=== PATIENT | female | born 1950 | race Caucasian/White ===

== ENCOUNTER → 2018-06-16 05:59 | Outpatient (CLI) | payer MEDICARE, OTHER, SELFPAY ==
--- NOTE | 2018-06-16 06:08 | ECHOD_ITS ---
Reason For Study: chest tightness Procedure This was a 2D Doppler, Color Flow transthoracic echocardiogram. Exam performed in department. Left Ventricle Normal size and thickness. The estimated ejection fraction is 65 %. Normal diastology for age. No regional wall motion abnormalities noted. Right Ventricle Mildly dilated right ventricle. Normal systolic function. Atria Normal left atrium. Normal right atrium. Normal atrial septum. Bubble contrast study negative for right to left interatrial shunt. Mitral Valve Normal mitral valve. Trivial mitral valve insufficiency. Tricuspid Valve Normal tricuspid valve. Mild to moderate (1-2+) tricuspid valve insufficiency. Right ventricular systolic pressure estimated to be 30 mmHg. Aortic Valve Normal aortic valve. Trisinus/trileaflet aortic valve. Pulmonic Valve Normal pulmonic valve. Trivial pulmonic valve insufficiency. Great Vessels Normal aortic root. Normal arch. Normal inferior vena cava. Inferior vena cava collapse with sniff. Pericardium/Pleural No pericardial effusion. Medication Performed a rapid injection of agitated mix of 9 cc saline and 1cc air to assess for atrial septal defect. MMode/2D Measurements & Calculations LVIDd: 4.1 cm IVSd: 0.89 cm LVOT diam: 2.0 cm LVIDs: 2.8 cm LVPWd: 0.88 cm LVOT area: 3.2 cm2 RVDd: 4.0 cm FS: 31.5 % Ao root diam: 3.6 cm LAV(MOD-bp): 51.3 ml LA A4 area: 17.5 cm2 LA dimension: 3.1 cm LAV(MOD-bp) Indexed: 29.3 ml/m2 LAV(MOD-sp2): 56.9 ml LAV(MOD-sp4): 45.3 ml RA A4 area: 16.5 cm2 Time Measurements MV dec time: 0.23 sec Doppler Measurements & Calculations MV E max will: 81.9 cm/sec Lat Peak E' Will: 9.3 cm/sec Med Peak E' Will: 6.0 cm/sec MV A max will: 49.2 cm/sec E/E' lat: 8.8 E/E' med: 13.6 MV E/A: 1.7 Ao V2 max: 127.8 cm/sec LV V1 max: 117.3 cm/sec SV(LVOT): 92.8 ml Ao max P.5 mmHg LV V1 max P.5 mmHg Ao V2 mean: 84.3 cm/sec LV V1 mean P.7 mmHg Ao mean P.3 mmHg LV V1 mean: 76.0 cm/sec Ao V2 VTI: 30.6 cm LV V1 VTI: 28.6 cm WILY(I,D): 3.0 cm2 WILY(V,D): 3.0 cm2 PA V2 max: 100.0 cm/sec TR max will: 251.1 cm/sec TR max P.3 mmHg Interpretation Summary The estimated ejection fraction is 65 %. Normal diastology for age. Bubble contrast study negative for right to left interatrial shunt. Mild to moderate (1-2+) tricuspid valve insufficiency. Right ventricular systolic pressure estimated to be 30 mmHg. There is no comparison study available. Ordering Physician: Rosalva Fung Referring Physician: Rosalva Fung Performed By: Krissy Cook, YASMANY, RVT
--- NOTE | 2018-06-16 09:24 | STRESSREP ---
Stress Test Report Date: 06/16/2018 Procedure: Exercise tolerance test/imaging study Indications: Chest pain; shortness of breath Consent: Per the patient Procedure: The patient exercised on a Derek protocol for 9 minutes completing Stage 3 achieving a peak heart rate of 133 bpm (86 % predicted maximal heart rate) with a peak blood pressure 180/70 mmHg and a peak MET capacity of 10 METs. The baseline ECG demonstrated sinus bradycardia. The peak exercise ECG demonstrated somatic/motion artifact with no obvious ECG changes. There was a rare PAC/atrial couplet in recovery and a rare PVC in recovery. The functional capacity was considered good. There was no complaint of chest discomfort during exercise or recovery. The examination was discontinued secondary to dyspnea. Impression: 1. Technically adequate (percent predicted maximal heart rate greater than 85%) exercise tolerance test 2. Peak exercise ECG demonstrated somatic/motion artifact with no obvious ECG changes 3. There was a rare PAC/atrial couplet in recovery and a rare PVC in recovery. 4. Nuclear images pending Myocardial perfusion imaging study: Technique: The patient was injected with 12 mCi of technetium 99m Cardiolite and subsequently rest SPECT Cardiolite nuclear imaging was obtained in the horizontal long, vertical long, and short axis views. The patient exercised on a Derek protocol for 9 minutes completing Stage 3 achieving a peak heart rate of 133 bpm (86 % predicted maximal heart rate) with a peak blood pressure 180/70 mmHg and a peak MET capacity of 10 METs. The patient was injected with 36 mCi of technetium 99m Cardiolite and subsequently stress SPECT Cardiolite nuclear imaging was obtained in the horizontal long, vertical long, and short axis views. A gated Cardiolite study at peak stress was obtained. Interpretation: Rest and stress SPECT Cardiolite nuclear imaging status post realignment, normalization, and attenuation correction, demonstrates the appearance of relative uniform tracer uptake and myocardial perfusion appearing within normal limits. There is end systolic thickening and brightening. The gated Cardiolite study demonstrates myocardial thickening and inward wall motion. The reported LVEF is 85 %. Impression: 1. Rest and stress SPECT Cardiolite nuclear imaging demonstrate relative uniform tracer uptake and myocardial perfusion appearing within normal limits. 2. The gated Cardiolite study reports an LVEF of 85 %. This note was generated with [employer] software. It may contain incorrect words, spelling, and punctuation that were not noted in checking the note before signing.
--- NOTE | 2018-06-16 09:31 | STRESSREP_ITS ---
Stress Test Report Date: 06/16/2018 Procedure: Exercise tolerance test/imaging study Indications: Chest pain; shortness of breath Consent: Per the patient Procedure: The patient exercised on a Derek protocol for 9 minutes completing Stage 3 achieving a peak heart rate of 133 bpm (86 % predicted maximal heart rate) with a peak blood pressure 180/70 mmHg and a peak MET capacity of 10 METs. The baseline ECG demonstrated sinus bradycardia. The peak exercise ECG demonstrated somatic/motion artifact with no obvious ECG changes. There was a rare PAC/atrial couplet in recovery and a rare PVC in recovery. The functional capacity was considered good. There was no complaint of chest discomfort during exercise or recovery. The examination was discontinued secondary to dyspnea. Impression: 1. Technically adequate (percent predicted maximal heart rate greater than 85% ) exercise tolerance test 2. Peak exercise ECG demonstrated somatic/motion artifact with no obvious ECG changes 3. There was a rare PAC/atrial couplet in recovery and a rare PVC in recovery. 4. Nuclear images pending Myocardial perfusion imaging study: Technique: The patient was injected with 12 mCi of technetium 99m Cardiolite and subsequently rest SPECT Cardiolite nuclear imaging was obtained in the horizontal long, vertical long, and short axis views. The patient exercised on a Derek protocol for 9 minutes completing Stage 3 achieving a peak heart rate of 133 bpm (86 % predicted maximal heart rate) with a peak blood pressure 180/ 70 mmHg and a peak MET capacity of 10 METs. The patient was injected with 36 mCi of technetium 99m Cardiolite and subsequently stress SPECT Cardiolite nuclear imaging was obtained in the horizontal long, vertical long, and short axis views. A gated Cardiolite study at peak stress was obtained. Interpretation: Rest and stress SPECT Cardiolite nuclear imaging status post realignment, normalization, and attenuation correction, demonstrates the appearance of relative uniform tracer uptake and myocardial perfusion appearing within normal limits. There is end systolic thickening and brightening. The gated Cardiolite study demonstrates myocardial thickening and inward wall motion. The reported LVEF is 85 %. Impression: 1. Rest and stress SPECT Cardiolite nuclear imaging demonstrate relative uniform tracer uptake and myocardial perfusion appearing within normal limits. 2. The gated Cardiolite study reports an LVEF of 85 %. This note was generated with [employer] software. It may contain incorrect words, spelling, and punctuation that were not noted in checking the note before signing.
== END ==
PROVIDERS: Family Provider Internal Medicine; PCP Internal Medicine; Visit Provider Internal Medicine
DX: R07.89 Other chest pain (principal); R01.1 Cardiac murmur, unspecified
CPT/HCPCS: 78452; 93017; 93306; A9500; A4216

== ENCOUNTER → 2018-07-18 14:11 | Outpatient (CLI) | payer MEDICARE, OTHER, SELFPAY ==
[2018-07-18 16:06] LABS: Erythrocyte Sedimentation Rate 8 mm/hr (0-30)
[2018-07-18 16:09] LABS: Absolute Lymphocyte Count 2.08 X10^3/ul (0.83-4.51); Absolute Neutrophil Count 3.2 X10^3/uL (2.0-7.7); Basophil# 0.01 X10^3/uL; Basophil% 0.2 % (0-1); Eosinophil# 0.08 X10^3/uL; Eosinophils% 1.4 % (0-5); Hematocrit 37.5 % (37-47); Hemoglobin 12.1 g/dl (12.0-15.0); Lymphocyte # 2.08 X10^3/ul (4.0); Lymphocyte % 36.7 % (19-41); Mean Corp Hgb Conc 32.3 g/gl (32-36); Mean Corpuscular Hgb 29.2 pg (27.0-32.0); Mean Corpuscular Volume 90.4 fL (81-99); Mean Platelet Vol. 10.8 fl (6.2-12.0); Monocyte# 0.33 X10^3/uL; Monocyte% 5.8 % (0-10); Neutrophil # 3.17 X10^3/uL (2.7-7.7); Neutrophil % 55.9 % (47-70); Platelet Count 129 K/mm3 (150-450); RBC Distribution Width CV 13.4 % (11.6-14.6); Red Blood Count 4.15 M/mm3 (4.2-5.4); White Blood Count 5.7 K/mm3 (4.4-11.0)
[2018-07-18 16:11] LABS: ALB/GLOB Ratio 1.2 RATIO (0.9-2.4); AST(SGOT) 18 U/L (15-37); Alanine Aminotransfer ALT/SGPT 21 U/L (13-56); Albumin, Serum 3.7 g/dL (3.2-5.0); Alkaline Phosphatase 68 U/L (45-117); Anion Gap 6 (5-15); BUN 17 mg/dL (7-18); BUN/Creat Ratio 25.9 RATIO (10-20); CRP < 2.90 mg/L (0.0-3.0); Chloride 104 mmol/L (98-107); Creatinine, Serum 0.66 mg/dL (0.55-1.02); EST Glomerular Filtration Rate 96 mL/min (>60); Est Glom Filt Rate - Afr Amer 116 mL/min (>60); Globulin 3.2 g/dL (2.2-4.2); Glucose 89 mg/dL (74-106); Potassium 4.1 mmol/L (3.5-5.1); Protein, Total 6.9 g/dL (6.4-8.2); Rheumatoid Factor < 10.0 IU/mL (<15); Sodium Level 140 mmol/L (136-145)
[2018-07-18 16:22] LABS: POSITIVE COUNT NO; POSITIVE DIFFERENTIAL NO; POSITIVE MORPHOLOGY NO
[2018-07-25 08:49] LABS: CCP IgG Antibodies 5 units (0-19); HEPATITIS B SURFACE AG Negative (Negative); HLA B27 Negative (.); Hep B Surface Antibodies Non Reactive (.); Hep C Antibodies <0.1 s/co ratio (0.0-0.9)
== END ==
PROVIDERS: Family Provider Internal Medicine; PCP Internal Medicine; Visit Provider Internal Medicine Rheumatology
DX: L40.59 Other psoriatic arthropathy (principal); L40.8 Other psoriasis; H93.13 Tinnitus, bilateral
CPT/HCPCS: 36415; 72170; 80053; 81374; 85025; 85652; 86140; 86200; 86431; 86706; 86803; 87340

== ENCOUNTER → 2018-08-07 10:32 | Outpatient (CLI) | payer MEDICARE, OTHER, SELFPAY ==
--- NOTE | 2018-08-07 10:34 | BI_ITS ---
MAMMOGRAPHY - BILATERAL SCREENING REASON FOR EXAM: Female, 68 years old. Routine annual screening examination. PERTINENT HISTORY: Aunt with breast cancer. TECHNIQUE: Digital bilateral breast liv (3D mammographic acquisition) in the CC and MLO projections. 2-D mediolateral oblique (MLO) and craniocaudad (CC) views of both breasts were obtained. CAD: Full Field Digital Mammography with Computer Added Detection was performed. COMPARISON: Comparison is made with prior study dated July 09, 2017. FINDINGS: Breast Composition: There are scattered areas of fibroglandular density. There are no dominant masses or suspicious calcifications. Stable benign-appearing bilateral axillary lymph nodes. No other significant abnormalities are identified. There has been no significant change since the prior study. BI/SCREENING MAMM (CAD), BILAT IMPRESSION: Stable bilateral screening mammogram. Yearly follow-up mammogram recommended. (A) ASSESSMENT CATEGORY: BIRADS Category 2: Benign. A letter regarding these results will be sent to the patient by the facility within 30 days. Approximately 10% of breast cancers are not detected by mammography. A normal mammogram should not delay biopsy of a clinically suspicious abnormality. [id number] Electronically Signed: Kodak Mccarty MD at 11:17 EDT Tel [phone], Service support ,
== END ==
PROVIDERS: Family Provider Internal Medicine; PCP Internal Medicine; Visit Provider Obstetrics & Gynecology
DX: Z12.31 Encounter for screening mammogram for malignant neoplasm of breast (principal)
CPT/HCPCS: 77063; 77067

== ENCOUNTER → 2018-09-12 14:45 | Outpatient (CLI) | payer MEDICARE, OTHER, SELFPAY ==
[2018-09-12 16:15] LABS: Absolute Lymphocyte Count 1.68 X10^3/ul (0.83-4.51); Absolute Neutrophil Count 4.4 X10^3/uL (2.0-7.7); Basophil# 0.01 X10^3/uL; Basophil% 0.2 % (0-1); Eosinophil# 0.04 X10^3/uL; Eosinophils% 0.6 % (0-5); Hematocrit 40.6 % (37-47); Hemoglobin 13.2 g/dl (12.0-15.0); Lymphocyte # 1.68 X10^3/ul (4.0); Lymphocyte % 25.5 % (19-41); Mean Corp Hgb Conc 32.5 g/gl (32-36); Mean Corpuscular Hgb 29.5 pg (27.0-32.0); Mean Corpuscular Volume 90.6 fL (81-99); Mean Platelet Vol. 10.7 fl (6.2-12.0); Monocyte# 0.45 X10^3/uL; Monocyte% 6.8 % (0-10); Neutrophil % 66.9 % (47-70); Platelet Count 167 K/mm3 (150-450); RBC Distribution Width CV 14.2 % (11.6-14.6); RBC Distribution Width SD 46.2 fl (35.1-43.9); Red Blood Count 4.48 M/mm3 (4.2-5.4); White Blood Count 6.6 K/mm3 (4.4-11.0)
[2018-09-12 16:17] LABS: POSITIVE COUNT NO; POSITIVE DIFFERENTIAL NO; POSITIVE MORPHOLOGY NO
[2018-09-12 16:28] LABS: ALB/GLOB Ratio 1.1 RATIO (0.9-2.4); AST(SGOT) 13 U/L (15-37); Alanine Aminotransfer ALT/SGPT 23 U/L (13-56); Albumin, Serum 3.5 g/dL (3.2-5.0); Alkaline Phosphatase 70 U/L (45-117); Anion Gap 8 (5-15); BUN 19 mg/dL (7-18); BUN/Creat Ratio 20.6 RATIO (10-20); Calcium,Total 8.8 mg/dL (8.5-10.1); Chloride 103 mmol/L (98-107); Creatinine, Serum 0.92 mg/dL (0.55-1.02); EST Glomerular Filtration Rate 65 mL/min (>60); Est Glom Filt Rate - Afr Amer 78 mL/min (>60); Globulin 3.2 g/dL (2.2-4.2); Glucose 108 mg/dL (74-106); Potassium 4.2 mmol/L (3.5-5.1); Protein, Total 6.7 g/dL (6.4-8.2); Sodium Level 139 mmol/L (136-145)
[2018-09-16 13:42] LABS: Hemoglobin A1c 6.1 % (4.2-6.3)
== END ==
PROVIDERS: Family Provider Internal Medicine; PCP Internal Medicine; Referring Provider Internal Medicine; Visit Provider Internal Medicine
DX: L40.59 Other psoriatic arthropathy (principal); Z79.899 Other long term (current) drug therapy; L40.8 Other psoriasis; H93.13 Tinnitus, bilateral; G30.9 Alzheimer's disease, unspecified; R73.9 Hyperglycemia, unspecified
CPT/HCPCS: 36415; 80053; 83036; 85025

== ENCOUNTER 2018-10-08 12:55 | Outpatient (RCR) | payer MEDICARE, OTHER, SELFPAY ==
--- OUTSIDE RECORDS SUMMARY | 2018-12-03 22:07 | XMS RPT_ITS | Continuity of Care Document ---
:1950 Author Organization [facility] Address [facility] [address] [place] [address] Phone Care Team Providers Name Role Phone Rosalva Fung DO Unavailable SURYA Squires Unavailable Unavailable Gravius, Sophia Unavailable Unavailable Unavailable Unavailable Problems Name Dates Details Abdominal pain, acute, generalized (R10.84, 789.07) Status: Active Abortions/Miscarriages Comments: 1 Status: Active Blood glucose elevated (R73.9, 790.29) Status: Active BMI 25.0-25.9,adult (Z68.25, V85.21) Status: Active BMI between 19-24,adult (V85.1) Status: Active Body mass index (BMI) 24.0-24.9, adult (Z68.24, V85.1) Status: Active Chest pain, unspecified type (R07.9, 786.50) Comments: normal stress test and echo unremarkablehas not recurred Status: Active Colonoscopy Comments: 2006, due 10/19 Status: Active Deliveries (Parity) Comments: 5 Status: Active Diabetes mellitus type II, controlled (E11.9, 250.00) Status: Active Dilation And Curettage Of Uterus Status: Active Encounter for annual general medical examination with abnormal findings in adult (Z00.01, V70.0) Status: Active Encounter for screening for malignant neoplasm of colon (Renamed from Special screening for malignant neoplasms, colon) (Z12.11, V76.51) Comments: due 2019 - scope Status: Active Encounter for screening mammogram for breast cancer (Renamed from Encounter for screening mammogram for malignant neoplasm of breast) (Z12.31, V76.12) Comments: dr kevan mariee orders Status: Active Family history of diabetes mellitus (Z83.3, V18.0) Status: Active Fatigue, unspecified type (R53.83, 780.79) Status: Active Fracture Of Wrist Status: Active Hair loss (L65.9, 704.00) Status: Active Heart murmur (R01.1, 785.2) Status: Active Non-smoker (Z78.9, V49.89) Status: Active Other general medical examination for administrative purposes (Z02.89, V70.3) Status: Active Postmenopausal (Renamed from Postmenopausal status) (Z78.0, V49.81) Comments: dr kevan mariee orders Status: Active Pregnancies () Comments: 6 Status: Active Psoriatic arthritis (L40.50, 696.0) Comments: dr Holt dx- referred Status: Active SOLAR LENTIGO (709.09) Status: Active Tricuspid valve insufficiency, unspecified etiology (I07.1, 397.0) Status: Active Tubal Ligation Status: Active Unspecified Diagnosis Status: Active Vaginal Delivery Comments: [id number] Status: Active Medications Name Dates Details Allergy shots Active Flonase 50 MCG/ACT Nasal Suspension 1 spray [place] qd/prn for 0 days Quantity: 1 {[place]} Refills: 0 Ordered:28-May-2018 Staci uFng DO, DO, Kathleen Start : 28-May-2018 Active Hydrocholoride 0.15% one spray bid Active IBUPROFEN, 600MG (Oral Tablet) 1 Tablet tid prn with food for 0 days Quantity: 60 {Tablet} Refills: 1 Ordered:25-Jan-2011 Mast Shawanda WARE Start : 25-Jan-2011 Active montelukast 10 mg Active MULTIVITAMIN (Oral Liquid) for 0 days Refills: 0 Ordered:13-Jun-2018 Jackelnie Squires Palgic 4 MG Oral Tablet 1 prn bid for 0 days Refills: 0 Ordered:28-May-2018 Staci Fung DO, DO, Kathleen Start : 28-May-2018 Active ALEVE, 220MG (Oral Tablet) 2 (two) Tablet bid for 10 days Refills: 0 Ordered:20-Jul-2010 Staci Fung DO, DO, Kathleen Start : 05-Jul-2010 End : 15-Jul-2010 Inactive Align 4 MG Oral Capsule 1 (one) Capsule Capsule daily for 0 days Quantity: 30 {Capsule} Refills: 0 Ordered:14-Feb-2017 Jackeline Squires LPN Start : 23-Aug-2015 End : 14-Feb-2017 Inactive Patricia Allergy 180 MG Oral Tablet 2 (two) Tablet Tablet qd for 30 days Quantity: 60 {Tablet} Refills: 0 Ordered:27-Jun-2018 Jackeline Squires LPN Start : 28-May-2018 End : 27-Jun-2018 Inactive Astepro 0.15 % Nasal Solution 1 (one) Solution Solution uad prn for 0 days Quantity: 1 {Each} Refills: 3 Ordered:27-Nov-2017 Reyna Amin LPN Start : 19-Aug-2015 End : 27-Nov-2017 Inactive Comments:Dr Zuleta in [place] CIPRO, 500MG (Oral Tablet) 1 (one) Tablet Tablet bid for 7 days Quantity: 14 {Tablet} Refills: 0 Ordered:23-Aug-2015 Jackeline Squires LPN Start : 23-Aug-2015 End : 30-Aug-2015 Inactive Cyclobenzaprine HCl 5 MG Oral Tablet 1 (one) Tablet q8 hrs only if needed for muscle relaxation for 0 days Quantity: 30 {Tablet} Refills: 0 Ordered:28-May-2018 Jackeline Squires LPN Start : 27-Nov-2017 End : 28-May-2018 Inactive CALCIUM + D, 126-470BX-BJDW (Oral Tablet) for 0 days Refills: 0 Ordered:27-Nov-2017 Reyna Amin LPN End : 27-Nov-2017 Discontinued Comments:This order discontinued per [facility]. LODRANE 24, 12MG (Oral Capsule Extended Release 24 Hour) 2 qhs / HS for 0 days Refills: 0 Ordered:27-Nov-2017 Reyna Amin LPN End : 27-Nov-2017 Discontinued Comments:This order discontinued per [facility]. Allergies and Adverse Reactions Name Dates Details Codeine/Codeine Derivatives (Allergy) Status: Active Comments: Headache Otezla *ANALGESICS - ANTI-INFLAMMATORY* (Allergy) Status: Active Seasonal (Allergy) Status: Active Past Medical History Name Dates Details Allergic rhinitis (J30.9, 477.9) Status: Inactive as of 13-Jun-2018 Chest tightness or pressure (R07.89, 786.59) Status: Inactive as of 13-Jun-2018 Costochondritis, acute (M94.0, 733.6) Comments: costochonditis tenderness reproducible Status: Inactive as of 13-Jun-2018 Elevated bilirubin (R17, 277.4) Status: Inactive as of 13-Jun-2018 Knee pain (M25.569, 719.46) Status: Inactive as of 27-Nov-2017 Low back pain (M54.5, 724.2) Status: Inactive as of 13-Jun-2018 Other seborrheic keratosis (L82.1, 702.19) Status: Inactive as of 13-Jun-2018 Pain in limb (M79.609, 729.5) Comments: calf pain -R Status: Inactive as of 13-Jun-2018 Pelvic pain in female (R10.2, 625.9) Comments: work up in progress, to get plevic US on Saturday, will treat as if UTI for now Status: Inactive as of 13-Jun-2018 Rash (R21, 782.1) Status: Resolved as of 22-May-2018 Right shoulder pain (M25.511, 719.41) Comments: from muscle strainm rt shoulder blade, will add torodol IM, and ok for ibuprofen and or tylenol, add muscle relaxant as needed Status: Inactive as of 13-Jun-2018 Screening for hyperlipidemia (Z13.220, V77.91) Status: Resolved as of 22-May-2018 Urinary frequency (R35.0, 788.41) Status: Inactive as of 29-Aug-2015 UTI symptoms (R39.9, 788.99) Comments: reviewed last culutre has MUG with <50,000 but since symptomatic will treat Status: Inactive as of 29-Aug-2015 Procedures Date Value Details 07-Aug-2018 SCREENING MAMM (CAD), BILAT Result: Comments: See Note; NOTES: [facility] Imaging Services [address] [place] [address] SCREENING MAMM (CAD), BILAT MR#: [id number] Acct: [id number] Name: BONNIE MCARTHUR Rep #: [id number] : 1950 F 68 From: Kodak Peralta MD PCP: Rosalva Fung DO Status: REG CLI Study: SCREENING MAMM (CAD), BILAT Date of Exam: 08/07/18 Exam# [id number] Ordering Dr: Torres Major MD MAMMOGRAPHY - BILATERAL SCREENING REASON FOR EXAM: Female, 68 years old. Routine annual screening examination. PERTINENT HISTORY: Aunt with breast cancer. TECHNIQUE: Digital bilateral breast liv (3D mammographic acquisition) in the CC and MLO projections. 2-D mediolateral oblique (MLO) and craniocaudad (CC) views of both breasts were obtained. CAD: Full Field Digital Mammography with Comp uter Added Detection was performed. COMPARISON: Comparison is made with prior study dated July 09, 2017. FINDINGS: Breast Composition: There are scattered areas o f fibroglandular density. There are no dominant masses or suspicious calcifications. Stable benign-appearing bilateral axillary lymph nodes. No other significant abnormalities are identified. There kimball s been no significant change since the prior study. BI/SCREENING MAMM (CAD), BILAT IMPRESSION: Stable bilateral screening mammogram. Yearly follo w-up mammogram recommended. (A) ASSESSMENT CATEGORY: BIRADS Category 2: Benign. A letter regarding these results will be sent to the patient by the facility within 30 days. Approximately 10% of breast cancers are not detected by mammography. A normal mammogram should not delay biopsy of a clinically suspicious abnormality. [id number] Electronically Signed: Kodak Peralta MD at 11:17 EDT Tel [phone], Service support , CC: Rosalva Fung DO; Becky Major MD Leakage Tester: Signed 18-Jul-2018 Pelvis 1 or 2 Views Result: Comments: See Note; NOTES: [facility] Imaging Services [address] [place] [address] Pelvis 1 or 2 Views MR#: [id number] Acct: [id number] Name: BONNIE MCARTHUR Rep #: [id number] : 1950 F 68 From: Odilon Medel MD PCP: Rosalva Fung DO Status: REG CLI Study: Pelvis 1 or 2 Views Date of Exam: 07/18/18 Exam# [id number] Ordering Dr: Ashley Newby MD STUDY: X-RAY - PELVIS REASON FOR EXAM: Female, 68 years old. Bilateral hip pain. TECHNIQUE: One view of the pelvis was obtained. COMPARISON: None. FINDINGS: There is moderate fe aminata retention. There are faint pelvic calcifications. Normal bilateral iliac wings, sacroiliac joints and visualized sacrum. Normal visualized bilateral superior and inferior pubic rami. Normal pubic s ymphysis. Normal ischial tuberosities. Normal visualized right femoral head. Normal right acetabulum. Normal right hip joint. Normal visualized left femoral head. Normal left acetabulum. Normal left h ip joint. RAD/Pelvis 1 or 2 Views IMPRESSION: Unremarkable hip joints. Electronically Signed: Odilon Medel MD at 14:24 EDT Tel , Service support , CC: Rosalva Fung DO; Ashley Newby MD Leakage Tester: Signed 16-Jun-2018 Echocardiogram Complete Result: Comments: See Note; NOTES: [facility] Cardiovascular Services [address] [place] [address] Echo Complete 06/16/18 0657 MR#: [id number] Acct: [id number] Name: BONNIE MCARTHUR Rep #: [id number] : 1950 68 From: Bill Rodrigues MD Attending Dr: Rosalva Fung DO Status: REG CLI Ordering Dr: Rosalva Fung DO Date: 06/16/18 Location: [facility] Sex: F C Admitted: Reason F or Study: chest tightness Procedure This was a 2D Doppler, Color Flow transthoracic echocardiogram. Exam performed in department. Left Ventricle Normal size and thickness. The estimated ejection fract ion is 65 %. Normal diastology for age. No regional wall motion abnormalities noted. Right Ventricle Mildly dilated right ventricle. Normal systolic function. Atria Normal left atrium. Normal right at rium. Normal atrial septum. Bubble contrast study negative for right to left interatrial shunt. Mitral Valve Normal mitral valve. Trivial mitral valve insufficiency. Tricuspid Valve Normal tricuspid v alve. Mild to moderate (1-2+) tricuspid valve insufficiency. Right ventricular systolic pressure estimated to be 30 mmHg. Aortic Valve Normal aortic valve. Trisinus/trileaflet aortic valve. Pulmonic V alve Normal pulmonic valve. Trivial pulmonic valve insufficiency. Great Vessels Normal aortic root. Normal arch. Normal inferior vena cava. Inferior vena cava collapse with sniff. Pericardium/Pleural N o pericardial effusion. Medication Performed a rapid injection of agitated mix of 9 cc saline and 1cc air to assess for atrial septal defect. MMode/2D Measurements AND Calculations LVIDd: 4.1 cm IVSd: 0.89 cm LVOT diam: 2.0 cm LVIDs: 2.8 cm LVPWd: 0.88 cm LVOT area: 3.2 cm2 RVDd: 4.0 cm FS: 31.5 % Ao root diam: 3.6 cm LAV(MOD-bp): 51.3 ml LA A4 area: 17.5 cm2 LA dimension: 3.1 cm LAV(MOD-bp) Indexed: 29.3 ml/m2 LAV(MOD-sp2): 56.9 ml LAV(MOD-sp4): 45.3 ml RA A4 area: 16.5 cm2 Time Measurements MV dec time: 0.23 sec Doppler Measurements AND Calculations MV E max will: 81.9 cm/sec Lat Peak E' Will: 9.3 cm/sec Med Peak E' Will: 6.0 cm/sec MV A max will: 49.2 cm/sec E/E' lat: 8.8 E/E' med: 13.6 MV E/A: 1.7 Ao V2 max: 127.8 cm/sec LV V1 max: 117.3 cm/sec SV(LV OT): 92.8 ml Ao max P.5 mmHg LV V1 max P.5 mmHg Ao V2 mean: 84.3 cm/sec LV V1 mean P.7 mmHg Ao mean P.3 mmHg LV V1 mean: 76.0 cm/sec Ao V2 VTI: 30.6 cm LV V1 VTI: 28.6 cm WILY(I,D): 3.0 c m2 WILY(V,D): 3.0 cm2 PA V2 max: 100.0 cm/sec TR max will: 251.1 cm/sec TR max P.3 mmHg Interpretation Summary The e stimated ejection fraction is 65 %. Normal diastology for age. Bubble contrast study negative for right to left interatrial shunt. Mild to moderate (1-2+) tricuspid valve insufficiency. Right ventricula r systolic pressure estimated to be 30 mmHg. There is no comparison study available. Ordering Phys ician: Rosalva Fung Referring Physician: Rosalva Fung Performed By: Krissy Cook, YASMANY, RVT 06/16/181648 Date _ Bill Rodrigues MD CC: Rosalva Fung DO Date Dictated: 06/16/18 0657 Date Transcribed: 06/16/181648 Leakage Tester: Signed 16-Jun-2018 Stress Report Result: Comments: See Note; NOTES: [facility] Cardiovascular Services [address] [place] [address] MR#: [id number] Acct: [id number] Name: BONNIE MCARTHUR Rep #: [id number] : [birth year] 68 From: Ayan Gomez MD Primary Care: Rosalva Fung DO Status: REG CLI Ordering Dr: Sex: F C Stress Test Report Date: 06/16/2018 Procedure: Exercise tolerance test/imaging study Indicat ions: Chest pain; shortness of breath Consent: Per the patient Procedure: The patient exercised on a Derek protocol for 9 minutes completing Stage 3 achieving a peak heart rate of 133 bpm (86 % predi cted maximal heart rate) with a peak blood pressure 180/70 mmHg and a peak MET capacity of 10 METs. The baseline ECG demonstrated sinus bradycardia. The peak exercise ECG demonstrated somatic/motion ar tifact with no obvious ECG changes. There was a rare PAC/atrial couplet in recovery and a rare PVC in recovery. The functional capacity was considered good. There was no complaint of chest discomfort during exercise or recovery. The examination was discontinued secondary to dyspnea. Impression: 1. Technically adequate (percent predicted maximal heart rate greater than 85%) exercise tolerance santos t 2. Peak exercise ECG demonstrated somatic/motion artifact with no obvious ECG changes 3. There was a rare PAC/atrial couplet in recovery and a rare PVC in recovery. 4. Nuclear images pending Myocardi al perfusion imaging study: Technique: The patient was injected with 12 mCi of technetium 99m Cardiolite and subsequently rest SPECT Cardiolite nuclear imaging was obtained in the horizontal long, sandy tical long, and short axis views. The patient exercised on a Derek protocol for 9 minutes completing Stage 3 achieving a peak heart rate of 133 bpm (86 % predicted maximal heart rate) with a peak blood pressure 180/70 mmHg and a peak MET capacity of 10 METs. The patient was injected with 36 mCi of technetium 99m Cardiolite and subsequently stress SPECT Cardiolite nuclear imaging was obtained in the ho rizontal long, vertical long, and short axis views. A gated Cardiolite study at peak stress was obtained. Interpretation: Rest and stress SPECT Cardiolite nuclear imaging status post realignment, norm alization, and attenuation correction, demonstrates the appearance of relative uniform tracer uptake and myocardial perfusion appearing within normal limits. There is end systolic thickening and brighte monserrat. The gated Cardiolite study demonstrates myocardial thickening and inward wall motion. The reported LVEF is 85 %. Impression: 1. Rest and stress SPECT Cardiolite nuclear imaging demonstrate relat wolf uniform tracer uptake and myocardial perfusion appearing within normal limits. 2. The gated Cardiolite study reports an LVEF of 85 %. This note was generated with coCommentation software. It may contain incorrect words, spelling, and punctuation that were not noted in checking the note before signing. 06/16/18 0931 <Electronically signed by Ayan Gomez MD> Date Ayan Gomez MD CC: Rosalva Fung DO Date Dictated: 06/16/18923 Date Transcribed: 06/16/18923 Leakage Tester: PM Signed 29-May-2018 Rehab Director Occupational Therapist Office Visit Report Result: Comments: See Note; NOTES: [facility] [address] [place] [address] OFFICE VISIT Date of Service: 05/29/18 MR#: [id number] Acct: [id number] Name: ONIEL MCARTHUR Rep #: [id number] : 1950 Provider: LOUIE Rudd Age/Sex: 68/F [place] [facility] Status[place] Signed Intake Vital Signs05/29/18 Height 5 ft 6 in 05/29/18 Weight: 150 lb 6 oz 05/29/18 Body Mass Index (BMI) 24.3 05/29/18 Blood Pressure 113/69 Intake Visit Reasons: RASH IN PUBIC AREA Rn Radiation Required: No Is patient in pain?: No Allergies apremilast [From Otezla] Allergy (Mild, Verifi ed 05/29/18 14:21) Other codeine Allergy (Mild, Verified 05/29/18 14:21) Other Medications carbinoxamine 4 mg tablet 4 mg PO ONCE PRN 05/07/18 [History Confirmed 05/29/18] clobetasol 0.05 % scalp jere ution 1 applic TOPICAL BID 05/07/18 [History Confirmed 05/29/18] fluticasone 50 mcg/actuation nasal spray,suspension 1 spray INTRANASAL QDAY 05/07/18 [History Confirmed 05/29/18] montelukast 10 mg table t 10 mg PO QPM 05/07/18 [History Confirmed 05/29/18] multivitamin,qa-ljct-dipcmkih tablet 1 tab PO QDAY 05/07/18 [History Confirmed 05/29/18] triamcinolone acetonide 0.1 % topical cream 1 applic TOPICAL QDAY 05/07/18 [History Confirmed 05/29/18] azelastine 0.15 % (205.5 mcg) nasal spray 1 spray INTRANASAL BID 05/29/18 [History Confirmed 05/29/18] Is last menstrual period known: No Post menopausal: N o Patient : No : No PFSH Medical History Psoriatic arthritis (Chronic) Seasonal allergies (Acute) Surgical History (Reviewed 05/11 07/29 @ 14:25 by Angelica Christian) H/O tubal ligation (Acute) Family History Mother Hypertension Social History Smoking Status: Never smoker alcohol intake: never substance use type: does not use caffeine: Yes what type of physical activity do you participate in: none seatbelt use: always do you feel safe at home: Yes additional social history : [employer] Patient is retired HPI RASH IN PUBIC AREA: Details: BONNIE MCARTHUR is a 68 year old who presents for rash with itching in pubic hair off and on several months. Has had psoriasis in past. Was told by Dr. Major to come in when occuring to evaluated. States noted rash 2 days ago. No medication used. Pregancy History 6 Elective abortions Hx Para 5 Spontaneous aborti ons Past Pregnancies Del. DateName GA/Weeks Outcome Route Bth WeighInfant GeLabor LgtAnesthesiDel LocatProvider FOB t n h a n Exam External Female Exam: other (mons with raised erythematous, pin point rash. No plaques noted) Assessment AND Plan Problems 1. Contact dermatitis, unspecified contact dermatitis type, unspecified trigger L25.9 Plan Reviewed [employer] skin care Will use the triamcinolon e that she already has-small amount bid X 1 week Call if worsens or persists. Coding Level of Care Code Off vis,est,level 3 Diagnoses Contact dermatitis, unspecified contact dermatitis type, unspecif ied trigger L25.9 Contact dermatitis type: unspecified Contact dermatitis trigger: unspecified trigger 05/29/18 1500 <Electronically signed by Donna TEJADA> Date __ Donna Rudd NP-C Cosigner Signature: Date (if applicable) CC: 07-May-2018 Rehab Director Occupational Therapist Office Visit Report Result: Comments: See Note; NOTES: [facility] [address] [place] [address] OFFICE VISIT Date of Service: 05/07/18 MR#: [id number] Acct: [id number] Name: ONIEL MCARTHUR Rep #: [id number] : 1950 Provider: Becky Major MD Age/Sex: 68/F [place] [facility] [place]: Signed Intake Vital Signs05/07/18 Height 5 ft 6 in 05/07/18 Weight: 147 lb 8 oz 05/07/18 B jessica Mass Index (BMI) 23.8 05/07/18 Blood Pressure 133/76 Intake Visit Reasons: RASH IN GROIN AREA Chief Complaint: Rash, going on since November on and off Rn Radiation Required: No Is patient in pain?: No Allergies apremilast [From Otezla] Allergy (Mild, Verified 05/07/18 11:19) Other codeine Allergy (Mild, Verified 05/07/18 11:19) Other Medications azelastine 0.05 % eye drops 1 drp OPHTHALMIC BI D 05/07/18 [History Confirmed 05/07/18] carbinoxamine 4 mg tablet 4 mg PO ONCE PRN 05/07/18 [History Confirmed 05/07/18] clobetasol 0.05 % scalp solution 1 applic TOPICAL BID 05/07/18 [History Confirmed 05/07/18] fluticasone 50 mcg/actuation nasal spray,suspension 1 spray INTRANASAL QDAY 05/07/18 [History Confirmed 05/07/18] montelukast 10 mg tablet 10 mg PO QPM 05/07/18 [History Confirmed 05/07/18] m ultivitamin,rt-rhzd-auehypvu tablet 1 tab PO QDAY 05/07/18 [History Confirmed 05/07/18] triamcinolone acetonide 0.1 % topical cream 1 applic TOPICAL QDAY 05/07/18 [History Confirmed 05/07/18] triamcinol one acetonide 40 mg/mL suspension for injection 20 mg IM QDAY 05/07/18 [History Confirmed 05/07/18] Is last menstrual period known: No Post menopausal: Yes Patient : No : No PFSH Medical History Seasonal allergies (Acute) Surgical History H/O tubal ligation (Acute) Family History Mother Hypertension Social History Smoking Status: Never smoker alcohol intake: never sub stance use type: does not use caffeine: Yes what type of physical activity do you participate in: none seatbelt use: always do you feel safe at home: Yes additional social history: [employer]- [employer] Patient is retired HPI RASH IN GROIN AREA: Details: BONNIE MCARTHUR is a 68 year old who presents for a chronic rash since november starting head to toe- has psoriasis. She goes to [employer]. s he has rash that comes and goes, she has it on other areas. she has a reaction to otezla she had hives. she has significant allergies. she is working with her jewelry engraver regarding this. she has tried tri amcinolone and it helped somewhat. Female Reproductive History Questions: Sexually active: No (due to symotoms) Pregancy History 6 Elective abortions Hx Para 5 Spontaneous abortions Past Pr egnancies Del. DateName GA/Weeks Outcome Route Bth WeighInfant GeLabor LgtAnesthesiDel LocatProvider FOB t n h a n ROS Const Constitutional: Reports system reviewed and no additional complaints, exce pt as docu Skin Skin/Breast: Reports as per HPI Exam Const General: cooperative, healthy appearing, comfortable, no acute distress, well developed Nutritional Appearance: average body habitus Orientat ion: alert HENMT Head: normal to inspection, normocephalic Neck Neck: normal visual inspection, trachea midline Thyroid: thyroid normal Resp Effort AND Inspection: normal respiratory effort GI Inspectio n: normal to inspection, non-distended Palpation: soft, no hepatosplenomegaly General: bladder normal to palpation External Female Exam: normal external appearance, normal appearance of the urethra U rethra: normal appearance of the urethra, normal palpation, no discharge Speculum Exam - Vagina: normal appearance of the vagina, normal vaginal discharge Speculum Exam - Cervix: normal appearance of th e cervix, nontender Bimanual Exam- Vagina AND Uterus: bladder normal to palpation, No cervical tenderness, normal bimanual exam, uterine size normal, uterine shape normal, uterine mobility normal, uteri ne consistency normal, normal cervical palpation, uterus non-tender Bimanual Exam- Adnexa, other: normal adnexae, adnexae mobile, no adnexal masses, pelvic support normal Pelvic Support: normal Skin Gen eral: no rashes or lesions noted Assessment AND Plan Problems 1. Vulvar dermatitis N76.89 2. Dyspareunia Plan reviewed vulvar hygiene, possible irritants, minimal irritation seen, noted atropy also d iscussed vaginal estrogen if desired Coding Level of Care Code Off vis,est,level 3 Diagnoses Vulvar dermatitis N76.89 Dyspareunia 05/07/18 1149 <Electronically signed by Becky Major MD> Date Becky Major MD Cosigner Signature: Date (if applicable) CC: 09-Jul-2017 SCREENING MAMM (CAD), BILAT Result: Comments: See Note; NOTES: [facility] Imaging Services [address] [place] [address] SCREENING MAMM (CAD), BILAT MR#: [id number] Acct: [id number] Name: BONNIE MCARTHUR Rep # : [id number] : 1950 F 67 From: Kodak Peralta MD PCP: Rosalva Fung DO Status: [facility] Study: SCREENING MAMM (CAD), BILAT Date of Exam: 07/09/17 Exam# [id number] Ordering Dr: Becky Major MD MAMMOGRAPHY - BILATERAL SCREENING REASON FOR EXAM: Female, 67 years old. Routine annual screening examination. PERTINENT HISTORY: Aunt with breast cancer. TECHNIQUE: Digital bilateral oniel ast liv (3D mammographic acquisition) in the CC and MLO projections. 2-D mediolateral oblique (MLO) and craniocaudad (CC) views of both breasts were obtained. CAD: Full Field Digital Mammography with C omputer Added Detection was performed. COMPARISON: Comparison is made with prior outside examination dated May 28, 2016. FINDINGS: Breast Composition: There are sc attered areas of fibroglandular density. There are no dominant masses or suspicious calcifications. No other significant abnormalities are identified. There has been no significant change since the pr ior study. HPBI/SCREENING MAMM (CAD), BILAT IMPRESSION: Stable bilateral screening mammogram. Yearly follow-up mammogram recommended. (A) ASSESSMENT CATEGORY: BIRADS Category 1: Negative. A letter regarding these results will be sent to the patient by the facility within 30 days. Approximately 10% of breast cancers are not detected by mammography. A normal mammogram should not delay biopsy of a clinically suspicious abnormality. [id number] Electronically Signed: Kodak Peralta MD at 11:07 ED T Tel [phone], Service support , CC: Rosalva Fung DO; Becky Major MD Leakage Tester: Signed 26-Aug-2015 Transvaginal Non- Result: Comments: See Note; NOTES: [facility] Imaging Services [address] [place] [address] Verdana 4d Transvaginal Non- MR#: [id number] Acct: [id number] Name: BONNIE HELMS Rep #: [id number] : 1950 F 65 From: Kiet Valencia DO PCP: Rosalva Fung DO Status: REG CLI Study: Transvaginal Non- Date of Exam: 08/26/15 Exam# [id number] Ordering Dr: Rosalva Fung DO STUDY: ULTRASOUND OF THE FEMALE PELVIS - COMPLETE REASON FOR EXAM: Female, 65 years old. Pelvic pain. LMP: Postmenopausal. TECHNIQUE: Transabdominal and Transvaginal T ECHNICAL QUALITY: Adequate. COMPARISON: The report of a CT the abdomen and pelvis dated September 30, 2009, which is not available for direct comparison. FINDING S: The uterus is retroverted and is in a midline position. The uterus measures 1.7 x 4.1 x 3.6 cm. Normal uterine cervix. The endometrium measures 1.8 mm in thickness, and is hyperechoic. There is no demonstrated endometrial mass. There is no demonstrated myometrial mass. I.U.D. - The patient does not have an I.U.D. there is prominent uterine vasculature which were described on prior CT of the p heather dated September 30, 2009 which is not available for direct comparison. The right ovary is visualized. There is no visualized right adnexal mass or complex lesion. The left ovary is visualized on the transvaginal ultrasound only. The left ovary measures 2.4 x 1.2 x 1.0 cm. There is no left ovarian cyst or ovarian mass. There is no visualized left adnexal mass or complex lesion. There is n ormal arterial and normal venous vascularity. There is trace fluid in the posterior cul-de-sac. The urinary bladder is grossly unremarkable IMPRESSION: 1. No rmal uterus and left ovary. The right ovary is not seen. 2. Prominent vessels in the uterus and broad ligaments suggesting pelvic congestion. This was previously reported on a CT of the abdomen and pe lvis dated September 30, 2009 Electronically Signed: Kiet Valencia DO at 10:31 EDT Tel [phone], Service support [phone], CC: Rosalva Fung DO Leakage Tester: Signed 26-Aug-2015 Pelvic (Non ) Result: Comments: See Note; NOTES: [facility] Imaging Services [address] [place] [address] Verdana 4d Pelvic (Non ) MR#: [id number] Acct: [id number] Name: BONNIE BELLAMY Rep #: [id number] : 1950 F 65 From: Kiet Valencia DO PCP: Rosalva Fung DO Status: REG CLI Study: Pelvic (Non ) Date of Exam: 08/26/15 Exam# [id number] Ordering Dr: Rosalva Kessler DO STUDY: ULTRASOUND OF THE FEMALE PELVIS - COMPLETE REASON FOR EXAM: Female, 65 years old. Pelvic pain. LMP: Postmenopausal. TECHNIQUE: Transabdominal and Transvaginal TECHNICAL QUALITY: Adequate. COMPARISON: The report of a CT the abdomen and pelvis dated September 30, 2009, which is not available for direct comparison. FINDINGS: The uterus is retroverted and is in a midline position. The uterus measures 1.7 x 4.1 x 3.6 cm. Normal uterine cervix. The endometrium measures 1.8 mm in thickness, and is hyperechoic. There is no demonst rated endometrial mass. There is no demonstrated myometrial mass. I.U.D. - The patient does not have an I.U.D. there is prominent uterine vasculature which were described on prior CT of the pelvis da mikhail September 30, 2009 which is not available for direct comparison. The right ovary is visualized. There is no visualized right adnexal mass or complex lesion. The left ovary is visualized on the transvaginal ultrasound only. The left ovary measures 2.4 x 1.2 x 1.0 cm. There is no left ovarian cyst or ovarian mass. There is no visualized left adnexal mass or complex lesion. There is normal ar terial and normal venous vascularity. There is trace fluid in the posterior cul-de-sac. The urinary bladder is grossly unremarkable IMPRESSION: 1. Normal squaxin lucina and left ovary. The right ovary is not seen. 2. Prominent vessels in the uterus and broad ligaments suggesting pelvic congestion. 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 No Drug Use Status: Active Non Drinker/No Alcohol Use Status: Active Non Smoker/No Tobacco Use Status: Active Number of Adult (age 18 or over) Dependents Comments: 1 Status: Active Pets/Animals Comments: Dog Status: Active Vital Signs Date Test Result Details :40 Temperature 97.2 f Comments: Method: Temporal Pulse 64 /min Comments: Pattern: Regular Respiration Rate 18 /min Comments: Pattern: Unlabored O2 SAT 95 % Comments: Room air BP Systolic 120 mm[Hg] Comments: Patient Position: Sitting; Cuff Location: Left Arm; Cuff Size: Standard BP Diastolic 80 mm[Hg] Comments: Patient Position: Sitting; Cuff Location: Left Arm; Cuff Size: Standard Weight 148 lb Height 65.5 in Body Mass Index Calculated 24.25 kg/m2 Body Surface Area Calculated 1.75 m2 4-Vhe-180002:29 Comments: hearing wnllast eye 06/26 and had a glauocoma test done Temperature 97.6 f Comments: Method: Temporal Pulse 63 /min Comments: Pattern: Regular Respiration Rate 16 /min Comments: Pattern: Unlabored O2 SAT 98 % Comments: Room air BP Systolic 104 mm[Hg] Comments: Patient Position: Sitting; Cuff Location: Left Arm; Cuff Size: Large BP Diastolic 74 mm[Hg] Comments: Patient Position: Sitting; Cuff Location: Left Arm; Cuff Size: Large Weight 148 lb Height 65.5 in Body Mass Index Calculated 24.25 kg/m2 Body Surface Area Calculated 1.75 m2 28-Jqi-293459:52 Pulse 68 /min Comments: Pattern: Regular Respiration Rate 18 /min Comments: Pattern: Unlabored O2 SAT 98 % Comments: Room air BP Systolic 122 mm[Hg] Comments: Patient Position: Standing; Cuff Location: Left Arm; Cuff Size: Standard BP Diastolic 62 mm[Hg] Comments: Patient Position: Standing; Cuff Location: Left Arm; Cuff Size: Standard Weight 148.25 lb Height 65.5 in Body Mass Index Calculated 24.29 kg/m2 Body Surface Area Calculated 1.75 m2 :05 Temperature 97.3 f Pulse 90 /min Comments: Pattern: Regular Respiration Rate 15 /min Comments: Pattern: Unlabored O2 SAT 98 % Comments: Room air BP Systolic 128 mm[Hg] Comments: Patient Position: Sitting; Cuff Location: Left Arm; Cuff Size: Standard BP Diastolic 82 mm[Hg] Comments: Patient Position: Sitting; Cuff Location: Left Arm; Cuff Size: Standard Weight 154 lb Height 65.5 in Body Mass Index Calculated 25.24 kg/m2 Body Surface Area Calculated 1.78 m2 :29 Pulse 62 /min Comments: Pattern: Regular Respiration Rate 18 /min Comments: Pattern: Unlabored O2 SAT 97 % Comments: Room air BP Systolic 118 mm[Hg] Comments: Patient Position: Sitting; Cuff Location: Right Arm; Cuff Size: Large BP Diastolic 78 mm[Hg] Comments: Patient Position: Sitting; Cuff Location: Right Arm; Cuff Size: Large Weight 150.375 lb Height 65.5 in Body Mass Index Calculated 24.64 kg/m2 Body Surface Area Calculated 1.76 m2 :53 Pulse 68 /min Comments: Pattern: Regular Respiration Rate 18 /min Comments: Pattern: Unlabored O2 SAT 98 % Comments: Room air BP Systolic 120 mm[Hg] Comments: Patient Position: Sitting; Cuff Location: Left Arm; Cuff Size: Large BP Diastolic 70 mm[Hg] Comments: Patient Position: Sitting; Cuff Location: Left Arm; Cuff Size: Large Weight 157.125 lb Height 65.5 in Body Mass Index Calculated 25.75 kg/m2 Body Surface Area Calculated 1.8 m2 :04 Temperature 97.6 f Comments: Method: Temporal Pulse 70 /min Comments: Pattern: Regular Respiration Rate 16 /min Comments: Pattern: Unlabored O2 SAT 98 % Comments: Room air BP Systolic 124 mm[Hg] Comments: Patient Position: Sitting; Cuff Location: Left Arm; Cuff Size: Standard BP Diastolic 72 mm[Hg] Comments: Patient Position: Sitting; Cuff Location: Left Arm; Cuff Size: Standard Weight 162 lb Height 65.5 in Body Mass Index Calculated 26.55 kg/m2 Body Surface Area Calculated 1.82 m2 :02 Temperature 97.7 f Comments: Method: Oral Pulse 72 /min Comments: Pattern: Regular Respiration Rate 20 /min Comments: Pattern: Unlabored BP Systolic 106 mm[Hg] Comments: Patient Position: Sitting; Cuff Location: Left Arm; Cuff Size: Large BP Diastolic 72 mm[Hg] Comments: Patient Position: Sitting; Cuff Location: Left Arm; Cuff Size: Large Weight 162 lb Height 65.5 in Body Mass Index Calculated 26.55 kg/m2 Body Surface Area Calculated 1.82 m2 :53 Temperature 97.8 f Comments: Method: Oral Pulse 65 /min Comments: Pattern: Regular Respiration Rate 14 /min Comments: Pattern: Unlabored BP Systolic 124 mm[Hg] Comments: Patient Position: Sitting; Cuff Location: Left Arm; Cuff Size: Standard BP Diastolic 78 mm[Hg] Comments: Patient Position: Sitting; Cuff Location: Left Arm; Cuff Size: Standard Weight 168.5 lb Height 65.5 in Body Mass Index Calculated 27.61 kg/m2 Body Surface Area Calculated 1.85 m2 :31 Temperature 97.4 f Comments: Method: Oral Pulse 72 /min Comments: Pattern: Regular Respiration Rate 18 /min Comments: Pattern: Unlabored BP Systolic 124 mm[Hg] Comments: Patient Position: Sitting; Cuff Location: Left Arm; Cuff Size: Standard BP Diastolic 86 mm[Hg] Comments: Patient Position: Sitting; Cuff Location: Left Arm; Cuff Size: Standard Weight 156 lb :19 Pulse 64 /min Comments: Pattern: Regular Respiration Rate 20 /min Comments: Pattern: Unlabored BP Systolic 142 mm[Hg] Comments: Patient Position: Sitting; Cuff Location: Left Arm; Cuff Size: Large BP Diastolic 80 mm[Hg] Comments: Patient Position: Sitting; Cuff Location: Left Arm; Cuff Size: Large Weight 161 lb Height 65.5 in Body Mass Index Calculated 26.38 kg/m2 Body Surface Area Calculated 1.81 m2 Head Circumference 0.00 cm :05 Pulse 72 /min Comments: Pattern: Regular Respiration Rate 20 /min Comments: Pattern: Unlabored BP Systolic 132 mm[Hg] Comments: Patient Position: Sitting; Cuff Location: Left Arm; Cuff Size: Large BP Diastolic 82 mm[Hg] Comments: Patient Position: Sitting; Cuff Location: Left Arm; Cuff Size: Large Weight 161 lb Height 65.5 in Body Mass Index Calculated 26.38 kg/m2 Body Surface Area Calculated 1.81 m2 Head Circumference 0.00 cm Results Date Description Value Details :54 Hemoglobin A1c Comments: ADD TO 09/12/18 [id number] [address] [place], [place], [address] HGB A1C 6.1 % (Normal) Range: 4.2-6.3 :54 CBC W/Diff, Automated Comments: [facility] [address] [place], [place], [id number] Absolute Lymph 1.68 {X10_3/ul} (Normal) Range: 0.83-4.51 Absolute Neut 4.4 {X10_3/uL} (Normal) Range: 2.0-7.7 IM GRAN % 0.000 % (Normal) Range: 0.0-0.9 Comments: IG% - Immature Granulocytes (promyelocytes, myelocytes andmetamyelocytes) > 1% indicates that a LEFT SHIFT is Present. BASO% 0.2 % (Normal) Range: 0-1 EO% 0.6 % (Normal) Range: 0-5 MONO% 6.8 % (Normal) Range: 0-10 LY% 25.5 % (Normal) Range: 19-41 NEUT% 66.9 % (Normal) Range: 47-70 MPV 10.7 fL (Normal) Range: 6.2-12.0 PLT 167 K/mm3 (Normal) Range: 150-450 RDW SD 46.2 fL (Abnormal) Range: 35.1-43.9 RDW CV 14.2 % (Normal) Range: 11.6-14.6 MCHC 32.5 {g/gl} (Normal) Range: 32-36 MCH 29.5 pg (Normal) Range: 27.0-32.0 MCV 90.6 fL (Normal) Range: 81-99 HCT 40.6 % (Normal) Range: 37-47 HGB 13.2 g/dL (Normal) Range: 12.0-15.0 RBC 4.48 {M/mm3} (Normal) Range: 4.2-5.4 WBC 6.6 K/mm3 (Normal) Range: 4.4-11.0 0-Dok-723629:54 Comprehensive Metabolic Profil Comments: [facility] [address] [place], [place], [id number] GAP 8 (Normal) Range: 5-15 CO2 28.0 mmol/L (Normal) Range: 21.0-32.0 CL 103 mmol/L (Normal) Range: 98-107 K 4.2 mmol/L (Normal) Range: 3.5-5.1 NA 139 mmol/L (Normal) Range: 136-145 T BILI 0.80 mg/dL (Normal) Range: 0.20-1.00 ALT 23 U/L (Normal) Range: 13-56 ALK P 70 U/L (Normal) Range: 45-117 AST 13 U/L (Abnormal) Range: 15-37 CA 8.8 mg/dL (Normal) Range: 8.5-10.1 A/G 1.1 {RATIO} (Normal) Range: 0.9-2.4 GLOB 3.2 g/dL (Normal) Range: 2.2-4.2 ALB 3.5 g/dL (Normal) Range: 3.2-5.0 T PROT 6.7 g/dL (Normal) Range: 6.4-8.2 BUN/CRE 20.6 {RATIO} (Abnormal) Range: 10-20 EST GFR - AA 78 mL/min (Normal) Comments: GFR Calc EST GFR 65 mL/min (Normal) Comments: Non- GFR Calc CREAT,SERUM 0.92 mg/dL (Normal) Range: 0.55-1.02 Comments: The validity of the calculated GFR AND GFRAA in patients over70 years has not been determined. Clinical correlation isessential. BUN 19 mg/dL (Abnormal) Range: 7-18 GLU 108 mg/dL (Abnormal) Range: 74-106 Comments: Fasting Glucose result from 100 to 125 mg/dLsuggests IMPAIRED HOMEOSTASIS per A.D.A. criteria.Please note revised GLUCOSE reference range /02/2018. 2-Dcp-811880:19 CBC W/Diff, Automated Comments: [facility] [address] [place], [place], [id number] Absolute Lymph 2.08 {X10_3/ul} (Normal) Range: 0.83-4.51 Absolute Neut 3.2 {X10_3/uL} (Normal) Range: 2.0-7.7 IM GRAN % 0.000 % (Normal) Range: 0.0-0.9 Comments: IG% - Immature Granulocytes (promyelocytes, myelocytes andmetamyelocytes) > 1% indicates that a LEFT SHIFT is Present. BASO% 0.2 % (Normal) Range: 0-1 EO% 1.4 % (Normal) Range: 0-5 MONO% 5.8 % (Normal) Range: 0-10 LY% 36.7 % (Normal) Range: 19-41 NEUT% 55.9 % (Normal) Range: 47-70 MPV 10.8 fL (Normal) Range: 6.2-12.0 PLT 129 K/mm3 (Abnormal) Range: 150-450 RDW SD 44.0 fL (Abnormal) Range: 35.1-43.9 RDW CV 13.4 % (Normal) Range: 11.6-14.6 MCHC 32.3 {g/gl} (Normal) Range: 32-36 MCH 29.2 pg (Normal) Range: 27.0-32.0 MCV 90.4 fL (Normal) Range: 81-99 HCT 37.5 % (Normal) Range: 37-47 HGB 12.1 g/dL (Normal) Range: 12.0-15.0 RBC 4.15 {M/mm3} (Abnormal) Range: 4.2-5.4 WBC 5.7 K/mm3 (Normal) Range: 4.4-11.0 8-Rib-266853:19 CCP IgG Antibodies Comments: [facility] (refer to report for specific site)refer to report for address and phone number ANTI-CCP [id number] 5 {units} (Normal) Range: 0-19 Comments: Negative <20 Weak positive 20 - 39 Moderate positive 40 - 59 Strong positive >59 3-Vuq-162314:19 Comprehensive Metabolic Profil Comments: [facility] [address] [place], [address] GAP 6 (Normal) Range: 5-15 CO2 30.0 mmol/L (Normal) Range: 21.0-32.0 CL 104 mmol/L (Normal) Range: 98-107 K 4.1 mmol/L (Normal) Range: 3.5-5.1 NA 140 mmol/L (Normal) Range: 136-145 T BILI 0.80 mg/dL (Normal) Range: 0.20-1.00 ALT 21 U/L (Normal) Range: 13-56 ALK P 68 U/L (Normal) Range: 45-117 AST 18 U/L (Normal) Range: 15-37 CA 9.0 mg/dL (Normal) Range: 8.5-10.1 A/G 1.2 {RATIO} (Normal) Range: 0.9-2.4 GLOB 3.2 g/dL (Normal) Range: 2.2-4.2 ALB 3.7 g/dL (Normal) Range: 3.2-5.0 T PROT 6.9 g/dL (Normal) Range: 6.4-8.2 BUN/CRE 25.9 {RATIO} (Abnormal) Range: 10-20 EST GFR - AA 116 mL/min (Normal) Comments: GFR Calc EST GFR 96 mL/min (Normal) Comments: Non- GFR Calc CREAT,SERUM 0.66 mg/dL (Normal) Range: 0.55-1.02 Comments: The validity of the calculated GFR AND GFRAA in patients over70 years has not been determined. Clinical correlation isessential. BUN 17 mg/dL (Normal) Range: 7-18 GLU 89 mg/dL (Normal) Range: 74-106 Comments: Please note revised GLUCOSE reference range xjvjcnmae85/02/2018. 4-Rtf-142329:19 CRP Comments: [facility] [address] [place], [place], [phone] C-REACTIVE PROT < 2.90 mg/L (Normal) Range: 0.0-3.0 Comments: C-Reactive Protein (CRP) provides useful information for thediagnosis, therapy and monitoring of inflammatory processesand associated diseases. For the evaluation of Relative Riskfor Cardiovascular Dise ase, a High Sensitivity CRP (HSCRP)should be ordered. 9-Noa-535092:19 Erythrocyte Sed Rate Comments: [facility] [address] [place], [place], [phone] SED RATE 8 mm/h (Normal) Range: 0-30 :19 Hep B Surface Antibodies Comments: [facility] (refer to report for specific site)refer to report for address and phone number Hep B Maritza AB Non Reactive (Normal) Comments: Non Reactive: Inconsistent with immunity, less than 10 mIU/mL Reactive: Consistent with immunity, greater than 9.9 mIU/ mL :19 Hepatitis B Surface Ag Comments: [facility] (refer to report for specific site)refer to report for address and phone number HB SURF AG Negative (Normal) Comments: Performed at: - [address] [id number] Director: Sampson Rivers PhD, Phone: [phone] at: [address] [place], [place] [address] [place], [place] [id number] Director: Rodríguez Montgomery PhD, Phone: [phone] at: [facility] [address] [id number] Director: Gregorio Miller MD, Phone: [phone] :19 Hepatitis C Antibodies Comments: [facility] (refer to report for specific site)refer to report for address and phone number HEP C AB <0.1 {s/co_ratio} Range: 0.0-0.9 (Normal) Comments: Negative: < 0.8 Indeterminate: 0.8 - 0.9 Positive: > 0.9 The CDC recommends that a positive HCV antibody result be followed up with a HCV Nucleic Acid Amplification test (556304). : HLA B27 Negative (Normal) Comments: [facility] (refer to report for specific site)refer to report for address and phone number 19 Comments: HLA-B*27 VrkuqdzqT56 allele interpretation for all loci based on IMGT/HLAdatabase version 3.27This test was developed and its performance characteristicsdetermined by [facility]. It has not been cleared o r approvedby the Food and Drug Administration.[facility] CLIA ID Number [id number] test was performed using PCR (Polymerase ChainReaction)/SSOP (Sequence Specific Oligonucleotide Probes)technique. SBT (Sequence Based Typing) and/or SSP(Sequence Specific Primers) may be used as supplementalmethods when necessary. Please contact [facility] CustomerService at if you have any questions. Director of [facility] Laboratory Dr Rodríguez Montgomery, PhD 9-Atb-878466:19 Rheumatoid Factor Comments: [facility] [address] [place], [address] RHEUMATOID FAC < 10.0 {IU/mL} (Normal) 14-Ghm-904864:48 METABOLIC PANEL, COMPREHENSIVE Comments: PATIENT NOT FASTINGPERFORMED BY: [facility] [id number] ([id number]) ALT (SGPT) 13 [iU]/L (Normal) Range: 0-32 AST (SGOT) 20 [iU]/L (Normal) Range: 0-40 Alkaline Phosphatase 74 [iU]/L (Normal) Range: 39-117 Bilirubin, Total 0.9 mg/dL (Normal) Range: 0.0-1.2 A/G Ratio 1.9 (Normal) Range: 1.2-2.2 Globulin, Total 2.1 g/dL (Normal) Range: 1.5-4.5 Albumin 4.0 g/dL (Normal) Range: 3.6-4.8 Protein, Total 6.1 g/dL (Normal) Range: 6.0-8.5 Calcium 9.4 mg/dL (Normal) Range: 8.7-10.3 Carbon Dioxide, Total 27 mmol/L (Normal) Range: 20-29 Chloride 101 mmol/L (Normal) Range: 96-106 Potassium 4.7 mmol/L (Normal) Range: 3.5-5.2 Sodium 139 mmol/L (Normal) Range: 134-144 BUN/Creatinine Ratio 26 (Normal) Range: 12-28 eGFR If Africn Am 99 mL/min/1.73 (Normal) eGFR If NonAfricn Am 86 mL/min/1.73 (Normal) Creatinine 0.73 mg/dL (Normal) Range: 0.57-1.00 BUN 19 mg/dL (Normal) Range: 8-27 Glucose 111 mg/dL (Abnormal) Range: 65-99 :48 FERRITIN (27228) Comments: PATIENT NOT FASTINGPERFORMED BY: [facility]dvslb[facility]298 [facility] [id number] Ferritin, Serum 52 ng/mL (Normal) Range: 15-150 82-Yis-012326:48 IRON BINDING CAPACITY (TIBC) Comments: PATIENT NOT FASTINGPERFORMED BY: [facility] [id number] ([id number]) Iron Saturation 26 % (Normal) Range: 15-55 Iron 41 ug/dL (Normal) Range: 27-139 UIBC 119 ug/dL (Normal) Range: 118-369 Iron Bind.Cap.(TIBC) 160 ug/dL (Abnormal) Range: 250-450 18-Cga-644897:48 CBC, PLATELETS & AUT DIFF Comments: PATIENT NOT FASTINGPERFORMED BY: [facility]6[address] [facility] [id number] Information: [id number] ([id number]) Immature Grans (Abs) 0.0 {x10E3/uL} (Normal) Range: 0.0-0.1 Immature Granulocytes 0 % (Normal) Baso (Absolute) 0.0 {x10E3/uL} (Normal) Range: 0.0-0.2 Eos (Absolute) 0.1 {x10E3/uL} (Normal) Range: 0.0-0.4 Monocytes(Absolute) 0.5 {x10E3/uL} (Normal) Range: 0.1-0.9 Lymphs (Absolute) 2.2 {x10E3/uL} (Normal) Range: 0.7-3.1 Neutrophils (Absolute) 4.3 {x10E3/uL} (Normal) Range: 1.4-7.0 Basos 0 % (Normal) Eos 2 % (Normal) Monocytes 7 % (Normal) Lymphs 31 % (Normal) Neutrophils 60 % (Normal) Platelets 185 {x10E3/uL} (Normal) Range: 150-379 RDW 15.0 % (Normal) Range: 12.3-15.4 MCHC 34.7 g/dL (Normal) Range: 31.5-35.7 MCH 30.7 pg (Normal) Range: 26.6-33.0 MCV 88 fL (Normal) Range: 79-97 Hematocrit 36.3 % (Normal) Range: 34.0-46.6 Hemoglobin 12.6 g/dL (Normal) Range: 11.1-15.9 RBC 4.11 {x10E6/uL} (Normal) Range: 3.77-5.28 WBC 7.1 {x10E3/uL} (Normal) Range: 3.4-10.8 09-Wdj-667650:48 VITAMIN B-12 (CYANOCOBALAMIN) Comments: PATIENT NOT FASTINGPERFORMED BY: [facility] [place] [id number] [facility] [id number] (34836) Vitamin B12 739 pg/mL (Normal) Range: 232-1245 3-Ezq-942343:30 T4, FREE (THYROXINE) (68296) Comments: PATIENT WAS FASTINGPERFORMED BY: [facility]6[address] [facility] [id number] T4,Free(Direct) 1.06 ng/dL (Normal) Range: 0.82-1.77 7-Quj-955589:30 TSH (95560) Comments: PATIENT WAS FASTINGPERFORMED BY: [facility] [id number] TSH 2.450 {uIU/mL} (Normal) Range: 0.450-4.500 9-Neo-722625:30 T3, FREE (TRIDOTHYRONINE) (08783) Comments: PATIENT WAS FASTINGPERFORMED BY: [facility] [id number] Triiodothyronine (T3), Free 3.0 pg/mL (Normal) Range: 2.0-4.4 6-Die-749720:19 LIPID PANEL (76941) Comments: PATIENT WAS FASTINGPERFORMED BY: [facility]6[address] [facility] [id number] LDL/HDL Ratio 1.9 {ratio} (Normal) Range: 0.0-3.2 Comments: LDL/HDL Ratio Men Women 1/2 Avg.Risk 1.0 1.5 Av g.Risk 3.6 3.2 2X Avg.Risk 6.2 5.0 3X Avg.Risk 8.0 6.1 LDL Cholesterol Calc 128 mg/dL (Abnormal) Range: 0-99 VLDL Cholesterol Aminata 14 mg/dL (Normal) Range: 5-40 HDL Cholesterol 66 mg/dL (Normal) Triglycerides 72 mg/dL (Normal) Range: 0-149 Cholesterol, Total 208 mg/dL (Abnormal) Range: 100-199 99-Lbl-753134:41 Lipid Panel (94579) Comments: PATIENT WAS FASTINGPERFORMED BY: [facility] RehabilitationKuiime2640 [facility] [id number] LDL/HDL Ratio 2.2 {ratio_units} (Normal) Range: 0.0-3.2 Comments: LDL/HDL Ratio Men Women 1/2 Avg.Risk 1.0 1.5 Av g.Risk 3.6 3.2 2X Avg.Risk 6.2 5.0 3X Avg.Risk 8.0 6.1 LDL Cholesterol Calc 132 mg/dL (Abnormal) Range: 0-99 VLDL Cholesterol Aminata 19 mg/dL (Normal) Range: 5-40 HDL Cholesterol 59 mg/dL (Normal) Triglycerides 96 mg/dL (Normal) Range: 0-149 Cholesterol, Total 210 mg/dL (Abnormal) Range: 100-199 30-Ibm-88487:00 PAP I-G HPV Hi Risk Comments: CYTOLOGY INFORMATION:- CLINICAL INFORMATION: OTHER- DATE LMP/MENOPAUSE: LMP/ NOT GIVEN- COLLECTION VIAL: Thin Prep Vial- 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 of containers..01 ThinPrep VialLabCorp (refer to report for specific site)refer to report for address and phone number HPV HC,HGH RISK Negative Comments: This high-risk HPV test detects thirteen high-risk types(16/18/31/33/35/39/45/51/52/56/58/59/68) withoutdifferentiation.Performed at: - [facility] [id number] (Normal) b Director: Belle Bennett MD, Phone: [phone] at: =[facility] [id number] Director: Belle Bennett MD, Phone: [phone] PAPSMR Comment Comments: The Pap smear is a screening test designed to aid in thedetection of premalignant and malignant conditions of theuterine cervix. It is not a diagnostic procedure andshould not be used as the sole means (Normal) of detecting cervicalcancer. Both false-positive and false-negative reports dooccur. COMM . (Normal) TEST METHOD Comment Comments: This liquid based ThinPrep(R) pap test was screened withthe use of an image guided system. (Normal) PERFORM Comment Comments: [facility] (ASCP) (Normal) ADEQ Comment Comments: Satisfactory for evaluation. Endocervical component may not bedistinguished in cases of atrophy. (Normal) DIAGN Comment Comments: NEGATIVE FOR INTRAEPITHELIAL LESION AND MALIGNANCY.CELLULAR CHANGES ASSOCIATED WITH ATROPHY ARE PRESENT. (Normal) 09-Iyc-332311:56 SED RATE ERYTHROCYTE (05471) Comments: PATIENT NOT FASTINGPERFORMED BY: [employer] [place] [id number] Sedimentation Rate-Westergren 5 mm/h (Normal) Range: 0-40 :56 BILIRUBIN, TOTAL (40888) Comments: PATIENT NOT FASTINGPERFORMED BY: [facility] [id number] Information: [id number] Bilirubin, Indirect 0.97 mg/dL (Abnormal) Range: 0.10-0.80 Bilirubin, Direct 0.23 mg/dL (Normal) Range: 0.00-0.40 Bilirubin, Total 1.2 mg/dL (Normal) Range: 0.0-1.2 77-Cwg-699172:59 Urinalysis, Office (64598) UA - LEUKOCYTE ESTERASE Negative (Normal) UA - NITRITE Negative (Normal) URINE UROBILINGN KARL TIMED Normal mg/dL (Normal) UA - PROTEIN Negative mg/dL (Normal) UA - PH 7.0 (Normal) Comments: 6.5 UA - BLOOD Negative (Normal) UA - SPECIFIC GRAVITY 1.020 (Normal) UA - KETONES Negative mg/dL (Normal) UA - BILIRUBIN Negative (Normal) UA - GLUCOSE Negative (Normal) 19-Aug-20157:41 Sed Rate Erythrocyte (58054) Comments: PATIENT NOT FASTINGPERFORMED BY: [facility] [id number] Sedimentation Rate-Westergren 3 mm/h (Normal) Range: 0-40 :41 Metabolic Panel, Comprehensive Comments: PATIENT NOT FASTINGPERFORMED BY: [facility] RehabilitationBapzfy9364 [facility] [id number] ([id number]) ALT (SGPT) 13 [iU]/L (Normal) Range: 0-32 AST (SGOT) 18 [iU]/L (Normal) Range: 0-40 Alkaline Phosphatase, S 65 [iU]/L (Normal) Range: 39-117 Bilirubin, Total 1.5 mg/dL (Abnormal) Range: 0.0-1.2 A/G Ratio 1.9 (Normal) Range: 1.1-2.5 Globulin, Total 2.2 g/dL (Normal) Range: 1.5-4.5 Albumin, Serum 4.2 g/dL (Normal) Range: 3.6-4.8 Protein, Total, Serum 6.4 g/dL (Normal) Range: 6.0-8.5 Calcium, Serum 9.7 mg/dL (Normal) Range: 8.7-10.3 Carbon Dioxide, Total 28 mmol/L (Normal) Range: 18-29 Chloride, Serum 100 mmol/L (Normal) Range: 97-108 Potassium, Serum 4.5 mmol/L (Normal) Range: 3.5-5.2 Sodium, Serum 141 mmol/L (Normal) Range: 134-144 BUN/Creatinine Ratio 21 (Normal) Range: 11-26 eGFR If Africn Am 97 mL/min/1.73 (Normal) eGFR If NonAfricn Am 84 mL/min/1.73 (Normal) Creatinine, Serum 0.76 mg/dL (Normal) Range: 0.57-1.00 BUN 16 mg/dL (Normal) Range: 8-27 Glucose, Serum 80 mg/dL (Normal) Range: 65-99 :41 CBC with auto diff Comments: PATIENT NOT FASTINGPERFORMED BY: [facility]6370 [facility] [id number] Information: [id number] (68841) Immature Grans (Abs) 0.0 {x10E3/uL} (Normal) Range: 0.0-0.1 Immature Granulocytes 0 % (Normal) Baso (Absolute) 0.0 {x10E3/uL} (Normal) Range: 0.0-0.2 Eos (Absolute) 0.0 {x10E3/uL} (Normal) Range: 0.0-0.4 Monocytes(Absolute) 0.2 {x10E3/uL} (Normal) Range: 0.1-0.9 Lymphs (Absolute) 1.7 {x10E3/uL} (Normal) Range: 0.7-3.1 Neutrophils (Absolute) 2.3 {x10E3/uL} (Normal) Range: 1.4-7.0 Basos 0 % (Normal) Eos 1 % (Normal) Monocytes 4 % (Normal) Lymphs 40 % (Normal) Neutrophils 55 % (Normal) Platelets 130 {x10E3/uL} (Abnormal) Range: 150-379 RDW 14.5 % (Normal) Range: 12.3-15.4 MCHC 34.2 g/dL (Normal) Range: 31.5-35.7 MCH 29.6 pg (Normal) Range: 26.6-33.0 MCV 87 fL (Normal) Range: 79-97 Hematocrit 39.8 % (Normal) Range: 34.0-46.6 Hemoglobin 13.6 g/dL (Normal) Range: 11.1-15.9 RBC 4.60 {x10E6/uL} (Normal) Range: 3.77-5.28 WBC 4.3 {x10E3/uL} (Normal) Range: 3.4-10.8 3-Gda-511351:23 URINE ARI CULTURE-IDENTIFICATN Comments: PATIENT NOT FASTINGPERFORMED BY: [facility]CoK[facility] for RehabilitationBrfgjn4447 [facility] [id number] Information: [id number] ([id number]) Result 1 MUG (Normal) Comments: Mixed urogenital flora10,000-25,000 colony forming units per mL Urine Final report (Normal) Culture,Comprehensive 19-Aug-20157:04 Urinalysis, Office (54994) UA - LEUKOCYTE ESTERASE Small (Normal) UA - NITRITE Negative (Normal) URINE UROBILINGN KARL TIMED Normal mg/dL (Normal) UA - PROTEIN Negative mg/dL (Normal) UA - PH 5 (Abnormal) UA - BLOOD Hemolyzed Trace (Normal) UA - SPECIFIC GRAVITY 1.030 (Abnormal) UA - KETONES Small mg/dL (Normal) UA - BILIRUBIN Small (Normal) UA - GLUCOSE Negative (Normal) 19-Nov-20119:29 LIPID VLDL 25 mg/dL (Normal) Range: 5-40 LDL 128 mg/dL (Normal) Range: 0-130 HDL 52 mg/dL (Normal) Comments: Reference Range HDL <40 mg/dL Low HDL Cholesterol HDL >or= 60 mg/dL High HDL Cholesterol TRIG 125 mg/dL (Normal) Comments: Serum Triglycerides Reference Interval Normal <150 mg/dL Borderline high 150 - 199 mg/dL High 200 - 499 mg/dL Very High > or = 500 mg/dL CHOL 205 mg/dL (Abnormal) Comments: <200 mg/dL Desirable 200-240 mg/dL Borderline >240 mg/dL High Risk 86-Ruj-908371:19 HIP, MIN 2 VIEWS ([place]) Radiology Report See Note (Normal) Comments: Exam Number: [id number] CLINICAL:This is a 60-year-old female patient with history of hip pain. X-RAY EXAMINATION: RIGHT HIP TECHNIQUE:Two views of the hip. COMPARISON:None. FINDINGS:Normal f emoral head, neck, intertrochanteric region and visualizedproximal femur. Normal acetabulum. Normal visualized hip joint. Normal visualized superior and inferior pubic rami and ischialtuberosities. Normal visualize d soft tissue structures of the hip. IMPRESSION:Normal x-ray examination of the hip. Reported By: KODAK PERALTA 42-Gat-589980:19 KNEE,4 OR MORE VIEWS (ID) Radiology Report See Note (Normal) Comments: Exam Number: [id number] CLINICAL:This is a 60-year-old female patient with history of knee pain. X-RAY EXAMINATION RIGHT KNEE TECHNIQUE:Four views of the knee. The AP and lateral [facility]upri [facility]. COMPARISON:None. FINDINGS:Normal visualized distal femur. Normal visualized proximal tibia. Normal visualized proximal fibula. There is mild degenerative arthrosis of the medial femorotibialcompart ment. Normal lateral femorotibial compartment. Normal patellofemoral articulation. There is no demonstrated soft tissue swelling. IMPRESSION:Chronic degenerative changes, as discussed above. Reported By: KODAK PERALTA 34-Ovz-94946:09 ABDOMEN/PELVIS WITH CONTRAST Radiology Report See Note (Normal) Comments: Exam Number: [id number] CLINICAL:Abdominal pain. CT ABDOMEN WITH CONTRAST COMPARISON:None. TECHNIQUE:Transaxial imaging was performed post contrast administration. The examination was performed with int ravenous administration of 100 ml of Isovue-300 contrast material. FINDINGS:There is minimal scarring at the left lung base. The visualized heart is normal in size, morphology and position. The liver i s normal in size and contour with normal enhancement. There is a 3-mm low attenuation focus in the anterior right hepatic lobe which is too small to characterize (series 2 image 25).. The spleen is nor mal size and contour with normal enhancement. There are multiple calcified gallstones within the gallbladder without distension of the gallbladder, wall thickening or pericholecystic fluid. Normal vis ualized intra and extra hepatic bile ducts. The pancreas is normal without focal or diffuse enlargement, atrophy or pancreatic calcifications. Normal bilateral adrenal glands. The right kidney is normal in size, location and morphology. The visualized bilateral ureters are normal without a demonstrated hydroureter or ureteral calculus. The left kidney is normal in size, location and morphology. The visualized bilateral ureters are normal without a demonstrated hydroureter or ureteral calculus. Normal retroperitoneum without lymphadenopathy or a mass lesion. Normal visualized distal esophagus and stomach. Normal visualized small intestine, without an obstruction or bowel wall edema. Normal visualized large intestine, without obstruction, diverticulosis, diverticulitis, or pericolonic inflammati on. The region of the appendix is normal without a demonstrated appendicitis, appendicolith or periappendiceal inflammation or mass. There is no peritoneal fluid. There is no demonstrated free peritone al or extraluminal gas. There is diffuse atherosclerotic calcification of the abdominal aorta without an abdominal aortic aneurysm. There is venous distention of the inferior vena cava (IVC) consistent with increased venous return pressure. There are degenerative changes of the spine. Normal soft tissue structures in the abdominal region. CT PELVIS WITH CONTRAST COMPARISON:None. TECHNIQUE:Transaxial imaging was performed post contrast administration. The examination was performed with intravenous administration of 100 ml of Isovue-300 contrast material. FINDINGS:Normal bladder without demonstrate d mass, wall thickening or calculus. Normal distal ureters. The uterus is normal in size and contour. Normal adnexal regions without a demonstrated ovarian or adnexal mass lesion. There is trace free fluid in the pelvis. There is no demonstrated pelvic or inguinal lymphadenopathy. Normal retroperitoneum without lymphadenopathy or a mass lesion. Normal loops of small intestines visualized within th e pelvis. Normal rectosigmoid colon, and pericolonic soft tissue structures. Normal visualized pelvic arteries. There is enlargement of the ovarian veins bilaterally, measuring up to 1.4 cm on the righ t and 1.0 cm on the left (series 2 image 57). There are multiple dilated, tortuous vessels in the pelvis adjacent to the uterus in addition to multiple tangled venous varicosities in the lower anterior abdominal wall (series 2 image is 88-113). There is no abdominal wall hernia. Normal visualized osseous structures of the pelvis. IMPRESSION:Cholelithiasis without evidence of acute cholecystitis. 3-mm low attenuation focus in the right hepatic lobe, which is too small to characterize and may represent a small cyst or hemangioma. Enlargement of the ovarian veins, measuring up to 1.4 cm on the right a nd 1.0 cm on the left. Multiple prominent venous structures in the pelvis adjacent to the uterus with varicosities extending into the lower anterior abdominal wall. Findings are suggestive of pelvic c ongestion syndrome. Trace free fluid in the pelvis. Reported By: SIMÓN ESTRADA M.D. Plan of Care Name Dates Details Instructions Diabetes mellitus type II, controlled : Diabetes: Constant Carbohydrate Meal Plan: diabetes diet Indication: Diabetes mellitus type II, controlled Diabetes mellitus type II, controlled : Diabetes: Healthy Snacks *: diabetes diet Indication: Diabetes mellitus type II, controlled Diabetes mellitus type II, controlled : Diabetes and Exercise: Preventing Low Blood Sugar: blood sugar Indication: Diabetes mellitus type II, controlled Diabetes mellitus type II, controlled : Diabetes Overview (Living with Diabetes): diabetes type 2 Indication: Diabetes mellitus type II, controlled Diabetes mellitus type II, controlled : Diabetes Mellitus: Type 2 *: high blood glucose Indication: Diabetes mellitus type II, controlled Chest pain, unspecified type : Reviewed Diagnostic Tests Indication: Chest pain, unspecified type Heart murmur : Reviewed Diagnostic Tests Indication: Heart murmur Encounter for annual general medical examination with abnormal findings in adult : fall reduction handout Indication: Encounter for annual general medical examination with abnormal findings in adult Encounter for annual general medical examination with abnormal findings in adult : elderly packet given Indication: Encounter for annual general medical examination with abnormal findings in adult Encounter for annual general medical examination with abnormal findings in adult : advance planning information Indication: Encounter for annual general medical examination with abnormal findings in adult Encounter for screening for malignant neoplasm of colon (Renamed from Special screening for malignant neoplasms, colon) : Self breast exam Indication: Encounter for screening for malignant neoplasm of colon (Renamed from Special screening for malignant neoplasms, colon) Encounter for screening for malignant neoplasm of colon (Renamed from Special screening for malignant neoplasms, colon) : *Colon Cancer Screening Indication: Encounter for screening for malignant neoplasm of colon (Renamed from Special screening for malignant neoplasms, colon) Hair loss : Reviewed Lab Indication: Hair loss Psoriatic arthritis : Reviewed [employer] Letter Indication: Psoriatic arthritis Allergic rhinitis : Continue Current Prescription(s) Indication: Allergic rhinitis Right shoulder pain : Eprescribed prescriptions (G8553) Indication: Right shoulder pain Pelvic pain in female : Reviewed Diagnostic Tests Indication: Pelvic pain in female Pelvic pain in female : Follow up - Make appt after diagnostic tests Indication: Pelvic pain in female Pelvic pain in female : Follow up - Make appt after diagnostic tests Indication: Pelvic pain in female Pelvic pain in female : Eprescribed prescriptions (G8553) Indication: Pelvic pain in female Knee pain : FOLLOW UP IN 2 WEEKS Indication: Knee pain Abdominal pain, acute, generalized : Reviewed Diagnostic Tests Indication: Abdominal pain, acute, generalized Planned Observations HGB A1C (30874)Indication: Blood glucose elevated On: 1-Zjd-839519:23 Request Comments: called to lab and will be added to her blood from the 09/12/18 IRON ([id number])Indication: Hair loss On: 25-Rim-442827:29 Request BILIRUBIN DIRECT (12230)Indication: Elevated bilirubin On: 49-Wka-960795:32 Request URINE ARI CULTURE (KARL COL COUNT) (86770)Indication: UTI symptoms On: 35-Yec-885452:29 Request LIPID PANEL (57640)Indication: Other general medical examination for administrative purposes On: 2-Vcb-639985:12 Request LIPID PANEL (48564)Indication: Family history of diabetes mellitus On: 17-Rxa-507013:45 Request Glucose, PP/2 Hour (25782)Indication: Family history of diabetes mellitus On: 30-Tpa-215766:45 Request Planned Procedures Echo CompleteBy: Kenton PAPPAS, On: 13-Jun-2018 Intent Rosalva Olivas DO PNEUM VAC ADLT/IMUMNOSPR, On: 13-Jun-2018 Intent SBC/INTRM ([id number])By: Kenton PAPPAS, Comments: 0.5 cc given sq lt arm lot [id number] exp 09/03/19 Rosalva Olivas DO Nuclear Stress Test/Stress On: 28-May-2018 Intent SPECT/TreadmillBy: Rosalva Fung DO, DO, Kathleen ELECTROCARDIOGRAM, COMPLETE (ECG) On: 28-May-2018 Intent (74263)By: Rosalva Fung DO Comments: no acute chg /nsr Rosalva Fung DO Toradol Injection, 30 mg On: 27-Nov-2017 Intent ([id number])By: Lita Pascal CNP Comments: 81-257-dk9/119153xq/1ml/2 unitsR hip, 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 REPAIR ULTRASOUND OF PELVIC REGION On: 19-Aug-2015 Intent (70527)By: Rosalva Fung DO, DO, Kathleen TDAP VACCINE >7 IM (92510)By: On: 19-Jul-2011 Intent Rosalva Fung DO, DO, Comments: Lot #[id number]-L arm, IMDose prefilledgiven by:ALEC Blackwell EKG (94347)By: Kenton PAPPAS, On: 19-Jul-2011 Intent Rosalva Olivas DO Comments: nsr no acute chg Eprescribed prescriptions On: 25-Jan-2011 Intent (G8553)By: Rosalva Fung DO, DO, Kathleen Doppler Ultrasound OtherBy: Kenton On: 25-Jan-2011 Rosalva Day DO, DO, Kathleen Comments: R calf-- note venous valvular incompetence too Radiology - Hip - RightBy: Kenton On: 05-Jul-2010 Rosalva Day DO, DO, Kathleen Radiology - Knee - Right - Weight On: 05-Jul-2010 Intent BearingBy: Rosalva Fung DO, DO, Kathleen CT - Abdomen & Pelvis (IV Contrast On: 22-Sep-2009 Intent Needed)By: Kenton DO, Rosalva Kenton DO, Rosalva Planned Medications INJECTION, KETOROLAC TROMETHAMINE, PER 15 MG Ordered: 27-Nov-2017 Pending Lita Pascal CNP Instructions Name Dates Details Body mass index (BMI) 24.0-24.9, adult : How to access health information online Indication: Body mass index (BMI) 24.0-24.9, adult Body mass index (BMI) 24.0-24.9, adult : How to access health information online - Detail Indication: Body mass index (BMI) 24.0-24.9, adult Body mass index (BMI) 24.0-24.9, adult : Patient Instructions Indication: Body mass index (BMI) 24.0-24.9, adult BMI between 19-24,adult : How to access health information online Indication: BMI between 19-24,adult BMI between 19-24,adult : Patient Instructions Indication: BMI between 19-24,adult Right shoulder pain : How to access health information online Indication: Right shoulder pain Right shoulder pain : How to access health information online - Detail Indication: Right shoulder pain Right shoulder pain : Patient Instructions Indication: Right shoulder pain BMI between 19-24,adult : How to access health information online Indication: BMI between 19-24,adult BMI between 19-24,adult : How to access health information online - Detail Indication: BMI between 19-24,adult BMI between 19-24,adult : Patient Instructions Indication: BMI between 19-24,adult Pelvic pain in female : How to access health information online Indication: Pelvic pain in female Pelvic pain in female : How to access health information online - Detail Indication: Pelvic pain in female Pelvic pain in female : Patient Instructions Indication: Pelvic pain in female Pelvic pain in female : How to access health information online Indication: Pelvic pain in female Pelvic pain in female : How to access health information online - Detail Indication: Pelvic pain in female Pelvic pain in female : Patient Instructions Indication: Pelvic pain in female Encounters Phone Encounter On: 18-Sep-2018 10:46 Encounter Diagnosis: Diabetes mellitus type II, controlled End: 18-Sep-2018 11:37 [facility] Annotation/Addendum On: 18-Sep-2018 8:23 Encounter Diagnosis: Diabetes mellitus type II, controlled End: 18-Sep-2018 8:29 [facility] Phone Encounter On: 15-Sep-2018 16:23 Encounter Diagnosis: Blood glucose elevated End: 15-Sep-2018 16:24 [facility] Office Visit On: 30-Jun-2018 11:39 Encounter Reason: Follow up tests - Date: (06/16/18).Encounter Diagnosis: Non-smoker, Body mass index (BMI) 24.0-24.9, adult, Heart murmur, Tricuspid valve insufficiency, unspecified etiology, Chest pain, unspecified type End: 30-Jun-2018 12:21 [facility] Office Visit On: 13-Jun-2018 10:27 Encounter Reason: Annual Medicare Exam - The patient had reviewed and updated the family history, medication/s, past medical history and social history. Yes the patient did have a mini mental status exam done today. The End: 13-Jun-2018 13:49 activities of daily living the patient needs help with are none. The patient has driven in past 6 months, but the patient has not had fecal incontinence, had urinary incontinence, missed or ran out of m edications to soon, fallen in the past 6 months, gotten lost, has a medalert necklace or bracelet, put area rugs through house or put handrails in bathroom. The patient has completed the following preve ntative measures: mammography (06/27) and colonoscopy (2008). The patient does have durable power of district attorney and living will. The patient has noticed nothing from the geriatic depression scale. Other pr oviders contributing to the patient's care are mechanist.Encounter Diagnosis: Encounter for screening mammogram for breast cancer (Renamed from Encounter for screening mammogram for malignant neoplasm of breast), Postmenopausal (Renamed from Postmenopausal status), Encounter for screening for malignant neoplasm of colon (Renamed from Special screening for malignant neoplasms, colon), Body mass index (BMI) 24.0-24.9, adult, Non-smoker, Heart murmur, Encounter for annual general medical examination with abnormal findings in adult [facility] Office Visit On: 28-May-2018 13:46 Encounter Reason: Follow up tests - Date: (05/13/18)., [ADDITIONAL REASON] Follow up for chronic medical issues - The patient feels well with minor complai End: 28-May-2018 16:57 nts (daughters have thyroid issues so they wanted her to get the t3 checked out), has decreased energy level and is sleeping poorly. Patient has been compliant with instructions. Current medication use: no side effects and compliant with dosing regimen. Patient sleeps 5 hours per night. Nutrition: balanced diet and supplemental vitamins. The medical issues the patient is following up for include All identified problems below and other. weight :. Encounter Diagnosis: Non-smoker, BMI between 19-24,adult, Allergic rhinitis, Psoriatic arthritis, Hair loss, Fatigue, unspecified type, Chest tightness or pressure [facility] Lab Order On: 05-May-2018 15:32 Encounter Diagnosis: Rash End: 05-May-2018 15:33 [facility] Lab Order On: 24-Mar-2018 13:07 Encounter Diagnosis: Screening for hyperlipidemia End: 24-Mar-2018 13:08 [facility] Office Visit On: 27-Nov-2017 10:57 Encounter Reason: Shoulder Problem - This shoulder problem is following a specific injury (after lifting heavy object). The patient is right hand dominant. The injury involved the right shoulder. This occurred 6 day(s) a End: 27-Nov-2017 13:15 go. Symptoms include shoulder pain. Symptoms are located in the right shoulder, right medial shoulder, right lateral shoulder, right anterior shoulder and right posterior shoulder. The symptoms occur co nstantly. Note for Shoulder problem: Was lifting a shower out of a place. Strain from lifting out.Nd moved a heavy couchEncounter Diagnosis: Non-smoker, Right shoulder pain, BMI 25.0-25.9,adult, Costochondritis, acute [facility] Phone Encounter On: 05-Aug-2017 17:20 Encounter Diagnosis: Screening for hyperlipidemia End: 05-Aug-2017 17:21 [facility] Office Visit On: 14-Feb-2017 10:29 Encounter Reason: Chest Pain - No changes in management were made at the last visit. Symptoms include chest pain. The pain is located in the substernal area. There is no radiation. The patient describes the pain as achin End: 14-Feb-2017 16:07 g. Onset was sudden 1 week(s) ago. There is no known event that preceded symptom onset. The symptoms occur constantly.Encounter Diagnosis: Non-smoker, BMI between 19-24,adult, Chest pain, unspecified type [facility] Office Visit On: 29-Aug-2015 14:45 Encounter Reason: Follow up tests - Date: (08/26/15 u/s).Encounter Diagnosis: Pelvic pain in female End: 29-Aug-2015 15:42 [facility] Office Visit On: 23-Aug-2015 11:57 Encounter Reason: UTI - The urinary symptoms are described as painful urination, frequency and burning. The symptoms have been increasing. The urine is described as yellow. There has been no associated fever, perineal p End: 23-Aug-2015 12:37 ain, vulvar lesion, abdominal pain, chills, diarrhea, vulvar irritation, nausea, vomiting, low back pain, vaginal discharge or lightheadedness. There is no history of sexual contact with a person having an STD, use of tampons, possible vaginal foreign body, douching, use of contraceptive devices, sexual assault, trauma, vulvovaginal exposure to chemical irritants, sexual contact with a person exposed to an STD, recent catheterization, new sexual partner or current catheterization. The patient denies the use of oral contraceptives, antibiotics, hormone replacement therapy or pyridium/uristat.Encounter Diagnosis: UTI symptoms, Pelvic pain in female , Elevated bilirubin [facility] Office Visit On: 19-Aug-2015 7:03 Encounter Reason: Abdominal painEncounter Diagnosis: Pelvic pain in female, Urinary frequency End: 19-Aug-2015 7:34 [facility] Office Visit On: 19-Jul-2011 10:56 Encounter Reason: Physical female exam - Last seen more than 1 year ago. General health: feels well with no complaints, has good energy level and is sleeping well. The patient's appetite is normal. Nutrition: normal/adeq End: 19-Jul-2011 13:07 uate. Exercises 0 days per week. Sleeps on average 7 hours per night. Normal bowel and bladder habits. Safety measures include appropriate use of safety belts and home smoke detectors. There are no curr ent emotional problems. screening, Pap smear (2009 with Kaylynn Quintero).Encounter Diagnosis: Other general medical examination for administrative purposes (V70.3) [facility] Office Visit On: 25-Jan-2011 9:49 Encounter Reason: Leg pain - The leg pain began gradually over time and has been occurring for 2 months. The symptoms have been occurring in an increasing pattern. The symptoms are described as a ache and pain and are m End: 25-Jan-2011 10:29 oderate in severity. The symptoms occur on exertion (if knee is bent or holding grandchildren) and when climbing stairs. There is involvement of the right lower extremity (inside of the rt upper leg and in behind the knee). There are no precipitating factors. Aggravating factors include exertion. There are no relieving factors. There have been no previous evaluations. Note for Leg pain: about 1 mo ago we went to [place] and so I was sitting Encounter Diagnosis: Pain in limb (729.5) [facility] Office Visit On: 05-Jul-2010 13:25 Encounter Reason: Leg pain - The leg pain began gradually over time and has been occurring for 2 years. The symptoms have been occurring in a persistent pattern. The symptoms are described as a ache (tingling think it ca End: 05-Jul-2010 13:58 me from when I sprained my leg a couple of years ago really feels like a lack of circulation.) and pain and are mild to moderate in severity. The symptoms occur when lying down. There is involvement of the right lower extremity (stops at grion area). Aggravating factors include lying flat. Encounter Diagnosis: Knee pain (719.46), Pain in limb (729.5) [facility] Office Visit On: 05-Oct-2009 9:18 Encounter Reason: Follow up, Diagnostic Procedure Results - Diagnostic tests include CT scan (09/30/09). Encounter Diagnosis: Abdominal Pain,General (789.07), Other seborrheic keratosis (702.19), SOLAR LENTIGO (709.09) End: 05-Oct-2009 13:02 [facility] Historical Summary On: 23-Sep-2009 11:51 [facility] End: 23-Sep-2009 11:56 Office Visit On: 22-Sep-2009 14:04 Encounter Reason: Back pain - The onset of the pain has been sudden and has been occurring in an intermittent pattern for 1 months. The course has been recurrent. The pain is characterized as a dull ache. The pain is fany End: 22-Sep-2009 16:46 cribed as being located in the lower back. The pain radiates to the lower abdomen. There are no precipitating factors. The symptoms have no aggravating factors. The symptoms have no relieving factors. T he pain has been associated with back stiffness. Note for Back pain: hurts the worse in am and she has not notced any change with her dietEncounter Diagnosis: Abdominal Pain,General (789.07), Low back pain (724.2), Family history of diabetes mellitus (V18.0) [facility] Payers Medicare[employer] Insurance [facility]Bon[facility] Mcarthur; a guarantor
--- OUTSIDE RECORDS SUMMARY | 2018-12-03 22:07 | XMS RPT_ITS | Continuity of Care Document ---
:1950 Author Organization [facility] Address [facility] [address] Phone Care Team Providers Name Role Phone Rosalva Fung DO Unavailable SURYA Squires Unavailable Unavailable Unavailable Unavailable Problems Name Dates [...] Dilation And Curettage Of Uterus Status: Active Elevated blood pressure reading (R03.0, 796.2) Status: Active Encounter for annual general medical [...] of breast) (Z12.31, V76.12) Comments: dr kevan mijares Status: Active Family history of diabetes mellitus (Z83.3, V18.0) Status: Active Fatigue, unspecified type (R53.83, 780.79) Status: Active Fracture Of Wrist Status: Active Hair loss (L65.9, 704.00) Status: Active Heart murmur (R01.1, 785.2) Status: Active Need for prophylactic vaccination and inoculation against influenza (Renamed from Need for immunization against influenza) (Z23, V04.81) Status: Active Non-smoker (Z78.9, V49.89) Status: Active Nutritional counseling (Z71.3, V65.3) Status: Active Other general medical examination for administrative purposes (Z02.89, V70.3) Status: Active Paresthesia (R20.2, 782.0) Status: Active Postmenopausal (Renamed from Postmenopausal status) (Z78.0, V49.81) Comments: dr kevan mijares Status: Active Pregnancies () Comments: 6 Status: Active Psoriatic arthritis (L40.50, 696.0) Comments: dr Holt dx- referred Status: Active SOLAR LENTIGO (709.09) Status: Active Tricuspid valve insufficiency, unspecified etiology (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, 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) Status: Active Tubal Ligation Status: Active Unspecified Diagnosis Status: Active Vaginal Delivery Comments: [id number] Status: Active Medications Name Dates Details Allergy shots Active Flonase 50 MCG/ACT Nasal Suspension 1 spray [place] qd/prn for 0 days Quantity: 1 {[place]} Refills: 0 Ordered:28-May-2018 Staci Fung DO, DO, Kathleen Start : 28-May-2018 Active Hydrocholoride 0.15% one spray bid Active MetFORMIN HCl 500 MG Oral Tablet 1 (one) Tablet qam for 0 days Quantity: 30 {Tablet} Refills: 1 Ordered:30-Sep-2018 Staci Fung DO, DO, Kathleen Start : 30-Sep-2018 Active montelukast 10 mg Active MULTIVITAMIN (Oral Liquid) for 0 days Refills: 0 Ordered:13-Jun-2018 Jackeline Squirestive Palgic 4 MG Oral Tablet 1 prn [...] End : 27-Nov-2017 Inactive Comments:Dr Zuleta in [place] CIPRO, 500MG (Oral Tablet) 1 (one) Tablet [...] Start : 27-Nov-2017 End : 28-May-2018 Inactive Ibuprofen 600 MG Oral Tablet 1 Tablet tid prn with food for 0 days Quantity: 60 {Tablet} Refills: 1 Ordered:30-Sep-2018 Jackeline Squires LPN Start : 25-Jan-2011 End : 30-Sep-2018 Inactive CALCIUM + D, 258-783XV-PBIO (Oral Tablet) for 0 days Refills: 0 [...] (CAD), BILAT Result: Comments: See Note; NOTES: [facility] Imaging Services [address] [place] [address] SCREENING MAMM (CAD), BILAT MR#: [id number] Acct: [id number] Name: BONNIE MCARTHUR Rep #: [id number] : 1950 F 68 From: Kodak Peralta MD PCP: Rosalva Fung DO Status: REG CLI Study: SCREENING MAMM (CAD), BILAT Date of Exam: 08/07/18 Exam# [id number] Ordering Dr: Torres Major MD MAMMOGRAPHY - [...] delay biopsy of a clinically suspicious abnormality. [id number] Electronically Signed: Kodak Peralta MD at 11:17 EDT Tel [phone], Service support , CC: Rosalva Fung DO; Becky Major MD Pewter Caster: Signed 18-Jul-2018 Pelvis 1 or 2 Views Result: Comments: See Note; NOTES: [facility] Imaging Services [address] [place] [address] Pelvis 1 or 2 Views MR#: [id number] Acct: [id number] Name: BONNIE MCARTHUR Rep #: [id number] : 1950 F 68 From: Odilon Medel MD PCP: Rosalva Fung DO Status: REG CLI Study: Pelvis 1 or 2 Views Date of Exam: 07/18/18 Exam# [id number] Ordering Dr: Ashley Newby MD STUDY: X-RAY [...] CC: Rosalva Fung DO; Ashley Newby MD Pewter Caster: Signed 16-Jun-2018 Echocardiogram Complete Result: Comments: See Note; NOTES: [facility] Cardiovascular Services [address] [place] [address] Echo Complete 06/16/18 0657 MR#: [id number] Acct: [id number] Name: BONNIE MCARTHUR Rep #: [id number] : 1950 68 From: Bill Rodrigues MD Attending Dr: Rosalva Fung DO Status: REG CLI Ordering Dr: Rosalva Fung DO Date: 06/16/18 Location: [facility] Sex: F C Admitted: Reason F or [...] no comparison study available. Ordering Phys ician: Roaslva Fung Referring Physician: Rosalva Fung Performed By: Krissy Cook, TAMIKACS, RVT 06/16/18 1649 Date _ Bill Rodrigues MD CC: Rosalva Fung DO Date Dictated: 06/16/18 0657 Date Transcribed: 06/16/181648 Pewter Caster: Signed 16-Jun-2018 Stress Report Result: Comments: See Note; NOTES: [facility] Cardiovascular Services [address] [place] [address] MR#: [id number] Acct: [id number] Name: BONNIE MCARTHUR Rep #: [id number] : [birth year] 68 From: Ayan Gomez MD [...] 85 %. This note was generated with Rock[employer]ee dictation software. It may contain incorrect words, spelling, and punctuation that were not noted in checking the note before signing. 06/16/18930 <Electronically signed by Ayan Gomez MD> Date Ayan Gomez MD CC: Rosalva Kenton DO Date Dictated: 06/16/18923 Date Transcribed: 06/16/18923 Pewter Caster: PM Signed 29-May-2018 Supervisor Felling Bucking Office Visit Report Result: Comments: See Note; NOTES: [facility]'s 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 Coding Level of Care Code Off vis,est,level 3 Diagnoses Contact dermatitis, unspecified contact dermatitis type, unspecif ied trigger L25.9 Contact dermatitis type: unspecified Contact dermatitis trigger: unspecified trigger 05/29/18 1500 <Electronically signed by Donna TEJADA> Date __ Donna TEJADA Cosigner Signature: Date (if applicable) CC: 07-May-2018 Supervisor Felling Bucking Office Visit Report Result: Comments: See Note; NOTES: [facility]'s 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 She goes to [facility]. s he has rash that comes and goes, she has it on other areas. she has a reaction to otezla she had hives. she has significant allergies. she is working with her tray packer regarding this. she has tried tri amcinolone [...] (CAD), BILAT Result: Comments: See Note; NOTES: [facility] Imaging Services [address] [place] [address] SCREENING MAMM (CAD), BILAT MR#: [id number] Acct: [id number] Name: BONNIE MCARTHUR Rep # : [id number] : 1950 F 67 From: Kodak Peralta MD PCP: Rosalva Fung DO Status: REG CLI Study: SCREENING MAMM (CAD), BILAT Date of Exam: 07/09/17 Exam# [id number] Ordering Dr: Becky Major MD MAMMOGRAPHY - [...] delay biopsy of a clinically suspicious abnormality. [id number] Electronically Signed: Kodak Peralta MD at 11:07 ED T Tel [phone], Service support , CC: Rosalva Fung DO; Becky Major MD Pewter Caster: Signed 26-Aug-2015 Transvaginal Non- Result: Comments: See Note; NOTES: [facility] Imaging Services [address] [place] [address] Verdana 4d Transvaginal Non- MR#: [id number] Acct: [id number] Name: BONNIE HELMS Rep #: [id number] : 1950 F 65 From: Kiet Valencia DO PCP: Rosalva Fung DO Status: REG CLI Study: Transvaginal Non- Date of Exam: 08/26/15 Exam# [id number] Ordering Dr: Rosalva Fung DO STUDY: ULTRASOUND [...] Kiet Valencia DO at 10:31 EDT Tel [phone], Service support [phone], CC: Rosalva Fung DO Pewter Caster: Signed 26-Aug-2015 Pelvic (Non ) Result: Comments: See Note; NOTES: [facility] Imaging Services [address] [place] [address] Verdana 4d Pelvic (Non ) MR#: [id number] Acct: [id number] Name: BONNIE BELLAMY Rep #: [id number] : 1950 F 65 From: Kiet Valencia DO PCP: Rosalva Fung DO Status: REG CLI Study: Pelvic (Non ) Date of Exam: 08/26/15 Exam# [id number] Ordering Dr: Rosalva Kessler DO STUDY: ULTRASOUND [...] bladder is grossly unremarkable IMPRESSION: 1. Normal [place] and left ovary. The right ovary is not seen. 2. Prominent vessels in the uterus and broad ligaments suggesting pelvic congestion. This was previously reported on a CT of the abdomen and pelvis da mikhail September 30, 2009 Electronically Signed: Kiet Valencia DO at 10:31 EDT Tel [phone], Service support [phone], CC: Rosalva Fung DO Pewter Caster: Signed Family History Unknown Family Member Name [...] Active Vital Signs Date Test Result Details 20-Ozk-001726:09 Comments: 138/70 recheck bp Temperature 97.4 f Comments: Method: Temporal Pulse 67 /min Comments: Pattern: Regular Respiration Rate 18 /min Comments: Pattern: Unlabored O2 SAT 97 % Comments: Room air BP Systolic 150 mm[Hg] Comments: Patient Position: Sitting; Cuff Location: Left Arm; Cuff Size: Large BP Diastolic 90 mm[Hg] Comments: Patient Position: Sitting; Cuff Location: Left Arm; Cuff Size: Large Weight 148 lb Height 65.5 in Body Mass Index Calculated 24.25 kg/m2 Body Surface Area Calculated 1.75 m2 10-Lpc-976610:40 Temperature 97.2 f Comments: Method: Temporal Pulse [...] kg/m2 Body Surface Area Calculated 1.75 m2 :29 Comments: hearing wnllast eye 06/26 and had [...] kg/m2 Body Surface Area Calculated 1.75 m2 :52 Pulse 68 /min Comments: Pattern: Regular Respiration [...] :54 Hemoglobin A1c Comments: ADD TO 09/12/[address] [place], [address] HGB A1C 6.1 % (Normal) Range: 4.2-6.3 :54 CBC W/Diff, Automated Comments: [facility] [address] [place], [address] Absolute Lymph 1.68 {X10_3/ul} (Normal) Range: 0.83-4.51 [...] 4.2-5.4 WBC 6.6 K/mm3 (Normal) Range: 4.4-11.0 2-Lad-036421:54 Comprehensive Metabolic Profil Comments: [facility] [address] [place], [address] GAP 8 (Normal) Range: 5-15 CO2 28.0 [...] A.D.A. criteria.Please note revised GLUCOSE reference range ypcsrikkw63/02/2018. 6-Xiq-215161:19 CBC W/Diff, Automated Comments: [facility] [address] [place], [address] Absolute Lymph 2.08 {X10_3/ul} (Normal) Range: 0.83-4.51 [...] 4.2-5.4 WBC 5.7 K/mm3 (Normal) Range: 4.4-11.0 :19 CCP IgG Antibodies Comments: [facility] (refer to report for specific site)refer to report for address and phone number ANTI-CCP 188372 5 {units} (Normal) Range: 0-19 Comments: Negative <20 Weak positive 20 - 39 Moderate positive 40 - 59 Strong positive >59 6-Nfw-745083:19 Comprehensive Metabolic Profil Comments: [facility] [address], [place], [address] GAP 6 (Normal) Range: 5-15 CO2 30.0 [...] Comments: Please note revised GLUCOSE reference range acthaucml69/02/2018. 3-Qqa-548504:19 CRP Comments: [facility] [address] [facility] [place], [place], [id number] C-REACTIVE PROT < 2.90 mg/L (Normal) Range: 0.0-3.0 Comments: C-Reactive Protein (CRP) provides useful information for thediagnosis, therapy and monitoring of inflammatory processesand associated diseases. For the evaluation of Relative Riskfor Cardiovascular Dise ase, a High Sensitivity CRP (HSCRP)should be ordered. 1-Qgz-888059:19 Erythrocyte Sed Rate Comments: [facility] [address] [facility] [place], [place], [id number] SED RATE 8 mm/h (Normal) Range: 0-30 8-Edb-441394:19 Hep B Surface Antibodies Comments: [facility] (refer to report for specific site)refer to report for address and phone number Hep B Maritza AB Non Reactive (Normal) Comments: Non Reactive: Inconsistent with immunity, less than 10 mIU/mL Reactive: Consistent with immunity, greater than 9.9 mIU/ mL 4-Nxt-133243:19 Hepatitis B Surface Ag Comments: [facility] (refer to report for specific site)refer to report for address and phone number HB SURF AG Negative (Normal) Comments: Performed at: - [facility] [address] [id number] Director: Sampson Rivers PhD, Phone: [phone] at: - [facility] [id number] Director: Rodríguez Montgomery PhD, Phone: [phone] at: - [facility] [address] [id number] Director: Gregorio Miller MD, Phone: [phone] :19 Hepatitis C Antibodies Comments: [facility] (refer to report for specific site)refer to report for address and phone number HEP C AB <0.1 {s/co_ratio} Range: 0.0-0.9 (Normal) Comments: Negative: < 0.8 Indeterminate: 0.8 - 0.9 Positive: > 0.9 The CDC recommends that a positive HCV antibody result be followed up with a HCV Nucleic Acid Amplification test (207413). : HLA B27 Negative (Normal) Comments: [facility] (refer to report for specific site)refer to report for address and phone number 19 Comments: HLA-B*27 PeqwfxusG48 allele interpretation for all loci based on IMGT/HLAdatabase version 3.27This test was developed and its performance characteristicsdetermined by [facility]. It has not been cleared o r approvedby the Food and Drug Administration.[facility] CLIA ID Number [id number] test was performed using PCR (Polymerase ChainReaction)/SSOP (Sequence Specific Oligonucleotide Probes)technique. SBT (Sequence Based Typing) and/or SSP(Sequence Specific Primers) may be used as supplementalmethods when necessary. Please contact [facility] CustomerService at if you have any questions. Director of [facility] Laboratory Dr Rodríguez Montgomery, PhD :19 Rheumatoid Factor Comments: [facility] [address] [place], [place], [address] RHEUMATOID FAC < 10.0 {IU/mL} (Normal) :48 METABOLIC PANEL, COMPREHENSIVE Comments: PATIENT NOT FASTINGPERFORMED BY: [facility] Ybvdic0671 [facility] [id number] (25123) ALT (SGPT) 13 [iU]/L (Normal) Range: 0-32 [...] 8-27 Glucose 111 mg/dL (Abnormal) Range: 65-99 17-Ysi-217579:48 FERRITIN (87655) Comments: PATIENT NOT FASTINGPERFORMED BY: LaiyaoyaoCare [facility] at [facility] CenterHlgzuv4685 [facility] [id number] Ferritin, Serum 52 ng/mL (Normal) Range: 15-150 96-Nca-464602:48 IRON BINDING CAPACITY (TIBC) Comments: PATIENT NOT FASTINGPERFORMED BY: [facility]yaoyaoCare [facility] at [facility] CenterUjunaf6569 [facility] [id number] (14592) Iron Saturation 26 % (Normal) Range: 15-55 Iron 41 ug/dL (Normal) Range: 27-139 UIBC 119 ug/dL (Normal) Range: 118-369 Iron Bind.Cap.(TIBC) 160 ug/dL (Abnormal) Range: 250-450 10-Qpe-196978:48 CBC, PLATELETS & AUT DIFF Comments: PATIENT NOT FASTINGPERFORMED BY: GoSportyCare One at [facility] CenterHkawnw1470 [facility] [id number] Information: [id number] (53130) Immature Grans (Abs) 0.0 {x10E3/uL} (Normal) Range: [...] 3.77-5.28 WBC 7.1 {x10E3/uL} (Normal) Range: 3.4-10.8 87-Wat-095917:48 VITAMIN B-12 (CYANOCOBALAMIN) Comments: PATIENT NOT FASTINGPERFORMED BY: GoSportyUNM [facility]oval Regional Medical CenterPymkus7495 [facility] [id number] (14440) Vitamin B12 739 pg/mL (Normal) Range: 232-1245 6-Cfk-420394:30 T4, FREE (THYROXINE) (92421) Comments: PATIENT WAS FASTINGPERFORMED BY: GoSportyCare [facility] at [facility] CenterDoavvf8223 [facility] [id number] T4,Free(Direct) 1.06 ng/dL (Normal) Range: 0.82-1.77 1-Zpi-539002:30 TSH (73163) Comments: PATIENT WAS FASTINGPERFORMED BY: [facility]6370 [facility] [id number] TSH 2.450 {uIU/mL} (Normal) Range: 0.450-4.500 7-Old-592176:30 T3, FREE (TRIDOTHYRONINE) (63486) Comments: PATIENT WAS FASTINGPERFORMED BY: [facility]6370 [facility] [id number] Triiodothyronine (T3), Free 3.0 pg/mL (Normal) Range: 2.0-4.4 9-Ekj-663562:19 LIPID PANEL (50219) Comments: PATIENT WAS FASTINGPERFORMED BY: [facility]6370 [facility] [id number] LDL/HDL Ratio 1.9 {ratio} (Normal) Range: 0.0-3.2 Comments: LDL/HDL Ratio Men Women 1/2 Avg.Risk 1.0 1.5 Av g.Risk 3.6 3.2 2X Avg.Risk 6.2 5.0 3X Avg.Risk 8.0 6.1 LDL Cholesterol Calc 128 mg/dL (Abnormal) Range: 0-99 VLDL Cholesterol Aminata 14 mg/dL (Normal) Range: 5-40 HDL Cholesterol 66 mg/dL (Normal) Triglycerides 72 mg/dL (Normal) Range: 0-149 Cholesterol, Total 208 mg/dL (Abnormal) Range: 100-199 45-Yau-018345:41 Lipid Panel (52996) Comments: PATIENT WAS FASTINGPERFORMED BY: [facility]6370 [facility] [id number] LDL/HDL Ratio 2.2 {ratio_units} (Normal) Range: 0.0-3.2 Comments: LDL/HDL Ratio Men Women 1/2 Avg.Risk 1.0 1.5 Av g.Risk 3.6 3.2 2X Avg.Risk 6.2 5.0 3X Avg.Risk 8.0 6.1 LDL Cholesterol Calc 132 mg/dL (Abnormal) Range: 0-99 VLDL Cholesterol Aminata 19 mg/dL (Normal) Range: 5-40 HDL Cholesterol 59 mg/dL (Normal) Triglycerides 96 mg/dL (Normal) Range: 0-149 Cholesterol, Total 210 mg/dL (Abnormal) Range: 100-199 14-Bpk-66193:00 PAP I-G HPV Hi Risk Comments: CYTOLOGY INFORMATION:- CLINICAL INFORMATION: OTHER- DATE LMP/MENOPAUSE: LMP/ NOT GIVEN- COLLECTION VIAL: Thin Prep Vial- PATTERN AND CHAIN MAKER SOURCE: CERVICAL- COLLECTION TECHNIQUE: BRUSH ONLY/ CERVIX BROOM ONLYSpecim en Comment: [id number] Comment: No. of containers..01 ThinPrep VialLabCorp (refer to report for specific site)refer to report for address and phone number HPV HC,HGH RISK Negative Comments: This high-risk HPV test detects thirteen high-risk types(16/18/31/33/35/39/45/51/52/56/58/59/68) withoutdifferentiation.Performed at: [address] [id number] (Normal) b Director: Belle Bennett MD, Phone: [phone] at: =[facility] [id number] Director: Belle Bennett MD, Phone: [phone] PAPSMR Comment Comments: The Pap smear is [...] system. (Normal) PERFORM Comment Comments: Leticia Wyatt Vice President Of Recruiting (ASCP) (Normal) ADEQ Comment Comments: Satisfactory for evaluation. Endocervical component may not bedistinguished in cases of atrophy. (Normal) DIAGN Comment Comments: NEGATIVE FOR INTRAEPITHELIAL LESION AND MALIGNANCY.CELLULAR CHANGES ASSOCIATED WITH ATROPHY ARE PRESENT. (Normal) 12-Car-019158:56 SED RATE ERYTHROCYTE (08863) Comments: PATIENT NOT FASTINGPERFORMED BY: [facility] Msrnhc5761 [facility] [id number] Sedimentation Rate-Westergren 5 mm/h (Normal) Range: 0-40 86-Raq-044195:56 BILIRUBIN, TOTAL (25934) Comments: PATIENT NOT FASTINGPERFORMED BY: [facility]6370 [facility] [id number] Information: [id number] Bilirubin, Indirect 0.97 mg/dL (Abnormal) Range: 0.10-0.80 Bilirubin, Direct 0.23 mg/dL (Normal) Range: 0.00-0.40 Bilirubin, Total 1.2 mg/dL (Normal) Range: 0.0-1.2 66-Rab-682622:59 Urinalysis, Office (85172) UA - LEUKOCYTE ESTERASE Negative (Normal) UA - NITRITE Negative (Normal) URINE UROBILINGN KARL TIMED Normal mg/dL (Normal) UA - PROTEIN Negative mg/dL (Normal) UA - PH 7.0 (Normal) Comments: 6.5 UA - BLOOD Negative (Normal) UA - SPECIFIC GRAVITY 1.020 (Normal) UA - KETONES Negative mg/dL (Normal) UA - BILIRUBIN Negative (Normal) UA - GLUCOSE Negative (Normal) :41 Sed Rate Erythrocyte (45172) Comments: PATIENT NOT FASTINGPERFORMED BY: [facility]SportyCare [facility] at [facility] CenterKziczj5549 [facility] [id number] Sedimentation Rate-Westergren 3 mm/h (Normal) Range: 0-40 :41 Metabolic Panel, Comprehensive Comments: PATIENT NOT FASTINGPERFORMED BY: [facility]6370 [facility] [id number] (53022) ALT (SGPT) 13 [iU]/L (Normal) Range: 0-32 [...] auto diff Comments: PATIENT NOT FASTINGPERFORMED BY: LabCoCare [facility] at [facility] CenterPdyqlk8067 [facility] [id number] Information: [id number] (06752) Immature Grans (Abs) 0.0 {x10E3/uL} (Normal) Range: [...] 3.77-5.28 WBC 4.3 {x10E3/uL} (Normal) Range: 3.4-10.8 8-Ork-029548:23 URINE ARI CULTURE-IDENTIFICATN Comments: PATIENT NOT FASTINGPERFORMED BY: [facility] Hyxzni9793 [facility] [id number] Information: [id number] (62327) Result 1 MUG (Normal) Comments: Mixed urogenital flora10,000-25,000 colony forming units per mL Urine Final report (Normal) Culture,Comprehensive 19-Aug-20157:04 Urinalysis, Office (00469) UA - LEUKOCYTE ESTERASE Small (Normal) UA [...] 200-240 mg/dL Borderline >240 mg/dL High Risk 94-Igz-173551:19 HIP, MIN 2 VIEWS ([place]) Radiology Report See Note (Normal) Comments: Exam Number: [id number] CLINICAL:This is a 60-year-old female patient with [...] of the hip. Reported By: KODAK PERALTA 24-Ils-462053:19 KNEE,4 OR MORE VIEWS ([place]) Radiology Report See Note (Normal) Comments: Exam Number: [id number] CLINICAL:This is a 60-year-old female patient with history of knee pain. X-RAY EXAMINATION RIGHT KNEE TECHNIQUE:Four views of the knee. The AP and lateral views were obtainedupri t. COMPARISON:None. FINDINGS:Normal visualized distal femur. Normal visualized proximal tibia. Normal visualized proximal fibula. There is mild degenerative arthrosis of the medial femorotibialcompart ment. Normal lateral femorotibial compartment. Normal patellofemoral articulation. There is no demonstrated soft tissue swelling. IMPRESSION:Chronic degenerative changes, as discussed above. Reported By: KODAK PERALTA :09 ABDOMEN/PELVIS WITH CONTRAST Radiology Report See Note (Normal) Comments: Exam Number: [id number] CLINICAL:Abdominal pain. CT ABDOMEN WITH CONTRAST COMPARISON:None. [...] Instructions Diabetes mellitus type II, controlled : Follow up in 3 weeks Indication: Diabetes mellitus type II, controlled Diabetes mellitus type II, controlled : Follow up in 3 months Indication: Diabetes mellitus type II, controlled Diabetes mellitus type II, controlled : Eprescribed prescriptions (G8553) Indication: Diabetes mellitus type II, controlled Diabetes mellitus type II, controlled : *Diabetes Education Indication: Diabetes mellitus type II, controlled Elevated blood pressure reading : BP MONITORING - SELF Indication: Elevated blood pressure reading Diabetes mellitus type II, controlled : Diabetes: [...] Indication: Hair loss Psoriatic arthritis : Reviewed Nail Tech Letter Indication: Psoriatic arthritis Allergic rhinitis : [...] pain, acute, generalized Planned Observations HGB A1C (96785)Indication: Paresthesia On: :37 Request HEPATITIS C ANTIBODY (49364)Indication: Paresthesia On: :37 Request JUANITA (ANTINUCLEAR ANTIBODY) (13827)Indication: Paresthesia On: :37 Request Serum Protein Electrophoresis (SPEP) (51746)Indication: Paresthesia On: :37 Request VITAMIN B-12 (CYANOCOBALAMIN) (94755)Indication: Paresthesia On: :37 Request TSH (THYROID STIMULATING HORMONE) (12089)Indication: Paresthesia On: :37 Request SED RATE ERYTHROCYTE (54021)Indication: Paresthesia On: :37 Request METABOLIC PANEL, COMPREHENSIVE (73710)Indication: Paresthesia On: :37 Request CBC & PLATELETS (AUTO) ([id number])Indication: Paresthesia On: :37 Request HGB A1C ([id number])Indication: Blood glucose elevated On: 4-Xdd-943061:23 Request Comments: called to lab and will be added to her blood from the 09/12/18 IRON ([id number])Indication: Hair loss On: 80-Fpc-231693:29 Request BILIRUBIN DIRECT ([id number])Indication: Elevated bilirubin On: 39-Ksn-276453:32 Request URINE ARI CULTURE (KARL COL COUNT) ([id number])Indication: UTI symptoms On: 88-Pzx-748812:29 Request LIPID PANEL ([id number])Indication: Other general medical examination for administrative purposes On: 3-Ibj-448549:12 Request LIPID PANEL ([id number])Indication: Family history of diabetes mellitus On: 02-Rty-466757:45 Request Glucose, PP/2 Hour ([id number])Indication: Family history of diabetes mellitus On: 86-Maq-667188:45 Request Planned Encounters Medical; 3 Week FU - On: 20-Oct-2018 10:45 [facility] Rosalva Fung DO, DO, Kathleen Planned Procedures Flu Vaccine (Quadrivalent) On: 30-Sep-2018 Intent [id number]: Rosalva Fung DO Comments: Lot #[id number]-L dltd, IMDose prefilled syringegiven by: Jackeline Squires LPN.VIS reviewed and ABN signed Rosalva Fung DO EMGBy: Rosalva Fung DO On: 30-Sep-2018 Intent Rosalva Fung DO Comments: lower extrem b/l Nerve ConductionBy: Kenton PAPPAS, On: 30-Sep-2018 Intent Rosalva Olivas DO Comments: lower extrem b/l Echo CompleteBy: Kenton PAPPAS, On: 13-Jun-2018 Intent Rosalva Olivas DO PNEUM VAC ADLT/IMUMNOSPR, On: 13-Jun-2018 Intent SBC/INTRM ([id number])By: Kenton Comments: 0.5 cc given sq lt arm lot [id number] exp 09/03/19 Rosalva PAPPAS DO, Kathleen Nuclear Stress Test/Stress On: 28-May-2018 Intent SPECT/TreadmillBy: Rosalva Fung DO, DO, Kathleen ELECTROCARDIOGRAM, COMPLETE On: 28-May-2018 Intent (ECG) ([id number])By: Kenton APPPAS, Comments: no acute chg /nsr Rosalva Olivas DO Toradol Injection, 30 mg On: 27-Nov-2017 Intent ([id number])By: Lita Pascal CNP Comments: [id number]-dk9/236575fk/1ml/2 unitsR hip, IMMLONG TELEMEDICINE PHYSICIAN ULTRASOUND OF [place] On: 19-Aug-2015 Intent ([id number])By: Rosalva Fung DO, DO, Kathleen TDAP VACCINE >7 IM ([id number])By: On: 19-Jul-2011 Intent Rosalva Fung DO, DO, Comments: Lot [id number]-L arm, IMDose prefilledgiven by:ALEC Blackwell EKG ([id number])By: Kenton PAPPAS, On: 19-Jul-2011 Intent Rosalva Olivas DO Comments: nsr no acute chg Eprescribed prescriptions On: 25-Jan-2011 Intent ([id number])By: Rosalva Fung DO, DO, Kathleen Doppler Ultrasound OtherBy: On: 25-Jan-2011 Intent Rosalva Fung DO, DO, Comments: R calf-- note venous valvular incompetence too [facility] - Hip - RightBy: On: 05-Jul-2010 Intent Rosalva Fung DO, DO, Kathleen Radiology - Knee - Right - On: 05-Jul-2010 Intent Weight BearingBy: Rosalva Fung DO, DO, Kathleen CT - Abdomen & Pelvis (IV On: 22-Sep-2009 Intent Contrast Needed)By: Rosalva Fung DO, DO, Kathleen Planned Medications INJECTION, KETOROLAC TROMETHAMINE, PER 15 MG Ordered: 27-Nov-2017 Pending Lita Pascal CNP Instructions Name Dates Details Diabetes mellitus type II, controlled : How to access health information online Indication: Diabetes mellitus type II, controlled Diabetes mellitus type II, controlled : How to access health information online - Detail Indication: Diabetes mellitus type II, controlled Diabetes mellitus type II, controlled : Patient Instructions Indication: Diabetes mellitus type II, controlled Body mass index (BMI) 24.0-24.9, adult : [...] Instructions Indication: Pelvic pain in female Encounters Office Visit On: 30-Sep-2018 13:09 Encounter Reason: Tingling - The symptoms first began 1 week(s) ago. The onset of the tingling has been abrupt. Each episode lasts approximately 1 week. The tingling is getting worse. Associated features do not include: End: 30-Sep-2018 15:12 chest pain, lightheadedness, palpitations or shortness of breath.Encounter Diagnosis: Diabetes mellitus type II, controlled, Paresthesia, Elevated blood pressure reading, Need for prophylactic vaccination and inoculation against influenza (Renamed from Need for immunization against influenza), Nutritional counseling [facility] Phone Encounter On: 18-Sep-2018 10:46 Encounter Diagnosis: [...] The patient does have durable power of tax attorney and living will. The patient has noticed nothing from the geriatic depression scale. Other pr oviders contributing to the patient's care are payroll analyst.Encounter Diagnosis: Encounter for screening mammogram for breast [...] about 1 [place] went [place] and so I was sitting Encounter Diagnosis: [...] diabetes mellitus (V18.0) [facility] Mcarth[facility]; a guarantor
--- OUTSIDE RECORDS SUMMARY | 2018-12-03 22:08 | XMS RPT_ITS | Continuity of Care Document ---
:1950 Author Organization [facility] Address [facility] [address] Phone Care Team Providers Name Role Phone [...] Unspecified Diagnosis Status: Active Vaginal Delivery Comments: [id number] Status: Active Medications Name Dates Details Allergy shots Active Flonase 50 MCG/ACT Nasal Suspension 1 spray [place] qd/prn for 0 days Quantity: 1 {[place]} Refills: 0 Ordered:28-May-2018 Staci Fung DO, DO, [...] End : 27-Nov-2017 Inactive Comments:Dr Zuleta in [place] CIPRO, 500MG (Oral Tablet) 1 (one) Tablet [...] End : 30-Sep-2018 Inactive CALCIUM + D, 969-544CQ-RWCL (Oral Tablet) for 0 days Refills: 0 [...] (CAD), BILAT Result: Comments: See Note; NOTES: [facility] Imaging Services [address] [place] [address] SCREENING MAMM (CAD), BILAT MR#: [id number] Acct: [id number] Name: BONNIE MCARTHUR Rep #: [id number] : 1950 F 68 From: Kodak Peralta MD PCP: Rosalva Fung DO Status: REG CLI Study: SCREENING MAMM (CAD), BILAT Date of Exam: 08/07/18 Exam# [id number] Ordering Dr: Torres Major MD MAMMOGRAPHY - [...] delay biopsy of a clinically suspicious abnormality. [id number] Electronically Signed: Kodak Peralta MD at 11:17 EDT Tel [phone], Service support , CC: Rosalva Fung DO; Becky Major MD Project Management Director: Signed 18-Jul-2018 Pelvis 1 or 2 Views Result: Comments: See Note; NOTES: [facility] Imaging Services [address] [place] [address] Pelvis 1 or 2 Views MR#: [id number] Acct: [id number] Name: BONNIE MCARTHUR Rep #: [id number] : 1950 F 68 From: Odilon Medel MD PCP: Rosalva Fung DO Status: REG CLI Study: Pelvis 1 or 2 Views Date of Exam: 07/18/18 Exam# [id number] Ordering Dr: Ashley Newby MD STUDY: X-RAY [...] CC: Rosalva Fung DO; Ashley Newby MD Project Management Director: Signed 16-Jun-2018 Echocardiogram Complete Result: Comments: See Note; NOTES: [facility] Cardiovascular Services [address] [place] [address] Echo Complete 06/16/18 0657 MR#: [id number] Acct: [id number] Name: BONNIE MCARTHUR Rep #: [id number] : 1950 68 From: Bill Rodrigues MD Attending Dr: Rosalva Fung DO Status: REG CLI Ordering Dr: Rosalva Fung DO Date: 06/16/18 Location: [facility] Sex: F C Admitted: Reason [...] Date Dictated: 06/16/18 0657 Date Transcribed: 06/16/181648 Project Management Director: Signed 16-Jun-2018 Stress Report Result: Comments: See Note; NOTES: [facility] Cardiovascular Services [address] [place] [address] MR#: [id number] Acct: [id number] Name: BONNIE MCARTHUR Rep #: [id number] : [birth year] 68 From: Ayan Gomez MD [...] 85 %. This note was generated with [employer] dictation software. It may contain incorrect words, spelling, and punctuation that were not noted in checking the note before signing. 06/16/18930 <Electronically signed by Ayan Gomez MD> Date Ayan Gomez MD CC: Rosalva Kenton DO Date Dictated: 06/16/18923 Date Transcribed: 06/16/18923 Project Management Director: PM Signed 29-May-2018 Electronic Warfare Officer Office Visit Report Result: Comments: See Note; NOTES: [facility]'s [address] [place] [address] OFFICE VISIT Date of Service: 05/29/18 MR#: [id number] Acct: [id number] Name: ONIEL MCARTHUR Rep #: [id number] : 1950 Provider: LOUIE Rudd Age/Sex: 68/F Location: [facility] Status: Signed Intake Vital Signs05/29/18 Height 5 ft 6 in 05/29/18 Weight: 150 lb 6 oz 05/29/18 Body Mass Index (BMI) 24.3 05/29/18 Blood Pressure 113/69 Intake Visit Reasons: RASH IN PUBIC AREA Professor Of Communication Required: No Is patient in pain?: No [...] mg PO QPM 05/07/18 [History Confirmed 05/29/18] multivitamin,dx-szap-ygfmqihj tablet 1 tab PO QDAY 05/07/18 [History [...] dermatitis type, unspecified trigger L25.9 Plan Reviewed RIDING INSTRUCTOR skin care Will use the triamcinolon e [...] Cosigner Signature: Date (if applicable) CC: 07-May-2018 Electronic Warfare Officer Office Visit Report Result: Comments: See Note; NOTES: [facility]'s [address] [place] [address] OFFICE VISIT Date of Service: 05/07/18 MR#: [id number] Acct: [id number] Name: ONIEL MCARTHUR Rep #: [id number] : 1950 Provider: Becky Major MD Age/Sex: 68/F Location: [facility] Status: Signed Intake Vital Signs05/07/18 Height 5 ft 6 in 05/07/18 Weight: 147 lb 8 oz 05/07/18 B jessica Mass Index (BMI) 23.8 05/07/18 Blood Pressure 133/76 Intake Visit Reasons: RASH IN GROIN AREA Chief Complaint: Rash, going on since November on and off Professor Of Communication Required: No Is patient in pain?: No [...] PO QPM 05/07/18 [History Confirmed 05/07/18] m ultivitamin,lq-zxpt-krpewnmj tablet 1 tab PO QDAY 05/07/18 [History [...] to toe- has psoriasis. She goes to [facility]. s he has rash that comes and goes, she has it on other areas. she has a reaction to otezla she had hives. she has significant allergies. she is working with her bleach mixer regarding this. she has tried tri amcinolone [...] (CAD), BILAT Result: Comments: See Note; NOTES: [facility] Imaging Services [address] [facility] [place] [place] [address] SCREENING MAMM (CAD), BILAT MR#: [id number] Acct: [id number] Name: BONNIE MCARTHUR Rep # : [id number] : 1950 F 67 From: Kodak Peralta MD PCP: Rosalva Fung DO Status: REG CLI Study: SCREENING MAMM (CAD), BILAT Date of Exam: 07/09/17 Exam# [id number] Ordering Dr: Becky Major MD MAMMOGRAPHY - [...] delay biopsy of a clinically suspicious abnormality. [id number] Electronically Signed: Kodak Peralta MD at 11:07 ED T Tel [phone], Service support , CC: Rosalva Fung DO; Becky Major MD Project Management Director: Signed 26-Aug-2015 Transvaginal Non- Result: Comments: See Note; NOTES: [facility] Imaging Services [address] [place] [address] Verdana 4d Transvaginal Non- MR#: [id number] Acct: [id number] Name: BONNIE HELMS Rep #: [id number] : 1950 F 65 From: Kiet Valencia DO PCP: Rosalva Fung DO Status: REG CLI Study: Transvaginal Non- Date of Exam: 08/26/15 Exam# [id number] Ordering Dr: Rosalva Fung DO STUDY: ULTRASOUND [...] Kiet Valencia DO at 10:31 EDT Tel [phone], Service support [phone], CC: Rosalva Fung DO Project Management Director: Signed 26-Aug-2015 Pelvic (Non ) Result: Comments: See Note; NOTES: [facility] Imaging Services [address] [place] [address] Verdana 4d Pelvic (Non ) MR#: [id number] Acct: [id number] Name: BONNIE BELLAMY Rep #: [id number] : 1950 F 65 From: Kiet Valencia DO PCP: Rosalva Fung DO Status: REG CLI Study: Pelvic (Non ) Date of Exam: 08/26/15 Exam# [id number] Ordering Dr: Rosalva Kessler DO STUDY: ULTRASOUND [...] bladder is grossly unremarkable IMPRESSION: 1. Normal [place] and left ovary. The right ovary is not seen. 2. Prominent vessels in the uterus and broad ligaments suggesting pelvic congestion. This was previously reported on a CT of the abdomen and pelvis da mikhail September 30, 2009 Electronically Signed: Kiet Valencia DO at 10:31 EDT Tel [phone], Service support [phone], CC: Rosalva Fung DO Project Management Director: Signed Family History Unknown Family Member Name [...] Active Vital Signs Date Test Result Details 94-Tzt-881797:09 Comments: 138/70 recheck bp Temperature 97.4 f [...] kg/m2 Body Surface Area Calculated 1.75 m2 82-Wjc-744951:40 Temperature 97.2 f Comments: Method: Temporal Pulse [...] :54 Hemoglobin A1c Comments: ADD TO 09/12/[address] [place], [address] HGB A1C 6.1 % (Normal) Range: 4.2-6.3 :54 CBC W/Diff, Automated Comments: [facility] [address] [place], [address] Absolute Lymph 1.68 {X10_3/ul} (Normal) [...] 4.2-5.4 WBC 6.6 K/mm3 (Normal) Range: 4.4-11.0 3-Ixm-914566:54 Comprehensive Metabolic Profil Comments: [facility] [address] [place], [address] GAP 8 (Normal) Range: 5-15 CO2 28.0 [...] A.D.A. criteria.Please note revised GLUCOSE reference range nrcljtoyn53/02/2018. 2-Zct-260757:19 CBC W/Diff, Automated Comments: [facility] [address] [place], [address] Absolute Lymph 2.08 {X10_3/ul} (Normal) Range: 0.83-4.51 [...] report for address and phone number ANTI-CCP 268626 5 {units} (Normal) Range: 0-19 Comments: Negative <20 Weak positive 20 - 39 Moderate positive 40 - 59 Strong positive >59 2-Jof-885862:19 Comprehensive Metabolic Profil Comments: [facility] [address], [place], [address] GAP 6 (Normal) Range: 5-15 CO2 30.0 [...] Comments: Please note revised GLUCOSE reference range vewqrexym96/02/2018. 8-Tqm-047692:19 CRP Comments: [facility] [address] [facility] [place], [place], [id number] C-REACTIVE PROT < 2.90 mg/L (Normal) Range: 0.0-3.0 Comments: C-Reactive Protein (CRP) provides useful information for thediagnosis, therapy and monitoring of inflammatory processesand associated diseases. For the evaluation of Relative Riskfor Cardiovascular Dise ase, a High Sensitivity CRP (HSCRP)should be ordered. 9-Vsp-978887:19 Erythrocyte Sed Rate Comments: [facility] [address] [facility] [place], [place], [address] SED RATE 8 mm/h (Normal) Range: 0-30 8-Rzo-557142:19 Hep B Surface Antibodies Comments: [facility] (refer to report for specific site)refer to report for address and phone number Hep B Maritza AB Non Reactive (Normal) Comments: Non Reactive: Inconsistent with immunity, less than 10 mIU/mL Reactive: Consistent with immunity, greater than 9.9 mIU/ mL 9-Tbk-404529:19 Hepatitis B Surface Ag Comments: [facility] (refer to report for specific site)refer to report for address and phone number HB SURF AG Negative (Normal) Comments: Performed at: - [facility] [address] [id number] Director: Sampson Rivers PhD, Phone: [phone] at: - [facility] [id number] Director: Rodríguez Montgomery PhD, Phone: [phone] at: - [facility] [address] [id number] Director: Gregorio Miller MD, Phone: [phone] :19 Hepatitis C Antibodies Comments: [facility] (refer to report for specific site)refer to report for address and phone number HEP C AB <0.1 {s/co_ratio} Range: 0.0-0.9 (Normal) Comments: Negative: < 0.8 Indeterminate: 0.8 - 0.9 Positive: > 0.9 The CDC recommends that a positive HCV antibody result be followed up with a HCV Nucleic Acid Amplification test (303649). : HLA B27 Negative (Normal) Comments: [facility] (refer to report for specific site)refer to report for address and phone number 19 Comments: HLA-B*27 TbfyknmdH71 allele interpretation for all loci based on IMGT/HLAdatabase version 3.27This test was developed and its performance characteristicsdetermined by [facility]. It has not been cleared o r approvedby the Food and Drug Administration.[facility] Lab CLIA ID Number [id number] test was performed using PCR (Polymerase ChainReaction)/SSOP (Sequence Specific Oligonucleotide Probes)technique. SBT (Sequence Based Typing) and/or SSP(Sequence Specific Primers) may be used as supplementalmethods when necessary. Please contact [facility] CustomerService at if you have any questions. Director of [facility] Laboratory Dr Rodríguez Montgomery, PhD :19 Rheumatoid Factor Comments: [facility] [address] [place], [place], [address] RHEUMATOID FAC < 10.0 {IU/mL} (Normal) :48 METABOLIC PANEL, COMPREHENSIVE Comments: PATIENT NOT FASTINGPERFORMED BY: [facility] H[address]fyr8762 [facility] [id number] (91429) ALT (SGPT) 13 [iU]/L (Normal) Range: 0-32 [...] 8-27 Glucose 111 mg/dL (Abnormal) Range: 65-99 27-Tee-112226:48 FERRITIN (61624) Comments: PATIENT NOT FASTINGPERFORMED BY: Need FixedPascack Valley Medical CenterLlhzpy6764 [facility] [id number] Ferritin, Serum 52 ng/mL (Normal) Range: 15-150 82-Qsx-150205:48 IRON BINDING CAPACITY (TIBC) Comments: PATIENT NOT FASTINGPERFORMED BY: Need FixedPascack Valley Medical CenterDduwpt9441 [facility] [id number] (59620) Iron Saturation 26 % (Normal) Range: 15-55 Iron 41 ug/dL (Normal) Range: 27-139 UIBC 119 ug/dL (Normal) Range: 118-369 Iron Bind.Cap.(TIBC) 160 ug/dL (Abnormal) Range: 250-450 65-Jzu-292441:48 CBC, PLATELETS & AUT DIFF Comments: PATIENT NOT FASTINGPERFORMED BY: iPawnPascack Valley Medical CenterRrhaph4693 [facility] [id number] Information: [id number] (63422) Immature Grans (Abs) 0.0 {x10E3/uL} (Normal) Range: [...] 3.77-5.28 WBC 7.1 {x10E3/uL} (Normal) Range: 3.4-10.8 86-Jrg-599458:48 VITAMIN B-12 (CYANOCOBALAMIN) Comments: PATIENT NOT FASTINGPERFORMED BY: iPawnLovelace Rehabilitation HospitalBjujim2328 [facility] [id number] (93598) Vitamin B12 739 pg/mL (Normal) Range: 232-1245 4-Jqz-675553:30 T4, FREE (THYROXINE) (66347) Comments: PATIENT WAS FASTINGPERFORMED BY: iPawnPasc[facility] Medical CenterWmwsxa4478 [facility] [id number] T4,Free(Direct) 1.06 ng/dL (Normal) Range: 0.82-1.77 8-Ijw-377755:30 TSH (72867) Comments: PATIENT WAS FASTINGPERFORMED BY: [facility]6370 [facility] [id number] TSH 2.450 {uIU/mL} (Normal) Range: 0.450-4.500 5-Adz-502390:30 T3, FREE (TRIDOTHYRONINE) (36898) Comments: PATIENT WAS FASTINGPERFORMED BY: [facility]6370 [facility] [id number] Triiodothyronine (T3), Free 3.0 pg/mL (Normal) Range: 2.0-4.4 9-Sny-995736:19 LIPID PANEL (18862) Comments: PATIENT WAS FASTINGPERFORMED BY: [facility]6370 [facility] [id number] LDL/HDL Ratio 1.9 {ratio} (Normal) Range: 0.0-3.2 Comments: LDL/HDL Ratio Men Women 1/2 Avg.Risk 1.0 1.5 Av g.Risk 3.6 3.2 2X Avg.Risk 6.2 5.0 3X Avg.Risk 8.0 6.1 LDL Cholesterol Calc 128 mg/dL (Abnormal) Range: 0-99 VLDL Cholesterol Aminata 14 mg/dL (Normal) Range: 5-40 HDL Cholesterol 66 mg/dL (Normal) Triglycerides 72 mg/dL (Normal) Range: 0-149 Cholesterol, Total 208 mg/dL (Abnormal) Range: 100-199 44-Vjd-662477:41 Lipid Panel (14828) Comments: PATIENT WAS FASTINGPERFORMED BY: [facility]6370 [facility] [id number] LDL/HDL Ratio 2.2 {ratio_units} (Normal) Range: 0.0-3.2 Comments: LDL/HDL Ratio Men Women 1/2 Avg.Risk 1.0 1.5 Av g.Risk 3.6 3.2 2X Avg.Risk 6.2 5.0 3X Avg.Risk 8.0 6.1 LDL Cholesterol Calc 132 mg/dL (Abnormal) Range: 0-99 VLDL Cholesterol Aminata 19 mg/dL (Normal) Range: 5-40 HDL Cholesterol 59 mg/dL (Normal) Triglycerides 96 mg/dL (Normal) Range: 0-149 Cholesterol, Total 210 mg/dL (Abnormal) Range: 100-199 59-Iye-51039:00 PAP I-G HPV Hi Risk Comments: CYTOLOGY INFORMATION:- CLINICAL INFORMATION: OTHER- DATE LMP/MENOPAUSE: LMP/ NOT GIVEN- COLLECTION VIAL: Thin Prep Vial- RIDING INSTRUCTOR SOURCE: CERVICAL- COLLECTION TECHNIQUE: BRUSH ONLY/ CERVIX BROOM ONLYSpecim en Comment: [id number] Comment: No. of containers..01 ThinPrep [facility]ialLab[facility] (refer to report for specific site)refer to report for address and phone number HPV HC,HGH RISK Negative Comments: This high-risk HPV test detects thirteen high-risk types(16/18/31/33/35/39/45/51/52/56/58/59/68) withoutdifferentiation.Performed at: [address] [id number] (Normal) b Director: Belle Bennett MD, Phone: [phone] at: =[facility] [id number] Director: Belle Bennett MD, Phone: [phone] PAPSMR Comment Comments: The Pap smear is [...] system. (Normal) PERFORM Comment Comments: Leticia Wyatt Operations Support Manager (ASCP) (Normal) ADEQ Comment Comments: Satisfactory for evaluation. Endocervical component may not bedistinguished in cases of atrophy. (Normal) DIAGN Comment Comments: NEGATIVE FOR INTRAEPITHELIAL LESION AND MALIGNANCY.CELLULAR CHANGES ASSOCIATED WITH ATROPHY ARE PRESENT. (Normal) 93-Kun-187131:56 SED RATE ERYTHROCYTE (34981) Comments: PATIENT NOT FASTINGPERFORMED BY: [facility] Syvynr8073 [facility] [id number] Sedimentation Rate-Westergren 5 mm/h (Normal) Range: 0-40 42-Mqm-589882:56 BILIRUBIN, TOTAL (81829) Comments: PATIENT NOT FASTINGPERFORMED BY: [facility]6370 [facility] [id number] Information: [id number] Bilirubin, Indirect 0.97 mg/dL (Abnormal) Range: 0.10-0.80 Bilirubin, Direct 0.23 mg/dL (Normal) Range: 0.00-0.40 Bilirubin, Total 1.2 mg/dL (Normal) Range: 0.0-1.2 59-Klo-334027:59 Urinalysis, Office (75312) UA - LEUKOCYTE ESTERASE Negative (Normal) UA - NITRITE Negative (Normal) URINE UROBILINGN KARL TIMED Normal mg/dL (Normal) UA - PROTEIN Negative mg/dL (Normal) UA - PH 7.0 (Normal) Comments: 6.5 UA - BLOOD Negative (Normal) UA - SPECIFIC GRAVITY 1.020 (Normal) UA - KETONES Negative mg/dL (Normal) UA - BILIRUBIN Negative (Normal) UA - GLUCOSE Negative (Normal) :41 Sed Rate Erythrocyte (20205) Comments: PATIENT NOT FASTINGPERFORMED BY: iPawnPasc[facility] Medical CenterSkzclz5446 [facility] [id number] Sedimentation Rate-Westergren 3 mm/h (Normal) Range: 0-40 :41 Metabolic Panel, Comprehensive Comments: PATIENT NOT FASTINGPERFORMED BY: [facility]6370 [facility] [id number] (72255) ALT (SGPT) 13 [iU]/L (Normal) Range: 0-32 [...] auto diff Comments: PATIENT NOT FASTINGPERFORMED BY: LabCoPasc[facility] Medical CenterPulcjp2819 [facility] [id number] Information: [id number] (80947) Immature Grans (Abs) 0.0 {x10E3/uL} (Normal) Range: [...] 3.77-5.28 WBC 4.3 {x10E3/uL} (Normal) Range: 3.4-10.8 9-Fqd-617248:23 URINE ARI CULTURE-IDENTIFICATN Comments: PATIENT NOT FASTINGPERFORMED BY: [facility] Uimzbb7813 [facility] [id number] Information: [id number] (88463) Result 1 MUG (Normal) Comments: Mixed urogenital flora10,000-25,000 colony forming units per mL Urine Final report (Normal) Culture,Comprehensive 19-Aug-20157:04 Urinalysis, Office (13411) UA - LEUKOCYTE ESTERASE Small (Normal) UA [...] 200-240 mg/dL Borderline >240 mg/dL High Risk 89-Iwl-729064:19 HIP, MIN 2 VIEWS ([place]) Radiology Report See Note (Normal) Comments: Exam Number: [id number] CLINICAL:This is a 60-year-old female patient with [...] of the hip. Reported By: KODAK PERALTA 44-Gpd-719784:19 KNEE,4 OR MORE VIEWS ([place]) Radiology Report See Note (Normal) Comments: Exam Number: [id number] CLINICAL:This is a 60-year-old female patient with [...] Report See Note (Normal) Comments: Exam Number: [id number] CLINICAL:Abdominal pain. CT ABDOMEN WITH CONTRAST COMPARISON:None. [...] Indication: Hair loss Psoriatic arthritis : Reviewed Weight Training Instructor Letter Indication: Psoriatic arthritis Allergic rhinitis : [...] pain, acute, generalized Planned Observations HGB A1C (99844)Indication: Paresthesia On: :37 Request HEPATITIS C ANTIBODY (50039)Indication: Paresthesia On: :37 Request JUANITA (ANTINUCLEAR ANTIBODY) (44448)Indication: Paresthesia On: :37 Request Serum Protein Electrophoresis (SPEP) (09641)Indication: Paresthesia On: :37 Request VITAMIN B-12 (CYANOCOBALAMIN) (71614)Indication: Paresthesia On: :37 Request TSH (THYROID STIMULATING HORMONE) (49586)Indication: Paresthesia On: :37 Request SED RATE ERYTHROCYTE (18472)Indication: Paresthesia On: :37 Request METABOLIC PANEL, COMPREHENSIVE (91408)Indication: Paresthesia On: :37 Request CBC & PLATELETS (AUTO) (81964)Indication: Paresthesia On: :37 Request HGB A1C (75755)Indication: Blood glucose elevated On: 0-Tze-185627:23 Request Comments: called to lab and will be added to her blood from the 09/12/18 IRON (22083)Indication: Hair loss On: 02-Kqc-591198:29 Request BILIRUBIN DIRECT (88145)Indication: Elevated bilirubin On: 29-Zoi-245683:32 Request URINE ARI CULTURE (KARL COL COUNT) (64239)Indication: UTI symptoms On: 53-Yny-359918:29 Request LIPID PANEL (02068)Indication: Other general medical examination for administrative purposes On: 5-Arq-540931:12 Request LIPID PANEL (75345)Indication: Family history of diabetes mellitus On: 62-Lgi-970918:45 Request Glucose, PP/2 Hour (41443)Indication: Family history of diabetes mellitus On: 14-Bhk-823763:45 Request Planned Encounters Medical; 3 Week FU - On: 20-Oct-2018 10:45 [facility] Rosalva Fung DO, DO, Kathleen Planned Procedures Flu Vaccine (Quadrivalent) On: 30-Sep-2018 Intent 59663Kf: Rosalva Fung DO Comments: Lot #[id number]-L dltd, IMDose prefilled syringegiven by: Jackeline Squires LPN.VIS reviewed and ABN signed Rosalva Fung DO EMGBy: Rosavla Fung DO On: 30-Sep-2018 Intent Rosalva Fung DO Comments: lower extrem b/l Nerve ConductionBy: Kenton PAPPAS, On: 30-Sep-2018 Intent Rosalva Olivas DO Comments: lower extrem b/l Echo CompleteBy: Kenton PAPPAS, On: 13-Jun-2018 Intent Rosalva Olivas DO PNEUM VAC ADLT/IMUMNOSPR, On: 13-Jun-2018 Intent SBC/INTRM (47339)By: Kenton Comments: 0.5 cc given sq lt arm lot [id number] exp 09/03/19 Rosalva PAPPAS DO, Kathleen Nuclear Stress Test/Stress On: 28-May-2018 Intent SPECT/TreadmillBy: Rosalva Fung DO, DO, Kathleen ELECTROCARDIOGRAM, COMPLETE On: 28-May-2018 Intent (ECG) (54848)By: Kenton PAPPAS, Comments: no acute chg /nsr Rosalva Olivas DO Toradol Injection, 30 mg On: 27-Nov-2017 Intent (J1885)By: Lita Pascal CNP Comments: 81-257-dk9/086937qs/1ml/2 unitsR hip, IMMLONG DUMPSTER DRIVER ULTRASOUND OF [place] On: 19-Aug-2015 Intent (10649)By: Rosalva Fung DO, DO, Kathleen TDAP VACCINE >7 IM (09550)By: On: 19-Jul-2011 Intent Rosalva Fung DO, DO, Comments: Lot #[id number]-L arm, IMDose prefilledgiven by:ALEC Blackwell EKG (53160)By: Kenton PAPPAS, On: 19-Jul-2011 Intent Rosalva Olivas [...] The patient does have durable power of transactional attorney and living will. The patient has noticed nothing from the geriatic depression scale. Other pr oviders contributing to the patient's care are cap sewer.Encounter Diagnosis: Encounter for screening mammogram for breast [...] about 1 [place] was sitting Encounter Diagnosis: [...] diabetes mellitus (V18.0) [facility] Insurance [facility] HospitalBonnie Mcarthur; a guarantor
--- OUTSIDE RECORDS SUMMARY | 2018-12-03 22:08 | XMS RPT_ITS | Continuity of Care Document ---
:1950 Author Organization [facility] Address [facility] 2 [place] [address] Phone Care Team Providers Name Role Phone Rosalva Fung DO Unavailable SURYA Squires Unavailable Unavailable Angelita Jj Unavailable Unavailable Unavailable Unavailable Problems Name Dates [...] Unspecified Diagnosis Status: Active Vaginal Delivery Comments: [id number] Status: Active Medications Name Dates Details Allergy shots Active Flonase 50 MCG/ACT Nasal Suspension 1 spray [place] qd/prn for 0 days Quantity: 1 {[place]} Refills: 0 Ordered:28-May-2018 Staci Fung DO, DO, Kathleen Start : 28-May-2018 Active Hydrocholoride 0.15% one spray bid Active IBUPROFEN, 600MG (Oral Tablet) 1 Tablet tid prn with food for 0 days Quantity: 60 {Tablet} Refills: 1 Ordered:25-Jan-2011 Mast Shawanda WARE Start : 25-Jan-2011 Active montelukast 10 mg Active MULTIVITAMIN (Oral Liquid) for 0 days Refills: 0 Ordered:13-Jun-2018 Jackeline Squires Palgic 4 MG Oral Tablet 1 [...] End : 27-Nov-2017 Inactive Comments:Dr Zule[place] in [place] CIPRO, 500MG (Oral Tablet) 1 (one) Tablet [...] End : 28-May-2018 Inactive CALCIUM + D, 649-053YI-OTPM (Oral Tablet) for 0 days Refills: 0 [...] BILAT Result: Comments: See Note; NOTES: [facility] Imaging Services [address] [place] [address] SCREENING MAMM (CAD), BILAT MR#: [id number] Acct: [id number] Name: BONNIE MCARTHUR Rep #: [id number] : 1950 F 68 From: Kodak Peralta MD PCP: Rosalva Fung DO Status: REG CLI Study: SCREENING MAMM (CAD), BILAT Date of Exam: 08/07/18 Exam# [id number] Ordering Dr: Torres Major MD MAMMOGRAPHY - [...] delay biopsy of a clinically suspicious abnormality. [id number] Electronically Signed: Kodak Peralta MD at 11:17 EDT Tel [phone], Service support , CC: Rosalva Fung DO; Becky Major MD Temple Marker: Signed 18-Jul-2018 Pelvis 1 or 2 Views Result: Comments: See Note; NOTES: [facility] Imaging Services [address] [place] [address] Pelvis 1 or 2 Views MR#: [id number] Acct: [id number] Name: BONNIE MCARTHUR Rep #: [id number] : 1950 F 68 From: Odilon Medel MD PCP: Rosalva Fung DO Status: REG CLI Study: Pelvis 1 or 2 Views Date of Exam: 07/18/18 Exam# [id number] Ordering Dr: Ashley Newby MD STUDY: X-RAY [...] CC: Rosalva Fung DO; Ashley Newby MD Temple Marker: Signed 16-Jun-2018 Echocardiogram Complete Result: Comments: See Note; NOTES: [facility] Cardiovascular Services [address] [place] [address] Echo Complete 06/16/18 0657 MR#: [id number] Acct: [id number] Name: HIEU MCARTHURA Jean-Paul Rep #: [id number] : 1950 68 From: Bill Rodrigues MD [...] Date Dictated: 06/16/18 0657 Date Transcribed: 06/16/181648 Temple Marker: Signed 16-Jun-2018 Stress Report Result: Comments: See Note; NOTES: [facility] Cardiovascular Services [address] [place] [address] MR#: [id number] Acct: [id number] Name: BONNIE MCARTHUR Rep #: [id number] : [birth year] 68 From: Ayan Gomez MD [...] 85 %. This note was generated with Fondeadoraation software. It may contain incorrect words, spelling, and punctuation that were not noted in checking the note before signing. 06/16/18 0931 <Electronically signed by Ayan Gomez MD> Date Ayan Gomez MD CC: Rosalva Fung DO Date Dictated: 06/16/18923 Date Transcribed: 06/16/18923 Temple Marker: PM Signed 29-May-2018 Optical Model Maker And Tester Office Visit Report Result: Comments: See Note; NOTES: [facility] [address] [place] [address] OFFICE VISIT Date of Service: 05/29/18 MR#: [id number] Acct: [id number] Name: ONIEL MCARTHUR Rep #: [id number] : 1950 Provider: LOUIE Rudd Age/Sex: 68/F [place] [facility] [place]: Signed Intake Vital Signs05/29/18 Height 5 ft 6 in 05/29/18 Weight: 150 lb 6 oz 05/29/18 Body Mass Index (BMI) 24.3 05/29/18 Blood Pressure 113/69 Intake Visit Reasons: RASH IN PUBIC AREA Bundle Shaker Required: No Is patient in pain?: No [...] mg PO QPM 05/07/18 [History Confirmed 05/29/18] multivitamin,ax-aags-vftjjylq tablet 1 tab PO QDAY 05/07/18 [History [...] dermatitis type, unspecified trigger L25.9 Plan Reviewed 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 Coding Level of Care Code Off vis,est,level 3 Diagnoses Contact dermatitis, unspecified contact dermatitis type, unspecif ied trigger L25.9 Contact dermatitis type: unspecified Contact dermatitis trigger: unspecified trigger 05/29/18 1500 <Electronically signed by Donna SAMSC> Date __ Donna Rudd NP-C Cosigner Signature: Date (if applicable) CC: 07-May-2018 Optical Model Maker And Tester Office Visit Report Result: Comments: See Note; NOTES: [facility] [place] [address] [place] [address] OFFICE VISIT Date of Service: 05/07/18 MR#: [id number] Acct: [id number] Name: ONIEL MCARTHUR Rep #: [id number] : 1950 Provider: Becky Major MD Age/Sex: 68/F [place] [facility] [place]: Signed Intake Vital Signs05/07/18 Height 5 ft 6 in 05/07/18 Weight: 147 lb 8 oz 05/07/18 B jessica Mass Index (BMI) 23.8 05/07/18 Blood Pressure 133/76 Intake Visit Reasons: RASH IN GROIN AREA Chief Complaint: Rash, going on since November on and off Bundle Shaker Required: No Is patient in pain?: No [...] PO QPM 05/07/18 [History Confirmed 05/07/18] m ultivitamin,lq-mieo-mkzqwlnc tablet 1 tab PO QDAY 05/07/18 [History [...] home: Yes additional social history: Vicente- Selenaio n Patient is retired HPI RASH IN GROIN AREA: Details: BONNIE MCARTHUR is a 68 year old who presents for a chronic rash since november starting head to toe- has psoriasis. She goes to [employer]. s he has rash that comes and goes, she has it on other areas. she has a reaction to otezla she had hives. she has significant allergies. 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 she has tried tri amcinolone [...] BILAT Result: Comments: See Note; NOTES: [facility] Imaging Services [address] [place] [address] SCREENING MAMM (CAD), BILAT MR#: [id number] Acct: [id number] Name: BONNIE MCARTHUR Rep # : [id number] : 1950 F 67 From: Kodak Peralta MD PCP: Rosalva Fung DO Status: [facility] Study: SCREENING MAMM (CAD), BILAT Date of Exam: 07/09/17 Exam# [id number] Ordering Dr: Becky Major MD MAMMOGRAPHY - [...] delay biopsy of a clinically suspicious abnormality. [id number] Electronically Signed: Kodak Peralta MD at 11:07 ED T Tel [phone], Service support , CC: Rosalva Fung DO; Becky Major MD Temple Marker: Signed 26-Aug-2015 Transvaginal Non- Result: Comments: See Note; NOTES: [facility] Imaging Services [address] [place] [address] Verdana 4d Transvaginal Non- MR#: [id number] Acct: [id number] Name: BONNIE HELMS Rep #: [id number] : 1950 F 65 From: Kiet Valencia DO PCP: Rosalva Fung DO Status: REG CLI Study: Transvaginal Non- Date of Exam: 08/26/15 Exam# [id number] Ordering Dr: Rosalva Fung DO STUDY: ULTRASOUND [...] Kiet Valencia DO at 10:31 EDT Tel [phone], Service support [phone], CC: Rosalva Fung DO Temple Marker: Signed 26-Aug-2015 Pelvic (Non ) Result: Comments: See Note; NOTES: [facility] Imaging Services [address] [place] [address] Verdana 4d Pelvic (Non ) MR#: [id number] Acct: [id number] Name: BONNIE BELLAMY Rep #: [id number] : 1950 F 65 From: Kiet Valencia DO PCP: Rosalva Fung DO Status: REG CLI Study: Pelvic (Non ) Date of Exam: 08/26/15 Exam# [id number] Ordering Dr: Rosalva Kessler DO STUDY: ULTRASOUND [...] described on prior CT of the pelvis [facility] September 30, 2009 which is not available [...] bladder is grossly unremarkable IMPRESSION: 1. Normal robert lucina and left ovary. The right ovary is not seen. 2. Prominent vessels in the uterus and broad ligaments suggesting pelvic congestion. This was previously reported on a CT of the abdomen and pelvis [facility] September 30, 2009 Electronically Signed: Kiet Valencia DO at 10:31 EDT Tel [phone], Service support [phone], CC: Rosalva Fung DO Temple Marker: Signed Family History Unknown Family Member Name [...] kg/m2 Body Surface Area Calculated 1.75 m2 4-Oqi-962442:29 Comments: hearing wnllast eye 06/26 and had [...] kg/m2 Body Surface Area Calculated 1.75 m2 98-Xhc-354913:52 Pulse 68 /min Comments: Pattern: Regular Respiration [...] :54 Hemoglobin A1c Comments: ADD TO 09/12/18 [facility]125[facility] [address] [place], [place], [address] HGB A1C 6.1 % (Normal) Range: 4.2-6.3 :54 CBC W/Diff, Automated Comments: [facility] [address] [place], [place], [address] Absolute Lymph 1.68 {X10_3/ul} (Normal) Range: 0.83-4.51 [...] 4.2-5.4 WBC 6.6 K/mm3 (Normal) Range: 4.4-11.0 4-Dzn-598243:54 Comprehensive Metabolic Profil Comments: [facility] [address] [place], [place], [address] GAP 8 (Normal) Range: 5-15 CO2 28.0 [...] A.D.A. criteria.Please note revised GLUCOSE reference range ecbcezzyg36/02/2018. 8-Efg-978281:19 CBC W/Diff, Automated Comments: [facility] [address] [place], [place], [address] Absolute Lymph 2.08 {X10_3/ul} (Normal) Range: 0.83-4.51 [...] 4.2-5.4 WBC 5.7 K/mm3 (Normal) Range: 4.4-11.0 2-Bmj-230110:19 CCP IgG Antibodies Comments: [facility] (refer to report for specific site)refer to report for address and phone number ANTI-CCP 718267 5 {units} (Normal) Range: 0-19 Comments: Negative <20 Weak positive 20 - 39 Moderate positive 40 - 59 Strong positive >59 8-Qxd-112991:19 Comprehensive Metabolic Profil Comments: [facility] [address] [place], [place], [address] GAP 6 (Normal) Range: 5-15 CO2 30.0 [...] Comments: Please note revised GLUCOSE reference range mhspxyymw51/02/2018. 8-Wgo-644024:19 CRP Comments: [facility] [address] [place], [place], [id number] C-REACTIVE PROT < 2.90 mg/L (Normal) Range: 0.0-3.0 Comments: C-Reactive Protein (CRP) provides useful information for thediagnosis, therapy and monitoring of inflammatory processesand associated diseases. For the evaluation of Relative Riskfor Cardiovascular Dise ase, a High Sensitivity CRP (HSCRP)should be ordered. 8-Qyp-150623:19 Erythrocyte Sed Rate Comments: [facility] [address] [place], [place], [address] SED RATE 8 mm/h (Normal) Range: 0-30 [...] AG Negative (Normal) Comments: Performed at: - [address] [id number] Director: Sampson Rivers PhD, Phone: [phone] at: [address] [place], [place] [address] [place], [place] [id number] Director: Rodríguez Montgomery PhD, Phone: [phone] at: [facility] [address] [id number] Director: Gregorio Miller MD, Phone: [phone] :19 Hepatitis C Antibodies Comments: [facility] (refer to report for specific site)refer to report for address and phone number HEP C AB <0.1 {s/co_ratio} Range: 0.0-0.9 (Normal) Comments: Negative: < 0.8 Indeterminate: 0.8 - 0.9 Positive: > 0.9 The CDC recommends that a positive HCV antibody result be followed up with a HCV Nucleic Acid Amplification test (204050). : HLA B27 Negative (Normal) Comments: [facility] (refer to report for specific site)refer to report for address and phone number 19 Comments: HLA-B*27 KmszsryhT20 allele interpretation for all loci based on IMGT/HLAdatabase version 3.27This test was developed and its performance characteristicsdetermined by [facility]. It has not been cleared o r approvedby the Food and Drug Administration.HLA Lab CLIA ID Number [id number] test was performed using PCR (Polymerase ChainReaction)/SSOP (Sequence Specific Oligonucleotide Probes)technique. SBT (Sequence Based Typing) and/or SSP(Sequence Specific Primers) may be used as supplementalmethods when necessary. Please contact [facility] CustomerService at if you have any questions. Director of HLA Laboratory Dr Rodríguez Montgomeyr, PhD 8-Fei-885534:19 Rheumatoid Factor Comments: [facility] [address] [place], [address] RHEUMATOID FAC < 10.0 {IU/mL} (Normal) 70-Uhw-910185:48 METABOLIC PANEL, COMPREHENSIVE Comments: PATIENT NOT FASTINGPERFORMED BY: [employer]70 [facility] [id number] (55587) ALT (SGPT) 13 [iU]/L (Normal) Range: 0-32 [...] 8-27 Glucose 111 mg/dL (Abnormal) Range: 65-99 98-Kmm-251105:48 FERRITIN (73636) Comments: PATIENT NOT FASTINGPERFORMED BY: [facility] Xnnnhb9287 [facility] [id number] Ferritin, Serum 52 ng/mL (Normal) Range: 15-150 52-Mja-769676:48 IRON BINDING CAPACITY (TIBC) Comments: PATIENT NOT FASTINGPERFORMED BY: [facility]6370 [facility] [id number] (08333) Iron Saturation 26 % (Normal) Range: 15-55 Iron 41 ug/dL (Normal) Range: 27-139 UIBC 119 ug/dL (Normal) Range: 118-369 Iron Bind.Cap.(TIBC) 160 ug/dL (Abnormal) Range: 250-450 83-Phl-255193:48 CBC, PLATELETS & AUT DIFF Comments: PATIENT NOT FASTINGPERFORMED BY: [facility]6370 [facility] [id number] Information: [id number] (14950) Immature Grans (Abs) 0.0 {x10E3/uL} (Normal) Range: [...] 3.77-5.28 WBC 7.1 {x10E3/uL} (Normal) Range: 3.4-10.8 81-Hhr-136900:48 VITAMIN B-12 (CYANOCOBALAMIN) Comments: PATIENT NOT FASTINGPERFORMED BY: [facility] [id number] (37660) Vitamin B12 739 pg/mL (Normal) Range: 232-1245 7-Guk-563847:30 T4, FREE (THYROXINE) (42294) Comments: PATIENT WAS FASTINGPERFORMED BY: [facility] [id number] T4,Free(Direct) 1.06 ng/dL (Normal) Range: 0.82-1.77 7-Nhh-872917:30 TSH (69367) Comments: PATIENT WAS FASTINGPERFORMED BY: [facility] [facility] [place] [id number] TSH 2.450 {uIU/mL} (Normal) Range: 0.450-4.500 4-Xvy-927337:30 T3, FREE (TRIDOTHYRONINE) (11229) Comments: PATIENT WAS FASTINGPERFORMED BY: [facility] [id number] Triiodothyronine (T3), Free 3.0 pg/mL (Normal) Range: 2.0-4.4 5-Fag-589966:19 LIPID PANEL (92482) Comments: PATIENT WAS FASTINGPERFORMED BY: [facility] [facility] [place] [id number] LDL/HDL Ratio 1.9 {ratio} (Normal) Range: 0.0-3.2 Comments: LDL/HDL Ratio Men Women 1/2 Avg.Risk 1.0 1.5 Av g.Risk 3.6 3.2 2X Avg.Risk 6.2 5.0 3X Avg.Risk 8.0 6.1 LDL Cholesterol Calc 128 mg/dL (Abnormal) Range: 0-99 VLDL Cholesterol Aminata 14 mg/dL (Normal) Range: 5-40 HDL Cholesterol 66 mg/dL (Normal) Triglycerides 72 mg/dL (Normal) Range: 0-149 Cholesterol, Total 208 mg/dL (Abnormal) Range: 100-199 91-Yno-792973:41 Lipid Panel (81268) Comments: PATIENT WAS FASTINGPERFORMED BY: [facility] RehabilitationBoauyp2213 [facility] [id number] LDL/HDL Ratio 2.2 {ratio_units} (Normal) Range: 0.0-3.2 Comments: LDL/HDL Ratio Men Women 1/2 Avg.Risk 1.0 1.5 Av g.Risk 3.6 3.2 2X Avg.Risk 6.2 5.0 3X Avg.Risk 8.0 6.1 LDL Cholesterol Calc 132 mg/dL (Abnormal) Range: 0-99 VLDL Cholesterol Aminata 19 mg/dL (Normal) Range: 5-40 HDL Cholesterol 59 mg/dL (Normal) Triglycerides 96 mg/dL (Normal) Range: 0-149 Cholesterol, Total 210 mg/dL (Abnormal) Range: 100-199 42-Mew-21816:00 PAP I-G HPV Hi Risk Comments: CYTOLOGY INFORMATION:- CLINICAL INFORMATION: OTHER- DATE LMP/MENOPAUSE: LMP/ NOT GIVEN- COLLECTION VIAL: Thin Prep Vial- SURGICAL TECHNOLOGY INSTRUCTOR SOURCE: CERVICAL- COLLECTION TECHNIQUE: BRUSH ONLY/ CERVIX BROOM ONLYSpecim en Comment: [id number]-[id number] Comment: No. of containers..01 ThinPrep [facility]ialLab[facility] (refer to report for specific site)refer to report for address and phone number HPV HC,HGH RISK Negative Comments: This high-risk HPV test detects thirteen high-risk types(16/18/31/33/35/39/45/51/52/56/58/59/68) withoutdifferentiation.Performed at: - [facility] [id number] (Normal) b Director: Belle Bennett MD, Phone: [phone] at: =[facility] [id number] Director: Belle Bennett MD, Phone: [phone] PAPSMR Comment Comments: The Pap smear is [...] system. (Normal) PERFORM Comment Comments: Leticia Wyatt Circulation Manager (ASCP) (Normal) ADEQ Comment Comments: Satisfactory for evaluation. Endocervical component may not bedistinguished in cases of atrophy. (Normal) DIAGN Comment Comments: NEGATIVE FOR INTRAEPITHELIAL LESION AND MALIGNANCY.CELLULAR CHANGES ASSOCIATED WITH ATROPHY ARE PRESENT. (Normal) 29-Odr-502727:56 SED RATE ERYTHROCYTE (76236) Comments: PATIENT NOT FASTINGPERFORMED BY: [facility] [place] [id number] Sedimentation Rate-Westergren 5 mm/h (Normal) Range: 0-40 :56 BILIRUBIN, TOTAL (41264) Comments: PATIENT NOT FASTINGPERFORMED BY: [facility] [id number] Information: [id number] Bilirubin, Indirect 0.97 mg/dL (Abnormal) Range: 0.10-0.80 Bilirubin, Direct 0.23 mg/dL (Normal) Range: 0.00-0.40 Bilirubin, Total 1.2 mg/dL (Normal) Range: 0.0-1.2 36-Cmp-059960:59 Urinalysis, Office (00402) UA - LEUKOCYTE ESTERASE Negative (Normal) UA - NITRITE Negative (Normal) URINE UROBILINGN KARL TIMED Normal mg/dL (Normal) UA - PROTEIN Negative mg/dL (Normal) UA - PH 7.0 (Normal) Comments: 6.5 UA - BLOOD Negative (Normal) UA - SPECIFIC GRAVITY 1.020 (Normal) UA - KETONES Negative mg/dL (Normal) UA - BILIRUBIN Negative (Normal) UA - GLUCOSE Negative (Normal) 19-Aug-20157:41 Sed Rate Erythrocyte (07134) Comments: PATIENT NOT FASTINGPERFORMED BY: [facility] [id number] Sedimentation Rate-Westergren 3 mm/h (Normal) Range: 0-40 :41 Metabolic Panel, Comprehensive Comments: PATIENT NOT FASTINGPERFORMED BY: [facility] RehabilitationBqsqdt8725 [facility] [id number] (21110) ALT (SGPT) 13 [iU]/L (Normal) Range: 0-32 [...] auto diff Comments: PATIENT NOT FASTINGPERFORMED BY: [facility]6370 [facility] [id number] Information: [id number] (00633) Immature Grans (Abs) 0.0 {x10E3/uL} (Normal) Range: [...] 3.77-5.28 WBC 4.3 {x10E3/uL} (Normal) Range: 3.4-10.8 1-Jmt-396517:23 URINE ARI CULTURE-IDENTIFICATN Comments: PATIENT NOT FASTINGPERFORMED BY: [facility]CoB[facility] for RehabilitationTmquqh9413 [facility] [id number] Information: [id number] (45578) Result 1 MUG (Normal) Comments: Mixed urogenital flora10,000-25,000 colony forming units per mL Urine Final report (Normal) Culture,Comprehensive 19-Aug-20157:04 Urinalysis, Office (43288) UA - LEUKOCYTE ESTERASE Small (Normal) UA [...] 200-240 mg/dL Borderline >240 mg/dL High Risk 70-Kye-776327:19 [facility] Report See Note (Normal) Comments: Exam Number: [id number] CLINICAL:This is a 60-year-old female patient with [...] of the hip. Reported By: KODAK PERALTA 23-Asw-170104:19 KNEE,4 OR MORE VIEWS (NE) Radiology Report See Note (Normal) Comments: Exam Number: [id number] CLINICAL:This is a 60-year-old female patient with history of knee pain. X-RAY EXAMINATION RIGHT KNEE TECHNIQUE:Four views of the knee. The AP and lateral views were obtainedupri [facility]. COMPARISON:None. FINDINGS:Normal visualized distal femur. Normal visualized proximal tibia. Normal visualized proximal fibula. There is mild degenerative arthrosis of the medial femorotibialcompart ment. Normal lateral femorotibial compartment. Normal patellofemoral articulation. There is no demonstrated soft tissue swelling. IMPRESSION:Chronic degenerative changes, as discussed above. Reported By: KODAK PERALTA 26-Ioj-16780:09 ABDOMEN/PELVIS WITH CONTRAST Radiology Report See Note (Normal) Comments: Exam Number: [id number] CLINICAL:Abdominal pain. CT ABDOMEN WITH CONTRAST COMPARISON:None. [...] Plan of Care Name Dates Details Instructions Chest pain, unspecified type : Reviewed Diagnostic [...] Indication: Hair loss Psoriatic arthritis : Reviewed Programmer Developer Letter Indication: Psoriatic arthritis Allergic rhinitis : [...] pain, acute, generalized Planned Observations HGB A1C (65586)Indication: Blood glucose elevated On: 2-Afp-025195:23 Request Comments: called to lab and will be added to her blood from the 09/12/18 IRON (99523)Indication: Hair loss On: 61-Ddt-139890:29 Request BILIRUBIN DIRECT (46118)Indication: Elevated bilirubin On: 25-Uha-060906:32 Request URINE ARI CULTURE (KARL COL COUNT) (98198)Indication: UTI symptoms On: 78-Rfx-339532:29 Request LIPID PANEL (26583)Indication: Other general medical examination for administrative purposes On: 8-Hxs-228980:12 Request LIPID PANEL (11964)Indication: Family history of diabetes mellitus On: 51-Rdj-386002:45 Request Glucose, PP/2 Hour (94171)Indication: Family history of diabetes mellitus On: 22-Kjy-813858:45 Request Planned Procedures Echo CompleteBy: Kenton PAPPAS, On: 13-Jun-2018 Intent Rosalva Olivas DO PNEUM VAC ADLT/IMUMNOSPR, On: 13-Jun-2018 Intent SBC/INTRM (47809)By: Kenton PAPPAS, Comments: 0.5 cc given sq lt arm lot [id number] exp 09/03/19 Rosalva Olivas DO Nuclear Stress Test/Stress On: 28-May-2018 Intent SPECT/TreadmillBy: Rosalva Fung DO, DO, Kathleen ELECTROCARDIOGRAM, COMPLETE (ECG) On: 28-May-2018 Intent (78163)By: Rosalva Fung DO Comments: no acute chg /nsr Rosalva Fung DO Toradol Injection, 30 mg On: 27-Nov-2017 Intent (J1885)By: Lita Pascal CNP Comments: 81-257-dk9/431704di/1ml/2 unitsR hip, IMMLONG COB SAWYER ULTRASOUND OF PELVIC REGION On: 19-Aug-2015 Intent (73038)By: Rosalva Fung DO, DO, Kathleen TDAP VACCINE >7 IM (94666)By: On: 19-Jul-2011 Intent Rosalva Fung DO, DO, Comments: Lot #[id number]-L arm, IMDose prefilledgiven by:ALEC Blackwell EKG (77133)By: Kentno PAPPAS, On: 19-Jul-2011 Intent Rosalva Olivas DO [...] Pelvis (IV Contrast On: 22-Sep-2009 Intent Needed)By: Rosalva Fung DO, DO, Kathleen Planned [...] Instructions Indication: Pelvic pain in female Encounters Annotation/Addendum On: 18-Sep-2018 8:23 Encounter Diagnosis: Diabetes [...] The patient does have durable power of litigation attorney and living will. The patient has noticed nothing from the geriatic depression scale. Other pr oviders contributing to the patient's care are coal weigher.Encounter Diagnosis: Encounter for screening mammogram for breast [...] about 1 mo ago we went [place] and so I was sitting Encounter Diagnosis: [...] diabetes mellitus (V18.0) [facility] Payers Medicare[facility] Health [facility] Insurance LivestageBonnie Mcarthur; a guarantor
--- OUTSIDE RECORDS SUMMARY | 2018-12-03 22:09 | XMS RPT_ITS | Continuity of Care Document ---
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) Status: Active Tubal Ligation Status: Active Unspecified Diagnosis Status: Active Vaginal Delivery Comments: [id number] Status: Active Medications Name Dates Details Allergy shots Active Flonase 50 MCG/ACT Nasal Suspension 1 spray [place] qd/prn for 0 days Quantity: 1 {Aviston} Refills: 0 Ordered:28-May-2018 Staci Fung DO, DO, Kathleen Start : 28-May-2018 Active Hydrocholoride 0.15% one spray bid Active IBUPROFEN, 600MG (Oral Tablet) 1 Tablet tid prn with food for 0 days Quantity: 60 {Tablet} Refills: 1 Ordered:25-Jan-2011 Shawanda Michelle RN Start : 25-Jan-2011 Active montelukast 10 mg [...] End : 27-Nov-2017 Inactive Comments:Dr Zuleta in [place] CIPRO, 500MG (Oral Tablet) 1 (one) Tablet [...] End : 28-May-2018 Inactive CALCIUM + D, 835-473RK-VTHR (Oral Tablet) for 0 days Refills: 0 [...] (CAD), BILAT Result: Comments: See Note; NOTES: [facility] Imaging Services [address] [place] [address] SCREENING MAMM (CAD), BILAT MR#: [id number] Acct: [id number] Name: BONNEI MCARTHUR Rep #: [id number] : 1950 F 68 From: Kodak Peralta MD PCP: Rosalva Fung DO Status: REG CLI Study: SCREENING MAMM (CAD), BILAT Date of Exam: 08/07/18 Exam# [id number] Ordering Dr: Torres Major MD MAMMOGRAPHY - [...] delay biopsy of a clinically suspicious abnormality. [id number] Electronically Signed: Kodak Peralta MD at 11:17 EDT Tel [phone], Service support , CC: Rosalva Fung DO; Becky Major MD Sqe: Signed 18-Jul-2018 Pelvis 1 or 2 Views Result: Comments: See Note; NOTES: [facility] Imaging Services [address] [place] [address] Pelvis 1 or 2 Views MR#: [id number] Acct: [id number] Name: BONNIE MCARTHUR Rep #: [id number] : 1950 F 68 From: Odilon Medel MD PCP: Rosalva Fung DO Status: REG CLI Study: Pelvis 1 or 2 Views Date of Exam: 07/18/18 Exam# [id number] Ordering Dr: Ashley Newby MD STUDY: X-RAY [...] CC: Rosalva Fung DO; Ashley Newby MD Sqe: Signed 16-Jun-2018 Echocardiogram Complete Result: Comments: See Note; NOTES: [facility] Cardiovascular Services [address] [place] [address] Echo Complete 06/16/18 0657 MR#: [id number] Acct: [id number] Name: BONNIE MCARTHUR Rep #: [id number] : 1950 68 From: Bill Rodrigues MD [...] Fung Performed By: Krissy Cook, YASMANY, RVT 06/16/18 7649 Date _ Bill Rodrigues MD CC: Rosalva Fung DO Date Dictated: 06/16/18 0657 Date Transcribed: 06/16/181648 Sqe: Signed 16-Jun-2018 Stress Report Result: Comments: See Note; NOTES: [facility] Cardiovascular Services [address] [place] [address] MR#: [id number] Acct: [id number] Name: BONNIE MCARTHUR Rep #: [id number] : [birth year] 68 From: Ayan Gomez MD [...] 85 %. This note was generated with Global Active software. It may contain incorrect words, spelling, and punctuation that were not noted in checking the note before signing. 06/16/18930 <Electronically signed by Ayan Gomez MD> Date Ayan Gomez MD CC: Rosalva Fung DO Date Dictated: 06/16/18923 Date Transcribed: 06/16/18923 Sqe: CARLY Signed 29-May-2018 Business Data Analyst Office Visit Report Result: Comments: See Note; NOTES: [facility] [place] [address] [place], [place] [address] OFFICE VISIT Date of Service: 05/29/18 MR#: [id number] Acct: [id number] Name: ONIEL MCARTHUR Rep #: [id number] : 1950 Provider: LOUIE Rudd Age/Sex: 68/F [place] [facility] [place] S[place] Intake Vital Signs05/29/18 Height 5 ft 6 in 05/29/18 Weight: 150 lb 6 oz 05/29/18 Body Mass Index (BMI) 24.3 05/29/18 Blood Pressure 113/69 Intake Visit Reasons: RASH IN PUBIC AREA Security Field Supervisor Required: No Is patient in pain?: No [...] mg PO QPM 05/07/18 [History Confirmed 05/29/18] multivitamin,te-ylos-uuttlgfm tablet 1 tab PO QDAY 05/07/18 [History [...] dermatitis type, unspecified trigger L25.9 Plan Reviewed BAG SEALER skin care Will use the triamcinolon e [...] Cosigner Signature: Date (if applicable) CC: 07-May-2018 Business Data Analyst Office Visit Report Result: Comments: See Note; NOTES: [facility] [place] [address] [facility] [address] [place] [address] OFFICE VISIT Date of Service: 05/07/18 MR#: [id number] Acct: [id number] Name: ONIEL MCARTHUR Rep #: [id number] : 1950 Provider: Becky Major MD Age/Sex: 68/F [place] [facility] [place]: Signed Intake Vital Signs05/07/18 Height 5 ft 6 in 05/07/18 Weight: 147 lb 8 oz 05/07/18 B jessica Mass Index (BMI) 23.8 05/07/18 Blood Pressure 133/76 Intake Visit Reasons: RASH IN GROIN AREA Chief Complaint: Rash, going on since November on and off Security Field Supervisor Required: No Is patient in pain?: No [...] PO QPM 05/07/18 [History Confirmed 05/07/18] m ultivitamin,uw-twdc-mwkoqsuv tablet 1 tab PO QDAY 05/07/18 [History [...] at home: Yes additional social history: Vicente- Neisha n Patient is retired HPI RASH IN GROIN AREA: Details: BONNIE MCARTHUR is a 68 year old who presents for a chronic rash since november starting head to toe- has psoriasis. She goes to [employer]. s he has rash that comes and goes, she has it on other areas. she has a reaction to otezla she had hives. she has significant allergies. she is working with her associate embalmer/funeral director regarding this. she has tried tri amcinolone [...] Dyspareunia 05/07/18 1149 <Electronically signed by Becky Majro MD> Date Becky Major MD Cosigner Signature: Date (if applicable) CC: 09-Jul-2017 SCREENING MAMM (CAD), BILAT Result: Comments: See Note; NOTES: [facility] Imaging Services [address] [place] [address] SCREENING MAMM (CAD), BILAT MR#: [id number] Acct: [id number] Name: BONNIE MCARTHUR Rep # : [id number] : 1950 F 67 From: Kodak Peralta MD PCP: Rosalva Fung DO Status: [facility] Study: SCREENING MAMM (CAD), BILAT Date of Exam: 07/09/17 Exam# [id number] Ordering Dr: Becky Major MD MAMMOGRAPHY - [...] delay biopsy of a clinically suspicious abnormality. [id number] Electronically Signed: Kodak Peralta MD at 11:07 ED T Tel [phone], Service support , CC: Rosalva Fung DO; Becky Major MD Sqe: Signed 26-Aug-2015 Transvaginal Non- Result: Comments: See Note; NOTES: [facility] Imaging Services [address] [place] [address] Verdana 4d Transvaginal Non- MR#: [id number] Acct: [id number] Name: BONNIE HELMS Rep #: [id number] : 1950 F 65 From: Kiet Valencia DO PCP: Rosalva Fung DO Status: REG CLI Study: Transvaginal Non- Date of Exam: 08/26/15 Exam# [id number] Ordering Dr: Rosalva Fung DO STUDY: ULTRASOUND [...] Kiet Valencia DO at 10:31 EDT Tel [phone], Service support [phone], CC: Rosalva Fung DO Sqe: Signed 26-Aug-2015 Pelvic (Non ) Result: Comments: See Note; NOTES: [facility] Imaging Services [address] [place] [address] [address] Pelvic (Non ) MR#: [id number] Acct: [id number] Name: BONNIE BELLAMY DAISY Rep #: [id number] : 1950 F 65 From: Kiet Valencia DO PCP: Rosalva Fung DO Status: REG CLI Study: Pelvic (Non ) Date of Exam: 08/26/15 Exam# [id number] Ordering Dr: Rosalva Kessler DO STUDY: ULTRASOUND [...] bladder is grossly unremarkable IMPRESSION: 1. Normal absentee-shawnee lucina and left ovary. The right ovary is not seen. 2. Prominent vessels in the uterus and broad ligaments suggesting pelvic congestion. This was previously reported on a CT of the abdomen and pelvis da mikhail September 30, 2009 Electronically Signed: Kiet Valencia DO at 10:31 EDT Tel [phone], Service support [phone], CC: Rosalva Fung DO Sqe: Signed Family History Unknown Family Member Name [...] kg/m2 Body Surface Area Calculated 1.75 m2 3-Vqj-927031:29 Comments: hearing wnllast eye 06/26 and had [...] kg/m2 Body Surface Area Calculated 1.75 m2 43-Xzo-808332:05 Temperature 97.3 f Pulse 90 /min Comments: [...] kg/m2 Body Surface Area Calculated 1.76 m2 01-Cga-335198:53 Pulse 68 /min Comments: Pattern: Regular Respiration [...] cm Results Date Description Value Details :54 CBC W/Diff, Automated Comments: [facility] [address] [place], [place], [id number] Absolute Lymph 1.68 {X10_3/ul} (Normal) Range: 0.83-4.51 [...] 4.2-5.4 WBC 6.6 K/mm3 (Normal) Range: 4.4-11.0 :54 Comprehensive Metabolic Profil Comments: [facility] [address] [place], [place], [id number] GAP 8 (Normal) Range: 5-15 CO2 28.0 [...] A.D.A. criteria.Please note revised GLUCOSE reference range znphdtyfo86/02/2018. 8-Phw-923511:19 CBC W/Diff, Automated Comments: [facility] [address] [place], [place], [address] Absolute Lymph 2.08 {X10_3/ul} (Normal) Range: 0.83-4.51 [...] 4.2-5.4 WBC 5.7 K/mm3 (Normal) Range: 4.4-11.0 2-Ngh-181896:19 CCP IgG Antibodies Comments: [facility] (refer to report for specific site)refer to report for address and phone number ANTI-CCP 933337 5 {units} (Normal) Range: 0-19 Comments: Negative <20 Weak positive 20 - 39 Moderate positive 40 - 59 Strong positive >59 7-Szx-507495:19 Comprehensive Metabolic Profil Comments: [facility] [address] [place], [place], [address] GAP 6 (Normal) Range: 5-15 CO2 30.0 [...] Comments: Please note revised GLUCOSE reference range sgflkyrqi27/02/2018. 2-Mpa-375418:19 CRP Comments: [facility] [address] [place], [address] C-REACTIVE PROT < 2.90 mg/L (Normal) Range: 0.0-3.0 Comments: C-Reactive Protein (CRP) provides useful information for thediagnosis, therapy and monitoring of inflammatory processesand associated diseases. For the evaluation of Relative Riskfor Cardiovascular Dise ase, a High Sensitivity CRP (HSCRP)should be ordered. 1-Wjo-875423:19 Erythrocyte Sed Rate Comments: [facility] [address] [place], [place], [address] SED RATE 8 mm/h (Normal) Range: 0-30 :19 Hep B Surface Antibodies Comments: [facility] (refer to report for specific site)refer to report for address and phone number Hep B Maritza AB Non Reactive (Normal) Comments: Non Reactive: Inconsistent with immunity, less than 10 mIU/mL Reactive: Consistent with immunity, greater than 9.9 mIU/ mL 6-Bdi-223475:19 Hepatitis B Surface Ag Comments: [facility] (refer to report for specific site)refer to report for address and phone number HB SURF AG Negative (Normal) Comments: Performed at: - [facility] [id number] Director: Sampson Rivers PhD, Phone: [phone] at: 2Q - [facility] [address] [place], [place] [id number] Director: Rodríguez Montgomery PhD, Phone: [phone] at: - [facility] [id number] Director: Gregorio Miller MD, Phone: [phone] :19 Hepatitis C Antibodies Comments: [facility] (refer to report for specific site)refer to report for address and phone number HEP C AB <0.1 {s/co_ratio} Range: 0.0-0.9 (Normal) Comments: Negative: < 0.8 Indeterminate: 0.8 - 0.9 Positive: > 0.9 The CDC recommends that a positive HCV antibody result be followed up with a HCV Nucleic Acid Amplification test (550389). : HLA B27 Negative (Normal) Comments: [facility] (refer to report for specific site)refer to report for address and phone number 19 Comments: HLA-B*27 GtfhgyxgG27 allele interpretation for all loci based on IMGT/HLAdatabase version 3.27This test was developed and its performance characteristicsdetermined by [facility]. It has not been cleared o r approvedby the Food and Drug Administration.HLA Lab CLIA ID Number [id number] test was performed using PCR (Polymerase ChainReaction)/SSOP (Sequence Specific Oligonucleotide Probes)technique. SBT (Sequence Based Typing) and/or SSP(Sequence Specific Primers) may be used as supplementalmethods when necessary. Please contact [facility] CustomerService at if you have any questions. Director of HLA Laboratory Dr Rodríguez Montgomery, PhD :19 Rheumatoid Factor Comments: [facility] [address] [place], [address] RHEUMATOID FAC < 10.0 {IU/mL} (Normal) 74-Gpr-463261:48 METABOLIC PANEL, COMPREHENSIVE Comments: PATIENT NOT FASTINGPERFORMED BY: [employer] Udajrv3592 Canela [facility] [id number] (27335) ALT (SGPT) 13 [iU]/L (Normal) Range: 0-32 [...] 8-27 Glucose 111 mg/dL (Abnormal) Range: 65-99 97-Wtx-360287:48 FERRITIN (60087) Comments: PATIENT NOT FASTINGPERFORMED BY: [employer] Tgbmnp5861 Canela [facility] [id number] Ferritin, Serum 52 ng/mL (Normal) Range: 15-150 69-Gop-995725:48 IRON BINDING CAPACITY (TIBC) Comments: PATIENT NOT FASTINGPERFORMED BY: [employer] Qoyghx8365 [facility] [id number] (37429) Iron Saturation 26 % (Normal) Range: 15-55 Iron 41 ug/dL (Normal) Range: 27-139 UIBC 119 ug/dL (Normal) Range: 118-369 Iron Bind.Cap.(TIBC) 160 ug/dL (Abnormal) Range: 250-450 55-Faf-498122:48 CBC, PLATELETS & AUT DIFF Comments: PATIENT NOT FASTINGPERFORMED BY: [employer] [facility] Dzzzow7722 Rola FryeAt[facility] Health [facility] [id number] Information: [id number],[id number] (05419) Immature Grans (Abs) 0.0 {x10E3/uL} (Normal) Range: [...] 3.77-5.28 WBC 7.1 {x10E3/uL} (Normal) Range: 3.4-10.8 44-Tue-260346:48 VITAMIN B-12 (CYANOCOBALAMIN) Comments: PATIENT NOT FASTINGPERFORMED BY: [facility]6370 [facility] [id number] (12048) Vitamin B12 739 pg/mL (Normal) Range: 232-1245 5-Svu-006442:30 T4, FREE (THYROXINE) (34133) Comments: PATIENT WAS FASTINGPERFORMED BY: [facility]6370 [facility] [id number] T4,Free(Direct) 1.06 ng/dL (Normal) Range: 0.82-1.77 0-Zkp-027035:30 TSH (04464) Comments: PATIENT WAS FASTINGPERFORMED BY: [facility]6370 [facility] [place] [id number] TSH 2.450 {uIU/mL} (Normal) Range: 0.450-4.500 1-Vms-290091:30 T3, FREE (TRIDOTHYRONINE) (70493) Comments: PATIENT WAS FASTINGPERFORMED BY: [facility]6370 [facility] [id number] Triiodothyronine (T3), Free 3.0 pg/mL (Normal) Range: 2.0-4.4 2-Gla-966141:19 LIPID PANEL (75748) Comments: PATIENT WAS FASTINGPERFORMED BY: [facility]6370 [facility] [id number] LDL/HDL Ratio 1.9 {ratio} (Normal) Range: 0.0-3.2 Comments: LDL/HDL Ratio Men Women 1/2 Avg.Risk 1.0 1.5 Av g.Risk 3.6 3.2 2X Avg.Risk 6.2 5.0 3X Avg.Risk 8.0 6.1 LDL Cholesterol Calc 128 mg/dL (Abnormal) Range: 0-99 VLDL Cholesterol Aminata 14 mg/dL (Normal) Range: 5-40 HDL Cholesterol 66 mg/dL (Normal) Triglycerides 72 mg/dL (Normal) Range: 0-149 Cholesterol, Total 208 mg/dL (Abnormal) Range: 100-199 43-Zhr-899421:41 Lipid Panel (71838) Comments: PATIENT WAS FASTINGPERFORMED BY: [facility]6370 [facility] [id number] LDL/HDL Ratio 2.2 {ratio_units} (Normal) Range: 0.0-3.2 Comments: LDL/HDL Ratio Men Women 1/2 Avg.Risk 1.0 1.5 Av g.Risk 3.6 3.2 2X Avg.Risk 6.2 5.0 3X Avg.Risk 8.0 6.1 LDL Cholesterol Calc 132 mg/dL (Abnormal) Range: 0-99 VLDL Cholesterol Aminata 19 mg/dL (Normal) Range: 5-40 HDL Cholesterol 59 mg/dL (Normal) Triglycerides 96 mg/dL (Normal) Range: 0-149 Cholesterol, Total 210 mg/dL (Abnormal) Range: 100-199 18-Tga-59139:00 PAP I-G HPV Hi Risk Comments: CYTOLOGY INFORMATION:- CLINICAL INFORMATION: OTHER- DATE LMP/MENOPAUSE: LMP/ NOT GIVEN- COLLECTION VIAL: Thin Prep Vial- BAG SEALER SOURCE: CERVICAL- COLLECTION TECHNIQUE: BRUSH ONLY/ CERVIX BROOM ONLYSpecim en Comment: [id number] Comment: No. of containers..01 ThinPrep [facility]ialLab[facility] (refer to report for specific site)refer to report for address and phone number HPV HC,HGH RISK Negative Comments: This high-risk HPV test detects thirteen high-risk types(16/18/31/33/35/39/45/51/52/56/58/59/68) withoutdifferentiation.Performed at: [address] [id number] (Normal) b Director: Belle Bennett MD, Phone: [phone] at: =[facility] [id number] Director: Belle Bennett MD, Phone: [phone] PAPSMR Comment Comments: The Pap smear is [...] guided system. (Normal) PERFORM Comment Comments: Leticia Wyatt, Land Developer (ASCP) (Normal) ADEQ Comment Comments: Satisfactory for evaluation. Endocervical component may not bedistinguished in cases of atrophy. (Normal) DIAGN Comment Comments: NEGATIVE FOR INTRAEPITHELIAL LESION AND MALIGNANCY.CELLULAR CHANGES ASSOCIATED WITH ATROPHY ARE PRESENT. (Normal) 47-Cds-100180:56 SED RATE ERYTHROCYTE (83152) Comments: PATIENT NOT FASTINGPERFORMED BY: [facility] Design AutomationAt[facility] Health [facility]son [id number] Sedimentation Rate-Westergren 5 mm/h (Normal) Range: 0-40 :56 BILIRUBIN, TOTAL (68356) Comments: PATIENT NOT FASTINGPERFORMED BY: Arch[employer] Design AutomationAt[facility] Health [facility]son [id number] Information: [id number] Bilirubin, Indirect 0.97 mg/dL (Abnormal) Range: 0.10-0.80 Bilirubin, Direct 0.23 mg/dL (Normal) Range: 0.00-0.40 Bilirubin, Total 1.2 mg/dL (Normal) Range: 0.0-1.2 74-Rsr-032087:59 Urinalysis, Office (06901) UA - LEUKOCYTE ESTERASE Negative (Normal) UA - NITRITE Negative (Normal) URINE UROBILINGN KARL TIMED Normal mg/dL (Normal) UA - PROTEIN Negative mg/dL (Normal) UA - PH 7.0 (Normal) Comments: 6.5 UA - BLOOD Negative (Normal) UA - SPECIFIC GRAVITY 1.020 (Normal) UA - KETONES Negative mg/dL (Normal) UA - BILIRUBIN Negative (Normal) UA - GLUCOSE Negative (Normal) :41 Sed Rate Erythrocyte (19600) Comments: PATIENT NOT FASTINGPERFORMED BY: [facility]Pro Design AutomationAt[facility] Health [facility] [id number] Sedimentation Rate-Westergren 3 mm/h (Normal) Range: 0-40 :41 Metabolic Panel, Comprehensive Comments: PATIENT NOT FASTINGPERFORMED BY: ArchPro Design AutomationAt[facility] Health [facility] [id number] (18271) ALT (SGPT) 13 [iU]/L (Normal) Range: 0-32 [...] auto diff Comments: PATIENT NOT FASTINGPERFORMED BY: LabCoEnglewood Hospital and Medical CenterUjsrsb5158 [facility] [id number] Information: [id number] (77275) Immature Grans (Abs) 0.0 {x10E3/uL} (Normal) Range: [...] 3.77-5.28 WBC 4.3 {x10E3/uL} (Normal) Range: 3.4-10.8 8-Qzi-716448:23 URINE ARI CULTURE-IDENTIFICATN Comments: PATIENT NOT FASTINGPERFORMED BY: [facility] Bghnra2198 [facility] [id number] Information: [id number] (58655) Result 1 MUG (Normal) Comments: Mixed urogenital flora10,000-25,000 colony forming units per mL Urine Final report (Normal) Culture,Comprehensive 19-Aug-20157:04 Urinalysis, Office (71130) UA - LEUKOCYTE ESTERASE Small (Normal) UA [...] 200-240 mg/dL Borderline >240 mg/dL High Risk :19 HIP, MIN 2 VIEWS ([place]) Radiology Report See Note (Normal) Comments: Exam Number: [id number] CLINICAL:This is a 60-year-old female patient with [...] of the hip. Reported By: KODAK PERALTA 60-Shd-438730:19 KNEE,4 OR MORE VIEWS ([place]) Radiology Report See Note (Normal) Comments: Exam Number: [id number] CLINICAL:This is a 60-year-old female patient with history of knee pain. X-RAY EXAMINATION RIGHT KNEE TECHNIQUE:Four views of the knee. The AP and lateral views were obtainedupri ght. COMPARISON:None. FINDINGS:Normal visualized distal femur. Normal visualized proximal tibia. Normal visualized proximal fibula. There is mild degenerative arthrosis of the medial femorotibialcompart ment. Normal lateral femorotibial compartment. Normal patellofemoral articulation. There is no demonstrated soft tissue swelling. IMPRESSION:Chronic degenerative changes, as discussed above. Reported By: KODAK PERALTA :09 ABDOMEN/PELVIS WITH CONTRAST Radiology Report See Note (Normal) Comments: Exam Number: [id number] CLINICAL:Abdominal pain. CT ABDOMEN WITH CONTRAST COMPARISON:None. [...] Indication: Hair loss Psoriatic arthritis : Reviewed Mainframe Applications Developer Letter Indication: Psoriatic arthritis Allergic rhinitis [...] pain, acute, generalized Planned Observations HGB A1C (89279)Indication: Blood glucose elevated On: 9-Fkc-073502:23 Request Comments: called to lab and will be added to her blood from the 09/12/18 IRON (40852)Indication: Hair loss On: 95-Bjk-963071:29 Request BILIRUBIN DIRECT (21219)Indication: Elevated bilirubin On: 10-Nal-151559:32 Request URINE ARI CULTURE (KARL COL COUNT) (15033)Indication: UTI symptoms On: 23-Ujl-147193:29 Request LIPID PANEL (11001)Indication: Other general medical examination for administrative purposes On: 8-Drl-163643:12 Request LIPID PANEL (37506)Indication: Family history of diabetes mellitus On: :45 Request Glucose, PP/2 Hour (26931)Indication: Family history of diabetes mellitus On: 00-Wup-882999:45 Request Planned Procedures Echo CompleteBy: Kenton PAPPAS, On: 13-Jun-2018 Intent Rosalva Olivas DO PNEUM VAC ADLT/IMUMNOSPR, On: 13-Jun-2018 Intent SBC/INTRM (69570)By: Kenton PAPPAS, Comments: 0.5 cc given sq lt arm lot [id number] exp 09/03/19 Rosalva Olivas DO Nuclear Stress Test/Stress On: 28-May-2018 Intent SPECT/TreadmillBy: Rosalva Fung DO, DO, Kathleen ELECTROCARDIOGRAM, COMPLETE (ECG) On: 28-May-2018 Intent (47574)By: Rosalva Fung DO Comments: no acute chg /nsr Rosalva Fung DO Toradol Injection, 30 mg On: 27-Nov-2017 Intent (J1885)By: Lita Pascal CNP Comments: 81-257-dk9/087608no/1ml/2 unitsR hip, IMMLONG PIG HANDLER ULTRASOUND OF [place] REG[place] On: 19-Aug-2015 Intent (80065)By: Rosalva Fung DO, DO, Kathleen TDAP VACCINE >7 IM (23632)By: On: 19-Jul-2011 Intent Rosalva Fung DO, DO, Comments: Lot #[id number]-L arm, IMDose prefilledgiven by:ALEC Blackwell EKG (22551)By: Kenton PAPPAS, On: 19-Jul-2011 Intent Rosalva Olivas DO Comments: nsr no acute chg Eprescribed prescriptions On: 25-Jan-2011 Intent (G8553)By: Rosalva Fung DO, DO, Kathleen Doppler Ultrasound OtherBy: Kenton On: 25-Jan-2011 Rosalva Day DO, DO, Kathleen Comments: R calf-- note venous valvular incompetence too Radiology - Hip - RightBy: Kenton On: 05-Jul-2010 Intent Rosalva PAPPAS DO, Kathleen Radiology - Knee - Right [...] pain in female Encounters Phone Encounter On: 15-Sep-2018 16:23 Encounter Diagnosis: [...] The patient does have durable power of estate attorney and living will. The patient has noticed nothing from the geriatic depression scale. Other pr oviders contributing to the patient's care are treatment manager.Encounter Diagnosis: Encounter for screening mammogram for breast [...] about 1 [place] was sitting Encounter Diagnosis: [...] (V18.0) [facility] Payers MedicareMedico Insurance [facility] HospitalBonnie Mcarthur; a guarantor
--- OUTSIDE RECORDS SUMMARY | 2018-12-03 22:09 | XMS RPT_ITS ---
:1950 Author Organization OHIP Support Name Relationship Address Phone JAMA MCARTHUR [address] + [place] [address] R Unknown Unavailable Unavailable GEOGRI, LOLI NaturalDaughter 0 + [place] [address] JAMA MCARTHUR [address] + [place] [address] R Unknown Unavailable Unavailable GEORGI, LOLI NaturalDaughter 0 + [place] [address] JAMA MCARTHUR [address] + [place] [address] R Unknown Unavailable Unavailable GEORGI, LOLI NaturalDaughter Unavailable + JAMA MCARTHUR [address] + [place] [address] R Unknown Unavailable Unavailable GEORGI, LOLI NaturalDaughter Unavailable + JAMA MCARTHUR [address] + [place] [address] R Unknown Unavailable Unavailable GEORGI, LOLI NaturalDaughter Unavailable + [place] [address] JAMA MCARTHUR [address] + [place] [address] R Unknown Unavailable Unavailable GEORGI, LOLI NaturalDaughter Unavailable + [place] [address] JAMA MCARTHUR [address] + [place] [address] R Unknown Unavailable Unavailable GEORGI, LOLI NaturalDaughter Unavailable + [place] [address] JAMA MCARTHUR [address] + [place] [address] R Unknown Unavailable Unavailable GEORGI, LOLI NaturalDaughter Unavailable + [place] [address] JAMA MCARTHUR [address] + [place] [address] R Unknown Unavailable Unavailable LOLI LAUREANO NaturalDaughter Unavailable + [place] [address] Care Team Providers Name Role Susanne Langford Attending Unavailable UNKNOWN, PROVIDER Referring Unavailable [facility] Unavailable Kenton DO, Rosalva Attending Unavailable Kenton DO, Rosalva Consulting Unavailable Marcanthony, Becky Attending Unavailable Kenton, Rosalva Referring Unavailable Kenton, Rosalva Primary Care Unavailable Donna Rudd Attending Unavailable Kenton, Rosalva Referring Unavailable Kenton, Rosalva Primary Care Unavailable Kenton, Rosalva Attending Unavailable Kenton, Rosalva Referring Unavailable Kenton, Rosalva Primary Care Unavailable Ayan Gomez Attending Unavailable Kenton, Rosalva Referring Unavailable Vellanki, Ashley Attending Unavailable Vellanki, Ashley Referring Unavailable Kenton, Rosalva Primary Care Unavailable Becky Major Attending Unavailable Kenton, Rosalva Primary Care Unavailable Kenton, Rosalva Attending Unavailable Kenton, Rosalva Referring Unavailable Kenton, Rosalva Primary Care Unavailable Vellanki, Ashley Consulting Unavailable Kenton, Rosalva Attending Unavailable Kenton, Rosalva Primary Care Unavailable Kenton, Rosalva Attending Unavailable Kenton, Rosalva Primary Care Unavailable Purpose Purpose PROBLEMS PROBLEMS DATE TYPE CONDITION / CODE ATTENDING STATUS SOURCE 09/16/2018 Unknown L40.59 - Other Kenton, Active [employer] psoriatic [facility] arthropathy / Hospital L40.59(ICD-10) Repository 09/16/2018 Unknown 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, 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 [facility] (current) drug Hospital therapy / Repository Z79.899(ICD-10) 09/16/2018 Unknown L40.8 - Other Kenton, Active [facility] psoriasis / [facility] L40.8(ICD-10) Hospital Repository 09/16/2018 Unknown H93.13 - Tinnitus, Kenton, Active [employer] bilateral / [facility] H93.13(ICD-10) Hospital Repository 09/16/2018 Unknown G30.9 - Kenton, Active [employer] Alzheimer's [facility] disease, Hospital unspecified / Repository G30.9(ICD-10) 09/16/2018 Unknown R73.9 - Kenton, Active [facility] Hyperglycemia, [facility] unspecified / Hospital R73.9(ICD-10) Repository 07/16/2018 Unknown R07.89 - Other Ayan Gomez Active [employer] chest pain / Community R07.89(ICD-10) Hospital Repository 07/23/2018 Unknown L25.9 - Donna Rudd Active [facility] Unspecified Community contact Hospital dermatitis, Repository unspecified cause / L25.9(ICD-10) 06/19/2018 Unknown N76.89 - Other Marcanthony, Active [facility] specified [facility] inflammation of Hospital vagina and vulva / Repository N76.89(ICD-10) 04/16/2018 Admitting Dermatitis, Susanne Mcmillan Active [facility] Diagnosis unspecified / System L30.9(ICD-10) Repository PROCEDURES PROCEDURES No Procedure Records FoundVITAL SIGNS VITAL SIGNS No Vital Signs Records FoundRESULTS RESULTS HEMOGLOBIN A1C Collected: 09/16/2018 Status: F Source: [place] 2:54 PM [facility] REPOSITORY Order Comment: ADD TO 09/12/18 H140 TYPE CODE TESTS RESULT OUT OF RANGE REFERENCE UNITS LAB L501.9985 4.2-6.3 % Normal HGB A1C 6.1 Performed By: #### L501.9985 #### [facility] [place], [address] CBC W/DIFF, AUTOMATED Collected: 09/12/2018 Status: F Source: [place] 2:54 PM [facility] REPOSITORY TYPE CODE TESTS RESULT OUT OF RANGE REFERENCE UNITS LAB L100.1000 4.4-11.0 K/mm3 Normal WBC 6.6 LAB L100.1200 4.2-5.4 M/mm3 Normal RBC 4.48 LAB L100.1300 12.0-15.0 g/dl Normal HGB 13.2 LAB L100.1400 37-47 % Normal HCT 40.6 LAB L100.1500 81-99 fL Normal MCV 90.6 LAB L100.1600 27.0-32.0 pg Normal MCH 29.5 LAB L100.1700 32-36 g/gl Normal MCHC 32.5 LAB L100.1810 11.6-14.6 % Normal RDW CV 14.2 LAB L100.1820 35.1-43.9 fl High RDW SD 46.2 LAB L100.1900 150-450 K/mm3 Normal PLT 167 LAB L100.2000 6.2-12.0 fl Normal MPV 10.7 LAB L100.2100 47-70 % Normal NEUT% 66.9 LAB L100.2200 19-41 % Normal LY% 25.5 LAB L100.2300 0-10 % Normal MONO% 6.8 LAB L100.2400 0-5 % Normal EO% 0.6 LAB L100.2500 0-1 % Normal BASO% 0.2 LAB L100.2550 0.0-0.9 % Normal IM GRAN % 0.000 Result Comment: IG% - Immature Granulocytes (promyelocytes, myelocytes and metamyelocytes) > 1% indicates that a LEFT SHIFT is Present. LAB L100.2620 2.0-7.7 X10 3/uL Normal Absolute Neut 4.4 LAB L100.2720 0.83-4.51 X10 3/ul Normal Absolute Lymph 1.68 Performed By: #### L100.0100 #### [facility] [address] [place], [place], [address] COMPREHENSIVE METABOLIC Collected: 09/12/2018 Status: F Source: [facility] 2:54 PM [facility] REPOSITORY TYPE CODE TESTS RESULT OUT OF RANGE REFERENCE UNITS LAB L501.0100 74-106 mg/dL High GLU 108 Result Comment: Fasting Glucose result from 100 to 125 mg/dL suggests IMPAIRED HOMEOSTASIS per A.D.A. criteria. Please note revised GLUCOSE reference range effective 2017. LAB L501.1000 7-18 mg/dL High BUN 19 LAB L501.1100 0.55-1.02 mg/dL Normal CREAT,SERUM 0.92 Result Comment: The validity of the calculated GFR AND GFRAA in patients over 70 years has not been determined. Clinical correlation is essential. LAB L501.1110 >60 mL/min Normal EST GFR 65 Result Comment: Non- GFR Calc LAB L501.1115 >60 mL/min Normal EST GFR - AA 78 Result Comment: GFR Calc LAB L501.1300 10-20 RATIO High BUN/CRE 20.6 LAB L501.1500 6.4-8.2 g/dL T Normal PROT 6.7 LAB L501.1800 3.2-5.0 g/dL Normal ALB 3.5 LAB L501.1950 2.2-4.2 g/dL Normal GLOB 3.2 LAB L501.2000 0.9-2.4 RATIO Normal A/G 1.1 LAB L501.2200 8.5-10.1 mg/dL CA Normal 8.8 LAB L501.4100 15-37 U/L Low AST 13 LAB L501.4305 45-117 U/L Normal ALK P 70 LAB L501.4405 13-56 U/L Normal ALT 23 LAB L501.4600 0.20-1.00 mg/dL T Normal BILI 0.80 LAB L501.5300 136-145 mmol/L NA Normal 139 LAB L501.5600 3.5-5.1 mmol/L K Normal 4.2 LAB L501.5900 98-107 mmol/L CL Normal 103 LAB L501.6100 21.0-32.0 mmol/L Normal CO2 28.0 LAB L501.6200 5-15 Normal GAP 8 Performed By: #### L500.4050 #### [facility] [address] [facility] [place], [address] SCREENING MAMM (CAD), Observed: 08/07/2018 Status: F Source: [facility] 10:35 AM [facility] REPOSITORY [facility] Imaging Services [address] [place] [address] SCREENING MAMM (CAD), BILAT MR#: [id number] Acct: [id number] Name: BONNIE MCARTHUR Rep #: [id number] : 1950 F 68 From: Kodak Mccarty MD PCP: Rosalva Fung DO Status: [facility] CLI Study: SCREENING MAMM (CAD), BILAT Date of Exam: 08/07/18 Exam# [id number] Ordering Dr: Becky Major MD MAMMOGRAPHY - BILATERAL SCREENING REASON FOR EXAM: Female, 68 years old. Routine annual screening examination. PERTINENT HISTORY: Aunt with breast cancer. TECHNIQUE: Digital bilateral breast liv (3D mammographic acquisition) in the CC and MLO projections. 2-D mediolateral oblique (MLO) and craniocaudad (CC) views of both breasts were obtained. CAD: Full Field Digital Mammography with Computer Added Detection was performed. COMPARISON: Comparison is made with prior study dated July 09, 2017. FINDINGS: Breast Composition: There are scattered areas of fibroglandular density. There are no dominant masses or suspicious calcifications. Stable benign-appearing bilateral axillary lymph nodes. No other significant abnormalities are identified. There has been no significant change since the prior [...] delay biopsy of a clinically suspicious abnormality. [id number] Electronically Signed: Kodak Mccarty MD at 11:17 EDT Tel [phone], Service support , CC: Rosalva Fung DO; Becky Major MD Bad Credit Collector: Signed ERYTHROCYTE SED RATE Collected: 07/18/2018 Status: F Source: [place] 2:19 PM [facility] REPOSITORY TYPE CODE TESTS RESULT OUT OF RANGE REFERENCE UNITS LAB L102.0000 0-30 mm/hr Normal SED RATE 8 Performed By: #### L101.9900, L100.0100 #### [facility] [address] [place], [address] CBC W/DIFF, AUTOMATED Collected: 07/18/2018 Status: F Source: [place] 2:19 PM [facility] REPOSITORY TYPE CODE TESTS RESULT OUT OF RANGE REFERENCE UNITS LAB L100.1000 4.4-11.0 K/mm3 Normal WBC 5.7 LAB L100.1200 4.2-5.4 M/mm3 Low RBC 4.15 LAB L100.1300 12.0-15.0 g/dl Normal HGB 12.1 LAB L100.1400 37-47 % Normal HCT 37.5 LAB L100.1500 81-99 fL Normal MCV 90.4 LAB L100.1600 27.0-32.0 pg Normal MCH 29.2 LAB L100.1700 32-36 g/gl Normal MCHC 32.3 LAB L100.1810 11.6-14.6 % Normal RDW CV 13.4 LAB L100.1820 35.1-43.9 fl High RDW SD 44.0 LAB L100.1900 150-450 K/mm3 Low PLT 129 LAB L100.2000 6.2-12.0 fl Normal MPV 10.8 LAB L100.2100 47-70 % Normal NEUT% 55.9 LAB L100.2200 19-41 % Normal LY% 36.7 LAB L100.2300 0-10 % Normal MONO% 5.8 LAB L100.2400 0-5 % Normal EO% 1.4 LAB L100.2500 0-1 % Normal BASO% 0.2 LAB L100.2550 0.0-0.9 % Normal IM GRAN % 0.000 Result Comment: IG% - Immature Granulocytes (promyelocytes, myelocytes and metamyelocytes) > 1% indicates that a LEFT SHIFT is Present. LAB L100.2620 2.0-7.7 X10 3/uL Normal Absolute Neut 3.2 LAB L100.2720 0.83-4.51 X10 3/ul Normal Absolute Lymph 2.08 Performed By: #### L101.9900, L100.0100 #### [facility] [address] [place], [address] COMPREHENSIVE METABOLIC Collected: 07/18/2018 Status: F Source: [facility] 2:19 PM [facility] REPOSITORY TYPE CODE TESTS RESULT OUT OF RANGE REFERENCE UNITS LAB L501.0100 74-106 mg/dL Normal GLU 89 Result Comment: Please note revised GLUCOSE reference range effective 2017. LAB L501.1000 7-18 mg/dL Normal BUN 17 LAB L501.1100 0.55-1.02 mg/dL Normal CREAT,SERUM 0.66 Result Comment: The validity of the calculated GFR AND GFRAA in patients over 70 years has not been determined. Clinical correlation is essential. LAB L501.1110 >60 mL/min Normal EST GFR 96 Result Comment: Non- GFR Calc LAB L501.1115 >60 mL/min Normal EST GFR - AA 116 Result Comment: GFR Calc LAB L501.1300 10-20 RATIO High BUN/CRE 25.9 LAB L501.1500 6.4-8.2 g/dL T Normal PROT 6.9 LAB L501.1800 3.2-5.0 g/dL Normal ALB 3.7 LAB L501.1950 2.2-4.2 g/dL Normal GLOB 3.2 LAB L501.2000 0.9-2.4 RATIO Normal A/G 1.2 LAB L501.2200 8.5-10.1 mg/dL CA Normal 9.0 LAB L501.4100 15-37 U/L Normal AST 18 LAB L501.4305 45-117 U/L Normal ALK P 68 LAB L501.4405 13-56 U/L Normal ALT 21 LAB L501.4600 0.20-1.00 mg/dL T Normal BILI 0.80 LAB L501.5300 136-145 mmol/L NA Normal 140 LAB L501.5600 3.5-5.1 mmol/L K Normal 4.1 LAB L501.5900 98-107 mmol/L CL Normal 104 LAB L501.6100 21.0-32.0 mmol/L Normal CO2 30.0 LAB L501.6200 5-15 Normal GAP 6 Performed By: #### L500.4050, L501.6710, L505.7010 #### [facility] [address] [place], [address] CRP Collected: 07/18/2018 Status: F Source: [facility] 2:19 PM [facility] REPOSITORY TYPE CODE TESTS RESULT OUT OF RANGE REFERENCE UNITS LAB L501.6710 0.0-3.0 mg/L Normal < 2.90 C-REACTIVE PROT Result Comment: C-Reactive Protein (CRP) provides useful information for the diagnosis, therapy and monitoring of inflammatory processes and associated diseases. For the evaluation of Relative Risk for Cardiovascular Disease, a High Sensitivity CRP (HSCRP) should be ordered. Performed By: #### L500.4050, L501.6710, L505.7010 #### [facility] [address] [facility]. [place], [place], [address] RHEUMATOID FACTOR Collected: 07/18/2018 Status: F Source: [facility] 2:19 PM [facility] REPOSITORY TYPE CODE TESTS RESULT OUT OF RANGE REFERENCE UNITS LAB L505.7010 <15 IU/mL Normal RHEUMATOID FAC < 10.0 Performed By: #### L500.4050, L501.6710, L505.7010 #### [facility] [address] [facility] [facility] [id number] HEPATITIS B SURFACE Collected: 07/18/2018 Status: F Source: [facility] 2:19 PM [facility] REPOSITORY TYPE CODE TESTS RESULT OUT OF RANGE REFERENCE UNITS LAB L3100.0400 Negative Normal HB Negative SURF AG Result Comment: Performed at: [address] [id number] Medical Claims Specialist: Sampson Rivers PhD, Phone: [phone] Performed at: [address] [place] [id number] Medical Claims Specialist: Rodríguez Montgomery PhD, Phone: [phone] Performed at: [address] [id number] Medical Claims Specialist: Gregorio Miller MD, Phone: [phone] Performed By: #### L3100.0390, L3100.0528, L3100.0625, L3410.1400, L4600.0100 #### [facility] (refer to report for specific site) refer to report for address and phone number HEP B SURFACE Collected: 07/18/2018 Status: F Source: [facility] 2:19 PM [facility] REPOSITORY TYPE CODE TESTS RESULT OUT OF RANGE REFERENCE UNITS LAB L3100.0528 . Normal Hep B Non Reactive Maritza AB Result Comment: Non Reactive: Inconsistent with immunity, less than 10 mIU/mL Reactive: Consistent with immunity, greater than 9.9 mIU/mL Performed By: #### L3100.0390, L3100.0528, L3100.0625, L3410.1400, L4600.0100 #### [facility] (refer to report for specific site) refer to report for address and phone number HEPATITIS C ANTIBODIES Collected: 07/18/2018 Status: F Source: [facility] 2:19 PM [facility] REPOSITORY TYPE CODE TESTS RESULT OUT OF RANGE REFERENCE UNITS LAB L3100.0650 0.0-0.9 s/co ratio Normal HEP C AB <0.1 Result Comment: Negative: < 0.8 Indeterminate: 0.8 - 0.9 Positive: > 0.9 The CDC recommends that a positive HCV antibody result be followed up with a HCV Nucleic Acid Amplification test (183841). Performed By: #### L3100.0390, L3100.0528, L3100.0625, L3410.1400, L4600.0100 #### [facility] (refer to report for specific site) refer to report for address and phone number HLA B27 Collected: 07/18/2018 Status: F Source: [place] 2:19 PM [facility] REPOSITORY TYPE CODE TESTS RESULT OUT OF RANGE REFERENCE UNITS LAB L3410.1500 . Normal HLA Negative B27 Result Comment: HLA-B*27 Negative B27 allele interpretation for all loci based on IMGT/HLA database version 3.27 This test was developed and its performance characteristics determined by [facility]. It has not been cleared or approved by the Food and Drug Administration. [facility] CLIA ID Number [id number] This test was performed using PCR (Polymerase Chain Reaction)/SSOP (Sequence Specific Oligonucleotide Probes) technique. SBT (Sequence Based Typing) and/or SSP (Sequence Specific Primers) may be used as supplemental methods when necessary. Please contact [facility] Customer Service at if you have any questions. Director of [facility] Laboratory Dr Rodríguez Montgomery, PhD Performed By: #### L3100.0390, L3100.0528, L3100.0625, L3410.1400, L4600.0100 #### [facility] (refer to report for specific site) refer to report for address and phone number CCP IGG ANTIBODIES Collected: 07/18/2018 Status: F Source: [place] 2:19 PM [facility] REPOSITORY TYPE CODE TESTS RESULT OUT OF RANGE REFERENCE UNITS LAB L4600.0100 0-19 units Normal ANTI-CCP 5 [id number] Result Comment: Negative <20 Weak positive 20 - 39 Moderate positive 40 - 59 Strong positive >59 Performed By: #### L3100.0390, L3100.0528, L3100.0625, L3410.1400, L4600.0100 #### [facility] (refer to report for specific site) refer to report for address and phone number PELVIS 1 OR 2 VIEWS Observed: 07/18/2018 Status: F Source: [place] 2:18 PM [facility] REPOSITORY [facility] Imaging Services [address] [place] [address] Pelvis 1 or 2 Views MR#: [id number] Acct: [id number] Name: BONNIE MCARTHUR Rep #: [id number] : 1950 F 68 From: Odilon Medel MD PCP: Rosalva Fung DO Status: REG CLI Study: Pelvis 1 or 2 Views Date of Exam: 07/18/18 Exam# [id number] Ordering Dr: Ashley Newby MD STUDY: X-RAY - PELVIS REASON FOR EXAM: Female, 68 years old. Bilateral hip pain. TECHNIQUE: One view of the pelvis was obtained. COMPARISON: None. FINDINGS: There is moderate fecal retention. There are faint pelvic calcifications. Normal bilateral iliac wings, sacroiliac joints and visualized sacrum. Normal visualized bilateral superior and inferior pubic rami. Normal pubic symphysis. Normal ischial tuberosities. Normal visualized right femoral head. Normal right acetabulum. Normal right hip joint. Normal visualized left femoral head. Normal left acetabulum. Normal left hip joint. RAD/Pelvis 1 or 2 Views IMPRESSION: Unremarkable hip joints. Electronically Signed: Odilon Medel MD at 14:24 EDT Tel , Service support , CC: Rosalva Fung DO; Ashley Newby MD Bad Credit Collector: Signed ECHOCARDIOGRAM COMPLETE Observed: 06/16/2018 Status: F Source: [place] 4:49 PM [facility] REPOSITORY [facility] Cardiovascular Services [address] [place] [address] Echo Complete 06/16/18 0657 MR#: [id number] Acct: [id number] Name: BONNIE MCARTHUR Rep #: [id number] : 1950 68 From: Bill Rodrigues MD Attending Dr: Rosalva Fung DO Status: REG CLI Ordering Dr: Rosalva Fung DO Date: 06/16/18 Location: [facility] Sex: F C Admitted: Reason For Study: chest tightness Procedure This was a 2D Doppler, Color Flow transthoracic echocardiogram. Exam performed in department. Left Ventricle Normal size and thickness. The estimated ejection fraction is 65 %. Normal diastology for age. No regional wall motion abnormalities noted. Right Ventricle Mildly dilated right ventricle. Normal systolic function. Atria Normal left atrium. Normal right atrium. Normal atrial septum. Bubble contrast study negative for right to left interatrial shunt. Mitral Valve Normal mitral valve. Trivial mitral valve insufficiency. Tricuspid Valve Normal tricuspid valve. Mild to moderate (1-2+) tricuspid valve insufficiency. Right ventricular systolic pressure estimated to be 30 mmHg. Aortic Valve Normal aortic valve. Trisinus/trileaflet aortic valve. Pulmonic Valve Normal pulmonic valve. Trivial pulmonic valve insufficiency. Great Vessels Normal aortic root. Normal arch. Normal inferior vena cava. Inferior vena cava collapse with sniff. Pericardium/Pleural No pericardial effusion. Medication Performed a rapid injection [...] 127.8 cm/sec LV V1 max: 117.3 cm/sec SV(LVOT): 92.8 ml Ao max P.5 mmHg LV V1 max P.5 mmHg Ao V2 mean: 84.3 cm/sec LV V1 mean P.7 mmHg Ao mean P.3 mmHg LV V1 mean: 76.0 cm/sec Ao V2 VTI: 30.6 cm LV V1 VTI: 28.6 cm WILY(I,D): 3.0 cm2 WILY(V,D): 3.0 cm2 PA V2 max: 100.0 cm/sec TR max will: 251.1 cm/sec TR max P.3 mmHg Interpretation Summary The estimated ejection fraction is 65 %. Normal diastology for age. Bubble contrast study negative for right to left interatrial shunt. Mild to moderate (1-2+) tricuspid valve insufficiency. Right ventricular systolic pressure estimated to be 30 mmHg. There is no comparison study available. Ordering Physician: Rosalva Fung Referring Physician: Rosalva Fung Performed By: Krissy Cook, RDCS, RVT 06/16/18 1649 Date Bill Rodrigues MD CC: Rosalva Fung DO Date Dictated: 06/16/18 0657 Date Transcribed: 06/16/181648 Bad Credit Collector: Signed STRESS REPORT Observed: 06/16/2018 Status: F Source: [place] 9:31 AM [facility] REPOSITORY [facility] Cardiovascular Services [address] [place] [address] MR#: [id number] Acct: [id number] Name: BONNIE MCARTHUR Rep #: [id number] : 1950 68 From: Ayan Gomez MD Primary Care: Rosalva Fung DO Status: REG CLI Ordering Dr: Sex: F C Stress Test Report Date: 06/16/2018 Procedure: Exercise tolerance test/imaging study Indications: Chest pain; shortness of breath Consent: Per [...] bradycardia. The peak exercise ECG demonstrated somatic/motion artifact with no obvious ECG changes. There was a rare PAC/atrial couplet in recovery and a rare PVC in recovery. The functional capacity was considered good. There was no complaint of chest discomfort during exercise or recovery. The examination was discontinued secondary to dyspnea. Impression: 1. Technically adequate (percent predicted maximal heart rate greater than 85%) exercise tolerance test 2. Peak exercise ECG demonstrated somatic/motion artifact with no obvious ECG changes 3. There was a rare PAC/atrial couplet in recovery and a rare PVC in recovery. 4. Nuclear images pending Myocardial perfusion imaging study: Technique: The patient was injected with 12 mCi of technetium 99m Cardiolite and subsequently rest SPECT Cardiolite nuclear imaging was obtained in the horizontal long, vertical long, and short axis views. The patient [...] imaging was obtained in the horizontal long, vertical long, and short axis views. A gated Cardiolite study at peak stress was obtained. Interpretation: Rest and stress SPECT Cardiolite nuclear imaging status post realignment, normalization, and attenuation correction, demonstrates the appearance of relative uniform tracer uptake and myocardial perfusion appearing within normal limits. There is end systolic thickening and brightening. The gated Cardiolite study demonstrates myocardial thickening and inward wall motion. The reported LVEF is 85 %. Impression: 1. Rest and stress SPECT Cardiolite nuclear imaging demonstrate relative uniform tracer uptake and myocardial perfusion appearing within normal limits. 2. The gated Cardiolite study reports an LVEF of 85 %. This note was generated with [employer] dictation software. It may contain incorrect words, spelling, and punctuation that were not noted in checking the note before signing. 06/16/18930 <Electronically signed by Ayan Gomez MD> Date Ayan Gomez MD CC: Rosalva Fung DO Date Dictated: 06/16/18923 Date Transcribed: 06/16/18923 Bad Credit Collector: PM Signed [employer] OFFICE VISIT Observed: 05/29/2018 Status: F Source: [facility] REPORT 3:00 PM [facility] [address] [place] [address] OFFICE VISIT Date of Service: 05/29/18 MR#: [id number] Acct: [id number] Name: HIEU MCARTHURA Jean-Paul Rep #: [id number] : 1950 Provider: LOUIE Rudd Age/Sex: 68/F [place] [facility] [place]: Signed Intake Vital Signs05/29/18 Height 5 ft 6 in 05/29/18 Weight: 150 lb 6 oz 05/29/18 Body Mass Index (BMI) 24.3 05/29/18 Blood Pressure 113/69 Intake Visit Reasons: RASH IN PUBIC AREA Mess Cook Required: No Is patient in pain?: No Allergies apremilast [From Otezla] Allergy (Mild, Verified 05/29/18 14:21) Other codeine Allergy (Mild, Verified 05/29/18 14:21) Other Medications carbinoxamine 4 mg tablet 4 mg PO ONCE PRN 05/07/18 [History Confirmed 05/29/18] clobetasol 0.05 % scalp solution 1 applic TOPICAL BID 05/07/18 [History Confirmed 05/29/18] fluticasone 50 mcg/actuation nasal spray,suspension 1 spray INTRANASAL QDAY 05/07/18 [History Confirmed 05/29/18] montelukast 10 mg tablet 10 mg PO QPM 05/07/18 [History Confirmed 05/29/18] multivitamin,sw-snps-rcatynli tablet 1 tab PO QDAY 05/07/18 [History Confirmed 05/29/18] triamcinolone acetonide 0.1 % topical cream 1 applic TOPICAL QDAY 05/07/18 [History Confirmed 05/29/18] azelastine 0.15 % (205.5 mcg) nasal spray 1 spray INTRANASAL BID 05/29/18 [History Confirmed 05/29/18] Is last menstrual period known: No Post menopausal: No Patient : No : No PFSH Medical History Psoriatic arthritis (Chronic) Seasonal allergies (Acute) Surgical History H/O tubal ligation (Acute) Family History Mother Hypertension Social History Smoking Status: Never smoker alcohol intake: never substance use type: does not use caffeine: Yes what type of physical activity do you participate in: none seatbelt use: always do you feel safe at home: Yes additional social history: [employer] Patient is retired HPI RASH [...] abortions Hx Para 5 Spontaneous abortions Past Pregnancies Del. DateName GA/Weeks Outcome Route Bth WeighInfant GeLabor LgtAnesthesiDel LocatProvider FOB t n h a n Exam External Female Exam: other (mons with raised erythematous, pin point rash. No plaques noted) Assessment AND Plan Problems 1. 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 Coding Level of Care Code Off vis,est,level 3 Diagnoses Contact dermatitis, unspecified contact dermatitis type, unspecified trigger L25.9 Contact dermatitis type: unspecified Contact dermatitis trigger: unspecified trigger 05/29/18 1500 <Electronically signed by Donna TEJADA> Date Donna Rudd NP-C Cosigner Signature: Date (if applicable) CC: [employer]RO[employer]DER OFFICE VISIT Observed: 05/07/2018 Status: F Source: [facility] REPORT 11:49 AM [facility] [address] [place] [address] OFFICE VISIT Date of Service: 05/07/18 MR#: [id number] Acct: [id number] Name: BONNIE MCARTHUR Rep #: [id number] : 1950 Provider: Becky Major MD Age/Sex: 68/F [place] [facility] [place]: Signed Intake Vital Signs05/07/18 Height 5 ft 6 in 05/07/18 Weight: 147 lb 8 oz 05/07/18 Body Mass Index (BMI) 23.8 05/07/18 Blood Pressure 133/76 Intake Visit Reasons: RASH IN GROIN AREA Chief Complaint: Rash, going on since November on and off Mess Cook Required: No Is patient in pain?: No Allergies apremilast [From Otezla] Allergy (Mild, Verified 05/07/18 11:19) Other codeine Allergy (Mild, Verified 05/07/18 11:19) Other Medications azelastine 0.05 % eye drops 1 drp OPHTHALMIC BID 05/07/18 [History Confirmed 05/07/18] carbinoxamine 4 mg tablet 4 mg PO ONCE PRN 05/07/18 [History Confirmed 05/07/18] clobetasol 0.05 % scalp solution 1 applic TOPICAL BID 05/07/18 [History Confirmed 05/07/18] fluticasone 50 mcg/actuation nasal spray,suspension 1 spray INTRANASAL QDAY 05/07/18 [History Confirmed 05/07/18] montelukast 10 mg tablet 10 mg PO QPM 05/07/18 [History Confirmed 05/07/18] multivitamin,sw-fbpb-uitghkbu tablet 1 tab PO QDAY 05/07/18 [History Confirmed 05/07/18] triamcinolone acetonide 0.1 % topical cream 1 applic TOPICAL QDAY 05/07/18 [History Confirmed 05/07/18] triamcinolone acetonide 40 mg/mL suspension for injection 20 [...] at home: Yes additional social history: [employer] Patient is retired HPI RASH IN GROIN AREA: Details: BONNIE MCARTHUR is a 68 year old who presents for a chronic rash since november starting head to toe- has psoriasis. She goes to [employer]. she has rash that comes and goes, she has it on other areas. she has a reaction to otezla she had hives. she has significant allergies. she is working with her hand kiss setter regarding this. she has tried triamcinolone and it helped somewhat. Female Reproductive History Questions: Sexually active: No (due to symotoms) Pregancy History 6 Elective abortions Hx Para 5 Spontaneous abortions Past Pregnancies Del. DateName GA/Weeks Outcome Route Bth WeighInfant GeLabor LgtAnesthesiDel LocatProvider FOB t n h a n ROS Const Constitutional: Reports system reviewed and no additional complaints, except as docu Skin Skin/Breast: Reports as per HPI Exam Const General: cooperative, healthy appearing, comfortable, no acute distress, well developed Nutritional Appearance: average body habitus Orientation: alert HENMT Head: normal to inspection, normocephalic Neck Neck: normal visual inspection, trachea midline Thyroid: thyroid normal Resp Effort AND Inspection: normal respiratory effort GI Inspection: normal to inspection, non-distended Palpation: soft, no hepatosplenomegaly General: bladder normal to palpation External Female Exam: normal external appearance, normal appearance of the urethra Urethra: normal appearance of the urethra, normal palpation, no discharge Speculum Exam - Vagina: normal appearance of the vagina, normal vaginal discharge Speculum Exam - Cervix: normal appearance of the cervix, nontender Bimanual Exam- Vagina AND Uterus: bladder normal to palpation, No cervical tenderness, normal bimanual exam, uterine size normal, uterine shape normal, uterine mobility normal, uterine consistency normal, normal cervical palpation, uterus non-tender Bimanual Exam- Adnexa, other: normal adnexae, adnexae mobile, no adnexal masses, pelvic support normal Pelvic Support: normal Skin General: no rashes or lesions noted Assessment AND Plan Problems 1. Vulvar dermatitis N76.89 2. Dyspareunia Plan reviewed vulvar hygiene, possible irritants, minimal irritation seen, noted atropy also discussed vaginal estrogen if desired Coding Level of Care Code Off vis,est,level 3 Diagnoses Vulvar dermatitis N76.89 Dyspareunia 05/07/18 1149 <Electronically signed by Becky Major MD> Date Becky Major MD Cosigner Signature: Date (if applicable) CC: Observed: 04/16/2018 Status: F Source: [facility] SURGICAL PATHOLOGY 3:00 PM SYSTEM REPOSITORY [id number] [facility] PATHOLOGY AND LABORATORY MEDICINE [address] [place] [address] [id number] FINAL SURGICAL PATHOLOGY REPORT NAME: BONNIE MCARTHUR [id number] : 1950 68 Y F SAMIRA NO.: [id number] LOCATION: 1SPO PROCEDURE 04/16/2018 DATE: SURGEON: LOW RICHARDSON RECEIVED 04/21/2018 DATE: ATTENDING: SUSANNE MCMILLAN MD REPORT DATE: 04/22/2018 COPIES TO: DIAGNOSIS: SKIN, RIGHT SUPERIOR MEDIAL LOWER BACK, PUNCH (DIF) - NEGATIVE DIRECT IMMUNOFLUORESCENCE Comment: Direct antibody localization demonstrates no evidence of immunoreactivity for immunoglobulins IgG, IgM, IgA, complement C3, or fibrinogen on sections of frozen skin. JAW/JAW <Sign Out Dr. Kern> RENETTA YOUNG M.D. CLINICAL INFORMATION:L30.9 SPECIMEN: SKIN GROSS DESCRIPTION: Skin right superior medial lower back Received in polytransport buffer is a core of skin and underlying tissue 0.3 cm in diameter and 0.4 cm in thickness. The specimen is entirely submitted for direct immunofluorescence. (1 ns, 1) JCK/MARCIA Disclaimer: The following statement applies to all immunohistochemistry, in situ hybridization, molecular studies, and immunofluorescence testing. The use of one or more reagents in the above tests is regulated as an analyte specific reagent (ASR). These tests were developed and their performance characteristics determined by the clinical laboratories of [facility]. They have not been cleared by the US Food and Drug Administration (FDA). The FDA has determined that such clearance or approval is not necessary. All the above immunostains were performed on paraffin embedded tissue. Appropriate positive and negative controls (where applicable) were run in parallel with the patient's specimen; these controls showed expected staining pattern, with acceptable intensity of staining. Immunohistochemical assays have not been validated on decalcified tissues. Results should be interpreted with caution given the raised possibility of false negativity on decalcified specimens. Professional Performing Location: [place] [address]. DEPARTMENT OF PATHOLOGY AND LABORATORY MEDICINE [place], [place] [address] PROGRESS Observed: 02/08/2018 Status: COMPLETED Source: [place] 10:54 AM [facility] REPOSITORY HNO ID: [id number] Author: Neela (Gildardo) Richie Service: (none) Author Type: Nurse Practitioner Type: Progress Notes Filed: 02/08/2018 12:00 PM Note Text: Subjective The history is provided by the patient. No foreign language interpreter was used. JERRELL Mcarthur is a 67 year old female who presents today for CC of rash This started 2 days ago after starting otezla She is also having itching Symptoms are worsened by nothing She has tried patricia twice a day without relief as directed by Dr. 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 Genitourinary: Negative for dysuria. Musculoskeletal: Negative for joint pain and myalgias. Skin: Negative for itching and rash. Neurological: Negative for headaches. Objective Physical Exam Constitutional: She is oriented to person, place, and time and well-developed, well-nourished, and in no distress. No distress. HENT: Head: Normocephalic and atraumatic. Eyes: Conjunctivae and EOM are normal. Pupils are equal, round, and reactive to light. Neck: Normal range of motion. Neck supple. Pulmonary/Chest: Effort normal. Neurological: She is alert and oriented to person, place, and time. Skin: Skin is warm and dry. Psychiatric: Affect normal. Nursing note and vitals reviewed. ASSESSMENT/PLAN: 1. Rash - ICD9: 782.1, ICD10: R21 Appears to be allergic reaction Advise to continue Patricia as prescribed by Dr. Holt Take Medrol dose pack as directed Follow up with Dr. Holt for further management * Seek medical care immediately, call 911, go to ER if you have chest pain, difficulty breathing, shortness of breath, inability to swallow. - METHYLPREDNISOLONE 4 MG TABLETS IN A DOSE PACK Diagnosis and treatment plan were discussed and questions were answered to the patient's satisfaction. Pt acknowledged understanding of concepts and follow up plan. Specific signs and symptoms that would indicate the need for higher level of care were discussed in detail warranting prompt ER evaluation. Neela Chaparro APRN.CNP CNOV Observed: 02/08/2018 Status: COMPLETED Source: [place] 10:30 AM [facility] REPOSITORY Office Visit (WSTR) BONNIE MCARTHUR ([id number]) 1950 F Date Time Provider Department 02/08/18 10:30 AM NEELA CHAPARRO (GILDARDO) [facility] During your visit today, we recorded the following information about you: Temperature Pulse Respiration Blood pressure 98 degrees 70/minute 18/minute 122/70 Weight 67.5 kg Neela Chaparro APRN.CNP 02/08/2018 10:53 AM Signed ASSESSMENT/PLAN: 1. Rash - ICD9: 782.1, ICD10: R21 Appears to be allergic reaction Advise to continue Patricia as prescribed by Dr. Holt Take Medrol dose pack as directed Follow up with Dr. Holt for further management * Seek medical care immediately, call 911, go to ER if you have chest pain, difficulty breathing, shortness of breath, inability to swallow. - METHYLPREDNISOLONE 4 MG TABLETS IN A DOSE PACK eNela Chaparro APRN.CNP 02/08/2018 12:00 PM Addendum Subjective The history is provided by the patient. No foreign language interpreter was used. JERRELL Mcarthur is a 67 year old female who presents today for CC of rash This started 2 days ago after starting otezla She is also having itching Symptoms are worsened by nothing She has tried patricia twice a day without relief as directed by Dr. 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 Genitourinary: Negative for dysuria. Musculoskeletal: Negative for joint pain and myalgias. Skin: Negative for itching and rash. Neurological: Negative for headaches. Objective Physical Exam Constitutional: She is oriented to person, place, and time and well-developed, well-nourished, and in no distress. No distress. HENT: Head: Normocephalic and atraumatic. Eyes: Conjunctivae and EOM are normal. Pupils are equal, round, and reactive to light. Neck: Normal range of motion. Neck supple. Pulmonary/Chest: Effort normal. Neurological: She is alert and oriented to person, place, and time. Skin: Skin is warm and dry. Psychiatric: Affect normal. Nursing note and vitals reviewed. ASSESSMENT/PLAN: 1. Rash - ICD9: 782.1, ICD10: R21 Appears to be allergic reaction Advise to continue Patricia as prescribed by Dr. Holt Take Medrol dose pack as directed Follow up with Dr. Holt for further management * Seek medical care immediately, call 911, go to ER if you have chest pain, difficulty breathing, shortness of breath, inability to swallow. - METHYLPREDNISOLONE 4 MG TABLETS IN A DOSE PACK Diagnosis and treatment plan were discussed and questions were answered to the patient's satisfaction. Pt acknowledged understanding of concepts and follow up plan. Specific signs and symptoms that would indicate the need for higher level of care were discussed in detail warranting prompt ER evaluation. Neela Chaparro APRN.SPIRAL GEAR GENERATOR Referring Provider: SELF [[id number]] Allergies As of Date: 02/08/2018 Noted Allergy Reaction CODEINE 01/21/2006 5 - Intolerance FOOD EXTRACTS 01/30/2006 environmental [Other] 01/30/2006 Date Reviewed: 02/08/2018 Reviewed by: Neela (Gildardo) Richie - Fully Assessed Reason for Visit: hives all over body [Other] Cmt: started on otezla on 12/31 and she thought she was having a psoriasis flare up but not thinks she was having a reaction to this medication Reason For Visit History Recorded Primary Visit Diagnosis:Rash [R21] Order(s):methylPREDNISolone (MEDROL, VASU,) 4 mg Dose-PackFollow dosing instructions, take with food.Disp: 1 PackageRfl: 0 Prescriptions as of 02/08/2018 Sig: OTEZLA ORAL Take by mouth. CLOBETASOL TOPICAL Apply to affected area. AZELASTINE 0.15 % (205.5 MCG)* Use in each nostril. MONTELUKAST 10 MG TABLET Take 10 mg by mouth daily at * VITAMIN D-3 ORAL Take 1,500 mg by mouth once d* CARBINOXAMINE 4 MG TABLET Take by mouth three times da* CENTRUM SILVER ORAL Take by mouth. * FLONASE 50 MCG/ACTUATION [employer]* One puff per nostril in AM * COMPOUNDED PRESCRIPTION allergy medication Take 1 inj* METHYLPREDNISOLONE 4 MG TABLE* Follow dosing instructions, t* HYDROXYZINE PAMOATE 25 MG CAP* Take 1-2 capsules by mouth ev* Medication notes this encounter HYDROXYZINE PAMOATE 25 MG CAPSULE >> Marley Woodward RETAIL SALESWORKER 02/08/2018 10:35 AM >> MARLEY WOODWARD RETAIL SALESWORKER Sat Feb 08, 2018 10:35 AM Not Taking Problem List As Of Date 02/08/2018 Noted Resolved BENIGN NEOPLASM LG BOWEL [D12.6] INVALID FOR* INT HEMORRHOID W/O COMPL [K64.8] INVALID FOR* Osteopenia [M85.80] INVALID FOR* Psoriasis [L40.9] INVALID FOR* Other instructions from your clinician: ASSESSMENT/PLAN: 1. Rash - ICD9: 782.1, ICD10: R21 Appears to be allergic reaction Advise to continue Patricia as prescribed by Dr. Holt Take Medrol dose pack as directed Follow up with Dr. Holt for further management * Seek medical care immediately, call 911, go to ER if you have chest pain, difficulty breathing, shortness of breath, inability to swallow. - METHYLPREDNISOLONE 4 MG TABLETS IN A DOSE PACK Prescriptions ordered this encounter Disp Refills Start End METHYLPREDNISOLONE 4 MG TABLETS IN A* 1 Pa* 0 02/08/2018 02/14/2018 Sig: Follow dosing instructions, take with food. Encounter Status:Closed by NEELA CHAPARRO CNP on 02/08/18 PROGRESS Observed: 01/19/2018 Status: COMPLETED Source: [place] 9:35 AM [facility] REPOSITORY [facility] ID: [id number] Author: Zoe (Gildardo) Older Service: (none) Author Type: Nurse Practitioner Type: Progress Notes Filed: 01/19/2018 9:52 AM Note Text: CC: Patient presents with: Rash HPI Bonnie Mcarthur is a 67 year old female who presents today for itching due to psoriasis. Patient states she was just diagnosed with psoriasis by fish hatchery man at [facility]. Prescribed clobetasol and otezla, which she was told can take 4 months to work. She is experiencing intense itching from the psoriasis which is all over, including the vaginal area. Using clobetasol and OTC cortisone cream with minimal relief of itching and unsure if it is okay to use on the vaginal area. REVIEW OF SYSTEMS See HPI PAST MEDICAL HISTORY Diagnosis Date - Allergic rhinitis, cause unspecified Allergic rhinitis - Benign neoplasm of colon - Internal hemorrhoids without mention of complication - Osteopenia PAST SURGICAL HISTORY Procedure Laterality Date - COLONOS W/REM POLYP SNARE 10/28/07 - DANDC, DIAG AND/OR THERAPEUTIC Dilation AND curettage - DENTAL SURGERY PROCEDURE 10/2010 - LIGATE FALLOPIAN TUBE Tubal ligation ALLERGIES Codeine; Food Extracts; Environmental [Other] MEDICATIONS APREMILAST (OTEZLA ORAL) Take by mouth. CLOBETASOL PROPIONATE (CLOBETASOL TOPICAL) Apply to affected area. Azelastine 0.15 % (205.5 mcg) spry Use in each nostril. montelukast 10 mg tablet Take 10 mg by mouth daily at bedtime. Carbinoxamine Maleate (PALGIC) 4 mg Tab Take by mouth three times daily as needed. MULTIVITAMIN W-MINERALS/LUTEIN (CENTRUM SILVER ORAL) Take by mouth. fluticasone propionate(FLONASE 50 MCG/ACTUATION NASAL SPRAY) One puff per nostril in AM COMPOUNDED PRESCRIPTION allergy medication Take 1 injections per month CALCIUM CARBONATE/VITAMIN D3 (VITAMIN D-3 ORAL) Take 1,500 mg by mouth once daily. FAMILY HISTORY Problem Relation Age of Onset - Breast Cancer Paternal Aunt Social History Substance Use Topics - Smoking status: Never Smoker - Smokeless tobacco: Never Used - Alcohol use No PHYSICAL EXAM BP 140/90 Pulse 62 Temp 36.6 ?C (97.9 ?F) (Left Tympanic) Resp 14 Wt 68.9 kg (152 lb) BMI 24.91 kg/m2 General Appearance: well appearing, in no acute distress, alert ASSESSMENT/PLAN: 1. Pruritus - ICD9: 698.9, ICD10: L29.9 (primary diagnosis) - Topical steriod tx with OTC 1% Hydrocortisone cream and Rx steriod cream/ointment as prescribed by dermatology. Okay to use on the vaginal area today but advised patient to call fish hatchery man office tomorrow about continued use. - Anti itch therapy of Rx for Atarax prn - discussed skin care - follow up with fish hatchery man 2. Psoriasis - ICD9: 696.1, ICD10: L40.9 As above Prescription instructions reviewed with patient as applicable. Potential red flag symptoms discussed with the patient. Reviewed appropriate action plan to take if red flag symptoms occur. Patient agreeable to treatment plan. During this patient visit I have spent approximately 25 minutes in counseling regarding medications, skin care and coordinating care. Zoe Pina CNP CNOV Observed: 01/19/2018 Status: COMPLETED Source: [place] 9:30 AM [facility] REPOSITORY Office Visit (WSTR) BONNIE MCARTHUR ([id number]) 1950 F Date Time Provider Department 01/19/18 9:30 AM ZOE PINA (GILDARDO) [facility] During your visit today, we recorded the following information about you: Temperature Pulse Respiration Blood pressure 97.9 degrees 62/minute 14/minute 140/90 Weight 68.9 kg Zoe GILDARDO Pina 01/19/2018 9:52 AM Signed CC: Patient presents with: Rash HPI Bonnie Mcarthur is a 67 year old female who presents today for itching due to psoriasis. Patient states she was just diagnosed with psoriasis by fish hatchery man at [facility]. Prescribed clobetasol and otezla, which she was told can take 4 months to work. She is experiencing intense itching from the psoriasis which is all over, including the vaginal area. Using clobetasol and OTC cortisone cream with minimal relief of itching and unsure if it is okay to use on the vaginal area. REVIEW OF SYSTEMS See HPI PAST MEDICAL HISTORY Diagnosis Date - Allergic rhinitis, cause unspecified Allergic rhinitis - Benign neoplasm of colon - Internal hemorrhoids without mention of complication - Osteopenia PAST SURGICAL HISTORY Procedure Laterality Date - COLONOS W/REM POLYP SNARE 10/28/07 - DANDamp;C, DIAG AND/OR THERAPEUTIC Dilation ANDamp; curettage - DENTAL SURGERY PROCEDURE 10/2010 - LIGATE FALLOPIAN TUBE Tubal ligation ALLERGIES Codeine; Food Extracts; Environmental [Other] MEDICATIONS APREMILAST (OTEZLA ORAL) Take by mouth. CLOBETASOL PROPIONATE (CLOBETASOL TOPICAL) Apply to affected area. Azelastine 0.15 % (205.5 mcg) spry Use in each nostril. montelukast 10 mg tablet Take 10 mg by mouth daily at bedtime. Carbinoxamine Maleate (PALGIC) 4 mg Tab Take by mouth three times daily as needed. MULTIVITAMIN W-MINERALS/LUTEIN (CENTRUM SILVER ORAL) Take by mouth. fluticasone propionate(FLONASE 50 MCG/ACTUATION NASAL SPRAY) One puff per nostril in AM COMPOUNDED PRESCRIPTION allergy medication Take 1 injections per month CALCIUM CARBONATE/VITAMIN D3 (VITAMIN D-3 ORAL) Take 1,500 mg by mouth once daily. FAMILY HISTORY Problem Relation Age of Onset - Breast Cancer Paternal Aunt Social History Substance Use Topics - Smoking status: Never Smoker - Smokeless tobacco: Never Used - Alcohol use No PHYSICAL EXAM BP 140/90 Pulse 62 Temp 36.6 ?C (97.9 ?F) (Left Tympanic) Resp 14 Wt 68.9 kg (152 lb) BMI 24.91 kg/m2 General Appearance: well appearing, in no acute distress, alert ASSESSMENT/PLAN: 1. Pruritus - ICD9: 698.9, ICD10: L29.9 (primary diagnosis) - Topical steriod tx with OTC 1% Hydrocortisone cream and Rx steriod cream/ointment as prescribed by dermatology. Okay to use on the vaginal area today but advised patient to call fish hatchery man office tomorrow about continued use. - Anti itch therapy of Rx for Atarax prn - discussed skin care - follow up with fish hatchery man 2. Psoriasis - ICD9: 696.1, ICD10: L40.9 As above Prescription instructions reviewed with patient as applicable. Potential red flag symptoms discussed with the patient. Reviewed appropriate action plan to take if red flag symptoms occur. Patient agreeable to treatment plan. During this patient visit I have spent approximately 25 minutes in counseling regarding medications, skin care and coordinating care. GILDARDO Westbrook CNP 01/19/2018 9:43 AM Signed Okay to use steroid cream in the vaginal area. Call dermatologists office tomorrow and let them know what you were prescribed today and if continued use of steroid cream on the vaginal area is okay. Follow dermatology recommendations DO NOT USE Palgic will taking Vistaril Referring Provider: SELF [200] Allergies As of Date: 01/19/2018 Noted Allergy Reaction CODEINE 01/21/2006 5 - Intolerance FOOD EXTRACTS 01/30/2006 environmental [Other] 01/30/2006 Date Reviewed: 01/19/2018 Reviewed by: Ana Maria Johnson Ma - Fully Assessed Reason for Visit: Rash [1087] Primary Visit Diagnosis:Pruritus [L29.9] Other Visit Diagnosis:Psoriasis [L40.9] Order(s):hydrOXYzine pamoate (VISTARIL) 25 mg capsuleTake 1-2 capsules by mouth every 6 hours as needed. Will cause drowsiness.Disp: 60 capsuleRfl: 1 Prescriptions as of 01/19/2018 Sig: OTEZLA ORAL Take by mouth. CLOBETASOL TOPICAL Apply to affected area. AZELASTINE 0.15 % (205.5 MCG)* Use in each nostril. MONTELUKAST 10 MG TABLET Take 10 mg by mouth daily at * CARBINOXAMINE 4 MG TABLET Take by mouth three times da* CENTRUM SILVER ORAL Take by mouth. * FLONASE 50 MCG/ACTUATION [employer]* One puff per nostril in AM * COMPOUNDED PRESCRIPTION allergy medication Take 1 inj* HYDROXYZINE PAMOATE 25 MG CAP* Take 1-2 capsules by mouth ev* VITAMIN D-3 ORAL Take 1,500 mg by mouth once d* Problem List As Of Date 01/19/2018 Noted Resolved BENIGN NEOPLASM LG BOWEL [D12.6] INVALID FOR* INT HEMORRHOID W/O COMPL [K64.8] INVALID FOR* Osteopenia [M85.80] INVALID FOR* Psoriasis [L40.9] INVALID FOR* Other instructions from your clinician: Okay to use steroid cream in the vaginal area. Call dermatologists office tomorrow and let them know what you were prescribed today and if continued use of steroid cream on the vaginal area is okay. Follow dermatology recommendations DO NOT USE Palgic will taking Vistaril Prescriptions ordered this encounter Disp Refills Start End HYDROXYZINE PAMOATE 25 MG CAPSULE 60 c* 1 01/19/2018 Sig: Take 1-2 capsules by mouth every 6 hours as needed. Will cause drowsiness. Encounter Status:Closed by ZOE PINA CNP on 01/19/18 ALLERGIES ALLERGIES DATE TYPE / CODE NAME / CODE REACTION SEVERITY SOURCE 05/29/2018 Drug codeine/F0060 Other [place] Allergy/887710946( 00439(RXNORM) Community SNOMED CT) Hospital Repository 05/29/2018 Drug apremilast/F0 Other [place] [employer] Allergy/480295185( 80743271(NO Community SNOMED CT) ) Hospital Repository 01/30/2006 DRUG FOOD EXTRACTS [place] INGREDI/991013879( Clinic Main SNOMED CT) [place] Repository 01/30/2006 Miscellaneous OTHER [place] Allergy/043106860( [facility] Main SNOMED CT) [place] Repository 01/21/2006 DRUG CODEINE INTOLERANCE [place] INGREDI/830424201( [facility] Main SNOMED CT) [place] Repository ENCOUNTERS ENCOUNTERS ADMIT/DISCHARGE ACCOUNT NUMBER ADMITTING ENCOUNTER LOCATION SOURCE CLASS 10/23/2018 [id number] Ambulatory Building:[facility] OHIP Practices Repository 10/13/2018 [id number] Ambulatory [facility] ding:[place] Repository 10/08/2018/10/10/20 [id number] Ambulatory [address] ding:[place] Repository 09/12/2018 [id number] [facility] ding:LAB.FUT Repository URE 08/07/2018 [id number] Ambulatory [facility] ding:OPBI Repository 07/18/2018 [id number] Ambulatory [facility] ding:MTLAB Repository 06/16/2018 [id number] Ambulatory [facility] ding:CVS Repository 06/16/2018 [id number] Ambulatory BMSBuilding: [facility] Repository 05/29/2018/05/29/20 [id number] Ambulatory BMSBuilding: [employer] [facility] [place] 05/07/2018/05/07/20 [id number] Ambulatory BMSBuilding: [place] [facility] Rep[place] 04/16/2018 [id number] Ambulatory [facility] Repository 02/08/2018/02/09/20 [id number] Ambulatory [address] Repository 01/19/2018/01/21/20 [id number] Ambulatory [address] Repository FUNCTIONAL STATUS FUNCTIONAL STATUS No Functional Status Records FoundEQUIPMENT EQUIPMENT No Equipment Records FoundPAYERS PAYERS ENCOUNTER GUARANTOR PAYER SUBSCRIBER SOURCE 10/23/2018 Bonnie S Primary Bon[facility] S OHIP Practices BetsyB: Insurance:MedicarePolicy BaumanDOB: Repository Number: [id number] [id number] [address] [facility], [place] Date:0132-16-93Zwac [place], [place] [address]Beu: (861) Name:[facility] [address]Dvy: [id number], [place] [phone] (HP) (HP)Tel: [phone]: [phone] () 10/23/2018 Secondary Bonnie S OHIP Practices Insurance:Medico BaumanDOB: Repository [facility] [id number] Number: [address] [id number] [place], [place] Date:7520-91-33Lzbm 19[address]Zbu: Name:[facility] Rachid [address]Ankrs, ~( [place] [id number]: [phone] (HP) [phone] 10/13/2018 JAMA Thorne Primary BONNIE S [employer] [id number] Insurance:MEDICARE PART A BAUMANDOB: Community BLOUGH BPolicy [place]: [id number] [id number] Repository [address]Mde: 330) Date:2018-10-07 [phone] (HP) 10/13/2018 Secondary BONNIE S [employer] Insurance:MEDICO ROCHELLE BAUMANDOB: Community LIFE INS COPolicy Number: [id number] [facility] [id number] Repository Date:2018-10-[address] [address], [place] [address]HO: 10/13/2018 Tertiary Insurance:SELF NOT GIVENUNK [employer] PAY INSURANCEPolicy Community Number: Effective Hospital Date:2018-10-11 Repository 10/08/2018 JAMA W Primary BONNIE S [place] [id number] Insurance:MEDICARE PART A BAUMANDOB: Community BLOUGH BPolicy Number: [id number] [id number] Repository [address]Rgf: (330) Date:2018-10-07 [phone] () 10/08/2018 Secondary BONNIE S [place] Insurance:MEDICO ROCHELLE BAUMANDOB: Community LIFE INS COPolicy Number: [id number] Hospital [id number] Repository Date:2018-10-07[address] [address] [address]OW: 10/08/2018 Tertiary Insurance:SELF NOT GIVENUNK [place] PAY INSURANCEPolicy Community Number: Effective Hospital Date:2018-10-07 Repository 09/12/2018 JAMA Thorne Primary BONNIE S [employer] [id number] Insurance:MEDICARE PART A BAUMANDOB: Community BLOUGH BPolicy Number: [id number], [place] [id number] Repository [address]Eun: (330) Date:2018-03-24 [phone] () 09/12/2018 Secondary BONNIE S [place] Insurance:MEDICO ROCHELLE BAUMANDOB: Community LIFE INS COPolicy Number: [id number] Repository Date:2018-03-24[address] [address], [place] [address]GA: 09/12/2018 Tertiary Insurance:SELF NOT GIVENUNK [employer] PAY INSURANCEPolicy Community Number: Effective Hospital Date:2018-03-24 Repository 08/07/2018 JAMA Primary BONNIE S [place] [id number] Insurance:MEDICARE PART A BAUMANDOB: Community JESSY BPolicy Number: [id number] [id number] Repository [address]Qyt: (330) Date:2018-07-16 () 08/07/2018 Secondary BONNIE S [employer] Insurance:MEDICO ROCHELLE BAUMANDOB: Community LIFE INS COPolicy Number: [id number] Repository Date:2018-07-16[address] [address]UNDYIHELENA [address]LB: 08/07/2018 Tertiary Insurance:SELF NOT GIVENUNK [employer] PAY INSURANCEPolicy Community Number: Effective Hospital Date:2018-07-16 Repository 07/18/2018 JAMA Thorne Primary BONNIE S [place] [id number] Insurance:MEDICARE PART A BAUMANDOB: Community BLOUGH BPolicy Number: [id number], [place] [id number] Repository [address]Blm: (330) Date:2018-07-18 [phone] () 07/18/2018 Secondary BONNIE S [place] Insurance:MEDICO ROCHELLE BAUMANDOB: Community LIFE INS COPolicy Number: [id number] Hospital [id number] Repository Date:2018-07-18[address] [address]PFGRLHELE[place] [address]QY: 07/18/2018 Tertiary Insurance:SELF NOT GIVENUNK [place] PAY INSURANCEPolicy Community Number: Effective Hospital Date:2018-07-18 Repository 06/16/2018 JAMA Thorne Primary BONNIE S [place] [id number] Insurance:MEDICARE PART A BAUMANDOB: Community BLOUGH BPolicy Number: [id number], [place] [id number] Repository [address]Lwk: (330) Date:[phone] () 06/16/2018 Secondary BONNIE S [employer] Insurance:MEDICO ROCHELLE BAUMANDOB: Community LIFE INS COPolicy Number: [id number] Hospital [id number] Repository Date:2018-05-29[address] [address], [place] [address]ZA: 06/16/2018 Tertiary Insurance:SELF NOT GIVENUNK [place] PAY INSURANCEPolicy Community Number: Effective Hospital Date:2018-05-29 Repository 06/16/2018 JAMA Thorne Primary BONNIE S [employer] [id number] Insurance:MEDICARE PART A BAUMANDOB: Community BLOUGH BPolicy Number: [id number], [place] [id number] Repository [address]Iww: (330) Date:2018-05-29 [phone] (HP) 06/16/2018 Secondary BONNIE S [place] Insurance:MEDICO ROCHELLE BAUMANDOB: Community LIFE INS COPolicy Number: [id number] Hospital [id number] Repository Date:2018-05-29 [address] [address], [place] [address]GG: 06/16/2018 Tertiary Insurance:SELF NOT GIVENUNK [place] PAY INSURANCEPolicy Community Number: Effective Hospital Date:2018-06-16 Repository 05/29/2018 JAMA Primary BONNIE S [place] [id number] Insurance:MEDICARE PART A BAUMANDOB: [facility] BPolicy Number: [id number], [place] [id number] Repository [address]Jhr: (330) Date:2018-05-29 () 05/29/2018 Secondary BONNIE S [employer] Insurance:MEDICO BAUMANDOB: Community CORPPolicy Number: [id number] Hospital Effective Repository Date:7398-00-02[address] [address]HV: 05/29/2018 Tertiary Insurance:SELF NOT GIVENUNK [employer] PAY INSURANCEPolicy Community Number: Effective Hospital Date:2018-05-29 Repository 05/07/2018 Jama Primary BONNIE S [place] [id number] Insurance:MEDICARE PART A BAUMANDOB: [facility] BPolicy Number: [id number], [place] [id number] Repository [address]Dbt: (330) Date:2018-05-05 () 05/07/2018 Secondary BONNIE S [place] Insurance:MEDICO ROCHELLE BAUMANDOB: Community LIFE INSURANCEPolicy [id number] Hospital Number: Effective Repository Date:0340-92-77[address] [address]FY: 05/07/2018 Tertiary Insurance:SELF NOT GIVENUNK [employer] PAY INSURANCEPolicy Community Number: Effective Hospital Date:2018-05-07 Repository 04/16/2018 Bonnie Primary [facility]nie [facility] BaumanDOB: Insurance:Commercial BaumanDOB: System [id number] Insurance [id number] Repository Johnna MiscellaneousPolicy [place], [place] Number: Effective Date: [address]Nil: (HP) SOCIAL HISTORY SOCIAL HISTORY No Social History Records FoundFAMILY HISTORY FAMILY HISTORY No Family History Records FoundADVANCE DIRECTIVES ADVANCE DIRECTIVES No Advanced Directives Records FoundINFORMATION SOURCE INFORMATION SOURCE DATE CREATED AUTHOR AUTHOR'S ORGANIZATION 10/29/2018 [place]
== END 2018-10-10 23:59 ==
LOC: DC 12:55
PROVIDERS: Family Provider Internal Medicine; PCP Internal Medicine; Visit Provider Internal Medicine
DX: E11.9 Type 2 diabetes mellitus without complications (principal); Z71.3 Dietary counseling and surveillance
CPT/HCPCS: G0108

== ENCOUNTER 2018-10-29 15:45 | Outpatient (RCR) | payer MEDICARE, OTHER, SELFPAY | END 2018-11-10 23:59 | LOC: DC 15:45 | PROVIDERS: Family Provider Internal Medicine; PCP Internal Medicine; Visit Provider Internal Medicine | DX: E11.9 Type 2 diabetes mellitus without complications (principal); Z71.3 Dietary counseling and surveillance | CPT/HCPCS: 97802; G0108 ==

== ENCOUNTER → 2018-12-03 09:04 | Outpatient (CLI) | payer MEDICARE, OTHER, SELFPAY ==
[2018-10-29 14:36] VITALS: BMI 24.5
[2018-12-03 10:07] LABS: Absolute Lymphocyte Count 0.85 X10^3/ul (0.83-4.51); Absolute Neutrophil Count 2.5 X10^3/uL (2.0-7.7); Basophil# 0.01 X10^3/uL; Basophil% 0.3 % (0-1); Eosinophil# 0.07 X10^3/uL; Eosinophils% 1.8 % (0-5); Hemoglobin 12.5 g/dl (12.0-15.0); Lymphocyte # 0.85 X10^3/ul (4.0); Lymphocyte % 21.9 % (19-41); Mean Corp Hgb Conc 32.9 g/gl (32-36); Mean Corpuscular Hgb 30.3 pg (27.0-32.0); Mean Corpuscular Volume 92.2 fL (81-99); Mean Platelet Vol. 10.4 fl (6.2-12.0); Monocyte# 0.43 X10^3/uL; Monocyte% 11.1 % (0-10); Neutrophil # 2.53 X10^3/uL (2.7-7.7); Neutrophil % 64.9 % (47-70); Platelet Count 141 K/mm3 (150-450); RBC Distribution Width CV 14.8 % (11.6-14.6); RBC Distribution Width SD 48.1 fl (35.1-43.9); Red Blood Count 4.12 M/mm3 (4.2-5.4); White Blood Count 3.9 K/mm3 (4.4-11.0)
[2018-12-03 10:12] LABS: POSITIVE COUNT NO; POSITIVE DIFFERENTIAL NO; POSITIVE MORPHOLOGY NO
[2018-12-03 10:20] LABS: ALB/GLOB Ratio 1.2 RATIO (0.9-2.4); AST(SGOT) 16 U/L (15-37); Alanine Aminotransfer ALT/SGPT 20 U/L (13-56); Albumin, Serum 3.6 g/dL (3.2-5.0); Alkaline Phosphatase 73 U/L (45-117); Anion Gap 5 (5-15); BUN 15 mg/dL (7-18); BUN/Creat Ratio 19.4 RATIO (10-20); Calcium,Total 8.9 mg/dL (8.5-10.1); Chloride 104 mmol/L (98-107); Creatinine, Serum 0.77 mg/dL (0.55-1.02); EST Glomerular Filtration Rate 79 mL/min (>60); Est Glom Filt Rate - Afr Amer 96 mL/min (>60); Globulin 3.1 g/dL (2.2-4.2); Glucose 92 mg/dL (74-106); Potassium 4.5 mmol/L (3.5-5.1); Protein, Total 6.7 g/dL (6.4-8.2); Sodium Level 138 mmol/L (136-145)
--- OUTSIDE RECORDS SUMMARY | 2019-02-04 05:42 | XMS RPT_ITS | Continuity of Care Document ---
:1950 Author Organization [facility] Address [facility] [address] [place] [address] Phone Care Team Providers Name Role Phone Rosalva Fung DO Unavailable Ancelmo Meadows Unavailable Unavailable Gravius, Sophia Unavailable Unavailable Messenger, BRUSHER TENDER Jackeline Unavailable Unavailable Unavailable Unavailable Problems Name Dates Details Abdominal pain, acute, generalized (R10.84, 789.07) Status: Active Abortions/Miscarriages Comments: 1 Status: Active Blood glucose elevated (R73.9, 790.29) Status: Active BMI 23.0-23.9, adult (Z68.23, V85.1) Status: Active BMI 25.0-25.9,adult (Z68.25, V85.21) Status: [...] Psoriatic arthritis (L40.50, 696.0) Comments: dr Yanet matthew- referred to [facility] -- on mxt Status: Active Rash (R21, 782.1) Comments: looks like a shave burn - she admits to shaving under belly button and use cream Status: Active SOLAR LENTIGO (709.09) Status: Active Tricuspid valve insufficiency, unspecified etiology (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, 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) Status: Active Tubal Ligation Status: Active Unspecified Diagnosis Status: Active Vaginal Delivery Comments: [id number] Status: Active Medications Name Dates Details Allergy shots Active Flonase 50 MCG/ACT Nasal Suspension 1 spray Edon qd/prn for 0 days Quantity: 1 {Edon} Refills: 0 Ordered:28-May-2018 Staci Fung DO, DO, Kathleen Start : 28-May-2018 Active Folic Acid 1 MG Oral Tablet 2 (two) Tablet qd for 0 days Quantity: 60 {Tablet} Refills: 0 Ordered:20-Oct-2018 Staci Fung DO, DO, Kathleen Start : 20-Oct-2018 Active Comments:per Vellanke Hydrocholoride 0.15% one spray bid Active iGlucose Test Strips In Vitro Strip 1 (one) Strip daily for 100 days Quantity: 100 {Strip} Refills: 12 Ordered:24-Nov-2018 Sophia Snow Start : 24-Nov-2018 Active Methotrexate Sodium 2.5 MG Oral Tablet 6 Tablet once a week for 360 days Refills: 0 Ordered:20-Oct-2018 Staci Fung DO, DO, Kathleen Start : 20-Oct-2018 Active Comments:per Levy montelukast 10 mg Active MULTIVITAMIN (Oral Liquid) [...] End : 27-Nov-2017 Inactive Comments:Dr Zuleta in [place] CIPRO, 500MG (Oral Tablet) 1 (one) Tablet [...] Start : 25-Jan-2011 End : 30-Sep-2018 Inactive PredniSONE 10 MG Oral Tablet 1 (one) Tablet qd prn arthritis flare for up to 5days for 5 days Refills: 0 Ordered:24-Nov-2018 Staci Fung DO, DO, Kathleen Start : 20-Oct-2018 End : 25-Oct-2018 Inactive Comments:per vellanke CALCIUM + D, 709-005VK-VFSW (Oral Tablet) for 0 days Refills: 0 Ordered:27-Nov-2017 Reyna Amin LPN End : 27-Nov-2017 Discontinued Comments:This order discontinued per [facility]. LODRANE 24, 12MG (Oral Capsule Extended Release 24 Hour) 2 qhs / HS for 0 days Refills: 0 Ordered:27-Nov-2017 Reyna Amin LPN End : 27-Nov-2017 Discontinued Comments:This order discontinued per [facility]. MetFORMIN HCl 500 MG Oral Tablet 1 (one) Tablet qam for 0 days Quantity: 30 {Tablet} Refills: 1 Ordered:20-Oct-2018 Staci Fung DO, DO, Kathleen Start : 20-Oct-2018 End : 20-Oct-2018 Discontinued Comments:to see if holds control w/o med Allergies and Adverse Reactions Name Dates Details [...] (R17, 277.4) Status: Inactive as of 13-Jun-2018 Elevated blood pressure reading (R03.0, 796.2) Status: Resolved as of 20-Oct-2018 Knee pain (M25.569, 719.46) Status: Inactive as [...] for now Status: Inactive as of 13-Jun-2018 Right shoulder pain (M25.511, 719.41) Comments: from [...] as of 29-Aug-2015 Procedures Date Value Details 29-Oct-2018 Applied Psychology Professor Office Visit Report Result: Comments: See Note; NOTES: [facility] [address] [place] [address]. [address] [place] [address] OFFICE VISIT Date of Service: 10/29/18 MR#: [id number] Acct: [id number] Name: BONNIE MCARTHUR Rep #: [id number] : 1950 Provider: Becky Major MD Age/Sex: 68/F Location: [facility] Status: Signed Intake Vital Signs10/29/18 Height 5 ft 4.5 in 10/29/18 Weight: 145 lb 10/29/18 Body Mass Index (BMI) 24.5 10/29/18 Blood Pressure 138/84 H Intake Visit Reasons: ANNUAL Chief Complaint: est annual Hotbed Transfer Operator Required: No Is patient in pain?: No Allergies apremilast [From Otezla] Allergy (Mild, Verified 10/29/18 14:37) Other codeine Allergy (Mild, Verified 10/29/18 14:37) Other Medications multivitamin,ua-zacs-ungxizpy tablet 1 tab PO QD AY 05/07/18 [History Confirmed 10/29/18] folic acid 400 mcg tablet 0.4 mg PO DAILY 10/29/18 [History Confirmed 10/29/18] loratadine 10 mg tablet 10 mg PO DAILY 10/29/18 [History Confirmed 10/29/18] meth otrexate sodium 2.5 mg tablet 2.5 mg PO DAILY 10/29/18 [History Confirmed 10/29/18] Is last menstrual period known: No Post menopausal: Yes Patient : No : No PFSH Medical History Psoriatic arthritis (Chronic) Seasonal allergies (Acute) Surgical History H/O tubal ligation (Acute ) Family History Mother Hypertension Social History Smoking Status: Never smoker alcohol intake: never substance use type: does not use caffeine: Yes what type of physical activity do you participate in: none seatbelt use: always do you feel safe at home: Yes additional social history: [employer] Patient is retired Pregancy History Gravi da 6 Elective abortions Hx Para 5 Spontaneous abortions Past Pregnancies Del. DateName GA/Weeks Outcome Route Bth WeighInfant GeLabor LgtAnesthesiDel LocatProvider FOB t n h a n HPI ANNUAL: Details : BONNIE MCARTHUR is a 68 year old who presents for annual exam. she is having a rash below her belly button- wondering if it's chaving rash Last PAP: na History of abnormal PAP: Last mammogram: 07/29 Hist ory of abnormal mammogram: nou pto date Colon cancer screening: up to date due next year Other preventative health care screenings: dr fung Female Reproductive History Menopausal Symptoms: No hot f lashes, No night sweats, No weight change, No mood changes, No difficulty concentrating, No sleep problems, No change in libido ROS Const Constitutional: Denies night sweats Cardio Card: Denies chest pain Resp Resp: Denies dyspnea or cough GI GI: Reports as per HPI; denies bloating, abdominal pain, constipation, vomiting or nausea : Reports urinary frequency and urinary urgency; denies hot flas hes or nipple discharge Skin Skin/Breast: Denies breast pain, breast skin changes, nipple discharge, breast lump or changing lesions Psych Psych: Denies difficulty concentrating or change in sex drive Exam Const General: cooperative, healthy appearing, comfortable, no acute distress, well developed, well groomed [facility] Head: normal to inspection, normocephalic Ears: hearing grossly normal bilaterally , external ears normal Nose: external nose normal Face and sinus: normal facial exam Neck Neck: normal visual inspection, full ROM, no lymphadenopathy Thyroid: thyroid normal Chest Chest palpation AND i nspection: normal inspection of the chest Breast inspection: normal inspection of the breasts, normal inspection of the axillae Breast palpation: normal palpation of the breasts, normal palpation of the axillae, no axillary lymphadenopathy Resp Effort AND Inspection: normal respiratory effort GI Inspection: normal to inspection, non-distended Palpation: no guarding, soft, no hepatosplenomegaly Gene ral: bladder normal to palpation External Female Exam: normal external appearance, normal appearance of the urethra, no lesions Urethra: normal appearance of the urethra, normal palpation Speculum Exam - Vagina: normal appearance of the vagina, normal vaginal discharge Speculum Exam - Cervix: normal appearance of the cervix, no cervical discharge, no lesions, nontender Bimanual Exam- Vagina AND Uterus : No cervical tenderness, normal bimanual exam, uterine size normal, bladder normal to palpation, uterine mobility normal, uterine consistency normal, uterus non- tender, no cervical motion tenderness Bi manual Exam- Adnexa, other: normal adnexae, no adnexal masses, adnexae non-tender Skin General: no rashes or lesions noted Neuro General: alert, moves all extremities, no focal motor deficits Extrem Gen eral: no pedal edema, normal to inspection Psych Appearance: grossly normal Mental Status: mental status grossly normal Affect: normal affect Speech and Movement: speech and movement normal Attitude: co operative Assessment AND Plan Problems 1. Encounter for gynecological examination with abnormal finding Z01.411 Plan Cervical cancer screening: na Breast cancer screening: mamm other health maintenan ce examination reviewed and orders placed if needed. Encouraged maintenance of a healthy weight and active lifestyle and handout given. Annual exam handout including recommendations for good health guid elines, Calcium/vitamin D recommendations, and basic screening information given. Problem list up to date, see problem list details for any additional plan information. Follow up in one year for annual health maintenance exam or sooner if needed. Coding Level of Care Code Off vis,est,prev 40-64yrs Diagnoses Encounter for gynecological examination with abnormal finding Z01.411 Gynecological examina tion findings: abnormal findings PRESENT 10/29/18 1504 <Electronically signed by Becky Major MD> Date Becky Major MD Cosigner Signature: Date (if applicable) CC: 07-Aug-2018 SCREENING MAMM (CAD), BILAT Result: Comments: See Note; NOTES: [facility] Imaging Services [address] [place] [address] SCREENING MAMM (CAD), BILAT MR#: [id number] Acct: [id number] Name: BONNIE MCARTHUR Rep #: [id number] : 1950 F 68 From: Kodak Peralta MD PCP: Rosalva Fung DO Status: [facility] Study: SCREENING MAMM (CAD), BILAT Date of Exam: 08/07/18 Exam# [id number] Ordering Dr: Torres Major MD MAMMOGRAPHY - [...] delay biopsy of a clinically suspicious abnormality. [id number] Electronically Signed: Kodak Peralta MD at 11:17 EDT Tel [phone], Service support , CC: Rosalva Fung DO; Becky Major MD Cash Shortage Investigator: Signed 18-Jul-2018 Pelvis 1 or 2 Views Result: Comments: See Note; NOTES: [facility] Imaging Services [address] [place] [address] Pelvis 1 or 2 Views MR#: [id number] Acct: [id number] Name: BONNIE MCARTHUR Rep #: [id number] : 1950 F 68 From: Odilon Medel MD PCP: Rosalva Fung DO Status: REG CLI Study: Pelvis 1 or 2 Views Date of Exam: 07/18/18 Exam# [id number] Ordering Dr: Ashley Newby MD STUDY: X-RAY [...] CC: Rosalva Fung DO; Ashley Newby MD Cash Shortage Investigator: Signed 16-Jun-2018 Echocardiogram Complete Result: Comments: See Note; NOTES: [facility] Cardiovascular Services [address] [place] [address] Echo Complete 06/16/18 0657 MR#: [id number] Acct: [id number] Name: BONNIE MCARTHUR Rep #: [id number] : 1950 68 From: Bill Rodrigues MD [...] Date Dictated: 06/16/18 0657 Date Transcribed: 06/16/181648 Cash Shortage Investigator: Signed 16-Jun-2018 Stress Report Result: Comments: See Note; NOTES: [facility] Cardiovascular Services [address] [place] [address] MR#: [id number] Acct: [id number] Name: BONNIE MCARTHUR Rep #: [id number] : [birth year] 68 From: Ayan Gomez MD [...] 85 %. This note was generated with [employer] Records Management[employer] software. It may contain incorrect words, spelling, and punctuation that were not noted in checking the note before signing. 06/16/18930 <Electronically signed by Ayan Gomez MD> Date Ayan Gomez MD CC: Rosalva Fung DO Date Dictated: 06/16/18923 Date Transcribed: 06/16/18923 Cash Shortage Investigator: PM Signed 29-May-2018 Applied Psychology Professor Office Visit Report Result: Comments: See Note; NOTES: [facility] [address] [place] [address] OFFICE VISIT Date of Service: 05/29/18 MR#: [id number] Acct: [id number] Name: ONIEL MCARTHUR Rep #: [id number] : 1950 Provider: LOUIE Rudd Age/Sex: 68/F [place] [facility] [place] Status: Signed Intake Vital Signs05/29/18 Height 5 ft 6 in 05/29/18 Weight: 150 lb 6 oz 05/29/18 Body Mass Index (BMI) 24.3 05/29/18 Blood Pressure 113/69 Intake Visit Reasons: RASH IN PUBIC AREA Hotbed Transfer Operator Required: No Is patient in pain?: No [...] mg PO QPM 05/07/18 [History Confirmed 05/29/18] multivitamin,do-zkbm-gfrrhzig tablet 1 tab PO QDAY 05/07/18 [History [...] dermatitis type, unspecified trigger L25.9 Plan Reviewed [employer] skin care Will use the triamcinolon e [...] Cosigner Signature: Date (if applicable) CC: 07-May-2018 Applied Psychology Professor Office Visit Report Result: Comments: See Note; NOTES: [facility] [address] [place] [address] OFFICE VISIT Date of Service: 05/07/18 MR#: [id number] Acct: [id number] Name: ONIEL MCARTHUR Jean-Paul Rep #: [id number] : 1950 Provider: Becky Major MD Age/Sex: 68/F [place] [facility] [place]: Signed Intake Vital Signs05/07/18 Height 5 ft 6 in 05/07/18 Weight: 147 lb 8 oz 05/07/18 B jessica Mass Index (BMI) 23.8 05/07/18 Blood Pressure 133/76 Intake Visit Reasons: RASH IN GROIN AREA Chief Complaint: Rash, going on since November on and off Hotbed Transfer Operator Required: No Is patient in pain?: No [...] PO QPM 05/07/18 [History Confirmed 05/07/18] m ultivitamin,sc-rgbf-rwsushpq tablet 1 tab PO QDAY 05/07/18 [History [...] at home: Yes additional social history: [employer]- [employer] n Patient is retired HPI RASH IN GROIN AREA: Details: BONNIE MCARTHUR is a 68 year old who presents for a chronic rash since november starting head to toe- has psoriasis. She goes to [employer]. s he has rash that comes and goes, she has it on other areas. she has a reaction to otezla she had hives. she has significant allergies. 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 she has tried tri amcinolone [...] (CAD), BILAT Result: Comments: See Note; NOTES: [facility] Imaging Services [address] [place] [address] SCREENING MAMM (CAD), BILAT MR#: [id number] Acct: [id number] Name: BONNIE MCARTHUR Rep # : [id number] : 1950 F 67 From: Kodak Peralta MD PCP: Rosalva Fung DO Status: [facility] Study: SCREENING MAMM (CAD), BILAT Date of Exam: 07/09/17 Exam# [id number] Ordering Dr: Becky Major MD MAMMOGRAPHY - [...] delay biopsy of a clinically suspicious abnormality. [id number] Electronically Signed: Kodak Peralta MD at 11:07 ED T Tel [phone], Service support , CC: Rosalva Fung DO; Becky Major MD Cash Shortage Investigator: Signed 26-Aug-2015 Transvaginal Non- Result: Comments: See Note; NOTES: [facility] Imaging Services [address] [place] [address] Verdana 4d Transvaginal Non- MR#: [id number] Acct: [id number] Name: BONNIE HELMS Rep #: [id number] : 1950 F 65 From: Kiet Valencia DO PCP: Rosalva Fung DO Status: REG CLI Study: Transvaginal Non- Date of Exam: 08/26/15 Exam# [id number] Ordering Dr: Rosalva Fung DO STUDY: ULTRASOUND [...] Kiet Valencia DO at 10:31 EDT Tel [phone], Service support [phone], CC: Rosalva Fung DO Cash Shortage Investigator: Signed 26-Aug-2015 Pelvic (Non ) Result: Comments: See Note; NOTES: [facility] Imaging Services [address] [place] [address] Verdana 4d Pelvic (Non ) MR#: [id number] Acct: [id number] Name: BONNIE BELLAMY Rep #: [id number] : 1950 F 65 From: Kiet Valencia DO PCP: Rosalva Fung DO Status: REG CLI Study: Pelvic (Non ) Date of Exam: 08/26/15 Exam# [id number] Ordering Dr: Rosalva Kessler DO STUDY: ULTRASOUND [...] described on prior CT of the pelvis [facility] September 30, 2009 which is not [...] bladder is grossly unremarkable IMPRESSION: 1. Normal [place] and left ovary. The right ovary is not seen. 2. Prominent vessels in the uterus and broad ligaments suggesting pelvic congestion. This was previously reported on a CT of the abdomen and pelvis [facility] September 30, 2009 Electronically Signed: Kiet Valencia DO at 10:31 EDT Tel [phone], Service support [phone], CC: Rosalva Fung DO Cash Shortage Investigator: Signed Family History Unknown Family Member Name [...] Active Vital Signs Date Test Result Details :04 Temperature 97.6 f Comments: Method: Temporal Pulse 49 /min Comments: Pattern: Regular Respiration Rate 16 /min Comments: Pattern: Unlabored O2 SAT 98 % Comments: Room air BP Systolic 120 mm[Hg] Comments: Patient Position: Sitting; Cuff Location: Left Arm; Cuff Size: Standard BP Diastolic 82 mm[Hg] Comments: Patient Position: Sitting; Cuff Location: Left Arm; Cuff Size: Standard Weight 145 lb Height 65.5 in Body Mass Index Calculated 23.76 kg/m2 Body Surface Area Calculated 1.74 m2 :09 Comments: 138/70 recheck bp Temperature 97.4 f [...] kg/m2 Body Surface Area Calculated 1.75 m2 :40 Temperature 97.2 f Comments: Method: Temporal [...] 0.00 cm Results Date Description Value Details :32 Protein Electro, Random Urine Comments: PATIENT NOT FASTINGPERFORMED BY: [facility] [id number] PDF . (Normal) Please note: SPRCS (Normal) Comments: Protein electrophoresis scan will follow via computer, mail, orcourier delivery. M-Huseyin, % Not Observed % (Normal) Gamma Globulin, U 22.2 % (Normal) Beta Globulin, U 27.8 % (Normal) Zlreq-3-Awarsruk, U 11.0 % (Normal) Bumnp-4-Pvyizqja, U 2.6 % (Normal) Albumin, U 36.4 % (Normal) Protein,Total,Urine 5.4 mg/dL (Normal) :32 HGB A1C (17962) Comments: PATIENT NOT FASTINGPERFORMED BY: [facility] [id number] Hemoglobin A1c 5.6 % (Normal) Range: 4.8-5.6 Comments: . Prediabetes: 5.7 - 6.4 Diabetes: >6.4 Glycemic control for adults with diabetes: <7.0 :32 HEPATITIS C ANTIBODY (12162) Comments: PATIENT NOT FASTINGPERFORMED BY: [facility] [id number] Hep C Virus Ab <0.1 {s/co_ratio} (Normal) Range: 0.0-0.9 Comments: Negative: < 0.8 Indeterminate: 0.8 - 0.9 Positive: > 0.9 . The CDC recommends that a positive HCV antibody result be followed up with a HCV Nucleic Acid Amplification test (663371). :32 JUANITA (ANTINUCLEAR ANTIBODY) Comments: PATIENT NOT FASTINGPERFORMED BY: [facility] Khjcwy5609 [facility] [id number] (66144) JUANITA Direct Negative (Normal) 91-Znv-206652:32 Serum Protein Electrophoresis Comments: PATIENT NOT FASTINGPERFORMED BY: [facility] Gwxpgh0241 [employer] [facility] [id number] (SPEP) (61829) PDF . (Normal) Please note: SPRCS (Normal) Comments: Protein electrophoresis scan will follow via computer, mail, orcourier delivery. A/G Ratio 1.6 (Normal) Range: 0.7-1.7 Globulin, Total 2.2 g/dL (Normal) Range: 2.2-3.9 M-Huseyin Not Observed g/dL (Normal) Gamma Globulin 0.7 g/dL (Normal) Range: 0.4-1.8 Beta Globulin 0.8 g/dL (Normal) Range: 0.7-1.3 Lrzis-6-Uclwqfmh 0.5 g/dL (Normal) Range: 0.4-1.0 Hvalj-8-Jcmgvzbx 0.2 g/dL (Normal) Range: 0.0-0.4 Albumin 3.6 g/dL (Normal) Range: 2.9-4.4 23-Heg-453241:32 VITAMIN B-12 (CYANOCOBALAMIN) Comments: PATIENT NOT FASTINGPERFORMED BY: [facility] Olwajq5975 [facility] [id number] (47622) Vitamin B12 833 pg/mL (Normal) Range: 232-1245 28-Tko-077758:32 TSH (THYROID STIMULATING Comments: PATIENT NOT FASTINGPERFORMED BY: Viralizerp Vovbve5268 Canela [facility] [id number] HORMONE) (33415) TSH 1.540 {uIU/mL} (Normal) Range: 0.450-4.500 96-Pok-740497:32 SED RATE ERYTHROCYTE (45777) Comments: PATIENT NOT FASTINGPERFORMED BY: [facility] HospitalBduzkr4089 [facility] [id number] Sedimentation Rate-Westergren 5 mm/h (Normal) Range: 0-40 18-Ctb-130708:32 METABOLIC PANEL, COMPREHENSIVE Comments: PATIENT NOT FASTINGPERFORMED BY: [facility]6370 [facility] [id number] (22406) ALT (SGPT) 13 [iU]/L (Normal) Range: 0-32 AST (SGOT) 15 [iU]/L (Normal) Range: 0-40 Alkaline Phosphatase 61 [iU]/L (Normal) Range: 39-117 Bilirubin, Total 0.9 mg/dL (Normal) Range: 0.0-1.2 A/G Ratio 2.9 (Abnormal) Range: 1.2-2.2 Globulin, Total 1.5 g/dL (Normal) Range: 1.5-4.5 Albumin 4.3 g/dL (Normal) Range: 3.6-4.8 Protein, Total 5.8 g/dL (Abnormal) Range: 6.0-8.5 Calcium 9.5 mg/dL (Normal) Range: 8.7-10.3 Carbon Dioxide, Total 25 mmol/L (Normal) Range: 20-29 Chloride 100 mmol/L (Normal) Range: 96-106 Potassium 4.3 mmol/L (Normal) Range: 3.5-5.2 Sodium 140 mmol/L (Normal) Range: 134-144 BUN/Creatinine Ratio 23 (Normal) Range: 12-28 eGFR If Africn Am 98 mL/min/1.73 (Normal) eGFR If NonAfricn Am 85 mL/min/1.73 (Normal) Creatinine 0.74 mg/dL (Normal) Range: 0.57-1.00 BUN 17 mg/dL (Normal) Range: 8-27 Glucose 98 mg/dL (Normal) Range: 65-99 29-Qui-908133:32 CBC & PLATELETS (AUTO) Comments: PATIENT NOT FASTINGPERFORMED BY: [facility]6370 [facility] [id number] ([id number]) Platelets 166 {x10E3/uL} (Normal) Range: 150-379 RDW 15.7 % (Abnormal) Range: 12.3-15.4 MCHC 33.3 g/dL (Normal) Range: 31.5-35.7 MCH 29.2 pg (Normal) Range: 26.6-33.0 MCV 88 fL (Normal) Range: 79-97 Hematocrit 39.6 % (Normal) Range: 34.0-46.6 Hemoglobin 13.2 g/dL (Normal) Range: 11.1-15.9 RBC 4.52 {x10E6/uL} (Normal) Range: 3.77-5.28 WBC 6.0 {x10E3/uL} (Normal) Range: 3.4-10.8 :54 Hemoglobin A1c Comments: ADD TO 09/12/[address] [place], [place], [address] HGB A1C 6.1 % (Normal) Range: 4.2-6.3 :54 CBC W/Diff, Automated Comments: [facility] [address] [place], [place], [address] Absolute Lymph 1.68 {X10_3/ul} (Normal) Range: 0.83-4.51 [...] 4.2-5.4 WBC 6.6 K/mm3 (Normal) Range: 4.4-11.0 5-Iha-352581:54 Comprehensive Metabolic Profil Comments: [facility] [address] [place], [place], [address] GAP 8 (Normal) Range: 5-15 CO2 28.0 [...] A.D.A. criteria.Please note revised GLUCOSE reference range iaeewarim50/02/2018. 4-Kln-247755:19 CBC W/Diff, Automated Comments: [facility] [address] [place], [place], [id number] Absolute Lymph 2.08 {X10_3/ul} (Normal) Range: 0.83-4.51 [...] 4.2-5.4 WBC 5.7 K/mm3 (Normal) Range: 4.4-11.0 2-Ehm-314058:19 CCP IgG Antibodies Comments: [facility] (refer to report for specific site)refer to report for address and phone number ANTI-CCP [id number] 5 {units} (Normal) Range: 0-19 Comments: Negative <20 Weak positive 20 - 39 Moderate positive 40 - 59 Strong positive >59 3-Avn-346282:19 Comprehensive Metabolic Profil Comments: [facility] [address] [place], [place], [id number] GAP 6 (Normal) Range: 5-15 CO2 30.0 [...] Comments: Please note revised GLUCOSE reference range wnbmyxfak65/02/2018. 0-Xip-594737:19 CRP Comments: [facility] [address] [place], [place], [id number] C-REACTIVE PROT < 2.90 mg/L (Normal) Range: 0.0-3.0 Comments: C-Reactive Protein (CRP) provides useful information for thediagnosis, therapy and monitoring of inflammatory processesand associated diseases. For the evaluation of Relative Riskfor Cardiovascular Dise ase, a High Sensitivity CRP (HSCRP)should be ordered. :19 Erythrocyte Sed Rate Comments: [facility] [address] [place], [place], [id number] SED RATE 8 mm/h (Normal) Range: 0-30 [...] AG Negative (Normal) Comments: Performed at: - [facility] [id number] Director: Sampson Rivers PhD, Phone: [phone] at: [facility] Lab[address] [id number] Director: Rodríguez Montgomery PhD, Phone: [phone] at: [facility] Lab[address] [id number] Director: Gregorio Miller MD, Phone: [phone] :19 Hepatitis C Antibodies Comments: [facility] (refer to report for specific site)refer to report for address and phone number HEP C AB <0.1 {s/co_ratio} Range: 0.0-0.9 (Normal) Comments: Negative: < 0.8 Indeterminate: 0.8 - 0.9 Positive: > 0.9 The CDC recommends that a positive HCV antibody result be followed up with a HCV Nucleic Acid Amplification test (912221). : HLA B27 Negative (Normal) Comments: [facility] (refer to report for specific site)refer to report for address and phone number [phone] Comments: HLA-B*27 QcerylsnN99 allele interpretation for all loci based on IMGT/HLAdatabase version 3.27This test was developed and its performance characteristicsdetermined by [facility]. It has not been cleared o r approvedby the Food and Drug Administration.[facility] CLIA ID Number [id number] test was performed using PCR (Polymerase ChainReaction)/SSOP (Sequence Specific Oligonucleotide Probes)technique. SBT (Sequence Based Typing) and/or SSP(Sequence Specific Primers) may be used as supplementalmethods when necessary. Please contact HLA CustomerService at if you have any questions. Director of HLA Laboratory Dr Rodríguez Montgomery, PhD 2-Wzh-536924:19 Rheumatoid Factor Comments: [facility] [address] [place], [address] RHEUMATOID FAC < 10.0 {IU/mL} (Normal) :48 METABOLIC PANEL, COMPREHENSIVE Comments: PATIENT NOT FASTINGPERFORMED BY: [facility]Co[facility] HospitalYfedin0199 [facility] [id number] (73866) ALT (SGPT) 13 [iU]/L (Normal) Range: 0-32 [...] 8-27 Glucose 111 mg/dL (Abnormal) Range: 65-99 44-Qvn-616700:48 FERRITIN (11865) Comments: PATIENT NOT FASTINGPERFORMED BY: [employer]70 [facility]UNC [facility] [id number] Ferritin, Serum 52 ng/mL (Normal) Range: 15-150 95-Tyo-762246:48 IRON BINDING CAPACITY (TIBC) Comments: PATIENT NOT FASTINGPERFORMED BY: [employer]70 [facility] [id number] (35733) Iron Saturation 26 % (Normal) Range: 15-55 Iron 41 ug/dL (Normal) Range: 27-139 UIBC 119 ug/dL (Normal) Range: 118-369 Iron Bind.Cap.(TIBC) 160 ug/dL (Abnormal) Range: 250-450 39-Srq-881486:48 CBC, PLATELETS & AUT DIFF Comments: PATIENT NOT FASTINGPERFORMED BY: [employer] Tczblj6490 [facility] [id number] Information: [id number] (18061) Immature Grans (Abs) 0.0 {x10E3/uL} (Normal) Range: [...] 3.77-5.28 WBC 7.1 {x10E3/uL} (Normal) Range: 3.4-10.8 33-Ygx-143769:48 VITAMIN B-12 (CYANOCOBALAMIN) Comments: PATIENT NOT FASTINGPERFORMED BY: [employer] TechnologiesRehoboth McKinley Christian [facility] Care ServicesRtorlb3187 [facility] [id number] (02451) Vitamin B12 739 pg/mL (Normal) Range: 232-1245 0-Fsz-728321:30 T4, FREE (THYROXINE) (73631) Comments: PATIENT WAS FASTINGPERFORMED BY: [employer] TechnologiesRehoboth McKinley Christian Health Care ServicesDjredi1277 [facility] [id number] T4,Free(Direct) 1.06 ng/dL (Normal) Range: 0.82-1.77 1-Qlt-655429:30 TSH (54934) Comments: PATIENT WAS FASTINGPERFORMED BY: [employer] Pl[employer] TechnologiesBayshore Community HospitalFddtty5083 [facility] [id number] TSH 2.450 {uIU/mL} (Normal) Range: 0.450-4.500 4-Pch-027686:30 T3, FREE (TRIDOTHYRONINE) (45297) Comments: PATIENT WAS FASTINGPERFORMED BY: [employer] TechnologiesBayshore Community HospitalEhjhhq1123 [facility] [id number] Triiodothyronine (T3), Free 3.0 pg/mL (Normal) Range: 2.0-4.4 8-Oza-981173:19 LIPID PANEL (97748) Comments: PATIENT WAS FASTINGPERFORMED BY: [employer] TechnologiesBayshore Community HospitalUzrcym4097 [facility] [id number] LDL/HDL Ratio 1.9 {ratio} (Normal) Range: 0.0-3.2 Comments: LDL/HDL Ratio Men Women 1/2 Avg.Risk 1.0 1.5 Av g.Risk 3.6 3.2 2X Avg.Risk 6.2 5.0 3X Avg.Risk 8.0 6.1 LDL Cholesterol Calc 128 mg/dL (Abnormal) Range: 0-99 VLDL Cholesterol Aminata 14 mg/dL (Normal) Range: 5-40 HDL Cholesterol 66 mg/dL (Normal) Triglycerides 72 mg/dL (Normal) Range: 0-149 Cholesterol, Total 208 mg/dL (Abnormal) Range: 100-199 08-Yyw-410094:41 Lipid Panel (88023) Comments: PATIENT WAS FASTINGPERFORMED BY: [facility] Ecjbgu4898 [facility] [id number] LDL/HDL Ratio 2.2 {ratio_units} (Normal) Range: 0.0-3.2 Comments: LDL/HDL Ratio Men Women 1/2 Avg.Risk 1.0 1.5 Av g.Risk 3.6 3.2 2X Avg.Risk 6.2 5.0 3X Avg.Risk 8.0 6.1 LDL Cholesterol Calc 132 mg/dL (Abnormal) Range: 0-99 VLDL Cholesterol Aminata 19 mg/dL (Normal) Range: 5-40 HDL Cholesterol 59 mg/dL (Normal) Triglycerides 96 mg/dL (Normal) Range: 0-149 Cholesterol, Total 210 mg/dL (Abnormal) Range: 100-199 49-Pyg-80554:00 PAP I-G HPV Hi Risk Comments: CYTOLOGY INFORMATION:- CLINICAL INFORMATION: OTHER- DATE LMP/MENOPAUSE: LMP/ NOT GIVEN- COLLECTION VIAL: Thin Prep Vial- [employer]URING TECH SOURCE: CERVICAL- COLLECTION TECHNIQUE: BRUSH ONLY/ CERVIX BROOM ONLYSpecim en Comment: [id number] Comment: No. of containers..01 ThinPrep VialLabCorp (refer to report for specific site)refer to report for address and phone number HPV HC,HGH RISK Negative Comments: This high-risk HPV test detects thirteen high-risk types(16/18/31/33/35/39/45/51/52/56/58/59/68) withoutdifferentiation.Performed at: - [facility] [place], [place] [id number] (Normal) b Director: Belle Bennett MD, Phone: [phone] at: = - [facility] [address] [place], [place] [id number] Director: Belle Bennett MD, Phone: [phone] PAPSMR Comment Comments: The Pap smear is [...] system. (Normal) PERFORM Comment Comments: Leticia Wyatt Terrazzo Finisher (ASCP) (Normal) ADEQ Comment Comments: Satisfactory for evaluation. Endocervical component may not bedistinguished in cases of atrophy. (Normal) DIAGN Comment Comments: NEGATIVE FOR INTRAEPITHELIAL LESION AND MALIGNANCY.CELLULAR CHANGES ASSOCIATED WITH ATROPHY ARE PRESENT. (Normal) 21-Qrf-704347:56 SED RATE ERYTHROCYTE (71375) Comments: PATIENT NOT FASTINGPERFORMED BY: [employer]6370 [facility] [id number] Sedimentation Rate-Westergren 5 mm/h (Normal) Range: 0-40 01-Eyy-948798:56 BILIRUBIN, TOTAL (28526) Comments: PATIENT NOT FASTINGPERFORMED BY: [employer]6370 [facility] [id number] Information: [id number] Bilirubin, Indirect 0.97 mg/dL (Abnormal) Range: 0.10-0.80 Bilirubin, Direct 0.23 mg/dL (Normal) Range: 0.00-0.40 Bilirubin, Total 1.2 mg/dL (Normal) Range: 0.0-1.2 10-Ens-453373:59 Urinalysis, Office (35115) UA - LEUKOCYTE ESTERASE Negative (Normal) UA - NITRITE Negative (Normal) URINE UROBILINGN KARL TIMED Normal mg/dL (Normal) UA - PROTEIN Negative mg/dL (Normal) UA - PH 7.0 (Normal) Comments: 6.5 UA - BLOOD Negative (Normal) UA - SPECIFIC GRAVITY 1.020 (Normal) UA - KETONES Negative mg/dL (Normal) UA - BILIRUBIN Negative (Normal) UA - GLUCOSE Negative (Normal) :41 Sed Rate Erythrocyte (88430) Comments: PATIENT NOT FASTINGPERFORMED BY: [employer]6370 [facility] [id number] Sedimentation Rate-Westergren 3 mm/h (Normal) Range: 0-40 :41 Metabolic Panel, Comprehensive Comments: PATIENT NOT FASTINGPERFORMED BY: [employer]70 [facility] [id number] (83386) ALT (SGPT) 13 [iU]/L (Normal) Range: 0-32 [...] auto diff Comments: PATIENT NOT FASTINGPERFORMED BY: [employer] TechnologiesBayshore Community HospitalQhkify6935 [facility] [id number] Information: [id number] (18154) Immature Grans (Abs) 0.0 {x10E3/uL} (Normal) Range: [...] 3.77-5.28 WBC 4.3 {x10E3/uL} (Normal) Range: 3.4-10.8 5-Agy-081657:23 URINE ARI CULTURE-IDENTIFICATN Comments: PATIENT NOT FASTINGPERFORMED BY: [facility] InnovationsCoBayshore Community HospitalUcyfgs3621 [facility] [id number] Information: [id number] (56945) Result 1 MUG (Normal) Comments: Mixed urogenital flora10,000-25,000 colony forming units per mL Urine Final report (Normal) Culture,Comprehensive 19-Aug-20157:04 Urinalysis, Office (15299) UA - LEUKOCYTE ESTERASE Small (Normal) UA [...] 200-240 mg/dL Borderline >240 mg/dL High Risk 66-Jpj-025829:19 HIP, MIN 2 VIEWS ([place]) Radiology Report See Note (Normal) Comments: Exam Number: [id number] CLINICAL:This is a 60-year-old female patient with [...] of the hip. Reported By: KODAK PERALTA 90-Xct-199879:19 KNEE,4 OR MORE VIEWS ([place]) Radiology Report See Note (Normal) Comments: Exam Number: [id number] CLINICAL:This is a 60-year-old female patient with history of knee pain. X-RAY EXAMINATION RIGHT KNEE TECHNIQUE:Four views of the knee. The AP and lateral [facility]. COMPARISON:None. FINDINGS:Normal visualized distal femur. Normal visualized proximal tibia. Normal visualized proximal fibula. There is mild degenerative arthrosis of the medial femorotibialcompart ment. Normal lateral femorotibial compartment. Normal patellofemoral articulation. There is no demonstrated soft tissue swelling. IMPRESSION:Chronic degenerative changes, as discussed above. Reported By: KODAK PERALTA 70-Txs-59057:09 ABDOMEN/PELVIS WITH CONTRAST Radiology Report See Note (Normal) Comments: Exam Number: [id number] CLINICAL:Abdominal pain. CT ABDOMEN WITH CONTRAST COMPARISON:None. [...] controlled Diabetes mellitus type II, controlled : Reviewed Domestic Violence Advocate Letter Indication: Diabetes mellitus type II, controlled Diabetes mellitus type II, controlled : Reviewed Lab Indication: Diabetes mellitus type II, controlled Non-smoker : Eprescribed prescriptions (G8553) Indication: Non-smoker Diabetes mellitus type II, controlled : Follow [...] Indication: Hair loss Psoriatic arthritis : Reviewed Domestic Violence Advocate Letter Indication: Psoriatic arthritis Allergic rhinitis : [...] Indication: Abdominal pain, acute, generalized Planned Observations LIPOPROTEIN, BLD, BY NMR (20005)Indication: Diabetes mellitus type II, controlled On: :23 Request TSH (30576)Indication: Diabetes mellitus type II, controlled On: :23 Request MICROALBUMIN: CREATININE RATIO (68789) AND (53576)Indication: Diabetes mellitus type II, controlled On: :23 Request METABOLIC PANEL, COMPREHENSIVE (10183)Indication: Diabetes mellitus type II, controlled On: : Request CBC W/AUTO DIFF WBC (63541)Indication: Diabetes mellitus type II, controlled On: : Request HGB A1C (67136)Indication: Blood glucose elevated On: 3-Xsp-631704:23 Request Comments: called to lab and will be added to her blood from the 09/12/18 IRON (53905)Indication: Hair loss On: 07-Lef-386682:29 Request BILIRUBIN DIRECT (57243)Indication: Elevated bilirubin On: 57-Lrs-747731:32 Request URINE ARI CULTURE (KARL COL COUNT) (46995)Indication: UTI symptoms On: 06-Ovn-872734:29 Request LIPID PANEL (99959)Indication: Other general medical examination for administrative purposes On: 0-Mby-096664:12 Request LIPID PANEL (63701)Indication: Family history of diabetes mellitus On: 60-Lfi-752609:45 Request Glucose, PP/2 Hour (07328)Indication: Family history of diabetes mellitus On: 32-Fgg-862924:45 Request Planned Encounters Medical; 3 Month FU - On: 22-Jan-2019 9:30 [facility] Rosalva Fung DO, DO, Kathleen Planned Procedures Flu Vaccine (Quadrivalent) On: 30-Sep-2018 Intent [id number]: Rosalva Fung DO Comments: Lot #[id number]-L dltd, IMDose prefilled syringegiven by: Jackeline Messenger BRUSHER TENDER.VIS reviewed and ABN signed Rosalva Fung DO EMGBy: Rosalva Fung DO On: 30-Sep-2018 Intent Rosalva Fung DO Comments: lower extrem b/l Nerve ConductionBy: Kenton PAPPAS, On: 30-Sep-2018 Intent Rosalva Olivas DO Comments: lower extrem b/l Echo CompleteBy: Kenton PAPPAS, On: 13-Jun-2018 Intent Rosalva Olivas DO PNEUM VAC ADLT/IMUMNOSPR, On: 13-Jun-2018 Intent SBC/INTRM (12010)By: Kenton Comments: 0.5 cc given sq lt arm lot [id number] exp 09/03/19 Rosalva PAPPAS DO, Kathleen Nuclear Stress Test/Stress On: 28-May-2018 Intent SPECT/TreadmillBy: Rosalva Fung DO, DO, Kathleen ELECTROCARDIOGRAM, COMPLETE On: 28-May-2018 Intent (ECG) (74978)By: Kenton PAPPAS, Comments: no acute chg /nsr Rosalva Olivas DO Toradol Injection, 30 mg On: 27-Nov-2017 Intent (J1885)By: Lita Pascal CNP Comments: 81-257-dk9/385632bx/1ml/2 unitsR hip, IMMLONG BRUSHER TENDER ULTRASOUND OF [place] On: 19-Aug-2015 Intent (21388)By: Rosalva Fung DO, DO, Kathleen TDAP VACCINE >7 IM (79200)By: On: 19-Jul-2011 Intent Rosalva Fung DO, DO, Comments: Lot #[id number]-L arm, IMDose prefilledgiven by:ALEC Blackwell EKG (10912)By: Kenton PAPPAS, On: 19-Jul-2011 Intent Rosalva Olivas [...] Lita Pascal CNP Instructions Name Dates Details Non-smoker : How to access health information online Indication: Non-smoker Non-smoker : How to access health information online - Detail Indication: Non-smoker Non-smoker : Patient Instructions Indication: Non-smoker Diabetes mellitus type II, controlled : How [...] pain in female Encounters Phone Encounter On: 24-Nov-2018 14:28 Encounter Diagnosis: Diabetes mellitus type II, controlled End: 24-Nov-2018 14:33 [facility] Office Visit On: 20-Oct-2018 10:02 Encounter Reason: Follow up for chronic medical issues - The patient feels well with minor complaints, has decreased energy level and is sleeping poorly. Patient has been compliant with instructions. Current medication u End: 20-Oct-2018 11:27 se: no side effects and compliant with dosing regimen. Patient sleeps 5 hours per night. Nutrition: balanced diet and supplemental vitamins. The medical issues the patient is following up for include All identified problems below and other. weight :. Encounter Diagnosis: Non-smoker, BMI 23.0-23.9, adult, Diabetes mellitus type II, controlled, Elevated blood pressure reading, Rash, Psoriatic arthritis [facility] Office Visit On: 30-Sep-2018 13:09 Encounter Reason: [...] oviders contributing to the patient's care are judicial law clerk.Encounter Diagnosis: Encounter for screening mammogram for breast [...] [place] Encounter Diagnosis: [...] (V18.0) [facility] Payers MedicareMedico Insurance Peoples HospitalBonnie Mcarthur; ubaldo guarantor
--- OUTSIDE RECORDS SUMMARY | 2019-02-04 05:43 | XMS RPT_ITS | Continuity of Care Document ---
:1950 Author Organization [facility] Address [facility] 2 [place] [address] Phone Care Team Providers Name Role Phone Rosalva Fung DO Unavailable Ancelmo Meadows Unavailable Unavailable Gravius, Sophia Unavailable Unavailable Messenger, GEAR TECHNICIAN Jackeline Unavailable Unavailable Unavailable Unavailable Problems Name [...] Unspecified Diagnosis Status: Active Vaginal Delivery Comments: [id number] Status: Active Medications Name Dates Details Allergy shots Active Flonase 50 MCG/ACT Nasal Suspension 1 spray [place]in[place] qd/prn for 0 days Quantity: 1 {[place]inole} Refills: 0 Ordered:28-May-2018 Staci Fung DO, DO, [...] End : 27-Nov-2017 Inactive Comments:Dr Zuleta in [place] CIPRO, 500MG (Oral Tablet) 1 (one) Tablet [...] 25-Oct-2018 Inactive Comments:per vellanke CALCIUM + D, 385-743PA-ROWF (Oral Tablet) for 0 days Refills: 0 [...] of 29-Aug-2015 Procedures Date Value Details 29-Oct-2018 Supervisor Tank House Office Visit Report Result: Comments: See Note; NOTES: [facility] [address] [place] [address]. [address] [place] [address] OFFICE VISIT Date of Service: 10/29/18 MR#: [id number] Acct: [id number] Name: BONNIE MCARTHUR Rep #: [id number] : 1950 Provider: Becky Major MD Age/Sex: 68/F Location: [facility] Status: Signed Intake Vital Signs10/29/18 Height 5 ft 4.5 in 10/29/18 Weight: 145 lb 10/29/18 Body Mass Index (BMI) 24.5 10/29/18 Blood Pressure 138/84 H Intake Visit Reasons: ANNUAL Chief Complaint: est annual Supervisor Garment Manufacturing Required: No Is patient in pain?: No Allergies apremilast [From Otezla] Allergy (Mild, Verified 10/29/18 14:37) Other codeine Allergy (Mild, Verified 10/29/18 14:37) Other Medications multivitamin,ta-kfhl-plijyjfv tablet 1 tab PO QD AY 05/07/18 [...] no acute distress, well developed, well groomed [facility] Head: normal to inspection, normocephalic Ears: hearing [...] (CAD), BILAT Result: Comments: See Note; NOTES: [facility] Imaging Services [address] [place] [address]322 SCREENING MAMM (CAD), BILAT MR#: [id number] Acct: [id number] Name: BONNIE MCARTHUR Rep #: [id number] : 1950 F 68 From: Kodak Peralta MD PCP: Rosalva Fung DO Status: [facility] Study: SCREENING MAMM (CAD), BILAT Date of Exam: 08/07/18 Exam# [id number] Ordering Dr: Torres Major MD MAMMOGRAPHY - [...] delay biopsy of a clinically suspicious abnormality. [id number] Electronically Signed: Kodak Peralta MD at 11:17 EDT Tel [phone], Service support , CC: Rosalva Fung DO; Becky Major MD Ceo And Founder: Signed 18-Jul-2018 Pelvis 1 or 2 Views Result: Comments: See Note; NOTES: [facility] Imaging Services [address] [place] [address] 24763 Pelvis 1 or 2 Views MR#: [id number] Acct: [id number] Name: BONNIE MCARTHUR Rep #: [id number] : 1950 F 68 From: Odilon Medel MD PCP: Rosalva Fung DO Status: REG CLI Study: Pelvis 1 or 2 Views Date of Exam: 07/18/18 Exam# [id number] Ordering Dr: Ashley Newby MD STUDY: X-RAY [...] CC: Rosalva Fung DO; Ashley Newby MD Ceo And Founder: Signed 16-Jun-2018 Echocardiogram Complete Result: Comments: See Note; NOTES: [facility] Cardiovascular Services [address] [place] [address] 35645 Echo Complete 06/16/18 0657 MR#: [id number] Acct: [id number] Name: BONNIE MCARTHUR Rep #: [id number] : 1950 68 From: Bill Rodrigues MD [...] Date Dictated: 06/16/18 0657 Date Transcribed: 06/16/181648 Ceo And Founder: Signed 16-Jun-2018 Stress Report Result: Comments: See Note; NOTES: [facility] Cardiovascular Services [address] [place] [address] MR#: [id number] Acct: [id number] Name: BONNIE MCARTHUR Rep #: [id number] : [birth year] 68 From: Ayan Gomez MD [...] 85 %. This note was generated with AddIn Socialation software. It may contain incorrect words, spelling, and punctuation that were not noted in checking the note before signing. 06/16/18930 <Electronically signed by Ayan Gomez MD> Date Ayan Gomez MD CC: Rosalva Fung DO Date Dictated: 06/16/18923 Date Transcribed: 06/16/18923 Ceo And Founder: PM Signed 29-May-2018 Supervisor [employer] Office Visit Report Result: Comments: See Note; NOTES: [facility] [address] [place] [address] OFFICE VISIT Date of Service: 05/29/18 MR#: [id number] Acct: [id number] Name: ONIEL MCARTHUR Rep #: [id number] : 1950 Provider: LOUIE Rudd Age/Sex: 68/F Location: [facility] Status: Signed Intake Vital Signs05/29/18 Height 5 ft 6 in 05/29/18 Weight: 150 lb 6 oz 05/29/18 Body Mass Index (BMI) 24.3 05/29/18 Blood Pressure 113/69 Intake Visit Reasons: RASH IN PUBIC AREA Supervisor Garment Manufacturing Required: No Is patient in pain?: No [...] mg PO QPM 05/07/18 [History Confirmed 05/29/18] multivitamin,kw-tdxg-vfrmyblm tablet 1 tab PO QDAY 05/07/18 [History [...] dermatitis type, unspecified trigger L25.9 Plan Reviewed SENIOR ACCOUNTING MANAGER skin care Will use the triamcinolon e [...] Signature: Date (if applicable) CC: 07-May-2018 Supervisor [employer] Office Visit Report Result: Comments: See Note; NOTES: [facility] [address] [place] [address] OFFICE VISIT Date of Service: 05/07/18 MR#: [id number] Acct: [id number] Name: ONIEL MCARTHUR Jean-Paul Rep #: [id number] : 1950 Provider: Becky Major MD Age/Sex: 68/F Location: [facility] Status: Signed Intake Vital Signs05/07/18 Height 5 ft 6 in 05/07/18 Weight: 147 lb 8 oz 05/07/18 B jessica Mass Index (BMI) 23.8 05/07/18 Blood Pressure 133/76 Intake Visit Reasons: RASH IN GROIN AREA Chief Complaint: Rash, going on since November on and off Supervisor Garment Manufacturing Required: No Is patient in pain?: No [...] PO QPM 05/07/18 [History Confirmed 05/07/18] m ultivitamin,uv-czlb-ockbeopt tablet 1 tab PO QDAY 05/07/18 [History [...] to toe- has psoriasis. She goes to [employer] s he has rash that comes and goes, she has it on other areas. she has a reaction to otezla she had hives. she has significant allergies. she is working with her flanger regarding this. she has tried tri amcinolone [...] (CAD), BILAT Result: Comments: See Note; NOTES: [facility] Imaging Services [address] [place] [address] SCREENING MAMM (CAD), BILAT MR#: [id number] Acct: [id number] Name: BONNIE MCARTHUR Rep # : [id number] : 1950 F 67 From: Kodak Peralta MD PCP: Rosalva Fung DO Status: [facility] Study: SCREENING MAMM (CAD), BILAT Date of Exam: 07/09/17 Exam# [id number] Ordering Dr: Becky Major MD MAMMOGRAPHY - [...] delay biopsy of a clinically suspicious abnormality. [id number] Electronically Signed: Kodak Peralta MD at 11:07 ED T Tel [phone], Service support , CC: Rosalva Fung DO; Becky Major MD Ceo And Founder: Signed 26-Aug-2015 Transvaginal Non- Result: Comments: See Note; NOTES: [facility] Imaging Services [address] [place] [address] Verdana 4d Transvaginal Non- MR#: [id number] Acct: [id number] Name: BONNIE HELMS Rep #: [id number] : 1950 F 65 From: Kiet Valencia DO PCP: Rosalva Fung DO Status: REG CLI Study: Transvaginal Non- Date of Exam: 08/26/15 Exam# [id number] Ordering Dr: Rosalva Fung DO STUDY: ULTRASOUND [...] Kiet Valencia DO at 10:31 EDT Tel [phone], Service support [phone], CC: Rosalva Fung DO Ceo And Founder: Signed 26-Aug-2015 Pelvic (Non ) Result: Comments: See Note; NOTES: [facility] Imaging Services [address] [place] [address] Verdana 4d Pelvic (Non ) MR#: [id number] Acct: [id number] Name: BONNIE BELLAMY Rep #: [id number] : 1950 F 65 From: Kiet Valencia DO PCP: Rosalva Fung DO Status: REG CLI Study: Pelvic (Non ) Date of Exam: 08/26/15 Exam# [id number] Ordering Dr: Rosalva Kessler DO STUDY: ULTRASOUND [...] described on prior CT of the pelvis [facility] September 30, 2009 which is not [...] bladder is grossly unremarkable IMPRESSION: 1. Normal [place] and left ovary. The right ovary is not seen. 2. Prominent vessels in the uterus and broad ligaments suggesting pelvic congestion. This was previously reported on a CT of the abdomen and pelvis [facility] September 30, 2009 Electronically Signed: Kiet Valencia DO at 10:31 EDT Tel [phone], Service support [phone], CC: Rosalva Fung DO Ceo And Founder: Signed Family History Unknown Family Member Name [...] Random Urine Comments: PATIENT NOT FASTINGPERFORMED BY: [facility] [id number] PDF . (Normal) Please note: SPRCS (Normal) Comments: Protein electrophoresis scan will follow via computer, mail, orcourier delivery. M-Huseyin, % Not Observed % (Normal) Gamma Globulin, U 22.2 % (Normal) Beta Globulin, U 27.8 % (Normal) Eklsy-8-Dexjidfz, U 11.0 % (Normal) Swdfl-8-Jicygcgk, U 2.6 % (Normal) Albumin, U 36.4 % (Normal) Protein,Total,Urine 5.4 mg/dL (Normal) :32 HGB A1C (27393) Comments: PATIENT NOT FASTINGPERFORMED BY: [facility] [id number] Hemoglobin A1c 5.6 % (Normal) Range: 4.8-5.6 Comments: . Prediabetes: 5.7 - 6.4 Diabetes: >6.4 Glycemic control for adults with diabetes: <7.0 :32 HEPATITIS C ANTIBODY (63088) Comments: PATIENT NOT FASTINGPERFORMED BY: [facility] [id number] Hep C Virus Ab <0.1 {s/co_ratio} (Normal) Range: 0.0-0.9 Comments: Negative: < 0.8 Indeterminate: 0.8 - 0.9 Positive: > 0.9 . The CDC recommends that a positive HCV antibody result be followed up with a HCV Nucleic Acid Amplification test (873348). :32 JUANITA (ANTINUCLEAR ANTIBODY) Comments: PATIENT NOT FASTINGPERFORMED BY: Food[employer] Jfuwin7842 [facility] [id number] (00275) JUANITA Direct Negative (Normal) 49-Xxg-966544:32 Serum Protein Electrophoresis Comments: PATIENT NOT FASTINGPERFORMED BY: [employer] Yxcgvz2940 [facility] [id number] (SPEP) (38947) PDF . (Normal) Please note: SPRCS (Normal) Comments: Protein electrophoresis scan will follow via computer, mail, orcourier delivery. A/G Ratio 1.6 (Normal) Range: 0.7-1.7 Globulin, Total 2.2 g/dL (Normal) Range: 2.2-3.9 M-Huseyin Not Observed g/dL (Normal) Gamma Globulin 0.7 g/dL (Normal) Range: 0.4-1.8 Beta Globulin 0.8 g/dL (Normal) Range: 0.7-1.3 Jbnpm-3-Fzsfynuk 0.5 g/dL (Normal) Range: 0.4-1.0 Vncqe-2-Hrcffahb 0.2 g/dL (Normal) Range: 0.0-0.4 Albumin 3.6 g/dL (Normal) Range: 2.9-4.4 65-Lvi-360890:32 VITAMIN B-12 (CYANOCOBALAMIN) Comments: PATIENT NOT FASTINGPERFORMED BY: [employer] Woxwko3016 [facility] [id number] (36498) Vitamin B12 833 pg/mL (Normal) Range: 232-1245 31-Vdx-222083:32 TSH (THYROID STIMULATING Comments: PATIENT NOT FASTINGPERFORMED BY: Foodtoeatrp Wpwdkt1643 Canela [facility] [id number] HORMONE) (92717) TSH 1.540 {uIU/mL} (Normal) Range: 0.450-4.500 73-Ptu-687953:32 SED RATE ERYTHROCYTE (17165) Comments: PATIENT NOT FASTINGPERFORMED BY: [facility]Co[facility]lington CountyRgxhvm6802 [facility] [id number] Sedimentation Rate-Westergren 5 mm/h (Normal) Range: 0-40 78-Chp-734720:32 METABOLIC PANEL, COMPREHENSIVE Comments: PATIENT NOT FASTINGPERFORMED BY: [facility]6370 [facility] [id number] (17118) ALT (SGPT) 13 [iU]/L (Normal) Range: 0-32 [...] 8-27 Glucose 98 mg/dL (Normal) Range: 65-99 81-Ypb-187057:32 CBC & PLATELETS (AUTO) Comments: PATIENT NOT FASTINGPERFORMED BY: [facility]6370 [facility] [id number] (46521) Platelets 166 {x10E3/uL} (Normal) Range: 150-379 RDW 15.7 % (Abnormal) Range: 12.3-15.4 MCHC 33.3 g/dL (Normal) Range: 31.5-35.7 MCH 29.2 pg (Normal) Range: 26.6-33.0 MCV 88 fL (Normal) Range: 79-97 Hematocrit 39.6 % (Normal) Range: 34.0-46.6 Hemoglobin 13.2 g/dL (Normal) Range: 11.1-15.9 RBC 4.52 {x10E6/uL} (Normal) Range: 3.77-5.28 WBC 6.0 {x10E3/uL} (Normal) Range: 3.4-10.8 :54 Hemoglobin A1c Comments: ADD TO 09/12/[address] [place], [place], [address] HGB A1C 6.1 % (Normal) Range: 4.2-6.3 :54 CBC W/Diff, Automated Comments: [facility] [address] [place], [place], [address] Absolute Lymph 1.68 {X10_3/ul} (Normal) Range: 0.83-4.51 [...] 4.2-5.4 WBC 6.6 K/mm3 (Normal) Range: 4.4-11.0 3-Rgs-689209:54 Comprehensive Metabolic Profil Comments: [facility] [address] [place], [place], [address] GAP 8 (Normal) Range: 5-15 CO2 28.0 [...] A.D.A. criteria.Please note revised GLUCOSE reference range gmfhkibvz32/02/2018. 6-Mwe-197941:19 CBC W/Diff, Automated Comments: [facility] [address] [place], [place], [address] Absolute Lymph 2.08 {X10_3/ul} (Normal) Range: 0.83-4.51 [...] 4.2-5.4 WBC 5.7 K/mm3 (Normal) Range: 4.4-11.0 1-Qqq-036494:19 CCP IgG Antibodies Comments: [facility] (refer to report for specific site)refer to report for address and phone number ANTI-CCP [id number] 5 {units} (Normal) Range: 0-19 Comments: Negative <20 Weak positive 20 - 39 Moderate positive 40 - 59 Strong positive >59 9-Nqe-214755:19 Comprehensive Metabolic Profil Comments: [facility] [address] [place], [place], [address] GAP 6 (Normal) Range: 5-15 CO2 30.0 [...] Comments: Please note revised GLUCOSE reference range aflwvefud07/02/2018. 5-Ryv-282629:19 CRP Comments: [facility] [address] [place], [place], [id number] C-REACTIVE PROT < 2.90 mg/L (Normal) Range: 0.0-3.0 Comments: C-Reactive Protein (CRP) provides useful information for thediagnosis, therapy and monitoring of inflammatory processesand associated diseases. For the evaluation of Relative Riskfor Cardiovascular Dise ase, a High Sensitivity CRP (HSCRP)should be ordered. :19 Erythrocyte Sed Rate Comments: [facility] [address] [place], [place], [address] SED RATE 8 mm/h (Normal) Range: 0-30 [...] AG Negative (Normal) Comments: Performed at: - [facility] [id number] Director: Sampson Rivers PhD, Phone: [phone] at: [facility] Lab[address] [id number] Director: Rodríguez Montgomery PhD, Phone: [phone] at: [facility] Lab[address] [id number] Director: Gregorio Miller MD, Phone: [phone] :19 Hepatitis C Antibodies Comments: [facility] (refer to report for specific site)refer to report for address and phone number HEP C AB <0.1 {s/co_ratio} Range: 0.0-0.9 (Normal) Comments: Negative: < 0.8 Indeterminate: 0.8 - 0.9 Positive: > 0.9 The CDC recommends that a positive HCV antibody result be followed up with a HCV Nucleic Acid Amplification test (631652). : HLA B27 Negative (Normal) Comments: [facility] (refer to report for specific site)refer to report for address and phone number 19 Comments: HLA-B*27 JwmsoabtS55 allele interpretation for all loci based on IMGT/HLAdatabase version 3.27This test was developed and its performance characteristicsdetermined by [facility]. It has not been cleared o r approvedby the Food and Drug Administration.[facility] Lab CLIA ID Number [id number] test was performed using PCR (Polymerase ChainReaction)/SSOP (Sequence Specific Oligonucleotide Probes)technique. SBT (Sequence Based Typing) and/or SSP(Sequence Specific Primers) may be used as supplementalmethods when necessary. Please contact [facility] CustomerService at if you have any questions. Director of [facility] Laboratory Dr Rodríguez Montgomery, PhD 3-Ovs-964880:19 Rheumatoid Factor Comments: [facility] [address] [place], [address] RHEUMATOID FAC < 10.0 {IU/mL} (Normal) :48 METABOLIC PANEL, COMPREHENSIVE Comments: PATIENT NOT FASTINGPERFORMED BY: [facility]CoL[facility] Burlington CountyDpgyny0194 [facility] [id number] (67041) ALT (SGPT) 13 [iU]/L (Normal) Range: 0-32 [...] 8-27 Glucose 111 mg/dL (Abnormal) Range: 65-99 85-Fkn-468779:48 FERRITIN (56698) Comments: PATIENT NOT FASTINGPERFORMED BY: Tecnoblu70 [facility] [id number] Ferritin, Serum 52 ng/mL (Normal) Range: 15-150 67-Vua-865510:48 IRON BINDING CAPACITY (TIBC) Comments: PATIENT NOT FASTINGPERFORMED BY: Tecnoblu70 [address]ela [facility] [id number] (91798) Iron Saturation 26 % (Normal) Range: 15-55 Iron 41 ug/dL (Normal) Range: 27-139 UIBC 119 ug/dL (Normal) Range: 118-369 Iron Bind.Cap.(TIBC) 160 ug/dL (Abnormal) Range: 250-450 46-Khe-822328:48 CBC, PLATELETS & AUT DIFF Comments: PATIENT NOT FASTINGPERFORMED BY: [employer] Gysdao1113 [facility] [id number] Information: [id number] (24384) Immature Grans (Abs) 0.0 {x10E3/uL} (Normal) Range: [...] 3.77-5.28 WBC 7.1 {x10E3/uL} (Normal) Range: 3.4-10.8 84-Dkp-019596:48 VITAMIN B-12 (CYANOCOBALAMIN) Comments: PATIENT NOT FASTINGPERFORMED BY: [facility] NetworksMountain View Regional Medical CenterViciza8396 [facility] [id number] (61553) Vitamin B12 739 pg/mL (Normal) Range: 232-1245 4-Lpq-025866:30 T4, FREE (THYROXINE) (53279) Comments: PATIENT WAS FASTINGPERFORMED BY: [facility] NetworksMountain View Regional Medical CenterElnhjo0269 [facility] [id number] T4,Free(Direct) 1.06 ng/dL (Normal) Range: 0.82-1.77 7-Mku-585787:30 TSH (74173) Comments: PATIENT WAS FASTINGPERFORMED BY: [facility] NetworksLourdes Medical Center of Burlington CountyFltcgi0532 [facility] [id number] TSH 2.450 {uIU/mL} (Normal) Range: 0.450-4.500 3-Sbb-717844:30 T3, FREE (TRIDOTHYRONINE) (03075) Comments: PATIENT WAS FASTINGPERFORMED BY: [facility] NetworksLourdes Medical Center of Burlington CountyNhsnyz9844 [facility] [id number] Triiodothyronine (T3), Free 3.0 pg/mL (Normal) Range: 2.0-4.4 5-Spt-611512:19 LIPID PANEL (49186) Comments: PATIENT WAS FASTINGPERFORMED BY: Jun[facility] NetworksLourdes Medical Center of Burlington CountyVslkde8119 [facility] [id number] LDL/HDL Ratio 1.9 {ratio} (Normal) Range: 0.0-3.2 Comments: LDL/HDL Ratio Men Women 1/2 Avg.Risk 1.0 1.5 Av g.Risk 3.6 3.2 2X Avg.Risk 6.2 5.0 3X Avg.Risk 8.0 6.1 LDL Cholesterol Calc 128 mg/dL (Abnormal) Range: 0-99 VLDL Cholesterol Aminata 14 mg/dL (Normal) Range: 5-40 HDL Cholesterol 66 mg/dL (Normal) Triglycerides 72 mg/dL (Normal) Range: 0-149 Cholesterol, Total 208 mg/dL (Abnormal) Range: 100-199 35-Boz-546098:41 Lipid Panel (15369) Comments: PATIENT WAS FASTINGPERFORMED BY: [facility] Duhylw9392 [facility] [id number] LDL/HDL Ratio 2.2 {ratio_units} (Normal) Range: 0.0-3.2 Comments: LDL/HDL Ratio Men Women 1/2 Avg.Risk 1.0 1.5 Av g.Risk 3.6 3.2 2X Avg.Risk 6.2 5.0 3X Avg.Risk 8.0 6.1 LDL Cholesterol Calc 132 mg/dL (Abnormal) Range: 0-99 VLDL Cholesterol Aminata 19 mg/dL (Normal) Range: 5-40 HDL Cholesterol 59 mg/dL (Normal) Triglycerides 96 mg/dL (Normal) Range: 0-149 Cholesterol, Total 210 mg/dL (Abnormal) Range: 100-199 19-Twt-60667:00 PAP I-G HPV Hi Risk Comments: CYTOLOGY INFORMATION:- CLINICAL INFORMATION: OTHER- DATE LMP/MENOPAUSE: LMP/ NOT GIVEN- COLLECTION VIAL: Thin Prep Vial- SENIOR ACCOUNTING MANAGER SOURCE: CERVICAL- COLLECTION TECHNIQUE: BRUSH ONLY/ CERVIX BROOM ONLYSpecim en Comment: [id number] Comment: No. of containers..01 ThinPrep VialLabCorp (refer to report for specific site)refer to report for address and phone number HPV HC,HGH RISK Negative Comments: This high-risk HPV test detects thirteen high-risk types(16/18/31/33/35/39/45/51/52/56/58/59/68) withoutdifferentiation.Performed at: - [facility] [place], [place] [id number] (Normal) b Director: Belle Bennett MD, Phone: [phone] at: = - [facility] [address]xs[address] [place], [place] [id number] Director: Belle Bennett MD, Phone: [phone] PAPSMR Comment Comments: The Pap smear is [...] system. (Normal) PERFORM Comment Comments: Leticia Wyatt Fundraising Coordinator (ASCP) (Normal) ADEQ Comment Comments: Satisfactory for evaluation. Endocervical component may not bedistinguished in cases of atrophy. (Normal) DIAGN Comment Comments: NEGATIVE FOR INTRAEPITHELIAL LESION AND MALIGNANCY.CELLULAR CHANGES ASSOCIATED WITH ATROPHY ARE PRESENT. (Normal) 82-Hgb-614623:56 SED RATE ERYTHROCYTE (23651) Comments: PATIENT NOT FASTINGPERFORMED BY: whodoyou6370 Canela [facility] [id number] Sedimentation Rate-Westergren 5 mm/h (Normal) Range: 0-40 47-Tzz-974432:56 BILIRUBIN, TOTAL (86986) Comments: PATIENT NOT FASTINGPERFORMED BY: whodoyou6370 [facility] [id number] Information: [id number] Bilirubin, Indirect 0.97 mg/dL (Abnormal) Range: 0.10-0.80 Bilirubin, Direct 0.23 mg/dL (Normal) Range: 0.00-0.40 Bilirubin, Total 1.2 mg/dL (Normal) Range: 0.0-1.2 65-Mki-147464:59 Urinalysis, Office (64846) UA - LEUKOCYTE ESTERASE Negative (Normal) UA - NITRITE Negative (Normal) URINE UROBILINGN KARL TIMED Normal mg/dL (Normal) UA - PROTEIN Negative mg/dL (Normal) UA - PH 7.0 (Normal) Comments: 6.5 UA - BLOOD Negative (Normal) UA - SPECIFIC GRAVITY 1.020 (Normal) UA - KETONES Negative mg/dL (Normal) UA - BILIRUBIN Negative (Normal) UA - GLUCOSE Negative (Normal) :41 Sed Rate Erythrocyte (72075) Comments: PATIENT NOT FASTINGPERFORMED BY: whodoyou6370 [facility] [id number] Sedimentation Rate-Westergren 3 mm/h (Normal) Range: 0-40 :41 Metabolic Panel, Comprehensive Comments: PATIENT NOT FASTINGPERFORMED BY: Tecnoblu70 [facility] [id number] (75120) ALT (SGPT) 13 [iU]/L (Normal) Range: 0-32 [...] auto diff Comments: PATIENT NOT FASTINGPERFORMED BY: Jun[facility] NetworksLourdes Medical Center of Burlington CountyClstiw6949 [facility] [id number] Information: [id number] (14227) Immature Grans (Abs) 0.0 {x10E3/uL} (Normal) Range: [...] 3.77-5.28 WBC 4.3 {x10E3/uL} (Normal) Range: 3.4-10.8 0-Wxa-398920:23 URINE ARI CULTURE-IDENTIFICATN Comments: PATIENT NOT FASTINGPERFORMED BY: MovidiusCoLourdes Medical Center of Burlington CountyGydrra3831 [facility] [id number] Information: [id number] (21862) Result 1 MUG (Normal) Comments: Mixed urogenital flora10,000-25,000 colony forming units per mL Urine Final report (Normal) Culture,Comprehensive 19-Aug-20157:04 Urinalysis, Office (39036) UA - LEUKOCYTE ESTERASE Small (Normal) UA [...] 200-240 mg/dL Borderline >240 mg/dL High Risk 84-Fds-007915:19 HIP, MIN 2 VIEWS ([place]) Radiology Report See Note (Normal) Comments: Exam Number: [id number] CLINICAL:This is a 60-year-old female patient with [...] of the hip. Reported By: KODAK PERALTA 77-Luq-298904:19 KNEE,4 OR MORE VIEWS ([place]) Radiology Report See Note (Normal) Comments: Exam Number: [id number] CLINICAL:This is a 60-year-old female patient with [...] as discussed above. Reported By: KODAK PERALTA 47-Aox-85608:09 ABDOMEN/PELVIS WITH CONTRAST Radiology Report See Note (Normal) Comments: Exam Number: [id number] CLINICAL:Abdominal pain. CT ABDOMEN WITH CONTRAST COMPARISON:None. [...] Diabetes mellitus type II, controlled : Reviewed Prism Measurer Letter Indication: Diabetes mellitus type II, controlled [...] Indication: Hair loss Psoriatic arthritis : Reviewed Prism Measurer Letter Indication: Psoriatic arthritis Allergic rhinitis : [...] generalized Planned Observations LIPOPROTEIN, BLD, BY NMR (19220)Indication: Diabetes mellitus type II, controlled On: :23 Request TSH (88328)Indication: Diabetes mellitus type II, controlled On: :23 Request MICROALBUMIN: CREATININE RATIO (72627) AND (43334)Indication: Diabetes mellitus type II, controlled On: :23 Request METABOLIC PANEL, COMPREHENSIVE (76258)Indication: Diabetes mellitus type II, controlled On: : Request CBC W/AUTO DIFF WBC (78720)Indication: Diabetes mellitus type II, controlled On: : Request HGB A1C (95195)Indication: Blood glucose elevated On: 9-Dym-621733:23 Request Comments: called to lab and will be added to her blood from the 09/12/18 IRON (22331)Indication: Hair loss On: 27-Vcb-793983:29 Request BILIRUBIN DIRECT (07555)Indication: Elevated bilirubin On: 34-Yii-111570:32 Request URINE ARI CULTURE (KARL COL COUNT) ([id number])Indication: UTI symptoms On: 08-Wuc-603908:29 Request LIPID PANEL ([id number])Indication: Other general medical examination for administrative purposes On: 4-Pjv-896151:12 Request LIPID PANEL ([id number])Indication: Family history of diabetes mellitus On: 52-Hfm-697548:45 Request Glucose, PP/2 Hour ([id number])Indication: Family history of diabetes mellitus On: 83-Ybk-297127:45 Request Planned Encounters Medical; 3 Month FU - On: 22-Jan-2019 9:30 [facility] Rosalva Fung DO, DO, Kathleen Planned Procedures Flu Vaccine (Quadrivalent) On: 30-Sep-2018 Intent 54562We: Rosalva Fung DO Comments: Lot #[id number]-L dltd, IMDose prefilled syringegiven by: Jackeline Messenger GEAR TECHNICIAN.VIS reviewed and ABN signed Rosalva Fung DO EMGBy: Rosalva Fung DO On: 30-Sep-2018 Intent Rosalva Fung DO Comments: lower extrem b/l Nerve ConductionBy: Kenton PAPPAS, On: 30-Sep-2018 Intent Rosalva Olivas DO Comments: lower extrem b/l Echo CompleteBy: Kenton PAPPAS, On: 13-Jun-2018 Intent Rosalva Olivas DO PNEUM VAC ADLT/IMUMNOSPR, On: 13-Jun-2018 Intent SBC/INTRM ([id number])By: Kenton Comments: 0.5 cc given sq lt arm lot [id number] 09/03/19 Rosalva PAPPAS DO, Kathleen Nuclear Stress Test/Stress On: 28-May-2018 Intent SPECT/TreadmillBy: Rosalva Fung DO, DO, Kathleen ELECTROCARDIOGRAM, COMPLETE On: 28-May-2018 Intent (ECG) ([id number])By: Kenton PAPPAS, Comments: no acute chg /nsr Rosalva Olivas DO Toradol Injection, 30 mg On: 27-Nov-2017 Intent ([id number])By: Lita Pascal CNP Comments: [id number]/841002ka/1ml/2 unitsR hip, 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 The patient has noticed nothing from the geriatic depression scale. Other pr oviders contributing to the patient's care are cytotechnologist.Encounter Diagnosis: Encounter for screening mammogram for breast [...] (V18.0) [facility] Payers Medicare[place] Insurance [facility] [place] [place]; ubaldo guarantor
--- OUTSIDE RECORDS SUMMARY | 2019-02-04 05:44 | XMS RPT_ITS ---
:1950 Author Organization OHIP Support Name Relationship Address Phone JAMA MCARTHUR [address] + [place] [address] R Unknown Unavailable Unavailable GEORGI, LOLI NaturalDaughter Unavailable + [place] [address] JAMA MCARTHUR [address] + [place] [address] R Unknown Unavailable Unavailable GEORGI, LOLI NaturalDaughter Unavailable + [place] [address] JAMA MCARTHUR [address] + [place] [address] R Unknown Unavailable Unavailable GEORGI, LOLI NaturalDaughter 0 + [place] [address] JAMA MCARTHUR [address] + [place] [address] R Unknown Unavailable Unavailable GEORGI, LOLI NaturalDaughter 0 + [place] [address] JAMA MCARTHUR [address] + [place] [address] R Unknown Unavailable Unavailable GEORGI, LOLI NaturalDaughter 0 + [place] [address] JAMA MCARTHUR [address] + [place] [address] R Unknown Unavailable Unavailable GEORGI, LOLI NaturalDaughter Unavailable + JAMA MCARTHUR [address] + [place] [address] R Unknown Unavailable Unavailable GEORGI, LOLI NaturalDaughter Unavailable + JAMA MCARTHUR [address] + [place] [address] R Unknown Unavailable Unavailable GEORGI, LOLI NaturalDaughter Unavailable + [place] [address] JAMA MCARTHUR [address] + [place] [address] R Unknown Unavailable Unavailable GEORGI, LOLI NaturalDaughter Unavailable + [place] [address] JAMA MCARTHUR [address] + [place] [address] R Unknown Unavailable Unavailable GEORGI, LOLI NaturalDaughter Unavailable + [place] [address] JAMA MCARTHUR [address] + [place] [address] R Unknown Unavailable Unavailable GEORGI, LOLI NaturalDaughter Unavailable + [place] [address] JAMA MCARTHUR [address] + [place] [address] R Unknown Unavailable Unavailable GEORGI, LOLI NaturalDaughter Unavailable + [place] [address] Care Team Providers Name Role Timbo Susanne Mcmillan Attending Unavailable UNKNOWN, PROVIDER Referring Unavailable [facility] Unavailable Kenton DO, Rosalva Attending Unavailable Kenton DO, Rosalva Consulting Unavailable Becky Major Attending Unavailable Kenton, Rosalva Referring Unavailable Kenton, Rosalva Attending Unavailable Kenton, Rosalva Primary Care Unavailable Becky Major Attending Unavailable Kenton, Rosalva Referring Unavailable Kenton, Rosalva Primary Care Unavailable Donna Rudd Attending Unavailable Kenton, Rosalva Referring Unavailable Kenton, Rosalva Primary Care Unavailable Kenton, Rosalva Attending Unavailable Kenton, Rosalva Referring Unavailable Kenton, Rosalva Primary Care Unavailable Vellanki, Ashley Attending Unavailable Vellanki, Ashley Referring Unavailable Kenton, Rosalva Primary Care Unavailable Ayan Gomez Attending Unavailable Kenton, Rosalva Referring Unavailable Vellanki, Ashley Attending Unavailable Vellanki, Ashley Referring Unavailable Kenton, Rosalva Primary Care Unavailable Becky Major Attending Unavailable Kenton, Rosalva Primary Care Unavailable Kenton, Rosalva Attending Unavailable Kenton, Rosalva Referring Unavailable Kenton, Rosalva Primary Care Unavailable Vellanki, Ashley Consulting Unavailable Rosalva Fung Attending Unavailable Kenton, Rosalva Primary Care Unavailable Kenton, Rosalva Attending Unavailable Kenton, Rosalva Primary Care Unavailable Purpose Purpose PROBLEMS PROBLEMS DATE TYPE CONDITION / CODE ATTENDING STATUS SOURCE 12/03/2018 Unknown E11.9 - Type 2 Kenton, Active [place] diabetes mellitus [facility] without Hospital complications / Repository E11.9(ICD-10) 12/03/2018 Unknown L40.59 - Other Vellanki, Ashley Active [place] psoriatic Community arthropathy / Hospital L40.59(ICD-10) Repository 12/03/2018 Unknown 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, 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 / Hospital Z79.899(ICD-10) Repository 12/03/2018 Unknown L40.8 - Other Vellanki, Ashley Active [place] psoriasis / Community L40.8(ICD-10) Hospital Repository 12/03/2018 Unknown H93.13 - Tinnitus, Willlanki, Ashley Active [place] bilateral / Community H93.13(ICD-10) Hospital Repository 12/03/2018 Unknown G43.909 - Migraine, Vellanki, Ashley Active [place] unspecified, not Community intractable, Hospital without status Repository migrainosus / G43.909(ICD-10) 12/03/2018 Unknown J30.9 - Allergic Vellanbaldemar Ashley Active [place] rhinitis, Community unspecified / Hospital J30.9(ICD-10) Repository 10/29/2018 Unknown Z01.411 - Encounter Marcanthony, Active [place] for gynecological [facility] (general) (routine) Repository with abnormal findings / Z01.411(ICD-10) 09/16/2018 Unknown G30.9 - Alzheimer's Kenton, Active [place] disease, [facility] unspecified / Hospital G30.9(ICD-10) Repository 09/16/2018 Unknown R73.9 - Kenton, Active [place] Hyperglycemia, [facility] unspecified / Hospital R73.9(ICD-10) Repository 07/16/2018 Unknown R07.89 - Other Moodispafredrick Ayan Active [place] chest pain / Community R07.89(ICD-10) Hospital Repository 07/23/2018 Unknown L25.9 - Unspecified Butterfield, Donna Active [place] contact dermatitis, Community unspecified cause / Hospital L25.9(ICD-10) Repository 06/19/2018 Unknown N76.89 - Other Marcanthony, Active [place] specified [facility] of Hospital vagina and vulva / Repository N76.89(ICD-10) 04/16/2018 Admitting Dermatitis, Crute, Susanne Active [facility] Diagnosis unspecified / System L30.9(ICD-10) Repository PROCEDURES PROCEDURES No Procedure Records FoundVITAL SIGNS VITAL SIGNS No Vital Signs Records FoundRESULTS RESULTS CBC W/DIFF, AUTOMATED Collected: 12/03/2018 Status: F Source: [place] 9:12 AM [facility] HOSPITAL REPOSITORY TYPE CODE TESTS RESULT OUT OF RANGE REFERENCE UNITS LAB L100.1000 4.4-11.0 K/mm3 Low WBC 3.9 LAB L100.1200 4.2-5.4 M/mm3 Low RBC 4.12 LAB L100.1300 12.0-15.0 g/dl Normal HGB 12.5 LAB L100.1400 37-47 % Normal HCT 38.0 LAB L100.1500 81-99 fL Normal MCV 92.2 LAB L100.1600 27.0-32.0 pg Normal MCH 30.3 LAB L100.1700 32-36 g/gl Normal MCHC 32.9 LAB L100.1810 11.6-14.6 % High RDW CV 14.8 LAB L100.1820 35.1-43.9 fl High RDW SD 48.1 LAB L100.1900 150-450 K/mm3 Low PLT 141 LAB L100.2000 6.2-12.0 fl Normal MPV 10.4 LAB L100.2100 47-70 % Normal NEUT% 64.9 LAB L100.2200 19-41 % Normal LY% 21.9 LAB L100.2300 0-10 % High MONO% 11.1 LAB L100.2400 0-5 % Normal EO% 1.8 LAB L100.2500 0-1 % Normal BASO% 0.3 LAB L100.2550 0.0-0.9 % Normal IM GRAN % 0.000 Result Comment: IG% - Immature Granulocytes (promyelocytes, myelocytes and metamyelocytes) > 1% indicates that a LEFT SHIFT is Present. LAB L100.2620 2.0-7.7 X10 3/uL Normal Absolute Neut 2.5 LAB L100.2720 0.83-4.51 X10 3/ul Normal Absolute Lymph 0.85 Performed By: #### L100.0100 #### [facility] Laboratory [address] [place], [address] COMPREHENSIVE METABOLIC Collected: 12/03/2018 Status: F Source: [place] [facility] 9:12 AM [facility] REPOSITORY TYPE CODE TESTS RESULT OUT OF RANGE REFERENCE UNITS LAB L501.0100 74-106 mg/dL Normal GLU 92 Result Comment: Please note revised GLUCOSE reference range effective 2017. LAB L501.1000 7-18 mg/dL Normal BUN 15 LAB L501.1100 0.55-1.02 mg/dL Normal CREAT,SERUM 0.77 Result Comment: The validity of the calculated GFR AND GFRAA in patients over 70 years has not been determined. Clinical correlation is essential. LAB L501.1110 >60 mL/min Normal EST GFR 79 Result Comment: Non- GFR Calc LAB L501.1115 >60 mL/min Normal EST GFR - AA 96 Result Comment: GFR Calc LAB L501.1300 10-20 RATIO Normal BUN/CRE 19.4 LAB L501.1500 6.4-8.2 g/dL T Normal PROT 6.7 LAB L501.1800 3.2-5.0 g/dL Normal ALB 3.6 LAB L501.1950 2.2-4.2 g/dL Normal GLOB 3.1 LAB L501.2000 0.9-2.4 RATIO Normal A/G 1.2 LAB L501.2200 8.5-10.1 mg/dL CA Normal 8.9 LAB L501.4100 15-37 U/L Normal AST 16 LAB L501.4305 45-117 U/L Normal ALK P 73 LAB L501.4405 13-56 U/L Normal ALT 20 LAB L501.4600 0.20-1.00 mg/dL T Normal BILI 1.00 LAB L501.5300 136-145 mmol/L NA Normal 138 LAB L501.5600 3.5-5.1 mmol/L K Normal 4.5 LAB L501.5900 98-107 mmol/L CL Normal 104 LAB L501.6100 21.0-32.0 mmol/L Normal CO2 29.0 LAB L501.6200 5-15 Normal GAP 5 Performed By: #### L500.4050 #### [facility] Laboratory [address] [place], [address] BRIEFCASE SEWER OFFICE VISIT Observed: 10/29/2018 Status: F Source: [place] REPORT 3:04 PM [facility] REPOSITORY [facility] [address] [place] [address] OFFICE VISIT Date of Service: 10/29/18 MR#: [id number] Acct: [id number] Name: BONNIE MCARTHUR Rep #: [id number] : 1950 Provider: Becky Major MD Age/Sex: 68/F [place] [facility] [place]: Signed Intake Vital Signs10/29/18 Height 5 ft 4.5 in 10/29/18 Weight: 145 lb 10/29/18 Body Mass Index (BMI) 24.5 10/29/18 Blood Pressure 138/84 H Intake Visit Reasons: ANNUAL Chief Complaint: est annual Pharmaceutical Scientist Required: No Is patient in pain?: No Allergies apremilast [From Otezla] Allergy (Mild, Verified 10/29/18 14:37) Other codeine Allergy (Mild, Verified 10/29/18 14:37) Other Medications multivitamin,rs-tguc-xgqgvvdc tablet 1 tab PO QDAY 05/07/18 [History Confirmed 10/29/18] folic acid 400 mcg tablet 0.4 mg PO DAILY 10/29/18 [History Confirmed 10/29/18] loratadine 10 mg tablet 10 mg PO DAILY 10/29/18 [History Confirmed 10/29/18] methotrexate sodium 2.5 mg tablet 2.5 mg PO [...] [employer] Patient is retired Pregancy History 6 Elective abortions Hx Para 5 Spontaneous abortions Past Pregnancies Del. DateName GA/Weeks Outcome Route Bth WeighInfant GeLabor LgtAnesthesiDel LocatProvider FOB t n h a n HPI ANNUAL: Details: BONNIE MCARTHUR is a 68 year old who presents for annual exam. she is having a rash below her belly button- wondering if it's chaving rash Last PAP: na History of abnormal PAP: Last mammogram: 07/29 History of abnormal mammogram: nou pto date Colon cancer screening: up to date due next year Other preventative health care screenings: dr fung Female Reproductive History Menopausal Symptoms: No hot flashes, No night sweats, No weight change, No mood changes, No difficulty concentrating, No sleep problems, No change in libido ROS Const Constitutional: Denies night sweats Cardio Card: Denies chest pain Resp Resp: Denies dyspnea or cough GI GI: Reports as per HPI; denies bloating, abdominal pain, constipation, vomiting or nausea : Reports urinary frequency and urinary urgency; denies hot flashes or nipple discharge Skin Skin/Breast: Denies breast pain, breast skin changes, nipple discharge, breast lump or changing lesions Psych Psych: Denies difficulty concentrating or change in sex drive Exam Const General: cooperative, healthy appearing, comfortable, no acute distress, well developed, well groomed HENUT Head: normal to inspection, normocephalic Ears: hearing grossly normal bilaterally, external ears normal Nose: external nose normal Face and sinus: normal facial exam Neck Neck: normal visual inspection, full ROM, no lymphadenopathy Thyroid: thyroid normal Chest Chest palpation AND inspection: normal inspection of the chest Breast inspection: normal inspection of the breasts, normal inspection of the axillae Breast palpation: normal palpation of the breasts, normal palpation of the axillae, no axillary lymphadenopathy Resp Effort AND Inspection: normal respiratory effort GI Inspection: normal to inspection, non-distended Palpation: no guarding, soft, no hepatosplenomegaly General: bladder normal to palpation External Female Exam: normal external appearance, normal appearance of the urethra, no lesions Urethra: normal appearance of the urethra, normal palpation Speculum Exam - Vagina: normal appearance of the vagina, normal vaginal discharge Speculum Exam - Cervix: normal appearance of the cervix, no cervical discharge, no lesions, nontender Bimanual Exam- Vagina AND Uterus: No cervical tenderness, normal bimanual exam, uterine size normal, bladder normal to palpation, uterine mobility normal, uterine consistency normal, uterus non-tender, no cervical motion tenderness Bimanual Exam- Adnexa, other: normal adnexae, no adnexal masses, adnexae non-tender Skin General: no rashes or lesions noted Neuro General: alert, moves all extremities, no focal motor deficits Extrem General: no pedal edema, normal to inspection Psych Appearance: grossly normal Mental Status: mental status grossly normal Affect: normal affect Speech and Movement: speech and movement normal Attitude: cooperative Assessment AND Plan Problems 1. Encounter for gynecological examination with abnormal finding Z01.411 Plan Cervical cancer screening: na Breast cancer screening: mamm other health maintenance examination reviewed and orders placed if needed. Encouraged maintenance of a healthy weight and active lifestyle and handout given. Annual exam handout including recommendations for good health guidelines, Calcium/vitamin D recommendations, and basic screening information given. Problem list up to date, see problem list details for any additional plan information. Follow up in one year for annual health maintenance exam or sooner if needed. Coding Level of Care Code Off vis,est,prev 40-64yrs Diagnoses Encounter for gynecological examination with abnormal finding Z01.411 Gynecological examination findings: abnormal findings PRESENT 10/29/18 1504 <Electronically signed by Becky Major MD> Date Becky Major MD Cosigner Signature: Date (if applicable) CC: HEMOGLOBIN A1C Collected: 09/16/2018 Status: F Source: [place] 2:54 PM [facility] REPOSITORY Order Comment: ADD TO 09/12/18 H140 TYPE CODE TESTS RESULT OUT OF RANGE REFERENCE UNITS LAB L501.9985 4.2-6.3 % Normal HGB A1C 6.1 Performed By: #### L501.9985 #### [facility] [place], [address] CBC W/DIFF, AUTOMATED Collected: 09/12/2018 Status: F Source: [place] 2:54 PM [facility] REPOSITORY TYPE CODE TESTS RESULT OUT OF [...] Lymph 1.68 Performed By: #### L100.0100 #### [facility] [address] [place], [place], [address] COMPREHENSIVE METABOLIC Collected: 09/12/2018 Status: F Source: [place] 2:54 PM [facility] REPOSITORY TYPE CODE TESTS RESULT OUT OF [...] GAP 8 Performed By: #### L500.4050 #### [facility] [address] [place], [address] SCREENING MAMM (CAD), Observed: 08/07/2018 Status: F Source: [place] BIL 10:35 AM [facility] REPOSITORY [facility] Imaging Services [address] [place] [address] SCREENING MAMM (CAD), BILAT MR#: [id number] Acct: [id number] Name: BONNIE MCARTHUR Rep #: [id number] : 1950 F 68 From: Kodak Mccarty MD PCP: Rosalva Fung DO Status: REG CLI Study: SCREENING MAMM (CAD), BILAT Date of Exam: 08/07/18 Exam# [id number] Ordering Dr: Becky Major MD MAMMOGRAPHY - [...] delay biopsy of a clinically suspicious abnormality. [id number] Electronically Signed: Kodak Mccarty MD at 11:17 EDT Tel [phone], Service support , CC: Rosalva Fung DO; Becky Major MD Transport Truck Driver: Signed ERYTHROCYTE SED RATE Collected: 07/18/2018 Status: F Source: [place] 2:19 PM [facility] REPOSITORY TYPE CODE TESTS RESULT OUT OF RANGE REFERENCE UNITS LAB L102.0000 0-30 mm/hr Normal SED RATE 8 Performed By: #### L101.9900, L100.0100 #### [facility] [address] [place], [address] CBC W/DIFF, AUTOMATED Collected: 07/18/2018 Status: F Source: [place] 2:19 PM [facility] REPOSITORY TYPE CODE TESTS RESULT OUT OF [...] 2.08 Performed By: #### L101.9900, L100.0100 #### [facility] [address] [place], [address] COMPREHENSIVE METABOLIC Collected: 07/18/2018 Status: F Source: [facility] 2:19 PM [facility] REPOSITORY TYPE CODE TESTS RESULT OUT OF [...] Performed By: #### L500.4050, L501.6710, L505.7010 #### [facility] [address] [address] [place], [place], [id number] CRP Collected: 07/18/2018 Status: F Source: [place] 2:19 PM [facility] REPOSITORY TYPE CODE TESTS RESULT OUT OF RANGE REFERENCE UNITS LAB L501.6710 0.0-3.0 mg/L Normal < 2.90 C-REACTIVE PROT Result Comment: C-Reactive Protein (CRP) provides useful information for the diagnosis, therapy and monitoring of inflammatory processes and associated diseases. For the evaluation of Relative Risk for Cardiovascular Disease, a High Sensitivity CRP (HSCRP) should be ordered. Performed By: #### L500.4050, L501.6710, L505.7010 #### [facility] [address] [facility] [place], [place], [address] RHEUMATOID FACTOR Collected: 07/18/2018 Status: F Source: [place] 2:19 PM [facility] REPOSITORY TYPE CODE TESTS RESULT OUT OF RANGE REFERENCE UNITS LAB L505.7010 <15 IU/mL Normal RHEUMATOID FAC < 10.0 Performed By: #### L500.4050, L501.6710, L505.7010 #### [facility] [address] [place], [place], [address] HEPATITIS B SURFACE Collected: 07/18/2018 Status: F Source: [place] AG 2:19 PM [facility] REPOSITORY TYPE CODE TESTS RESULT OUT OF RANGE REFERENCE UNITS LAB L3100.0400 Negative Normal HB Negative SURF AG Result Comment: Performed at: - [facility] [id number] Dot Compliance Coordinator: Sampson Rivers PhD, Phone: [phone] Performed at: 2Q - [facility] [id number] Dot Compliance Coordinator: Rodríguez Montgomery PhD, Phone: [phone] Performed at: - [facility] [id number] Dot Compliance Coordinator: Gregorio Miller MD, Phone: [phone] Performed By: #### L3100.0390, L3100.0528, L3100.0625, L3410.1400, L4600.0100 #### [facility] (refer to report for specific site) refer to report for address and phone number HEP B SURFACE Collected: 07/18/2018 Status: F Source: [place] ANTIBODIES 2:19 PM [facility] REPOSITORY TYPE CODE TESTS RESULT OUT OF [...] 07/18/2018 Status: F Source: [place] 2:19 PM [facility] REPOSITORY TYPE CODE TESTS RESULT OUT OF RANGE REFERENCE UNITS LAB L3100.0650 0.0-0.9 s/co ratio Normal HEP C AB <0.1 Result Comment: Negative: < 0.8 Indeterminate: 0.8 - 0.9 Positive: > 0.9 The CDC recommends that a positive HCV antibody result be followed up with a HCV Nucleic Acid Amplification test (319240). Performed By: #### L3100.0390, L3100.0528, L3100.0625, L3410.1400, L4600.0100 #### [facility] (refer to report for specific site) refer to report for address and phone number HLA B27 Collected: 07/18/2018 Status: F Source: [place] 2:19 PM [facility] REPOSITORY TYPE CODE TESTS RESULT OUT OF RANGE REFERENCE UNITS LAB L3410.1500 . Normal HLA Negative B27 Result Comment: HLA-B*27 Negative B27 allele interpretation for all loci based on IMGT/HLA database version 3.27 This test was developed and its performance characteristics determined by [facility]. It has not been cleared or approved by the Food and Drug Administration. HLA Lab CLIA ID Number [id number] This test was performed using PCR (Polymerase [...] IGG ANTIBODIES Collected: 07/18/2018 Status: F Source: [place] 2:19 PM [facility] REPOSITORY TYPE CODE TESTS RESULT OUT OF RANGE REFERENCE UNITS LAB L4600.0100 0-19 units Normal ANTI-CCP 5 [id number] Result Comment: Negative <20 Weak positive 20 - 39 Moderate positive 40 - 59 Strong positive >59 Performed By: #### L3100.0390, L3100.0528, L3100.0625, L3410.1400, L4600.0100 #### [facility] (refer to report for specific site) refer to report for address and phone number PELVIS 1 OR 2 VIEWS Observed: 07/18/2018 Status: F Source: [place] 2:18 PM [facility] REPOSITORY [facility] Imaging Services [address] [place] [address] Pelvis 1 or 2 Views MR#: [id number] Acct: [id number] Name: BONNIE MCARTHUR Rep #: [id number] : 1950 F 68 From: Odilon Medel MD PCP: Rosalva Fung DO Status: REG CLI Study: Pelvis 1 or 2 Views Date of Exam: 07/18/18 Exam# [id number] Ordering Dr: Ashley Newby MD STUDY: X-RAY [...] CC: Rosalva Fung DO; Ashley Newby MD Transport Truck Driver: Signed ECHOCARDIOGRAM COMPLETE Observed: 06/16/2018 Status: F Source: [place] 4:49 PM [facility] REPOSITORY [facility] Cardiovascular Services [address] [place] [address] Echo Complete 06/16/18 0657 MR#: [id number] Acct: [id number] Name: BONNIE MCARTHUR Rep #: [id number] : 1950 68 From: Bill Rodrigues MD Attending Dr: Rosalva Fung DO Status: REG CLI Ordering Dr: Rosalva Fung DO Date: 06/16/18 Location: [facility] Sex: F C Admitted: Reason For Study: [...] Fung Performed By: Krissy Cook, RDCS, RVT 06/16/181648 Date Bill Rodrigues MD CC: Rosalva Fung DO Date Dictated: 06/16/18 0657 Date Transcribed: 06/16/181648 Transport Truck Driver: Signed STRESS REPORT Observed: 06/16/2018 Status: F Source: [place] 9:[address] [facility] Cardiovascular Services [address] [place] [address] MR#: [id number] Acct: [id number] Name: BONNIE MCARTHUR Rep #: [id number] : 1950 68 From: Ayan Gomez MD [...] 85 %. This note was generated with JOORation software. It may contain incorrect words, spelling, and punctuation that were not noted in checking the note before signing. 06/16/18930 <Electronically signed by Ayan Gomez MD> Date Ayan Gomez MD CC: Rosalva Fung DO Date Dictated: 06/16/18923 Date Transcribed: 06/16/18923 Transport Truck Driver: PM Signed BRIEFCASE SEWER OFFICE VISIT Observed: 05/29/2018 Status: F Source: [place] REPORT 3:00 PM [facility] [address] [place] [address] OFFICE VISIT Date of Service: 05/29/18 MR#: [id number] Acct: [id number] Name: BONNIE MCARTHUR Rep #: [id number] : 1950 Provider: LOUIE Rudd Age/Sex: 68/F [place] [facility] [place]: Signed Intake Vital Signs05/29/18 Height 5 ft 6 in 05/29/18 Weight: 150 lb 6 oz 05/29/18 Body Mass Index (BMI) 24.3 05/29/18 Blood Pressure 113/69 Intake Visit Reasons: RASH IN PUBIC AREA Pharmaceutical Scientist Required: No Is patient in pain?: No [...] mg PO QPM 05/07/18 [History Confirmed 05/29/18] multivitamin,ed-krql-yjdlmpuu tablet 1 tab PO QDAY 05/07/18 [History [...] dermatitis type, unspecified trigger L25.9 Plan 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 Coding Level of Care Code Off vis,est,level 3 Diagnoses Contact dermatitis, unspecified contact dermatitis type, unspecified trigger L25.9 Contact dermatitis type: unspecified Contact dermatitis trigger: unspecified trigger 05/29/18 1500 <Electronically signed by Donna TEJADA> Date Donna SAMSC Cosigner Signature: Date (if applicable) CC: BRIEFCASE SEWER OFFICE VISIT Observed: 05/07/2018 Status: F Source: [place] REPORT 11:49 AM [facility] [address] [place] [address] OFFICE VISIT Date of Service: 05/07/18 MR#: [id number] Acct: [id number] Name: BONNIE MCARTHUR Rep #: [id number] : 1950 Provider: Becky Major MD Age/Sex: 68/F [place] [facility] [place]: Signed Intake Vital Signs05/07/18 Height 5 ft 6 in 05/07/18 Weight: 147 lb 8 oz 05/07/18 Body Mass Index (BMI) 23.8 05/07/18 Blood Pressure 133/76 Intake Visit Reasons: RASH IN GROIN AREA Chief Complaint: Rash, going on since November on and off Pharmaceutical Scientist Required: No Is patient in pain?: No [...] mg PO QPM 05/07/18 [History Confirmed 05/07/18] multivitamin,fb-rpon-atlcvzhk tablet 1 tab PO QDAY 05/07/18 [History [...] to toe- has psoriasis. [facility] she has rash that comes and goes, she has it on other areas. she has a reaction to otezla she had hives. she has significant allergies. 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 she has tried triamcinolone and [...] signed by Becky Major MD> Date Becky Quezada Signature: Date (if applicable) CC: Observed: 04/16/2018 Status: F Source: [facility] SURGICAL PATHOLOGY 3:00 PM SYSTEM REPOSITORY [id number] [facility] DEPARTMENT OF [facility] PATHOLOGY AND LABORATORY MEDICINE [address] [place] [address] FINAL SURGICAL PATHOLOGY REPORT NAME: BONNIE MCARTHUR N [id number] : 1950 68 Y F BILLING NO.: [id number] LOCATION: 1SPO PROCEDURE 04/16/2018 DATE: SURGEON: LOW [...] characteristics determined by the clinical laboratories of [facility]. They have not been cleared by the [...] negativity on decalcified specimens. Professional Performing Location: [place] [address]. DEPARTMENT OF PATHOLOGY AND LABORATORY MEDICINE [place], [place] [address] PROGRESS Observed: 02/08/2018 Status: COMPLETED Source: [place] 10:54 AM [facility] REPOSITORY O ID: [id number] Author: Neela Chaparro Service: (none) Author Type: Nurse Practitioner Type: Progress Notes Filed: 02/08/2018 12:00 PM Note Text: Subjective The history is provided by the patient. No assistant speech language pathologist was used. JERRELL Mcarthur is a 67 [...] APRN.CNP CNOV Observed: 02/08/2018 Status: COMPLETED Source: [place] 10:30 AM [facility] REPOSITORY Office Visit (WSTR) BONNIE MCARTHUR ([id number]) 1950 F Date Time Provider Department 02/08/18 10:30 AM NEELA CHAPARRO (GILDARDO) [facility] During your visit today, we recorded the [...] 4 MG TABLETS IN A DOSE PACK Neela Chaparro APRN.CNP 02/08/2018 12:00 PM Addendum Subjective The history is provided by the patient. No assistant speech language pathologist was used. HPI Bonnie Mcarthur is a 67 year [...] detail warranting prompt ER evaluation. Neela Chaparro APRN.GILDARDO Referring Provider: SELF [200] Allergies As of Date: 02/08/2018 Noted Allergy Reaction CODEINE 01/21/2006 5 - Intolerance FOOD EXTRACTS 01/30/2006 environmental [Other] 01/30/2006 Date Reviewed: 02/08/2018 Reviewed by: Neela (Destiny Chaparro - Fully Assessed Reason for Visit: hives [...] PAMOATE 25 MG CAPSULE >> Marley Woodward LPN 02/08/2018 10:35 AM >> MARLEY WOODWARD LPN Sat Feb 08, 2018 10:35 AM Not [...] 02/08/18 PROGRESS Observed: 01/19/2018 Status: COMPLETED Source: [place] 9:35 AM [facility] [place] REPOSITORY HNO ID: [id number] Author: Zoe (Gildardo) Older Service: (none) Author Type: Nurse Practitioner Type: Progress Notes Filed: 01/19/2018 9:52 AM Note Text: CC: Patient presents with: Rash HPI Bonnie Mcarthur is a 67 year old female who presents today for itching due to psoriasis. Patient states she was just diagnosed with psoriasis by [place]ai [place] at [facility]. Prescribed clobetasol and otezla, which she was [...] area today but advised patient to call [place] office tomorrow about continued use. - Anti itch therapy of Rx for Atarax prn - discussed skin care - follow up with kai [place] 2. Psoriasis - ICD9: 696.1, ICD10: L40.9 [...] CNP CNOV Observed: 01/19/2018 Status: COMPLETED Source: [place] 9:30 AM [facility] REPOSITORY Office Visit (WSTR) BLUEBONNIE ([id number]) 1950 F Date Time Provider Department 01/19/18 9:30 AM ZOE PINA (GILDARDO) [facility] During your visit today, we recorded the following information about you: Temperature Pulse Respiration Blood pressure 97.9 degrees 62/minute 14/minute 140/90 Weight 68.9 kg Zoe Pina CNP 01/19/2018 9:52 AM Signed CC: Patient presents with: Rash HPI Bonnie Mcarthur is a 67 year old female who presents today for itching due to psoriasis. Patient states she was just diagnosed with psoriasis by [place]ai [place] at [facility]. Prescribed clobetasol and otezla, which she was [...] area today but advised patient to call [place] office tomorrow about continued use. - Anti itch therapy of Rx for Atarax prn - discussed skin care - follow up with kai [place] 2. Psoriasis - ICD9: 696.1, ICD10: L40.9 [...] CODE NAME / CODE REACTION SEVERITY SOURCE 10/29/2018 Drug codeine/F0060 Other [facility] Allergy/223989900( 53766(RXNORM) Formerly [facility] SNOMED CT) Hospital Repository 10/29/2018 Drug apremilast/F0 Other [facility] Allergy/098378949( [id number](RXNO Formerly [facility] SNOMED CT) ) Hospital Repository 01/30/2006 [id number] [place] Repository 01/30/2006 Miscellaneous OTHER [place] Allergy/576780630( [facility] SNOMED CT) [place] Repository 01/21/2006 DRUG CODEINE INTOLERANCE [id number] SNOM[facility] [place] Repository ENCOUNTERS ENCOUNTERS ADMIT/DISCHARGE ACCOUNT NUMBER ADMITTING ENCOUNTER LOCATION SOURCE CLASS 12/08/2018 [id number] Ambulatory Building:[facility] OHIP Practices Repository 12/03/2018 [id number] Ambulatory [facility] ding:[place] Repository 12/03/2018 [id number] Ambulatory [facility] ding:MTLAB Repository 10/29/2018/11/10/20 [id number] Ambulatory [address] ding:[place] Repository 10/29/2018/10/29/20 [id number] Ambulatory [place] [address] BMS.[facility] Repository 10/08/2018/10/10/20 [id number] Ambulatory [address] ding:[place] Repository 09/12/2018 [id number] Ambulatory [facility] ding:LAB.FUT Repository URE 08/07/2018 [id number] Ambulatory [facility] ding:OPBI Repository 07/18/2018 [id number] Ambulatory [facility] ding:MTLAB Repository 06/16/2018 [id number] Ambulatory [facility] ding:CVS Repository 06/16/2018 [id number] Ambulatory BMSBuilding: [place] [facility] Repository 05/29/2018/05/29/20 [id number] Ambulatory BMSBuilding: [place] [address] BMS.[facility] Repository 05/07/2018/05/07/20 [id number] Ambulatory BMSBuilding: [place] [address] BMS.[facility] Repository 04/16/2018 [id number] Ambulatory [facility] Repository 02/08/2018/02/09/20 [id number] Ambulatory [address] Repository 01/19/2018/01/21/20 [id number] Ambulatory [address] Repository FUNCTIONAL STATUS FUNCTIONAL STATUS No Functional Status Records FoundEQUIPMENT EQUIPMENT No Equipment Records FoundPAYERS PAYERS ENCOUNTER GUARANTOR PAYER SUBSCRIBER SOURCE 12/08/2018 Bonnie S Primary Bonnie S OHIP Practices BaumanDOB: Insurance:MedicarePolicy [facility]: Repository [id number] Number: [id number] Latia [id number] [address] [place], [place] Date:6945-69-29Wnlu JbD[place]CHE[place], [place] [address]Bwi: (050) Name:CPO Rashid [id number]: [id number], [place] [phone] () ()Tel: [phone]: [phone] () 12/08/2018 Secondary Bonnie S OHIP Practices Insurance:Medico BaumanDOB: Repository Insurance CompanyPolicy [id number] Number: [address] [id number] [place], [place] Date:5855-23-68Ecic [address]Ask: Name:Trina Frank, ~( [place] [id number]: [phone] () [phone] 12/03/2018 JAMA Thorne Primary BONNIE [place] [id number] Insurance:MEDICARE PART A BAUMANDOB: Community BLOUGH BPolicy Number: [id number] [place], [place] [id number] Repository [address]Ykf: (330) Date:2018-10-07 [phone] () 12/03/2018 Secondary BONNIE S [place] Insurance:MEDICO ROCHELLE BAUMANDOB: Community LIFE INS COPolicy Number: [id number] [facility] [id number] Repository Date:2018-10-07P O JOAQUIN Jane45071OMBVKHELENA [address]ZY: 12/03/2018 Tertiary Insurance:SELF NOT GIVENUNK [place] PAY INSURANCEPolicy Community Number: Effective Hospital Date:2018-11-11 Repository 12/03/2018 JAMA Thorne Primary BONNIE S [place] [id number] Insurance:MEDICARE PART A BAUMANDOB: Community BLOUGH BPolicy Number: [id number] [place], [place] [id number] Repository [address]Zso: (330) Date:2018-12-03 [phone] () 12/03/2018 Secondary BONNIE [place] Insurance:MEDICO ROCHELLE BAUMANDOB: Community LIFE INS COPolicy Number: [id number] Hospital [id number] Repository Date:2018-12-03P O JOAQUIN 477[address]EASLTHELENA [address]WD: 12/03/2018 Tertiary Insurance:SELF NOT GIVENUNK [place] PAY INSURANCEPolicy Community Number: Effective Hospital Date:2018-12-03 Repository 10/29/2018 JAMA Thorne Primary BONNIE S [place] [id number] Insurance:MEDICARE PART A BAUMANDOB: Community BLOUGH BPolicy Number: [id number] Arthur, [place] [id number] Repository [address]Bkx: (330) Date:2018-10-07 [phone] () 10/29/2018 Secondary BONNIE S [place] Insurance:MEDICO ROCHELLE BAUMANDOB: Community LIFE INS COPolicy Number: [id number] Repository Date:2018-10-07[address] [place] [address]SR: 10/29/2018 Tertiary Insurance:SELF NOT GIVENUNK [place] PAY INSURANCEPolicy Community Number: Effective Hospital Date:2018-10-11 Repository 10/29/2018 JAMA Thorne Primary BONNIE S [place] [id number] Insurance:MEDICARE PART A BAUMANDOB: Community BLOUGH BPolicy Number: [id number] Arthur, [place] [id number] Repository [address]Jsd: (330) Date:2018-07-15 [phone] () 10/29/2018 Secondary BONNIE S [place] Insurance:MEDICO ROCHELLE BAUMANDOB: Community LIFE INS COPolicy Number: [id number] Hospital [id number] Repository Date:2018-07-15[address] [place] [address]XT: 10/29/2018 Tertiary Insurance:SELF NOT GIVENUNK [place] PAY INSURANCEPolicy Community Number: Effective Hospital Date:2018-10-03 Repository 10/08/2018 JAMA Thorne Primary BONNIE S [place] [id number] Insurance:MEDICARE PART A BAUMANDOB: Community BLOUGH BPolicy Number: [id number] [place], [place] [id number] Repository [address]Nlo: (330) Date:2018-10-07 [phone] () 10/08/2018 Secondary BONNIE S [place] Insurance:MEDICO ROCHELLE BAUMANDOB: Community LIFE INS COPolicy Number: [id number] Hospital [id number] Repository Date:2018-10-07[address] [address]GFSMG, [place] [address]LR: 10/08/2018 Tertiary Insurance:SELF NOT GIVENUNK [place] PAY INSURANCEPolicy Community Number: Effective Hospital Date:2018-10-07 Repository 09/12/2018 JAMA Thorne Primary BONNIE S [place] [id number] Insurance:MEDICARE PART A BAUMANDOB: Community BLOUGH BPolicy Number: [id number] Arthur, [place] [id number] Repository [address]Jzi: (116) Date:2018-03-24 [phone] () 09/12/2018 Secondary BONNIE [place] Insurance:MEDICO ROCHELLE BAUMANDOB: Community LIFE INS COPolicy Number: [id number] Repository Date:2018-03-24[address] [address]QYJYT [place] [address]MR: 09/12/2018 Tertiary Insurance:SELF NOT GIVENUNK [place] PAY INSURANCEPolicy Community Number: Effective Hospital Date:2018-03-24 Repository 08/07/2018 JAMA Primary BONNIE S [place] [id number] Insurance:MEDICARE PART A BAUMANDOB: Community JESSY BPolicy Number: [id number] Arthur, [place] [id number] Repository [address]Bua: 330) Date:2018-07-16 [phone] () 08/07/2018 Secondary BONNIE S [place] Insurance:MEDICO ROCHELLE BAUMANDOB: Community LIFE INS COPolicy Number: [id number] Hospital [id number] Repository Date:2018-07-16[address] [address]ADWNK [place] [address]AM: 08/07/2018 Tertiary Insurance:SELF NOT GIVENUNK [place] PAY INSURANCEPolicy Community Number: Effective Hospital Date:2018-07-16 Repository 07/18/2018 JAMA Thorne Primary BONNIE [place] [id number] Insurance:MEDICARE PART A BAUMANDOB: Community BLOUGH BPolicy Number: [id number] [place], [place] [id number] Repository [address]Cia: (330) Date:2018-07-187817 () 07/18/2018 Secondary BONNIE S [place] Insurance:MEDICO ROCHELLE BAUMANDOB: Community LIFE INS COPolicy Number: [id number] Hospital [id number] Repository Date:2018-07-18[address] [address], [place] [address]MN: 07/18/2018 Tertiary Insurance:SELF NOT GIVENUNK [place] PAY INSURANCEPolicy Community Number: Effective Hospital Date:2018-07-18 Repository 06/16/2018 JAMA Thorne Primary BONNIE [place] [id number] Insurance:MEDICARE PART A BAUMANDOB: Community BLOUGH BPolicy Number: [id number] [place], [place] [id number] Repository [address]Uar: (330) Date:2018-05-2936503 () 06/16/2018 Secondary BONNIE S [place] Insurance:MEDICO ROCHELLE BAUMANDOB: Community LIFE INS COPolicy Number: [id number] Hospital [id number] Repository Date:2018-05-29[address] [address], [place] [address]LZ: 06/16/2018 Tertiary Insurance:SELF NOT GIVENUNK [place] PAY INSURANCEPolicy Community Number: Effective Hospital Date:2018-05-29 Repository 06/16/2018 JAMA Thorne Primary BONNIE S [place] [id number] Insurance:MEDICARE PART A BAUMANDOB: Community BLOUGH BPolicy Number: [id number] [place], [place] [id number] Repository [address]Wsr: (330) Date:[phone] () 06/16/2018 Secondary BONNIE S [place] Insurance:MEDICO ROCHELLE BAUMANDOB: Community LIFE INS COPolicy Number: [id number] Hospital [id number] Repository Date:2018-05-29[address] [address]PN[place], [place] [address]NO: 06/16/2018 Tertiary Insurance:SELF NOT GIVENUNK [place] PAY INSURANCEPolicy Community Number: Effective Hospital Date:2018-06-16 Repository 05/29/2018 JAMA Primary BONNIE S [place] [id number] Insurance:MEDICARE PART A BAUMANDOB: [facility] BPolicy Number: [id number] [place], [place] [id number] Repository [address]Xbn: 330) Date:2018-05-29 (HP) 05/29/2018 Secondary BONNIE S [place] Insurance:MEDICO BAUMANDOB: Community CORPPolicy Number: [id number] Hospital Effective Repository Date:6029-51-82[address] [address]RE: 05/29/2018 Tertiary Insurance:SELF NOT GIVENUNK [place] PAY INSURANCEPolicy Community Number: Effective Hospital Date:2018-05-29 Repository 05/07/2018 Jama Primary BONNIE S [place] [id number] Insurance:MEDICARE PART A BAUMANDOB: [facility] BPolicy Number: [id number] [place], [place] [id number] Repository [address]Tfe: 330) Date:2018-05-05 () 05/07/2018 Secondary BONNIE S [place] Insurance:MEDICO ROCHELLE BAUMANDOB: Community LIFE INSURANCEPolicy [id number] Hospital Number: Effective Repository Date:5800-43-43[address] [address]BT: 05/07/2018 Tertiary Insurance:SELF NOT GIVENUNK [place] PAY INSURANCEPolicy Community Number: Effective Hospital Date:2018-05-07 Repository 04/16/2018 Bonnie Primary Bonnie [facility] BaumanDOB: Insurance:MedicarePolicy BaumanDOB: System [id number] Number: Effective Date: [id number] [facility] [place]ice[place], [place] [address]Voq: (HP) 04/16/2018 Secondary Bonnie [facility] Insurance:Commercial BaumanDOB: System Insurance [id number] Repository MiscellaneousPolicy Number: Effective Date: SOCIAL HISTORY SOCIAL HISTORY No Social History Records FoundFAMILY HISTORY FAMILY HISTORY No Family History Records FoundADVANCE DIRECTIVES ADVANCE DIRECTIVES No Advanced Directives Records FoundINFORMATION SOURCE INFORMATION SOURCE DATE CREATED AUTHOR AUTHOR'S ORGANIZATION 12/08/2018 [facility]
== END ==
PROVIDERS: Family Provider Internal Medicine; PCP Internal Medicine; Referring Provider Internal Medicine Rheumatology; Visit Provider Internal Medicine Rheumatology
DX: L40.59 Other psoriatic arthropathy (principal); Z79.899 Other long term (current) drug therapy; L40.8 Other psoriasis; H93.13 Tinnitus, bilateral; G43.909 Migraine, unspecified, not intractable, without status migrainosus; J30.9 Allergic rhinitis, unspecified
CPT/HCPCS: 36415; 80053; 85025

== ENCOUNTER 2018-12-03 09:30 | Outpatient (RCR) | payer MEDICARE, OTHER, SELFPAY ==
[2018-10-29 14:36] VITALS: BMI 24.5
== END 2018-12-11 23:59 ==
LOC: DC 09:30
PROVIDERS: Family Provider Internal Medicine; PCP Internal Medicine; Visit Provider Internal Medicine
DX: E11.9 Type 2 diabetes mellitus without complications (principal); Z71.3 Dietary counseling and surveillance
CPT/HCPCS: 97803; G0109

== ENCOUNTER → 2019-01-05 | Outpatient (CLI) | payer MEDICARE, OTHER, SELFPAY ==
[2018-10-29 14:36] VITALS: BMI 24.5
[2019-01-05 12:46] LABS: Absolute Lymphocyte Count 1.83 X10^3/ul (0.83-4.51); Absolute Neutrophil Count 3.9 X10^3/uL (2.0-7.7); Basophil# 0.02 X10^3/uL; Basophil% 0.3 % (0-1); Eosinophil# 0.09 X10^3/uL; Eosinophils% 1.4 % (0-5); Hematocrit 39.8 % (37-47); Hemoglobin 12.9 g/dl (12.0-15.0); Lymphocyte # 1.83 X10^3/ul (4.0); Lymphocyte % 29.5 % (19-41); Mean Corp Hgb Conc 32.4 g/gl (32-36); Mean Corpuscular Hgb 30.4 pg (27.0-32.0); Mean Corpuscular Volume 93.6 fL (81-99); Monocyte# 0.38 X10^3/uL; Monocyte% 6.1 % (0-10); Neutrophil # 3.89 X10^3/uL (2.7-7.7); Neutrophil % 62.7 % (47-70); Platelet Count 182 K/mm3 (150-450); RBC Distribution Width CV 14.2 % (11.6-14.6); RBC Distribution Width SD 48.1 fl (35.1-43.9); Red Blood Count 4.25 M/mm3 (4.2-5.4); White Blood Count 6.2 K/mm3 (4.4-11.0)
[2019-01-05 13:10] LABS: POSITIVE COUNT NO; POSITIVE DIFFERENTIAL NO; POSITIVE MORPHOLOGY NO
[2019-01-05 13:32] LABS: AST(SGOT) 22 U/L (15-37); Alanine Aminotransfer ALT/SGPT 20 U/L (13-56); Albumin, Serum 3.8 g/dL (3.2-5.0); Alkaline Phosphatase 72 U/L (45-117); Bilirubin, Direct 0.24 mg/dL (0.00-0.30); Globulin 3.1 g/dL (2.2-4.2); Protein, Total 6.9 g/dL (6.4-8.2)
[2019-01-05 13:49] LABS: HIV - WCH Non-Reactive (Nonreactive)
[2019-01-08 05:07] LABS: HEPATITIS B SURFACE AG Negative (Negative); QNTFERON TB Mitogen Value > 10.00 IU/mL (.); QNTFERON TB Nil Value 0.41 IU/mL (.); QNTFERON TB1+ Ag Value 0.28 IU/mL (.); QNTFERON TB2+ Ag Value 0.28 IU/mL (.)
[2019-01-08 12:14] LABS: Hep B Surface Antibodies Non Reactive (.); Hep C Antibodies <0.1 s/co ratio (0.0-0.9); Hepatitis B Core Ab Total Negative (Negative); QNTIFERON TB Positive Criteria Negative (Negative)
== END | disposition home or self-care (01) ==
LOC: MTLAB 10:29
PROVIDERS: Family Provider Internal Medicine; PCP Internal Medicine; Referring Provider Dermatology; Visit Provider Dermatology
DX: L40.0 Psoriasis vulgaris (principal); Z79.899 Other long term (current) drug therapy
CPT/HCPCS: 36415; 80076; 85025; 86480; 86703; 86704; 86706; 86803; 87340

== ENCOUNTER 2019-01-06 09:30 | Outpatient (RCR) | payer MEDICARE, OTHER, SELFPAY ==
[2018-10-29 14:36] VITALS: BMI 24.5
== END 2019-01-08 23:59 ==
LOC: DC 09:30
PROVIDERS: Family Provider Internal Medicine; PCP Internal Medicine; Visit Provider Internal Medicine
DX: E11.9 Type 2 diabetes mellitus without complications (principal); Z71.3 Dietary counseling and surveillance
CPT/HCPCS: 97803; G0109

== ENCOUNTER → 2019-01-28 08:56 | Outpatient (CLI) | payer MEDICARE, OTHER, SELFPAY ==
[2018-10-29 14:36] VITALS: BMI 24.5
[2019-01-28 10:10] LABS: Absolute Neutrophil Count 2.8 X10^3/uL (2.0-7.7); Basophil# 0.02 X10^3/uL; Basophil% 0.4 % (0-1); Eosinophil# 0.07 X10^3/uL; Eosinophils% 1.5 % (0-5); Hematocrit 42.4 % (37-47); Hemoglobin 13.6 g/dl (12.0-15.0); Lymphocyte % 31.8 % (19-41); Mean Corp Hgb Conc 32.1 g/gl (32-36); Mean Corpuscular Hgb 29.8 pg (27.0-32.0); Mean Platelet Vol. 10.4 fl (6.2-12.0); Monocyte# 0.31 X10^3/uL; Monocyte% 6.6 % (0-10); Neutrophil # 2.82 X10^3/uL (2.7-7.7); Neutrophil % 59.7 % (47-70); Platelet Count 162 K/mm3 (150-450); RBC Distribution Width CV 13.8 % (11.6-14.6); RBC Distribution Width SD 46.7 fl (35.1-43.9); Red Blood Count 4.56 M/mm3 (4.2-5.4); White Blood Count 4.7 K/mm3 (4.4-11.0)
[2019-01-28 10:12] LABS: POSITIVE COUNT NO; POSITIVE DIFFERENTIAL NO; POSITIVE MORPHOLOGY NO
[2019-01-28 10:37] LABS: ALB/GLOB Ratio 1.2 RATIO (0.9-2.4); AST(SGOT) 21 U/L (15-37); Alanine Aminotransfer ALT/SGPT 21 U/L (13-56); Albumin, Serum 3.8 g/dL (3.2-5.0); Alkaline Phosphatase 76 U/L (45-117); Anion Gap 5 (5-15); BUN 15 mg/dL (7-18); BUN/Creat Ratio 21.9 RATIO (10-20); Calcium,Total 9.1 mg/dL (8.5-10.1); Chloride 104 mmol/L (98-107); Creatinine, Serum 0.69 mg/dL (0.55-1.02); EST Glomerular Filtration Rate 91 mL/min (>60); Est Glom Filt Rate - Afr Amer 110 mL/min (>60); Globulin 3.3 g/dL (2.2-4.2); Glucose 90 mg/dL (74-106); Potassium 4.1 mmol/L (3.5-5.1); Protein, Total 7.1 g/dL (6.4-8.2); Sodium Level 140 mmol/L (136-145); Thyroid Stim Hormone (TSH) 1.68 uIU/mL (0.358-3.74)
[2019-01-29 16:08] LABS: CHOLESTEROL TOTAL 260 mg/dL (100-199); HDL-C 71 mg/dL (>39); HDL-P TOTAL 31.3 umol/L (>=30.5); SMALL LDL-P 234 nmol/L (<=527); TRIGLYCERIDES 57 mg/dL (0-149)
[2019-01-29 16:17] LABS: INSULIN RESISTANCE SCORE <25 (<=45); LDL SIZE 21.7 nm (>20.5); LDL-C 178 mg/dL (0-99); LDL-P 1512 nmol/L (<1000)
== END ==
PROVIDERS: Family Provider Internal Medicine; PCP Internal Medicine; Referring Provider Internal Medicine; Visit Provider Internal Medicine
DX: E11.9 Type 2 diabetes mellitus without complications (principal)
CPT/HCPCS: 36415; 80053; 80061; 82043; 82570; 83704; 84443; 85025

== ENCOUNTER → 2019-03-04 08:47 | Outpatient (CLI) | payer MEDICARE, OTHER, SELFPAY ==
[2018-10-29 14:36] VITALS: BMI 24.5
[2019-03-04 10:31] LABS: Absolute Lymphocyte Count 1.18 X10^3/ul (0.83-4.51); Absolute Neutrophil Count 2.6 X10^3/uL (2.0-7.7); Basophil# 0.02 X10^3/uL; Basophil% 0.5 % (0-1); Eosinophil# 0.01 X10^3/uL; Eosinophils% 0.2 % (0-5); Hematocrit 40.8 % (37-47); Hemoglobin 13.1 g/dl (12.0-15.0); Lymphocyte # 1.18 X10^3/ul (4.0); Lymphocyte % 29.3 % (19-41); Mean Corp Hgb Conc 32.1 g/gl (32-36); Mean Corpuscular Hgb 29.4 pg (27.0-32.0); Mean Corpuscular Volume 91.5 fL (81-99); Mean Platelet Vol. 10.8 fl (6.2-12.0); Monocyte# 0.26 X10^3/uL; Monocyte% 6.5 % (0-10); Neutrophil # 2.55 X10^3/uL (2.7-7.7); Neutrophil % 63.3 % (47-70); Platelet Count 149 K/mm3 (150-450); RBC Distribution Width CV 14.2 % (11.6-14.6); RBC Distribution Width SD 47.1 fl (35.1-43.9); Red Blood Count 4.46 M/mm3 (4.2-5.4)
[2019-03-04 10:35] LABS: POSITIVE COUNT NO; POSITIVE DIFFERENTIAL NO; POSITIVE MORPHOLOGY NO
[2019-03-04 10:47] LABS: ALB/GLOB Ratio 1.2 RATIO (0.9-2.4); AST(SGOT) 17 U/L (15-37); Alanine Aminotransfer ALT/SGPT 20 U/L (13-56); Albumin, Serum 3.6 g/dL (3.2-5.0); Alkaline Phosphatase 63 U/L (45-117); Anion Gap 4 (5-15); BUN 15 mg/dL (7-18); BUN/Creat Ratio 21.4 RATIO (10-20); Calcium,Total 8.9 mg/dL (8.5-10.1); Chloride 104 mmol/L (98-107); EST Glomerular Filtration Rate 89 mL/min (>60); Est Glom Filt Rate - Afr Amer 107 mL/min (>60); Glucose 79 mg/dL (74-106); Potassium 4.7 mmol/L (3.5-5.1); Protein, Total 6.6 g/dL (6.4-8.2); Sodium Level 140 mmol/L (136-145)
== END ==
PROVIDERS: Family Provider Internal Medicine; PCP Internal Medicine; Referring Provider Internal Medicine Rheumatology; Visit Provider Internal Medicine Rheumatology
DX: L40.59 Other psoriatic arthropathy (principal); Z79.899 Other long term (current) drug therapy; L40.8 Other psoriasis; H93.13 Tinnitus, bilateral; G43.909 Migraine, unspecified, not intractable, without status migrainosus; J30.9 Allergic rhinitis, unspecified
CPT/HCPCS: 36415; 80053; 85025

== ENCOUNTER → 2019-08-14 09:47 | Outpatient (CLI) | payer MEDICARE, OTHER, SELFPAY ==
[2018-10-29 14:36] VITALS: BMI 24.5
[2019-08-14 12:45] LABS: Platelet Count 145 K/mm3 (150-450)
== END ==
PROVIDERS: Family Provider Internal Medicine; PCP Internal Medicine; Referring Provider Internal Medicine Rheumatology; Visit Provider Internal Medicine Rheumatology
DX: D69.6 Thrombocytopenia, unspecified (principal)
CPT/HCPCS: 36415; 85049

== ENCOUNTER → 2019-09-04 10:36 | Outpatient (CLI) | payer MEDICARE, OTHER, SELFPAY ==
[2018-10-29 14:36] VITALS: BMI 24.5
--- NOTE | 2019-09-04 10:38 | BI_ITS ---
MAMMOGRAPHY - BILATERAL SCREENING REASON FOR EXAM: Female, 69 years old. Routine annual screening examination. PERTINENT HISTORY: Aunt with breast cancer. TECHNIQUE: Digital bilateral breast twin (3D mammographic acquisition) in the CC and MLO projections. 2-D mediolateral oblique (MLO) and craniocaudad (CC) views of both breasts were obtained. CAD: Full Field Digital Mammography with Computer Added Detection was performed. COMPARISON: Comparison is made with prior study of August 07, 2018 and July 09, 2017. FINDINGS: Breast Composition: There are scattered areas of fibroglandular density. There are no dominant masses or suspicious calcifications. Stable small bilateral axillary lymph nodes. No other significant abnormalities are identified. There has been no significant change since the prior study. BI/SCREEN MAMM (CAD) W/TWIN BILAT IMPRESSION: Stable bilateral screening mammogram. Yearly follow-up mammogram recommended. (A) ASSESSMENT CATEGORY: BIRADS Category 2: Benign. A letter regarding these results will be sent to the patient by the facility within 30 days. Approximately 10% of breast cancers are not detected by mammography. A normal mammogram should not delay biopsy of a clinically suspicious abnormality. [id number] Electronically Signed: Kodak Mccarty, at 13:48 EDT , Service support ,
[2019-11-18 09:51] VITALS: BMI 24.5
== END ==
PROVIDERS: Family Provider Internal Medicine; PCP Internal Medicine; Referring Provider Obstetrics & Gynecology; Visit Provider Obstetrics & Gynecology
DX: Z12.31 Encounter for screening mammogram for malignant neoplasm of breast (principal); Z80.3 Family history of malignant neoplasm of breast
CPT/HCPCS: 77063; 77067

== ENCOUNTER → 2019-09-15 15:01 | Outpatient (CLI) | payer MEDICARE, OTHER, SELFPAY ==
[2018-10-29 14:36] VITALS: BMI 24.5
[2019-09-15 18:02] LABS: Absolute Lymphocyte Count 2.03 X10^3/uL (0.83-4.51); Basophil# 0.03 X10^3/uL; Basophil% 0.5 % (0-1); Eosinophil# 0.08 X10^3/uL; Eosinophils% 1.4 % (0-5); Hematocrit 40.7 % (37-47); Hemoglobin 13.2 g/dL (12.0-15.0); Lymphocyte # 2.03 X10^3/ul (4.0); Lymphocyte % 36.6 % (19-41); Mean Corp Hgb Conc 32.4 g/dL (32-36); Mean Corpuscular Hgb 29.7 pg (27.0-32.0); Mean Corpuscular Volume 91.5 fL (81-99); Mean Platelet Vol. 11.1 fl (6.2-12.0); Monocyte# 0.39 X10^3/uL; NRBC Flagged by Analyzer 0 % (0-5); Neutrophil # 3.01 X10^3/uL (2.7-7.7); Neutrophil % 54.3 % (47-70); Platelet Count 162 K/mm3 (150-450); RBC Distribution Width CV 12.9 % (11.6-14.6); RBC Distribution Width SD 43.2 fl (35.1-43.9); Red Blood Count 4.45 M/mm3 (4.2-5.4); White Blood Count 5.6 K/mm3 (4.4-11.0)
[2019-09-15 18:22] LABS: AST(SGOT) 17 U/L (15-37); Alanine Aminotransfer ALT/SGPT 20 U/L (13-56); Albumin, Serum 3.5 g/dL (3.2-5.0); Alkaline Phosphatase 69 U/L (45-117); Bilirubin, Direct 0.18 mg/dL (0.00-0.30); Globulin 3.3 g/dL (2.2-4.2); Protein, Total 6.8 g/dL (6.4-8.2)
== END ==
PROVIDERS: Family Provider Internal Medicine; PCP Internal Medicine; Referring Provider Dermatology; Visit Provider Dermatology
DX: L40.0 Psoriasis vulgaris (principal); Z79.899 Other long term (current) drug therapy; L29.8 Other pruritus; L28.0 Lichen simplex chronicus; L82.0 Inflamed seborrheic keratosis; L53.8 Other specified erythematous conditions
CPT/HCPCS: 36415; 80076; 85025

== ENCOUNTER 2019-09-17 13:30 | Outpatient (RCR) | payer MEDICARE, OTHER, SELFPAY ==
[2018-10-29 14:36] VITALS: BMI 24.5
== END 2019-09-17 23:59 | disposition home or self-care (01) ==
LOC: DC 13:30
PROVIDERS: Family Provider Internal Medicine; PCP Internal Medicine; Visit Provider Internal Medicine
DX: Z71.3 Dietary counseling and surveillance (principal); E11.9 Type 2 diabetes mellitus without complications
CPT/HCPCS: G0109

== ENCOUNTER 2019-11-21 07:35 | Emergency (ER) | payer MEDICARE, OTHER, SELFPAY ==
[2019-11-18 09:51] VITALS: BMI 24.5
[2019-11-21 07:37] VITALS: BP 136/68; PULSE 69; RESP 17; TEMP 37.1; O2SAT 98; BMI 24.0
[2019-11-21 08:21] LABS: Bacteria 0 SEEN /hpf (None Seen); Mucous, Urine 0 SEEN /hpf (<or=2+); Red Blood Cells-Urine 0 SEEN /hpf (0-5); Squamous Epithelial Cells - UA 0 SEEN /hpf (5-10); White Blood Cells 0 SEEN /hpf (0-5)
[2019-11-21 08:32] LABS: Color, Urine Yellow (Yellow); Glucose, Dipstick Normal (Normal); Ketone-Dipstick 5 mg/dl (Negative); Leukocyte Esterase-Dipstick 25 /ul (Negative); Nitrite-Dipstick Negative (Negative); Occult Blood-Urine Negative /ul (Negative); Protein-Dipstick 15 mg/dl (Negative); Specific Gravity, Urine 1.025 (1.002-1.030); Urine Bilirubin Dipstick Negative (Negative); Urine Clarity Clear (Clear); Urine Urobilinogen Normal (Normal)
--- NOTE | 2019-11-21 08:59 | ED.DCSUM_ITS ---
- ER Visit Summary Date of Service: 11/21/19 Chief Complaint: [Dysuria] History of Present Illness: The patient is a 69 F [presents the emergency department complaint of dysuria that started early this morning. Patient states that she is currently being treated for UTI and is on Keflex. Patient states that she had a urinary tract infection last August as well as in October of last year and then was diagnosed with November 16 of this year. Patient had prior treatment with Bactrim and Macrobid. Patient describes some mild frequency and some mild discomfort in her back. She denies any hematuria. She denies any fevers. Patient denies any vaginal discharge or signs of yeast infection. Patient is a type II diabetic.] Physical Examination: [HEENT-PERRLA, EOMI. Cranial nerves II through XII grossly intact. TMs clear. Mucous membranes moist. No adenopathy. Cardiovascular-regular rate and rhythm without murmur or ectopy Lungs-clear to auscultation, chest wall stable without crepitus or subcu emphysema Abdomen-normoactive bowel sounds, soft, nontender, no rebound or rigidity, no peritoneal signs. Extremities-intact ?4, normal range of motion, normal pulses, atraumatic] Test Results: [Urinalysis essentially was normal she had 25 leukocyte esterase and no white blood cells negative for nitrites and no bacteria seen.] Emergency Department Course and Treatment: [Urine culture was sent.] Treatment Plan: [Patient advised to push fluids. 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 Disposition: [Discharged home in stable condition.] Impression: [Dysuria-etiology uncertain] This note was generated with [employer] dictation software. It may contain incorrect words, spelling, and punctuation that were not noted in review of the chart prior to signing ED Disposition - Plan for ED Patient: Referrals: Rosalva Fung DO [Primary Care Provider] -
--- NOTE | 2019-11-21 09:02 | ED.DEP ---
ED Disposition - Plan for ED Patient: Instructions: Dysuria Referrals: Rosalva Fung DO [Primary Care Provider] - 3-5 Days Jose Blake MD [STAFF PHYSICIAN] - 3-5 Days
[2019-11-21 09:07] VITALS: BP 131/74; PULSE 62; RESP 15; O2SAT 98
== END 2019-11-21 09:08 | disposition home or self-care (01) ==
LOC: ED 07:56
PROVIDERS: Emergency Provider Emergency Medicine; Family Provider Internal Medicine; PCP Internal Medicine
DX: R30.0 Dysuria (principal); R35.0 Frequency of micturition; E11.9 Type 2 diabetes mellitus without complications
CPT/HCPCS: 81001; 87077; 87086; 87088; 87186; 99282

== ENCOUNTER → 2019-12-07 12:00 | Outpatient (CLI) | payer MEDICARE, OTHER, SELFPAY ==
[2019-11-21 07:37] VITALS: BMI 24.0
--- NOTE | 2019-12-07 12:04 | US_ITS ---
STUDY: RENAL ULTRASOUND - COMPLETE REASON FOR EXAM: Female, 69 years old. RECURRING UTI TECHNIQUE: Ultrasound evaluation of the kidneys was performed with real-time and static butcher-scale imaging. COMPARISON: None. FINDINGS: RIGHT KIDNEY: Normal location of the right kidney, which is normal in size. The right kidney measures 10.9 x 5.2 x 3.9 cm. There is a normal cortex of the right kidney. The renal cortex measures 1. cm. There is no right renal mass or cyst. There are no right renal calculi. There is no right hydronephrosis. DISTAL RIGHT URETER: There is non-visualization of the distal right ureter. There is no demonstrated right ureterovesical junction calculus. There is a visualized right ureteral jet. LEFT KIDNEY: Normal location of the left kidney, which is normal in size. The left kidney measures 10.2 x 4.7 x 4.4 cm. There is a normal cortex of the left kidney. The renal cortex measures 10.1 cm. There is no left renal mass or cyst. There are no left renal calculi. There is no left hydronephrosis. DISTAL LEFT URETER: There is non-visualization of the distal left ureter. There is no demonstrated left ureterovesical junction calculus. There is a visualized left ureteral jet. BLADDER: The distended urinary bladder has a volume of 136.6 ml. The empty urinary bladder has a volume of 7.9 ml. There is a normal wall thickness of the distended urinary bladder. There is no demonstrated mass within the urinary bladder. There are no demonstrated bladder calculi. US/Kidney and Bladder IMPRESSION: Normal ultrasound of the kidneys and urinary bladder. Electronically Signed: Gissell Mchugh MD at 0:49 EST Tel , Service support ,
== END ==
PROVIDERS: PCP Internal Medicine; Referring Provider Urology; Visit Provider Urology
DX: N39.0 Urinary tract infection, site not specified (principal)
CPT/HCPCS: 76770

== ENCOUNTER → 2019-12-24 08:08 | Outpatient (CLI) | payer MEDICARE, OTHER, SELFPAY ==
[2019-12-24 08:14] LABS: Bacteria 0 SEEN /hpf (None Seen); Mucous, Urine 0 SEEN /hpf (<or=2+); White Blood Cells 0 SEEN /hpf (0-5)
[2019-12-24 10:10] LABS: Color, Urine Yellow (Yellow); Glucose, Dipstick Normal (Normal); Ketone-Dipstick Negative (Negative); Leukocyte Esterase-Dipstick Negative /ul (Negative); Nitrite-Dipstick Negative (Negative); Occult Blood-Urine 25 /ul (Negative); Protein-Dipstick Negative (Negative); Specific Gravity, Urine 1.015 (1.002-1.030); Urine Bilirubin Dipstick Negative (Negative); Urine Clarity Clear (Clear); Urine Urobilinogen Normal (Normal); Urine pH 6.5 (5.0 - 8.0)
[2019-12-24 10:14] LABS: Erythrocyte Sedimentation Rate 16 mm/hr (0-30)
[2019-12-24 10:16] LABS: Absolute Lymphocyte Count 1.68 X10^3/uL (0.83-4.51); Absolute Neutrophil Count 3.2 X10^3/uL (2.0-7.7); Basophil# 0.03 X10^3/uL; Basophil% 0.6 % (0-1); Eosinophil# 0.06 X10^3/uL; Eosinophils% 1.1 % (0-5); Hematocrit 41.6 % (37-47); Hemoglobin 13.6 g/dL (12.0-15.0); Lymphocyte # 1.68 X10^3/ul (4.0); Lymphocyte % 31.6 % (19-41); Mean Corp Hgb Conc 32.7 g/dL (32-36); Mean Corpuscular Hgb 29.9 pg (27.0-32.0); Mean Corpuscular Volume 91.4 fL (81-99); Mean Platelet Vol. 10.4 fl (6.2-12.0); Monocyte# 0.33 X10^3/uL; Monocyte% 6.2 % (0-10); NRBC Flagged by Analyzer 0 % (0-5); Neutrophil % 60.3 % (47-70); Platelet Count 163 K/mm3 (150-450); RBC Distribution Width CV 13.4 % (11.6-14.6); RBC Distribution Width SD 44.7 fl (35.1-43.9); Red Blood Count 4.55 M/mm3 (4.2-5.4); White Blood Count 5.3 K/mm3 (4.4-11.0)
[2019-12-24 10:25] LABS: Red Blood Cells-Urine 0-5 SEEN /hpf (0-5); Squamous Epithelial Cells - UA 0-5 SEEN /hpf (5-10)
[2019-12-24 10:26] LABS: ALB/GLOB Ratio 1.1 RATIO (0.9-2.4); AST(SGOT) 18 U/L (15-37); Alanine Aminotransfer ALT/SGPT 23 U/L (13-56); Albumin, Serum 3.5 g/dL (3.2-5.0); Alkaline Phosphatase 63 U/L (45-117); Anion Gap 2 (5-15); BUN 16 mg/dL (7-18); BUN/Creat Ratio 23.4 RATIO (10-20); CRP 3.01 mg/L (0.0-3.0); Chloride 104 mmol/L (98-107); Cholesterol 247 mg/dL (200); Creatinine, Serum 0.68 mg/dL (0.55-1.02); EST Glomerular Filtration Rate 91 mL/min (>60); Est Glom Filt Rate - Afr Amer 110 mL/min (>60); Globulin 3.3 g/dL (2.2-4.2); Glucose 95 mg/dL (74-106); High Density Lipoprotein 78 mg/dL; Protein, Total 6.8 g/dL (6.4-8.2); Sodium Level 137 mmol/L (136-145); Thyroid Stim Hormone (TSH) 2.48 uIU/mL (0.358-3.74); Triglycerides 65 mg/dL; Very Low Density Lipoprotein 13 mg/dL (5-40)
[2019-12-24 10:37] LABS: Microalbumin,Random Urine 18.7 mg/L (NO RANGE EST.); Microalbumin:Creatinine Ratio 11.3 mg/g CRE (<30 mg/g CRE)
== END ==
PROVIDERS: PCP Internal Medicine; Referring Provider Internal Medicine; Visit Provider Internal Medicine
DX: E78.00 Pure hypercholesterolemia, unspecified (principal); R51 Headache; E11.9 Type 2 diabetes mellitus without complications
CPT/HCPCS: 36415; 80053; 80061; 81001; 82043; 82570; 84443; 85025; 85652; 86140

== ENCOUNTER → 2020-03-24 10:20 | Outpatient (CLI) | payer MEDICARE, OTHER, SELFPAY ==
[2020-03-24 13:37] LABS: Absolute Lymphocyte Count 1.99 X10^3/uL (0.83-4.51); Absolute Neutrophil Count 4.4 X10^3/uL (2.0-7.7); Basophil# 0.02 X10^3/uL; Basophil% 0.3 % (0-1); Eosinophil# 0.02 X10^3/uL; Eosinophils% 0.3 % (0-5); Hematocrit 41.6 % (37-47); Hemoglobin 13.7 g/dL (12.0-15.0); Lymphocyte # 1.99 X10^3/ul (4.0); Lymphocyte % 29.1 % (19-41); Mean Corp Hgb Conc 32.9 g/dL (32-36); Mean Corpuscular Hgb 29.8 pg (27.0-32.0); Mean Corpuscular Volume 90.6 fL (81-99); Mean Platelet Vol. 10.8 fl (6.2-12.0); Monocyte# 0.44 X10^3/uL; Monocyte% 6.4 % (0-10); NRBC Flagged by Analyzer 0 % (0-5); Neutrophil # 4.37 X10^3/uL (2.7-7.7); Neutrophil % 63.8 % (47-70); Platelet Count 170 K/mm3 (150-450); RBC Distribution Width CV 13.2 % (11.6-14.6); RBC Distribution Width SD 42.8 fl (35.1-43.9); Red Blood Count 4.59 M/mm3 (4.2-5.4); White Blood Count 6.9 K/mm3 (4.4-11.0)
[2020-03-24 13:47] LABS: AST(SGOT) 17 U/L (15-37); Alanine Aminotransfer ALT/SGPT 22 U/L (13-56); Albumin, Serum 3.5 g/dL (3.2-5.0); Alkaline Phosphatase 69 U/L (45-117); Anion Gap 7 (5-15); BUN 22 mg/dL (7-18); BUN/Creat Ratio 27.7 RATIO (10-20); Bilirubin, Direct 0.25 mg/dL (0.00-0.30); Calcium,Total 9.3 mg/dL (8.5-10.1); Chloride 98 mmol/L (98-107); Creatinine, Serum 0.79 mg/dL (0.55-1.02); EST Glomerular Filtration Rate 77 mL/min (>60); Est Glom Filt Rate - Afr Amer 93 mL/min (>60); Globulin 3.4 g/dL (2.2-4.2); Glucose 96 mg/dL (74-106); Potassium 4.4 mmol/L (3.5-5.1); Protein, Total 6.9 g/dL (6.4-8.2); Sodium Level 136 mmol/L (136-145)
[2020-03-27 03:06] LABS: QNTFERON TB Mitogen Value > 10.00 IU/mL (.); QNTFERON TB Nil Value 0.11 IU/mL (.); QNTFERON TB1+ Ag Value 0.07 IU/mL (.); QNTFERON TB2+ Ag Value 0.12 IU/mL (.)
[2020-03-27 09:34] LABS: QNTIFERON TB Positive Criteria Negative (Negative)
== END ==
PROVIDERS: PCP Internal Medicine; Referring Provider Dermatology; Visit Provider Dermatology
DX: R03.0 Elevated blood-pressure reading, without diagnosis of hypertension (principal); L40.0 Psoriasis vulgaris; Z79.899 Other long term (current) drug therapy
CPT/HCPCS: 36415; 80048; 80076; 85025; 86480

== ENCOUNTER → 2020-07-05 08:16 | Outpatient (CLI) | payer MEDICARE, OTHER, SELFPAY ==
[2020-07-05 08:41] LABS: Mucous, Urine 0 SEEN /hpf (<or=2+); Red Blood Cells-Urine 0 SEEN /hpf (0-5)
[2020-07-05 10:28] LABS: Absolute Lymphocyte Count 1.37 X10^3/uL (0.83-4.51); Absolute Neutrophil Count 3.3 X10^3/uL (2.0-7.7); Basophil# 0.02 X10^3/uL; Basophil% 0.4 % (0-1); Eosinophil# 0.05 X10^3/uL; Hematocrit 40.3 % (37-47); Hemoglobin 13.7 g/dL (12.0-15.0); Lymphocyte # 1.37 X10^3/ul (4.0); Lymphocyte % 27.2 % (19-41); Mean Corpuscular Hgb 31.1 pg (27.0-32.0); Mean Corpuscular Volume 91.6 fL (81-99); Monocyte# 0.31 X10^3/uL; Monocyte% 6.2 % (0-10); NRBC Flagged by Analyzer 0 % (0-5); Neutrophil # 3.26 X10^3/uL (2.7-7.7); Neutrophil % 64.8 % (47-70); Platelet Count 141 K/mm3 (150-450); RBC Distribution Width SD 42.8 fl (35.1-43.9)
[2020-07-05 10:42] LABS: Color, Urine Yellow (Yellow); Glucose, Dipstick Normal (Normal); Ketone-Dipstick Negative (Negative); Leukocyte Esterase-Dipstick 25 /ul (Negative); Nitrite-Dipstick Negative (Negative); Occult Blood-Urine 10 /ul (Negative); Protein-Dipstick Negative (Negative); Specific Gravity, Urine 1.015 (1.002-1.030); Urine Bilirubin Dipstick Negative (Negative); Urine Clarity Clear (Clear); Urine Urobilinogen Normal (Normal); Urine pH 6.5 (5.0 - 8.0)
[2020-07-05 10:53] LABS: AST(SGOT) 15 U/L (15-37); Alanine Aminotransfer ALT/SGPT 19 U/L (13-56); Albumin, Serum 3.6 g/dL (3.2-5.0); Alkaline Phosphatase 69 U/L (45-117); Anion Gap 3 (5-15); BUN 14 mg/dL (7-18); BUN/Creat Ratio 21.1 RATIO (10-20); Calcium,Total 8.9 mg/dL (8.5-10.1); Chloride 103 mmol/L (98-107); Cholesterol 236 mg/dL (200); Creatinine, Serum 0.66 mg/dL (0.55-1.02); EST Glomerular Filtration Rate 94 mL/min (>60); Est Glom Filt Rate - Afr Amer 114 mL/min (>60); Globulin 3.5 g/dL (2.2-4.2); Glucose 93 mg/dL (74-106); High Density Lipoprotein 70 mg/dL; Potassium 4.3 mmol/L (3.5-5.1); Protein, Total 7.1 g/dL (6.4-8.2); Sodium Level 138 mmol/L (136-145); Thyroid Stim Hormone (TSH) 2.02 uIU/mL (0.358-3.74); Triglycerides 74 mg/dL; Very Low Density Lipoprotein 15 mg/dL (5-40)
[2020-07-05 10:56] LABS: Microalbumin,Random Urine 19.1 mg/L (NO RANGE EST.); Microalbumin:Creatinine Ratio 11.8 mg/g CRE (<30 mg/g CRE)
[2020-07-05 14:53] LABS: Bacteria 1+ /hpf (None Seen); Renal Epithelial Cells 0-5 SEEN /hpf (0-5); Squamous Epithelial Cells - UA 0-5 SEEN /hpf (5-10); White Blood Cells 0-5 SEEN /hpf (0-5)
== END ==
PROVIDERS: PCP Internal Medicine; Referring Provider Internal Medicine; Visit Provider Internal Medicine
DX: E11.9 Type 2 diabetes mellitus without complications (principal); E78.00 Pure hypercholesterolemia, unspecified
CPT/HCPCS: 36415; 80053; 80061; 81001; 82043; 82570; 84443; 85025

== ENCOUNTER → 2020-09-08 12:11 | Outpatient (CLI) | payer MEDICARE, OTHER, SELFPAY ==
--- NOTE | 2020-09-08 12:11 | BI_ITS ---
MAMMOGRAPHY - BILATERAL SCREENING REASON FOR EXAM: Female, 70 years old. Routine annual screening examination. PERTINENT HISTORY: Aunt with breast cancer. TECHNIQUE: Digital bilateral breast twin (3D mammographic acquisition) in the CC and MLO projections. 2-D mediolateral oblique (MLO) and craniocaudad (CC) views of both breasts were obtained. CAD: Full Field Digital Mammography with Computer Added Detection was performed. COMPARISON: Comparison is made with prior study date 09/04/2019 and 08/07/2018. FINDINGS: Breast Composition: There are scattered areas of fibroglandular density. There are no dominant masses or suspicious calcifications. Stable small benign appearing bilateral axillary lymph nodes. No other significant abnormalities are identified. There has been no significant change since the prior study. BI/SCREEN MAMM (CAD) W/TWIN BILAT IMPRESSION: Stable bilateral screening mammogram. Yearly follow-up mammogram recommended. (A) ASSESSMENT CATEGORY: BIRADS Category 2: Benign. A letter regarding these results will be sent to the patient by the facility within 30 days. Approximately 10% of breast cancers are not detected by mammography. A normal mammogram should not delay biopsy of a clinically suspicious abnormality. [id number] Electronically Signed: Kodak Mccarty, at 14:09 EDT , Service support ,
--- NOTE | 2020-09-08 12:25 | BD_ITS ---
STUDY: DUAL ENERGY X-RAY ABSORPTIOMETRY / DXA REASON FOR EXAM: Female, 70 years old. Age of alicia 50. Pat is 148.3# and 64.5 and quot; a loss of 1 and quot; per pat. Type II diabetic and takes Metformin. Takes a multi-vit. Sister has osteo. Hx of a wrist fx.. TECHNIQUE: Bone Mineral Density (BMD) measurements of lumbar spine and bilateral hips were obtained. COMPARISON: Comparison is made with prior examination dated 05/27/2002. FINDINGS: Lumbar Spine (L1-L4): g/cm2 (0.980) / T-score (-1.7) / Z-score (0.0) Findings are suggestive of osteopenia with a moderate fracture risk. Left Femur Total: g/cm2 (0.759) / T-score (-2.0) / Z-score (-0.6) Left Femoral Neck: g/cm2 (0.701) / T-score (-2.4) / Z-score (-0.8) Right Femur Total: g/cm2 (0.805) / T-score (-1.6) / Z-score (-0.2) Right Femoral Neck: g/cm2 (0.775) / T-score (-1.9) / Z-score (-0.3) The T-Scores on the most recent prior examination were: Lumbar Spine (L1-L4): There has been worsening of bone density since the previous examination. Left Femur Total: which represents a worsening of 20.8%. BD/Dexa Bone Density Study IMPRESSION: The patient is considered osteopenic as outlined below according to World Peter Organization (WHO) criteria with a high fracture risk. There has been worsening of bone density since the previous examination. Reference Information: The T-score is the number of standard deviations above or below the standard which is normal for young adults at their peak bone mineral density. The World Health Organization (WHO) interprets the T-scores as follows: Above -1 Normal bone density Between -1 and -2.5 Osteopenia Equal to / or below -2.5 Osteoporosis As a practical clinical guideline, osteopenia may be graded as follows: Mild -1 through -1.5 Moderate -1.6 through -2.0 Severe -2.1 through -2.4 The Z-score is the number of standard deviations above or below age-matched controls. A Z-score of less than -1.5 would be considered abnormal. References: 1. NIH Osteoporosis and Related Bone Diseases www osteo.org 2. International Society for Clinical Densitometry www iscd.org 3. National Osteoporosis Foundation www nof.org Electronically Signed: Kodak Mccarty, at 13:20 EDT , Service support ,
== END ==
PROVIDERS: PCP Internal Medicine; Referring Provider Obstetrics & Gynecology; Visit Provider Obstetrics & Gynecology
DX: Z12.31 Encounter for screening mammogram for malignant neoplasm of breast (principal); Z92.89 Personal history of other medical treatment; Z80.3 Family history of malignant neoplasm of breast; M85.80 Other specified disorders of bone density and structure, unspecified site; E11.9 Type 2 diabetes mellitus without complications; M81.0 Age-related osteoporosis without current pathological fracture
CPT/HCPCS: 77063; 77067; 77080

== ENCOUNTER 2021-01-12 17:38 | Outpatient (RCR) | payer MEDICARE, OTHER, SELFPAY ==
[2020-11-24 15:27] VITALS: BMI 25.2
[2021-01-12] MEDS: COVID-19 VACC, MRNA(PFIZER)/PF 30 MCG/0.3 ML SYRINGE IM (14:10)
[2021-02-02] MEDS: COVID-19 VACC, MRNA(PFIZER)/PF 30 MCG/0.3 ML SYRINGE IM (13:36)
== END 2021-04-18 23:59 ==
LOC: IMMUN 17:38
PROVIDERS: PCP Internal Medicine; Referring Provider Family Medicine; Visit Provider Family Medicine
DX: Z23 Encounter for immunization (principal)
CPT/HCPCS: 0001A; 0002A; 91300

== ENCOUNTER → 2021-09-25 15:23 | Outpatient (CLI) | payer MEDICARE, OTHER, SELFPAY ==
--- NOTE | 2021-09-25 15:27 | BI_ITS ---
MAMMOGRAPHY - BILATERAL SCREENING REASON FOR EXAM: Female, 71 years old. Routine annual screening examination. PERTINENT HISTORY: Aunt with breast cancer. TECHNIQUE: Digital bilateral breast twin (3D mammographic acquisition) in the CC and MLO projections. 2-D mediolateral oblique (MLO) and craniocaudad (CC) views of both breasts were obtained. CAD: Full Field Digital Mammography with Computer Added Detection was performed. COMPARISON: Comparison is made with prior study 09/08/2020 and 09/04/2019. FINDINGS: Breast Composition: There are scattered areas of fibroglandular density. There are no dominant masses or suspicious calcifications. Stable benign-appearing bilateral axillary lymph nodes. No other significant abnormalities are identified. There has been no significant change since the prior study. BI/SCRN MAMM (CAD)W/TWIN BILAT IMPRESSION: Stable bilateral screening mammogram. Yearly follow-up mammogram recommended. (A) ASSESSMENT CATEGORY: BIRADS Category 2: Benign. A letter regarding these results will be sent to the patient by the facility within 30 days. Approximately 10% of breast cancers are not detected by mammography. A normal mammogram should not delay biopsy of a clinically suspicious abnormality. [id number] Electronically Signed: Kodak Mccarty MD at 8:52 EST , Service support ,
== END ==
PROVIDERS: PCP Internal Medicine; Referring Provider Obstetrics & Gynecology; Visit Provider Obstetrics & Gynecology
DX: Z12.31 Encounter for screening mammogram for malignant neoplasm of breast (principal)
CPT/HCPCS: 77063; 77067

== ENCOUNTER → 2022-07-04 | Outpatient (CLI) | payer MEDICARE, OTHER, SELFPAY ==
[2022-07-04 17:56] LABS: Absolute Lymphocyte Count 1.38 X10^3/uL (0.83-4.51); Absolute Neutrophil Count 3.1 X10^3/uL (2.0-7.7); Basophil# 0.01 X10^3/uL; Basophil% 0.2 % (0-1); Eosinophil# 0.06 X10^3/uL; Eosinophils% 1.2 % (0-5); Hematocrit 38.4 % (37-47); Hemoglobin 12.5 g/dL (12.0-15.0); Lymphocyte # 1.38 X10^3/ul (0.83-4.51); Lymphocyte % 27.8 % (19-41); Mean Corp Hgb Conc 32.6 g/dL (32-36); Mean Corpuscular Hgb 28.9 pg (27.0-32.0); Mean Corpuscular Volume 88.7 fL (81-99); Mean Platelet Vol. 10.6 fl (6.2-12.0); Monocyte# 0.38 X10^3/uL; Monocyte% 7.6 % (0-10); NRBC Flagged by Analyzer 0 % (0-5); Neutrophil # 3.13 X10^3/uL (2.7-7.7); Platelet Count 124 K/mm3 (150-450); RBC Distribution Width CV 13.5 % (11.6-14.6); Red Blood Count 4.33 M/mm3 (4.2-5.4)
[2022-07-04 18:33] LABS: AST(SGOT) 17 U/L (15-37); Alanine Aminotransfer ALT/SGPT 23 U/L (13-56); Albumin, Serum 3.6 g/dL (3.2-5.0); Alkaline Phosphatase 76 U/L (45-117); Bilirubin, Direct 0.18 mg/dL (0.00-0.30); Globulin 3.5 g/dL (2.2-4.2); Protein, Total 7.1 g/dL (6.4-8.2)
[2022-07-07 20:07] LABS: QNTFERON TB Mitogen Value > 10.00 IU/mL (.); QNTFERON TB Nil Value 0.41 IU/mL (.); QNTFERON TB1+ Ag Value 0.24 IU/mL (.); QNTFERON TB2+ Ag Value 0.34 IU/mL (.)
[2022-07-08 08:56] LABS: QNTIFERON TB Positive Criteria Negative (Negative)
== END | disposition home or self-care (01) ==
PROVIDERS: PCP Internal Medicine; Referring Provider Dermatology; Visit Provider Dermatology
DX: L40.0 Psoriasis vulgaris (principal); L28.0 Lichen simplex chronicus; Z79.899 Other long term (current) drug therapy
CPT/HCPCS: 36415; 80076; 85025; 86480

== ENCOUNTER → 2022-09-26 | Outpatient (CLI) | payer MEDICARE, OTHER, SELFPAY ==
--- NOTE | 2022-09-26 10:01 | BI_ITS ---
MAMMOGRAPHY - BILATERAL SCREENING REASON FOR EXAM: Female, 72 years old. Routine annual screening examination. PERTINENT HISTORY: Aunt with breast cancer. TECHNIQUE: Digital bilateral breast twin (3D mammographic acquisition) in the CC and MLO projections. 2-D mediolateral oblique (MLO) and craniocaudad (CC) views of both breasts were obtained. CAD: Full Field Digital Mammography with Computer Added Detection was performed. COMPARISON: Comparison is made with prior study dated 09/25/2021 and 09/08/2020. FINDINGS: Breast Composition: There are scattered areas of fibroglandular density. There are no dominant masses or suspicious calcifications. Stable small benign-appearing bilateral axillary lymph nodes. No other significant abnormalities are identified. There has been no significant change since the prior study. BI/SCRN MAMM (CAD)W/TWIN BILAT IMPRESSION: Stable bilateral screening mammogram. Yearly follow-up mammogram recommended. (A) ASSESSMENT CATEGORY: BIRADS Category 2: Benign. A letter regarding these results will be sent to the patient by the facility within 30 days. Approximately 10% of breast cancers are not detected by mammography. A normal mammogram should not delay biopsy of a clinically suspicious abnormality. [id number] Electronically Signed: Kodak Mccarty MD at 10:46 EST ,
--- NOTE | 2022-09-26 10:07 | BD_ITS ---
STUDY: DUAL ENERGY X-RAY ABSORPTIOMETRY / DXA REASON FOR EXAM: Female, 72 years old. [id number] TECHNIQUE: Bone Mineral Density (BMD) measurements of lumbar spine and bilateral hips were obtained. COMPARISON: Comparison is made with prior study 09/08/2020. FINDINGS: Lumbar Spine (L1-L4): g/cm2 (0.829) / T-score (-2.0) / Z-score (0.2) Findings are suggestive of osteopenia with a moderate fracture risk. Left Femur Total: g/cm2 (0.746) / T-score (-1.6) / Z-score (-0.1) Left Femoral Neck: g/cm2 (0.528) / T-score (-2.9) / Z-score (-1.1) Right Femur Total: g/cm2 (0.764) / T-score (-1.5) / Z-score (0.1) Right Femoral Neck: g/cm2 (0.562) / T-score (-2.6) / Z-score (-0.8) The T-Scores on the most recent prior examination were: Lumbar Spine (L1-L4): There has been worsening of bone density since the previous examination. Left Femur Total: which represents an improvement of 6.6%. Right Femur Total: which represents an improvement of 2.7%. BD/Dexa Bone Density Study IMPRESSION: The patient is considered osteoporotic as outlined below according to World Peter Organization (WHO) criteria with a high fracture risk. There has been improvement of bone density since the previous examination. Reference Information: The T-score is the number of standard deviations above or below the standard which is normal for young adults at their peak bone mineral density. The World Health Organization (WHO) interprets the T-scores as follows: Above -1 Normal bone density Between -1 and -2.5 Osteopenia Equal to / or below -2.5 Osteoporosis As a practical clinical guideline, osteopenia may be graded as follows: Mild -1 through -1.5 Moderate -1.6 through -2.0 Severe -2.1 through -2.4 The Z-score is the number of standard deviations above or below age-matched controls. A Z-score of less than -1.5 would be considered abnormal. References: 1. NIH Osteoporosis and Related Bone Diseases www osteo.org 2. International Society for Clinical Densitometry www iscd.org 3. National Osteoporosis Foundation www nof.org Electronically Signed: Kodak Mccarty MD at 10:46 EST ,
== END | disposition home or self-care (01) ==
LOC: OPBD 10:00
PROVIDERS: PCP Internal Medicine; Visit Provider Internal Medicine
DX: Z12.31 Encounter for screening mammogram for malignant neoplasm of breast (principal); Z80.3 Family history of malignant neoplasm of breast; Z78.0 Asymptomatic menopausal state
CPT/HCPCS: 77063; 77067; 77080

== ENCOUNTER → 2022-11-19 | Outpatient (CLI) | payer MEDICARE, OTHER, SELFPAY ==
[2022-11-19 15:19] LABS: Absolute Lymphocyte Count 1.64 X10^3/uL (0.83-4.51); Basophil# 0.02 X10^3/uL; Basophil% 0.4 % (0-1); Eosinophil# 0.05 X10^3/uL; Hematocrit 34.4 % (37-47); Hemoglobin 11.5 g/dL (12.0-15.0); Lymphocyte # 1.64 X10^3/ul (0.83-4.51); Lymphocyte % 32.5 % (19-41); Mean Corp Hgb Conc 33.4 g/dL (32-36); Mean Corpuscular Hgb 29.8 pg (27.0-32.0); Mean Corpuscular Volume 89.1 fL (81-99); Mean Platelet Vol. 10.8 fl (6.2-12.0); Monocyte# 0.33 X10^3/uL; Monocyte% 6.5 % (0-10); NRBC Flagged by Analyzer 0 % (0-5); Neutrophil # 2.99 X10^3/uL (2.7-7.7); Neutrophil % 59.4 % (47-70); Platelet Count 154 K/mm3 (150-450); RBC Distribution Width CV 13.8 % (11.6-14.6); RBC Distribution Width SD 44.7 fl (35.1-43.9); Red Blood Count 3.86 M/mm3 (4.2-5.4)
[2022-11-19 15:51] LABS: Microalbumin:Creatinine Ratio 13.5 mg/g CRE (<30 mg/g CRE)
[2022-11-19 16:06] LABS: ALB/GLOB Ratio 1.4 RATIO (0.9-2.4); AST(SGOT) 21 U/L (15-37); Alanine Aminotransfer ALT/SGPT 32 U/L (13-56); Albumin, Serum 3.6 g/dL (3.2-5.0); Alkaline Phosphatase 67 U/L (45-117); Anion Gap 9 (5-15); BUN 14 mg/dL (7-18); BUN/Creat Ratio 19.9 RATIO (10-20); Calcium,Total 8.9 mg/dL (8.5-10.1); Chloride 100 mmol/L (98-107); Cholesterol 174 mg/dL (200); EST Glomerular Filtration Rate 87 mL/min (>60); Est Glom Filt Rate - Afr Amer 106 mL/min (>60); Globulin 2.6 g/dL (2.2-4.2); Glucose 91 mg/dL (74-106); High Density Lipoprotein 83 mg/dL; Potassium 4.2 mmol/L (3.5-5.1); Protein, Total 6.2 g/dL (6.4-8.2); Sodium Level 137 mmol/L (136-145); Triglycerides 59 mg/dL; Very Low Density Lipoprotein 12 mg/dL (5-40); Vitamin D,25 Hydroxy 40.3 ng/mL
[2022-11-20 09:01] LABS: Vitamin B12 1167 pg/mL (211-911)
[2022-11-20 09:41] LABS: Ferritin 13 ng/mL (8-252); Iron 59 ug/dL (50-170); Iron Binding Capacity,Total 159 ug/dL (250-450); PERCENT IRON SATURATION 37.1 % (15.0-55.0)
[2022-11-21 16:09] LABS: PROEL- A/G Ratio 1.5 (0.7-1.7); PROEL- Albumin 3.7 g/dL (2.9-4.4); PROEL- Alpha-1 Globulin 0.2 g/dL (0.0-0.4); PROEL- Alpha-2 Globulin 0.6 g/dL (0.4-1.0); PROEL- Beta Globulin 0.8 g/dL (0.7-1.3); PROEL- Gamma Globulin 0.7 g/dL (0.4-1.8); PROEL- Globulin, Total 2.4 g/dL (2.2-3.9); PROEL- TOTAL PROTEIN 6.1 g/dL (6.0-8.5)
== END | disposition home or self-care (01) ==
PROVIDERS: PCP Internal Medicine; Referring Provider Internal Medicine; Visit Provider Internal Medicine
DX: R80.9 Proteinuria, unspecified (principal); E11.9 Type 2 diabetes mellitus without complications; E55.9 Vitamin D deficiency, unspecified; D50.9 Iron deficiency anemia, unspecified
CPT/HCPCS: 36415; 80053; 80061; 82043; 82306; 82570; 82607; 82728; 82746; 83540; 83550; 84165; 85025

== ENCOUNTER → 2023-03-28 | Outpatient (CLI) | payer MEDICARE, OTHER, SELFPAY ==
[2023-03-28 10:51] LABS: Cholesterol 293 mg/dL (200); High Density Lipoprotein 81 mg/dL; Triglycerides 119 mg/dL; Very Low Density Lipoprotein 24 mg/dL (5-40)
== END | disposition home or self-care (01) ==
LOC: LAB 08:56
PROVIDERS: PCP Internal Medicine; Referring Provider Internal Medicine; Visit Provider Internal Medicine
DX: E78.00 Pure hypercholesterolemia, unspecified (principal)
CPT/HCPCS: 36415; 80061

== ENCOUNTER → 2023-06-10 | Outpatient (CLI) | payer MEDICARE, OTHER, SELFPAY ==
[2023-06-10 12:30] LABS: Absolute Neutrophil Count 2.7 X10^3/uL (2.0-7.7); Basophil# 0.02 X10^3/uL; Basophil% 0.4 % (0-1); Eosinophil# 0.05 X10^3/uL; Hematocrit 40.5 % (37-47); Lymphocyte % 35.6 % (19-41); Mean Corp Hgb Conc 32.1 g/dL (32-36); Mean Corpuscular Hgb 29.6 pg (27.0-32.0); Mean Corpuscular Volume 92.3 fL (81-99); Mean Platelet Vol. 11.3 fl (6.2-12.0); Monocyte# 0.31 X10^3/uL; Monocyte% 6.5 % (0-10); NRBC Flagged by Analyzer 0 % (0-5); Neutrophil # 2.68 X10^3/uL (2.7-7.7); Neutrophil % 56.3 % (47-70); Platelet Count 119 K/mm3 (150-450); RBC Distribution Width CV 13.1 % (11.6-14.6); RBC Distribution Width SD 44.7 fl (35.1-43.9); Red Blood Count 4.39 M/mm3 (4.2-5.4); White Blood Count 4.8 K/mm3 (4.4-11.0)
[2023-06-10 14:35] LABS: AST(SGOT) 19 U/L (15-37); Alanine Aminotransfer ALT/SGPT 21 U/L (13-56); Albumin, Serum 3.6 g/dL (3.2-5.0); Alkaline Phosphatase 74 U/L (45-117); Bilirubin, Direct 0.17 mg/dL (0.00-0.30); Globulin 3.2 g/dL (2.2-4.2); Protein, Total 6.8 g/dL (6.4-8.2)
[2023-06-12 12:08] LABS: QNTFERON TB Mitogen Value > 10.00 IU/mL (.); QNTFERON TB Nil Value 1.31 IU/mL (.); QNTFERON TB1+ Ag Value 0.77 IU/mL (.); QNTFERON TB2+ Ag Value 0.79 IU/mL (.); QNTIFERON TB Positive Criteria Negative (Negative)
== END | disposition home or self-care (01) ==
LOC: MTLAB 10:59
PROVIDERS: PCP Internal Medicine; Referring Provider Dermatology; Visit Provider Dermatology
DX: L40.0 Psoriasis vulgaris (principal); L28.0 Lichen simplex chronicus; Z79.899 Other long term (current) drug therapy; L29.8 Other pruritus
CPT/HCPCS: 36415; 80076; 85025; 86480

== ENCOUNTER → 2023-10-09 | Outpatient (CLI) | payer MEDICARE, OTHER, SELFPAY ==
--- NOTE | 2023-10-09 13:21 | BI_ITS ---
MAMMOGRAPHY - BILATERAL SCREENING REASON FOR EXAM: Female, 73 years old. Routine annual screening examination. PERTINENT HISTORY: Aunt with breast cancer. TECHNIQUE: Digital bilateral breast twin (3D mammographic acquisition) in the CC and MLO projections. 2-D mediolateral oblique (MLO) and craniocaudad (CC) views of both breasts were obtained. CAD: Full Field Digital Mammography with Computer Added Detection was performed. COMPARISON: Comparison is made with prior study dated September 26, 2022 and September 25, 2021. FINDINGS: Breast Composition: There are scattered areas of fibroglandular density. There are no dominant masses or suspicious calcifications. Stable small benign-appearing bilateral axillary lymph nodes. No other significant abnormalities are identified. There has been no significant change since the prior study. BI/SCRN MAMM (CAD)W/TWIN BILAT IMPRESSION: Stable bilateral screening mammogram. Yearly follow-up mammogram recommended. (A) ASSESSMENT CATEGORY: BIRADS Category 2: Benign. A letter regarding these results will be sent to the patient by the facility within 30 days. Approximately 10% of breast cancers are not detected by mammography. A normal mammogram should not delay biopsy of a clinically suspicious abnormality. [id number] Electronically Signed: Kodak Mccarty MD at 10:37 EST ,
== END | disposition home or self-care (01) ==
LOC: OPBI 13:20
PROVIDERS: PCP Internal Medicine; Referring Provider Internal Medicine; Visit Provider Internal Medicine
DX: Z12.31 Encounter for screening mammogram for malignant neoplasm of breast (principal); Z80.3 Family history of malignant neoplasm of breast
CPT/HCPCS: 77063; 77067

== ENCOUNTER → 2024-02-11 | Outpatient (CLI) | payer MEDICARE, OTHER, SELFPAY ==
--- NOTE | 2024-02-11 09:11 | US_ITS ---
INDICATION: enlarged aorta EXAMINATION: Ultrasound US Abdominal Aorta (retroperitoneal limited) TECHNIQUE: Sexton scale and color doppler imaging was obtained of the abdominal aorta. COMPARISON: March 28, 2023. FINDINGS: Patent aorta with scattered atherosclerosis. No evidence of focal flow-limiting stenosis. Proximal aorta 2.7 x 2.3 cm, mid aorta 2.1 x 2.5 cm, distal aorta 2.1 x 2.8 cm. The iliac arteries are not enlarged. Patent IVC. US/Aorta IMPRESSION: Aortic atherosclerosis with mild ectasia of the mid to distal aorta, stable to decreased in caliber from Mar 28 2023. Electronically Signed: Lex Vega MD at 18:04 EDT ,
== END | disposition home or self-care (01) ==
LOC: US 09:10
PROVIDERS: PCP Internal Medicine; Referring Provider Internal Medicine; Visit Provider Internal Medicine
DX: I77.89 Other specified disorders of arteries and arterioles (principal)
CPT/HCPCS: 76775

== ENCOUNTER 2024-05-29 06:55 | Day surgery (SDC) | payer MEDICARE, OTHER, SELFPAY ==
[2024-05-28 08:21] VITALS: BMI 26.0
[2024-05-29 07:08] LABS: Absolute Lymphocyte Count 1.56 X10^3/uL (0.83-4.51); Absolute Neutrophil Count 2.1 X10^3/uL (2.0-7.7); Basophil# 0.02 X10^3/uL; Basophil% 0.5 % (0-1); Eosinophils% 2.4 % (0-5); Hematocrit 38.2 % (37-47); Hemoglobin 12.6 g/dL (12.0-15.0); Lymphocyte # 1.56 X10^3/ul (0.83-4.51); Mean Corpuscular Hgb 29.2 pg (27.0-32.0); Mean Corpuscular Volume 88.6 fL (81-99); Mean Platelet Vol. 10.1 fl (6.2-12.0); Monocyte# 0.37 X10^3/uL; NRBC Flagged by Analyzer 0 % (0-5); Neutrophil # 2.06 X10^3/uL (2.7-7.7); Neutrophil % 50.1 % (47-70); Platelet Count 147 K/mm3 (150-450); RBC Distribution Width CV 13.3 % (11.6-14.6); RBC Distribution Width SD 43.4 fl (35.1-43.9); Red Blood Count 4.31 M/mm3 (4.2-5.4); White Blood Count 4.1 K/mm3 (4.4-11.0)
[2024-05-29 07:23] LABS: Anion Gap 6 (5-15); BUN 15 mg/dL (7-18); Calcium,Total 8.9 mg/dL (8.5-10.1); Chloride 103 mmol/L (98-107); Creatinine, Serum 0.79 mg/dL (0.55-1.02); EST Glomerular Filtration Rate 76 mL/min (>60); Est Glom Filt Rate - Afr Amer 92 mL/min (>60); Estimated Creatinine Clearance 60.97 ml/min; Glucose 96 mg/dL (74-106); Potassium 3.8 mmol/L (3.5-5.1); Sodium Level 140 mmol/L (136-145)
--- NOTE | 2024-05-29 08:50 | CL.D_ITS ---
Patient Name: PATRICIA MCARTHUR Study Date: 05/29/2024 Performing: Sav Georges MD Ht: 64.5 inches 163.83 cm : 1950 Wt: 153.99 lbs 69.85 kg Age: 74 Gender: female BSA: 1.76 PROCEDURE(S) PERFORMED DC01-([id number])LHC/COR/LV CLINICAL PROFILE AND INDICATIONS Indications: Suspected CAD Heart Failure: None Stress/Imaging Coronary Calcium Score: Yes Calcium Score: 700Calcium Score: 700Stress/Image Study Performed: No CAD Presentations: No Sxs, no angina. CONCLUSIONS Normal LV size, wall motion,and systolic function Subtotal small OM branch. RECOMMENDATIONS Medical therapy DESCRIPTION OF PROCEDURE The patient arrived to the procedure lab. The risks and benefits of the procedure as well as a full description of our services here and current unavailability of surgical backup were fully explained to the patient and/or their significant other prior to the catheterization. The Timeout was completed, verifying the correct patient and procedure. The patient's procedural site was prepped and draped in the usual fashion. Local anesthetic was given subcutaneously to right radial region with Lidocaine 2%. Using a modified Seldinger technique, arterial access was obtained via the right femoral artery, a 6Fr sheath was inserted. Left Coronary Artery selective angiography was performed in multiple views using a 5 Fr. 4.0 [place] catheter. Right Coronary Artery selective angiography was then performed in multiple views using a 5 Fr. 4.0 [place] catheter. Left Ventriculography was performed in BARCLAY projection using a 5 Fr. Pigtail catheter. LV to AO pullback pressures were then recorded.The arterial sheath was pulled and a TR Band was applied for hemostasis CORONARY ANGIOGRAPHY DOMINANCE: Right Dominant LEFT HEART ASSESSMENT Left Ventricular Ejection Fraction: by LV Gram 60 % Normal LV wall motion Normal Left Ventricular systolic function LEFT MAIN: Mild calcification, Mild luminal irregularities LEFT ANTERIOR DESCENDING ARTERY: [place] vessel with no significant stenosis present CIRCUMFLEX ARTERY: Mild luminal irregularities less than 30% OM 1: Proximal - Subtotally occluded RIGHT CORONARY ARTERY: Proximal irregular 40% stenosis noted. COMPLICATIONS No Complications PROCEDURE MEDICATIONS Fentanyl 50 mcg IV Versed 1 mg IV Versed 1 mg IV Oxygen: 2 L/min via nasal cannula Heparin given IA 05/29/2024 08:21:56 Verapamil 2.5mg, Ntg 100mcgs, 3000 units of Heparin given IA 05/29/2024 08:21:56 SUMMARY OF HEMODYNAMIC DATA Time AIR REST ECG 07:23:57 ECG 08:01:41 AO 117/57 (82) SA 08:23:47 LV 112/0, 5 08:30:57 LV 116/1, 6 08:31:06 LV 102/0, 7 08:31:47 LVp 111/-1, 7 08:31:55 AOp 116/51 (79) 08:32:02 08:45:10 Signed By Sav Georges MD On 05/29/2024 08:49:20 Sav Georges MD
== END 2024-05-29 10:05 | disposition home or self-care (01) ==
PROVIDERS: PCP Internal Medicine; Referring Provider Internal Medicine Cardiovascular Disease; Visit Provider Internal Medicine Cardiovascular Disease
DX: R93.1 Abnormal findings on diagnostic imaging of heart and coronary circulation (principal); E11.9 Type 2 diabetes mellitus without complications; E78.00 Pure hypercholesterolemia, unspecified; I70.0 Atherosclerosis of aorta; H81.13 Benign paroxysmal vertigo, bilateral; I07.1 Rheumatic tricuspid insufficiency; I65.23 Occlusion and stenosis of bilateral carotid arteries; I77.89 Other specified disorders of arteries and arterioles
CPT/HCPCS: 36415; 80048; 85025; 93458; 99152; 99153; J7040; Q9967; C1769; C1894

== ENCOUNTER → 2024-06-10 | Outpatient (CLI) | payer MEDICARE, OTHER, SELFPAY ==
[2024-06-10 15:24] LABS: Absolute Lymphocyte Count 1.44 X10^3/uL (0.83-4.51); Absolute Neutrophil Count 2.9 X10^3/uL (2.0-7.7); Basophil# 0.03 X10^3/uL; Basophil% 0.6 % (0-1); Eosinophil# 0.03 X10^3/uL; Eosinophils% 0.6 % (0-5); Hematocrit 40.1 % (37-47); Lymphocyte # 1.44 X10^3/ul (0.83-4.51); Lymphocyte % 30.3 % (19-41); Mean Corp Hgb Conc 32.4 g/dL (32-36); Mean Corpuscular Volume 89.5 fL (81-99); Mean Platelet Vol. 10.6 fl (6.2-12.0); Monocyte# 0.32 X10^3/uL; Monocyte% 6.7 % (0-10); NRBC Flagged by Analyzer 0 % (0-5); Neutrophil # 2.92 X10^3/uL (2.7-7.7); Neutrophil % 61.6 % (47-70); Platelet Count 152 K/mm3 (150-450); RBC Distribution Width CV 13.4 % (11.6-14.6); RBC Distribution Width SD 43.9 fl (35.1-43.9); Red Blood Count 4.48 M/mm3 (4.2-5.4); White Blood Count 4.8 K/mm3 (4.4-11.0)
[2024-06-10 15:39] LABS: AST(SGOT) 25 U/L (15-37); Alanine Aminotransfer ALT/SGPT 18 U/L (13-56); Albumin, Serum 3.7 g/dL (3.2-5.0); Alkaline Phosphatase 70 U/L (45-117); Bilirubin, Direct 0.24 mg/dL (0.00-0.30); Globulin 3.3 g/dL (2.2-4.2)
[2024-06-12 21:07] LABS: QNTFERON TB Mitogen Value > 10.00 IU/mL (.); QNTFERON TB Nil Value 0.16 IU/mL (.); QNTFERON TB1+ Ag Value 0.16 IU/mL (.); QNTFERON TB2+ Ag Value 0.23 IU/mL (.); QNTIFERON TB Positive Criteria Negative (Negative)
== END | disposition home or self-care (01) ==
LOC: MTLAB 10:58
PROVIDERS: PCP Internal Medicine; Referring Provider Dermatology; Visit Provider Dermatology
DX: L40.0 Psoriasis vulgaris (principal); L28.0 Lichen simplex chronicus; Z79.899 Other long term (current) drug therapy; L57.8 Other skin changes due to chronic exposure to nonionizing radiation; Z08 Encounter for follow-up examination after completed treatment for malignant neoplasm; Z85.828 Personal history of other malignant neoplasm of skin; D22.5 Melanocytic nevi of trunk; L82.1 Other seborrheic keratosis; Z71.89 Other specified counseling
CPT/HCPCS: 36415; 80076; 85025; 86480

== ENCOUNTER → 2024-12-17 | Outpatient (CLI) | payer MEDICARE, OTHER, SELFPAY ==
--- NOTE | 2024-12-17 09:01 | BI_ITS ---
PROCEDURE: SCRN MAMM (CAD)W/TWIN BILAT REASON FOR EXAM: F, Age 74 y/o, presents for annual screening mammogram. Family history of breast cancer in a paternal aunt at age 42. TECHNIQUE: Bilateral screening digital breast tomosynthesis with 2D and 3D images. Computer aided detection. COMPARISON: 10/09/2023, 09/26/2022 FINDINGS: There are scattered areas of fibroglandular density. No suspicious masses, areas of developing architectural distortion, or suspicious calcifications. BI/SCRN MAMM (CAD)W/TWIN BILAT IMPRESSION: There is no mammographic evidence of malignancy in either breast. BI-RADS 1: NEGATIVE. RECOMMEND ANNUAL MAMMOGRAPHIC SCREENING. Follow-up code: Routine Follow-up The patient will be notified of the results by letter. Reading Location: [facility]
== END | disposition home or self-care (01) ==
LOC: OPBI 08:59
PROVIDERS: PCP Internal Medicine; Referring Provider Internal Medicine; Visit Provider Internal Medicine
DX: Z12.31 Encounter for screening mammogram for malignant neoplasm of breast (principal)
CPT/HCPCS: 77063; 77067

== ENCOUNTER 2025-01-11 09:00 | Outpatient (RCR) | payer MEDICARE, OTHER, SELFPAY ==
--- NOTE | 2024-12-24 10:56 | HP.PTEVAL ---
Patient's Visit Information Visit Information Visit Information: PATRICIA MCARTHUR is a 74 year old F referred to Physical Therapy by Dr. Frank Brown DPM with a diagnosis of R foot pain. 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 Pt notes she finally went to her doctor and he gave her a night splint and some stretches that are helping some. Pt reports she her pain is located on the arch of her R foot. Pt notes she has power step and custom made orthotics that she wears in her shoes. Pt reports her foot hurts the most when she is reclining in her chair or in bed for a while. Pt notes her pain is the least when she is wearing her night splint. Pt reports she has had xrays which revealed heel spurs on her R foot. Pt reports she is limited with cleaning at home secondary to her R foot pain. Pt reports she has stairs at home that she is able to negotiate without difficulty. 2/10 pain at rest, 10/10 pain at worst. Pt reports occasional sleep difficulty at night secondary to pain. Pain R foot pain: Pain Intensity (Out of 10): 2 Pain Intensity Range: 10 Objective Objective: Neuro: B LE sensation is WNL to light touch. palpation: Pt is not painful with palpation this date. No obvious deformity noted at this time. ROM: L ankle DF= 0, PF= 65; R ankle DF= 0, PF= 65 degrees MMT: L ankle DF= 22, PF= 33; R ankle DF= 27, PF= 33 #F Balance/Special Test Scores Lower Extremity Functional Score: 40 Goals Goal 1:: Pt will be I with HEP after 3 visits Goal Time Frame: 1 Week Rehabilitation Potential Physical Therapy Diagnosis: Pt has R foot pain and sleep difficulty at this time Rehabilitation Potential: Good Anticipated Interventions Patient/Client Instruction: Educate patient on: Condition and Plan of Care For the Purpose of:: To improve self management Therapeutic Exercise to Include: Flexibilty training and Active ROM For the Purpose of:: To decrease pain, To increase ROM and To increase tolerance to activity/condition/position Manual Therapy Techniques to Include: Mobilization, Passive ROM and Soft tissue mobilization For the Purpose of:: To decrease pain and To increase ROM Text: Thank you for the opportunity to evaluate your patient. For Medicare and Medicare HMO plans, please review the plan of care and approve it. It will need to be FAXED BACK to us at [phone] for Medicare purposes. For Medicare only, by signing this I certify the plan of care. Please let me know if there are questions or concerns regarding this plan of care. Physician Signature: Date:
--- NOTE | 2025-04-06 15:55 | HP.PT.NRP ---
Patient Information Patient Information: PATRICIA MCARTHUR was seen in my office for initial evaluation on 12/24/24. The following Plan of Care was established for this patient: POC Established Initial Frequency: 2x /Week Initial Duration: 1 Week Anticipated Interventions Patient/Client Instruction: Educate patient on: Condition and Plan of Care For the Purpose of:: To improve self management Therapeutic Exercise to Include: Flexibilty training and Active ROM For the Purpose of:: To decrease pain, To increase ROM and To increase tolerance to activity/condition/position Manual Therapy Techniques to Include: Mobilization, Passive ROM and Soft tissue mobilization For the Purpose of:: To decrease pain and To increase ROM Last Seen Last Seen: This patient was last seen in our office . Pertinent comments regarding their Physical therapy will appear below: Pt has not returned to [facility] is greater than 30 days and is discharged at this time. At this point I will be discontinuing this patient from physical therapy. I would be happy to see this patient again in the future if found appropriate by the physician. Thank you! Karel Melendez, PT, ATC Balance/Gait/Functional tests Balance/Special Test Scores Lower Extremity Functional Score: 40
== END 2025-01-11 19:00 | disposition home or self-care (01) ==
LOC: PT 09:00
PROVIDERS: PCP Internal Medicine; Visit Provider Podiatrist
DX: M72.2 Plantar fascial fibromatosis (principal); M19.071 Primary osteoarthritis, right ankle and foot
CPT/HCPCS: 97140; 97161

== ENCOUNTER → 2025-02-12 | Outpatient (CLI) | payer MEDICARE, OTHER, SELFPAY ==
--- NOTE | 2025-02-12 08:46 | ECHOCS_ITS ---
Reason For Study : Murmur Procedure This was a 2D Doppler, Color Flow transthoracic echocardiogram. Myocardial strain analysis was performed in this exam to aid in the assessment of cardiac function. Contrast injection was performed. Exam performed in department. Left Ventricle Normal left ventricle. The global longitudinal strain = -19.1 % (normal). The left ventricular ejection fraction is 65 %. Stage 1 diastolic dysfunction. No regional wall motion abnormalities noted. Right Ventricle Normal RV size. Normal systolic function. Atria Normal left atrium. Normal right atrium. Cannot rule out tiny PFO. Hypermobile atrial septum. Aneurysmal atrial septum. Mitral Valve Normal mitral valve. Tricuspid Valve Normal tricuspid valve. Mild (1+) tricuspid valve insufficiency. Pulmonary artery systolic pressure is 38 mmHg. Aortic Valve Trisinus/trileaflet aortic valve. Mild focal aortic valve calcification. Pulmonic Valve Normal pulmonic valve. Great Vessels Normal aortic root. The pulmonary artery is normal size. Inferior vena cava collapse with respiration. Pericardium/Pleural No pericardial effusion. Medication 22 gauge I.V. with prn adaptor inserted into left arm. Diluted definity 1ml given slow IV push to enhance endocardial definition. Performed a rapid injection of agitated mix of 9 cc saline and 1cc air to assess for atrial septal defect. MMode/2D Measurements & Calculations LVIDd: 3.7 cm IVSd: 1.3 cm LVOT diam: 2.1 cm LVIDs: 2.6 cm LVPWd: 1.1 cm RVDd: 3.6 cm FS: 29.1 % LVOT area: 3.5 cm2 Ao root diam: 3.4 cm LAV(MOD-bp): 38.6 ml LVAd ap4: 29.4 cm2 LAV(MOD-bp) Indexed: 21.6 ml/m2 LVLd ap4: 7.6 cm LAV(MOD-sp2): 42.3 ml EDV(MOD-sp4): 90.0 ml LAV(MOD-sp4): 32.0 ml EDV(sp4-el): 96.3 ml LVAs ap4: 15.2 cm2 LVLs ap4: 5.9 cm ESV(MOD-sp4): 31.0 ml ESV(sp4-el): 33.4 ml EF(MOD-sp4): 65.5 % EF(sp4-el): 65.3 % SV(MOD-sp4): 58.9 ml SV(sp4-el): 62.9 ml LA A4 area: 13.8 cm2 SI(MOD-sp4): 32.9 ml/m2 LA dimension(2D): 3.3 cm RA A4 area: 14.9 cm2 TAPSE: 2.4 cm Time Measurements MV dec time: 0.29 sec Doppler Measurements & Calculations MV E max will: 66.9 cm/sec Lat Peak E' Will: 8.8 cm/sec Med Peak E' Will: 8.8 cm/sec MV A max will: 77.1 cm/sec E/E' lat: 7.6 E/E' med: 7.6 MV E/A: 0.87 MV V2 max: 97.1 cm/sec MV P1/2t max will: 87.4 cm/sec Ao V2 max: 145.5 cm/sec MV max P.8 mmHg MV P1/2t: 107.5 msec Ao max P.5 mmHg MV V2 mean: 53.7 cm/sec MV dec slope: 238.0 cm/sec2 Ao V2 mean: 108.6 cm/sec MV mean P.4 mmHg MVA(P1/2t): 2.0 cm2 Ao mean P.3 mmHg MV V2 VTI: 28.2 cm Ao V2 VTI: 35.3 cm MVA(VTI): 4.0 cm2 AV (velocity ratio): 0.93 WILY(I,D): 3.2 cm2 WILY(V,D): 3.1 cm2 LV V1 max: 128.3 cm/sec SV(LVOT): 113.9 ml PA V2 max: 115.0 cm/sec LV V1 max P.6 mmHg LV V1 mean P.0 mmHg LV V1 mean: 93.9 cm/sec LV V1 VTI: 32.8 cm TR max will: 290.6 cm/sec TR max P.8 mmHg ECHO/Echo Complete W/ Contrast Interpretation Summary Normal left ventricle. The global longitudinal strain = -19.1 % (normal). The left ventricular ejection fraction is 65 %. Aneurysmal atrial septum. Cannot rule out tiny PFO. Hypermobile atrial septum. Stage 1 diastolic dysfunction. Ordering Physician: Danica Blackwood Referring Physician: Danica Blackwood Performed By: Maikol Jhaveri RCS
== END | disposition home or self-care (01) ==
LOC: CVS 08:43
PROVIDERS: PCP Internal Medicine; Referring Provider Physician Assistant Medical; Visit Provider Physician Assistant Medical
DX: R01.1 Cardiac murmur, unspecified (principal)
CPT/HCPCS: 93306; Q9957; A4216; C8929

== ENCOUNTER → 2025-04-07 | Outpatient (CLI) | payer MEDICARE, OTHER, SELFPAY ==
--- NOTE | 2025-04-07 10:29 | BD_ITS ---
PROCEDURE: DEXA BONE DENSITY STUDY 04/07/2025 REASON FOR EXAM: F, age 75 y/o . Postmenopausal. TECHNIQUE: DXA scan of sites with data reported below. [facility]KS[facility] COMPARISON: Prior study dated September 26, 2022. FINDINGS: BMD and T-SCORES Lumbar spine: 0.806 g/cm2, T-score -2.2 Levels: L1 through L4 Change from prior: Loss of 2.8%. Left femoral neck: 0.524 g/cm2, T-score -2.9 Femoral neck comparison data not recommended for monitoring change. Left total hip: 0.747 g/cm2, T-score -1.6 Change from prior: No change.. Right femoral neck: 0.597 g/cm2, T-score -2.3 Right total hip: 0.73 g/cm2, T-score -1.3 Change from prior: Improvement of 2.5%. The World Health Organization has defined the following categories based on bone density: Normal bone density: T-score equal to or greater than -1.0 Osteopenia: T-score between -1.0 and -2.5 Osteoporosis: T-score equal to or less than -2.5 The patient does meet the pharmacological treatment recommendations for prevention of osteoporosis. BD/Dexa Bone Density Study IMPRESSION: OSTEOPOROSIS. Recommend follow-up as clinically warranted. Reading Location: [id number]
== END | disposition home or self-care (01) ==
PROVIDERS: PCP Internal Medicine; Referring Provider Internal Medicine; Visit Provider Internal Medicine
DX: M85.80 Other specified disorders of bone density and structure, unspecified site (principal); Z78.0 Asymptomatic menopausal state
CPT/HCPCS: 77080

== ENCOUNTER → 2025-08-19 | Outpatient (CLI) | payer MEDICARE, OTHER, SELFPAY ==
--- NOTE | 2025-08-19 12:40 | VDLE_ITS ---
Reason For Study Reason For Study: Left leg pain RIGHT LEFT CFV is compressible, spontaneous, phasic, competent GSV is normal. and demonstrates normal augmentation. CFV is compressible, spontaneous, phasic, competent, Procedure and demonstrates normal augmentation. This is a venous duplex using B-mode, color flow and FV is compressible, spontaneous, phasic, competent spectral Doppler. and demonstrates normal augmentation. Exam performed in department. POP V is compressible, spontaneous, phasic, competent A preliminary report was called and/or faxed to and demonstrates normal augmentation. [place]. T/P Trunk is compressible. PTV is compressible. LT PerV is compressible. Nonvascularized structure noted in the left popliteal fossa that measures 0.89 x 2.36 x 4.35 cm. VL/Venous Duplex US, Unilateral Interpretation Summary Deep veins of the left lower extremity are patent and compressible segmentally. There is no evidence of left lower extremity deep vein thrombosis. Valvular competence appears intact within the p roximal deep venous system on the left . The left great saphenous vein appears patent and compressible segmentally. A no n-vascular, hypoechoic structure is noted in the left popliteal space, measuring 0.89 cm x 2.36 cm x 4.35 cm. This probab ly represents a popliteal cyst. Clinical correlation is advised. The right common femoral vein is patent and compressibl e . Ordering Physician: Rosalva Fung Referring Physician: Rosalva Fung Performed By: Elodia Lancaster RVT
== END | disposition home or self-care (01) ==
LOC: CVS 12:35
PROVIDERS: PCP Internal Medicine; Referring Provider Internal Medicine; Visit Provider Internal Medicine
DX: M79.662 Pain in left lower leg (principal)
CPT/HCPCS: 93971

== ENCOUNTER 2025-10-15 10:30 | Outpatient (RCR) | payer MEDICARE, OTHER, SELFPAY ==
--- NOTE | 2025-09-27 09:37 | HP.PTEVAL_ITS ---
Patient's Visit Information Visit Information Visit Information: PATRICIA MCARTHUR is a 75 year old F referred to Physical Therapy by VANDANA Aly with a diagnosis of OA L knee. Date of Evaluation: 09/27/25 Physical Therapist: Cheko Starks, DPT, OCS, CSCS Visit Plan Frequency: 3x /Week Duration: 4-6 Weeks Plan: 3x/week for 3-4 weeks. IE HEP LAQ, compression sleeve benefits adn course of therapy options. Treat with gym based LE ex progression back to her normal workout including glut ham and hip abd. also complement with hip stabs on mat table and core on mat table working to I. Not eexpeecting pain to return, notify EG if it does(back on meds vs other options) Subjective Subjective: On a trip and could not bend or straighten L knee all of a sudden. May have tweaked it holding a tote one time and twisted adn fell down and it hurt. that was 2 weeks prior to her trip and that was in July. it didn't hurt that much but limped as she could not move it. Has Bakers cyst bhind knee. Taking ibuprofen for a 2 weks. Now has pain anterior L knee and down vasquez. Went to [facility] and thought that she has OA in knee, maybe bursitis. Gave me eloxicam adn volatarin and they helped and not using either of them right now. it does still hurt at night. Improving at night also. Overall helped 90%. No pain lately. Activities at home are clsoe to n ormal, steps are hesitant. Only has them down to basement. Basic aLDs all I without problems, Has to be careful with walking. Hobbies: Doing shoppig without a problem. Not exercised since July. Did machines and stretching. Pain L kne: Pain Intensity (Out of 10): 0 Pain Intensity Range: 0 and 2 Comment: not uch lately. Objective Objective: Walks today without antalgia into adn out of PT. Trasnfeers chair without antalgia, hesitant on l but normal pattern. Steps reeciprocal with one rail up and down adn no pain , weaker on L, more hesitant. Full aROM B knees symmetrically 0-135. Some minor quad tightness and HS tightness B. strength hip abd and ext 3, flexion 3+ with core weakness. knee strength 4- B flexiona dn ext, no pain, ankles 4/5 B. palpable cyst posteerior L lateral knee minimal. c/o "pain "with stretching in quads and HS B reflexes 13 B patella dna chilles Sensation LE WNL to gross light touch. - ant drawer, - post sag, - bounce home, - pivot shift, - varus and valgus all B. - patellar grin B. No unusual tendernss in patella or joint line, slightly tender over postrior cyst. good balance with gait. Balance/Special Test Scores Lower Extremity Functional Score: 31 Goals Goal 1:: sleep one week without knee interruption Goal Time Frame: 2-4 Weeks Goal 2:: I appropriate machine and mat based hip adn core strength and LE strength without pain Goal Time Frame: 4-6 Weeks Goal 3:: Pt feel 100% back to normal mobility with pain 0/10 Goal Time Frame: 4-6 Weeks Goal 4:: LEFS score 50 Goal Time Frame: 4-6 Weeks Rehabilitation Potential Physical Therapy Diagnosis: Pain and weakness L LE limiting fucniton comfortably at times and causing worry of furtheer injury. Rehabilitation Potential: Good Anticipated Interventions Patient/Client Instruction: Educate patient on: Condition and Plan of Care For the Purpose of:: To decrease pain, To increase ROM, To improve nutrient delivery to tissue, To increase tolerance to activity/condition/position and To improve gait and locomotor functions Therapeutic Exercise to Include: Strength training and Active ROM For the Purpose of:: To decrease pain, To increase ROM, To improve nutrient delivery to tissue, To improve muscle performance and motor function and To increase tolerance to activity/condition/position Text: Thank you for the opportunity to evaluate your patient. For Medicare and Medicare HMO plans, please review the plan of care and approve it. It will need to be FAXED BACK to us at [phone] for Medicare purposes. For Medicare only, by signing this I certify the plan of care. Please let me know if there are questions or concerns regarding this plan of c are. Physician Signature: Date:
--- NOTE | 2025-10-15 10:52 | HP.PTDCSUM ---
Discharge Summary D/C summary: It has been my pleasure to treat PATRICIA MCARTHUR referred by VANDANA Aly, with the diagnosis of OA L knee for a total of 9 visit(s). Discharge Date: 10/15/25 Please see the following information for a summary of their discharge status. Subjective Subjective: Getting better. Fels stornger on L knee and legs. Pain level is much better in L knee. 0/10. Exercises help. Activities: Normal at home. Slower on steps. Sleep is OK. Will continue gyma dn home 3x/week. Pain L kne: Pain Intensity (Out of 10): 0 Overall Improvement % Improvement: 100 Objective Objective/Function: Good gait without antalgia. Walking on toees and marching without issues today. Goals Goal 1:: sleep one week without knee interruption Goal Progress: Goal Met Goal 2:: I appropriate machine and mat based hip adn core strength and LE strength without pain Goal Progress: Goal Met Goal 3:: Pt feel 100% back to normal mobility with pain 0/10 Goal Progress: Goal Met Goal 4:: LEFS score 50 Goal Progress: Goal Met Plan Plan: d/c to gyma dn home ex. D/C Information Discharge Comments: Will continue I herself. d/c sentence: If there are questions or concerns regarding this patient's physical therapy, please feel free to call me at [phone]. Thank you for the referral of this patient. Sincerely, Cheko Starks, DPT, OCS, CSCS Balance/Gait/Functional tests Balance/Special Test Scores Lower Extremity Functional Score: 56 Improvement % Improvement: 100
== END 2025-10-15 15:04 | disposition home or self-care (01) ==
LOC: PT 10:30
PROVIDERS: PCP Internal Medicine; Referring Provider Physician Assistant Surgical; Visit Provider Physician Assistant Surgical
DX: M17.12 Unilateral primary osteoarthritis, left knee (principal); M25.562 Pain in left knee; S83.8X2D Sprain of other specified parts of left knee, subsequent encounter
CPT/HCPCS: 97110; 97161; 97164